=== PATIENT | female | born 1935 | race Caucasian/White ===

== ENCOUNTER 2018-01-08 14:06 | Observation (INO) | payer OTHER ==
[2018-01-08] MEDS ORDERED: ASPIRIN 81 MG CHEWABLE TABLETS PO ONE (14:33)
[2018-01-08] MEDS ORDERED: ASPIRIN 81 MG CHEWABLE TABLETS ONE (14:36)
--- NOTE | 2018-01-08 14:47 | PDOC ---
Attending Attestation - Resident Resident Name: Daniel Vines - ED Attending Attestation I have performed the following: I have examined & evaluated the patient, The case was reviewed & discussed with the resident, I agree w/resident's findings & plan, Exceptions are as noted - HPI HPI: 01/08/18 16:47 82-year-old female with a significant past medical history of hypertension presents to the emergency department with progressive shortness of breath over the last week, especially with exertion. Patient reports she is unable to walk across the room without becoming symptomatic. She also reports left-sided chest pain behind her breast that does not radiate. Patient saw her primary doctor today who checked an EKG and noted some changes that were concerning and sent her to the emergency department for further evaluation. Denies any recent fevers , chills, cough, weakness/numbness, lower extremity edema, travel/immobility. - Physicial Exam PE: 01/08/18 18:49 GENERAL: Awake, alert, and fully oriented, Syriac speaking female, in no acute distress HEAD: No signs of trauma EYES: PERRLA, EOMI, sclera anicteric, conjunctiva clear ENT: Auricles normal inspection, hearing grossly normal, nares patent, oropharynx clear without exudates. Moist mucosa NECK: Normal ROM, supple, no lymphadenopathy, JVD, or masses LUNGS: Breath sounds equal, clear to auscultation bilaterally. No wheezes, and no crackles HEART: Regular rate and rhythm, normal S1 and S2, no murmurs, rubs or gallops ABDOMEN: Soft, nontender, normoactive bowel sounds. No guarding, no rebound. No masses EXTREMITIES: Normal range of motion, no edema. No clubbing or cyanosis. No cords, erythema, or tenderness NEUROLOGICAL: Normal speech, cranial nerves intact, negative pronator drift, 5/ 5 strength in all 4 extremities, normal sensation to light touch in all 4 extremities, normal cerebellar exam, normal gait, normal reflexes and tone SKIN: Warm, Dry, normal turgor, no rashes or lesions noted. - Medical Decision Making 01/08/18 18:49 82-year-old female presents with progressive dyspnea and chest pain. EKG with some ST changes, does not meet STEMI criteria. Patient has risk factors including family history and hypertension, will admit for ACS workup, patient may need a echo and cardiac catheter for further evaluation of her chest pain.
[2018-01-08 15:11] LABS: BASO % 0.3 % (0-2.0); EOS % 1.5 % (0-4.5); HEMATOCRIT 36.9 % (32.4-45.2); HEMOGLOBIN 12.4 GM/dL (10.7-15.3); LYMPH % 19.3 % (8-40); MCH 33.9 pg (25.7-33.7); MCHC 33.7 g/dl (32.0-36.0); MEAN CELL VOLUME 100.5 fl (80-96); MEAN PLT VOLUME 8.7 fl (7.5-11.1); MONO % 5.4 % (3.8-10.2); NEUT % 73.5 % (42.8-82.8); PLATELET COUNT 232 K/MM3 (134-434); RBC 3.67 M/mm3 (3.60-5.2); RDW 14.6 % (11.6-15.6)
[2018-01-08 15:34] LABS: INR 1.01 (0.82-1.09); PROTHROMBIN TIME (PATIENT) 11.4 SEC (9.98-11.88)
[2018-01-08 15:39] LABS: ALBUMIN 3.9 g/dl (3.4-5.0); ANION GAP 11 (8-16); BILIRUBIN,TOTAL 0.5 mg/dL (0.2-1.0); BLOOD UREA NITROGEN 17 mg/dL (7-18); CALCIUM 9.3 mg/dL (8.5-10.1); CHLORIDE 104 mmol/L (98-107); CO2 29 mmol/L (21-32); CREATININE 0.8 mg/dL (0.55-1.02); GLUCOSE,RANDOM 111 mg/dL (74-106); MAGNESIUM 2.4 mg/dL (1.8-2.4); POTASSIUM 3.7 mmol/L (3.5-5.1); SGOT/AST 20 U/L (15-37); SGPT/ALT 18 U/L (12-78); SODIUM 144 mmol/L (136-145); TOT PROT 7.7 g/dl (6.4-8.2)
[2018-01-08 15:42] LABS: ALK PHOS 102 U/L (45-117); N-TERMINAL BNP 811.15 pg/ml (5-450)
--- NOTE | 2018-01-08 15:57 | PDOC ---
History of Present Illness - General Chief Complaint: Shortness of Breath Stated Complaint: PCP SENT Time Seen by Provider: 01/08/18 14:24 History Source: Patient - History of Present Illness Initial Comments: 01/08/18 15:43 Patient is an 82F with history of HTN here today complaining of shortness of breath worsening from her baseline shortness of breath today. She also complains of associated chest pain that worsens with exertion, does not improve with rest. She describes the chest pain as chronic, but states that it's worse today. Endorses chills, denies fevers, nausea, vomiting. Denies history of blood clots, leg swelling. She complains of multiple other chronic pain complaints in her shoulder and chest. Patient was sent in by her PCP with concerning EKGs. Past History - Past Medical History Allergies/Adverse Reactions: Allergies Allergy/AdvReac Type Severity Reaction Status Date / Time No Known Allergies Allergy Verified 01/08/18 14:11 Home Medications: Ambulatory Orders Olmesartan Medoxomil [Benicar] 20 mg PO DAILY 01/08/18 - Suicide/Smoking/Psychosocial Hx Smoking History: Never smoked Review of Systems - Review of Systems Comments:: 01/08/18 15:57 GENERAL/CONSTITUTIONAL: No fever. No weakness. Positive for chills. HEAD, EYES, EARS, NOSE AND THROAT: No change in vision. No sore throat. CARDIOVASCULAR: Positive for chest pain and shortness of breath RESPIRATORY: No cough, wheezing, or hemoptysis. GASTROINTESTINAL: No nausea, vomiting, diarrhea or constipation. GENITOURINARY: No dysuria, frequency, or change in urination. MUSCULOSKELETAL: Positive for back and shoulder pain. SKIN: No rash NEUROLOGIC: No headache, vertigo, loss of consciousness, or change in strength/ sensation. ENDOCRINE: No increased thirst. No abnormal weight change HEMATOLOGIC/LYMPHATIC: No anemia, easy bleeding, or history of blood clots. ALLERGIC/IMMUNOLOGIC: No hives or skin allergy. *Physical Exam - Vital Signs Last Vital Signs Temp Pulse Resp BP Pulse Ox 98 F 95 H 22 187/51 97 01/08/18 14:11 01/08/18 14:11 01/08/18 14:11 01/08/18 14:11 01/08/18 14:11 - Physical Exam Comments: 01/08/18 16:01 GENERAL: Awake, alert, and fully oriented HEAD: No signs of trauma, normocephalic, atraumatic EYES: PERRLA, EOMI, sclera anicteric, conjunctiva clear ENT: Auricles normal inspection, hearing grossly normal, nares patent, oropharynx clear without exudates. Moist mucosa NECK: Normal ROM, supple, no lymphadenopathy, JVD, or masses CHEST: Tender to palpation along left pectoralis. LUNGS: tachypneic, speaks full sentences, clear to auscultation bilaterally HEART: Regular rate and rhythm, normal S1 and S2, no murmurs, rubs or gallops, peripheral pulses normal and equal bilaterally. ABDOMEN: Soft, nontender, normoactive bowel sounds. No guarding, no rebound. No masses EXTREMITIES: Normal inspection, Normal range of motion, no edema. No clubbing or cyanosis. NEUROLOGICAL: Cranial nerves II through XII grossly intact. Normal speech, normal gait, no focal sensorimotor deficits SKIN: Warm, Dry, normal turgor, no rashes or lesions noted. ED Treatment Course - LABORATORY CBC & Chemistry Diagram: 01/08/18 14:30 01/08/18 14:30 - ADDITIONAL ORDERS Additional order review: 01/08/18 14:30 RBC 3.67 MCV 100.5 H MCHC 33.7 RDW 14.6 MPV 8.7 Neutrophils % 73.5 Lymphocytes % 19.3 Monocytes % 5.4 Eosinophils % 1.5 Basophils % 0.3 - RADIOLOGY Radiology Studies Ordered: Category Date Time Status CHEST CTA [CT] Stat CT Scan 01/08/18 15:16 Ordered CHEST X-RAY PORTABLE* [RAD] Stat Radiology 01/08/18 14:33 Completed - Medications Given in the ED: ED Medications Discontinued Medications Generic Name Dose Route Start Last Admin Trade Name Freq PRN Reason Stop Dose Admin Aspirin 162 mg 01/08/18 14:33 01/08/18 14:35 Asa - PO 01/08/18 14:34 162 mg ONCE ONE Administration Medical Decision Making - Medical Decision Making 01/08/18 16:02 Patient is an 82F with history of HTN here today with shortness of breath. Patient brought in two EKGs: 08/30, year obscured: Normal sinus rhyth with rate of 77bpm. No st elevations/ depressions. Normal QRS width. St inversions in lateral leads. ST depressions in II, aVF. Bundle formation beginning in aVR. Today, as outpatient. EKG shows normal sinus rhythm with rate of 84. Bundle morphology in aVR but larger. ST inversions in V1-V5, II, III, aVF. ST eprssions in II, aVF. RBB morphology, widened QRS Inpatient shows normal sinus rhythm with rate of 89. RBBB morphology. ST depressions in V4-V6. ST inversions in all leads. Normal ND. 01/08/18 21:35 Laboratory Tests 01/08/18 01/08/18 01/08/18 14:30 14:30 14:30 WBC 6.0 Hgb 12.4 Hct 36.9 Plt Count 232 INR 1.01 Troponin I < 0.02 B-Natriuretic Peptide 811.15 H CBC normal. INR normal. Trop undetectable. CMP unremarkable. BNP slightly elevated. CTA negative. Admitted for shortness of breath via Dr Morataya. *DC/Admit/Observation/Transfer Diagnosis at time of Disposition: Shortness of breath - Discharge Dispostion Disposition: HOME Condition at time of disposition: Stable Admit: Yes - Referrals Referrals: Sergio Calvert MD [Primary Care Provider] - - Patient Instructions - Post Discharge Activity
[2018-01-08] MEDS ORDERED: VALSARTAN 160 MG TABLET (UD) PO SCH (21:30)
--- NOTE | 2018-01-08 21:34 | PN ---
Teaching Attending Note Name of Resident: Tran Carrasquillo ATTENDING PHYSICIAN STATEMENT I saw and evaluated the patient. I reviewed the resident's note and discussed the case with the resident. I agree with the resident's findings and plan as documented. SUBJECTIVE: 82 F with hx. of HTN who presents with shortness of breath. States also had chest pain that has been present for over 3 weeks, but has worsened. States she was recently seen in her PCPs office for chest pain and had EKG there that was concerning. States she has pain in her left chest wall, under her breast. Does not note, pain to radiate. No nausea, vomiting, or diarrhea. No fevers or chills. States her shortness of breath has currently improved and denies any current chest pain. OBJECTIVE: Physical: VS: Vital Signs Period Temp Pulse Resp BP Sys/Leger Pulse Ox Last 24 Hr 98 F-98.3 F 74-95 18-22 154-187/51-92 97-98 GEN: NAD, Resting in bed, AA0X3 HEENT: NCAT, PERRL, Throat without erythema or exudates CARD: RRR S1, S2 RESP: CTAB ABD: BSx4, NTD to palpation EXT: - C/C/E CBCD WBC 6.0 K/mm3 (4.0-10.0) 01/08/18 14:30 RBC 3.67 M/mm3 (3.60-5.2) 01/08/18 14:30 Hgb 12.4 GM/dL (10.7-15.3) 01/08/18 14:30 Hct 36.9 % (32.4-45.2) 01/08/18 14:30 MCV 100.5 fl (80-96) H 01/08/18 14:30 MCHC 33.7 g/dl (32.0-36.0) 01/08/18 14:30 RDW 14.6 % (11.6-15.6) 01/08/18 14:30 Plt Count 232 K/MM3 (134-434) 01/08/18 14:30 MPV 8.7 fl (7.5-11.1) 01/08/18 14:30 CMP Sodium 144 mmol/L (136-145) 01/08/18 14:30 Potassium 3.7 mmol/L (3.5-5.1) 01/08/18 14:30 Chloride 104 mmol/L (98-107) 01/08/18 14:30 Carbon Dioxide 29 mmol/L (21-32) 01/08/18 14:30 Anion Gap 11 (8-16) 01/08/18 14:30 BUN 17 mg/dL (7-18) 01/08/18 14:30 Creatinine 0.8 mg/dL (0.55-1.02) 01/08/18 14:30 Creat Clearance w eGFR > 60 (>60) 01/08/18 14:30 Random Glucose 111 mg/dL (74-106) H 01/08/18 14:30 Calcium 9.3 mg/dL (8.5-10.1) 01/08/18 14:30 Total Bilirubin 0.5 mg/dL (0.2-1.0) 01/08/18 14:30 AST 20 U/L (15-37) 01/08/18 14:30 ALT 18 U/L (12-78) 01/08/18 14:30 Alkaline Phosphatase 102 U/L (45-117) 01/08/18 14:30 Total Protein 7.7 g/dl (6.4-8.2) 01/08/18 14:30 Albumin 3.9 g/dl (3.4-5.0) 01/08/18 14:30 CARDIAC ENZYMES Creatine Kinase 85 IU/L (26-192) 01/08/18 14:30 Troponin I < 0.02 ng/ml (0.00-0.05) 01/08/18 14:30 Ambulatory Orders Olmesartan Medoxomil [Benicar] 20 mg PO DAILY 01/08/18 CTA: NO PE or Pneumonia, Distended gallbladder, CBD 12mm, solid nodular opacities in right and left lung base meausring up to 0.8 cm/ Follow up CT chest in 3-6 months. EKG: NSR 89, RBBB, ST depressions V4-V6. QtC 501 ASSESSMENT AND PLAN: 82 F with hx. of HTN who presents with shortness of breath, being admitted for ACS rule out 1.) Shortness of breath - RO ACS, Pulm. htn - Does not look in failure, clincally euvolemic - Trend Trop/EKG - Echo - ASA - BB - If CP reoccurs Nitro/Morphine - Cardio consult, for poss. stress in am 2.) HTN - C/W ARB 3.) Prolonged QtC - Check Mg2+ - Avoid Qt Prolonging agents
[2018-01-08] MEDS ORDERED: VALSARTAN 80 MG TABLET (UD) ONE (21:46)
--- NOTE | 2018-01-08 23:59 | HP ---
CHIEF COMPLAINT: SOB x 1 week PCP: HISTORY OF PRESENT ILLNESS: 82 y/o F with PMH HTN who presents to the ED c/o SOB over the past week. As per , over the past week, pt has noticed dyspnea on exertion when she walks 4 -5 steps. This is different from her baseline, as she is usually able to ambulate a few blocks without trouble. During this time, pt has also had a non productive cough and L chest wall pain, below her breast which is 10/10, sharp, constant and without radiation. Pt saw her PCP recently and had EKG abnormalities, so she was sent to the ED for further evaluation. Denies STEEN, fever, chills, palpitations, chest pressure, or changes in urinary or bowel function. In August, pt's EKG was NSR, with PVC's, PAC's, and ST-T wave changes. Today, pt in NSR with PAC's, RVH, and anterior, septal and lateral ST-T changes possibly due to RVH. Repeat EKG revealed NSR with PVC's, new RBBB, and T wave abnormality and lateral ischemia. She does not follow routinely with a multineedle shirrer. ER course was notable for: (1) EKG revealed NSR with PVC's, new RBBB, and T wave abnormality and lateral ischemia V4-V6 (2) first two trops (-) (3) Aspirin 162mg x 1 Recent Travel: none PAST MEDICAL HISTORY: as above PAST SURGICAL HISTORY: R, L inguinal hernia repair Social History: stayed at home with family; never worked Smoking: denies Alcohol: denies Drugs: denies Family History: non-contributory Allergies No Known Allergies Allergy (Verified 01/08/18 14:11) HOME MEDICATIONS: Home Medications Medication Instructions Recorded Olmesartan Medoxomil [Benicar] 20 mg PO DAILY 01/08/18 REVIEW OF SYSTEMS CONSTITUTIONAL: Absent: fever, chills, diaphoresis, generalized weakness, malaise, loss of appetite, weight change HEENT: Absent: rhinorrhea, nasal congestion, throat pain, throat swelling, difficulty swallowing, mouth swelling, ear pain, eye pain, visual changes CARDIOVASCULAR: +chest pain Absent: chest pain, syncope, palpitations, irregular heart rate, lightheadedness , peripheral edema RESPIRATORY: +cough, SOB, MERRITT Absent: orthopnea, wheezing, stridor, hemoptysis GASTROINTESTINAL: Absent: abdominal distension, nausea, vomiting, diarrhea, constipation, melena, hematochezia GENITOURINARY: Absent: dysuria, frequency, urgency, hesitancy, hematuria, flank pain, genital pain MUSCULOSKELETAL: Absent: myalgia, arthralgia, joint swelling, back pain, neck pain SKIN: Absent: rash, itching, pallor HEMATOLOGIC/IMMUNOLOGIC: Absent: easy bleeding, easy bruising, lymphadenopathy, frequent infections ENDOCRINE: Absent: unexplained weight gain, unexplained weight loss, heat intolerance, cold intolerance NEUROLOGIC: Absent: headache, focal weakness or paresthesias, dizziness, unsteady gait, seizure, mental status changes, bladder or bowel incontinence PSYCHIATRIC: Absent: anxiety, depression, suicidal or homicidal ideation, hallucinations. PHYSICAL EXAMINATION Vital Signs 01/08/18 01/08/18 01/08/18 14:11 17:05 21:08 Temperature 98 F 98.3 F Pulse Rate 95 H Pulse Rate [ 74 86 Apical] Respiratory 22 18 18 Rate Blood Pressure 187/51 Blood Pressure 154/76 160/92 [Left Arm] O2 Sat by Pulse 97 98 98 Oximetry (%) GENERAL: Sitting comfortably. Awake, alert, and fully oriented, in no acute distress. HEAD: Normal with no signs of trauma. EYES: Pupils equal, round and reactive to light, extraocular movements intact, sclera anicteric, conjunctiva clear. EARS, NOSE, THROAT: Ears normal, nares patent, oropharynx clear without exudates. Moist mucous membranes. NECK: Normal range of motion, (-) JVD LUNGS: Breath sounds equal, clear to auscultation bilaterally. No wheezes, and no crackles. No accessory muscle use. CHEST: +TTP L chest HEART: Regular rate and rhythm, normal S1 and S2 without murmur, rub or gallop. ABDOMEN: Soft, nontender, not distended, normoactive bowel sounds, no guarding, no rebound, no masses. No hepatomegaly or splenomegaly. MUSCULOSKELETAL: Normal range of motion at all joints. No bony deformities or tenderness. No CVA tenderness. UPPER EXTREMITIES: 2+ radial pulses, warm, well-perfused. No cyanosis. No clubbing. No peripheral edema. LOWER EXTREMITIES: 2+ posterior tibial pulses, warm, well-perfused. No calf tenderness. No peripheral edema. NEUROLOGICAL: Cranial nerves II-XII intact. Laboratory Results 01/08/18 01/08/18 01/08/18 14:30 14:30 14:30 WBC 6.0 RBC 3.67 Hgb 12.4 Hct 36.9 MCV 100.5 H MCH 33.9 H MCHC 33.7 RDW 14.6 Plt Count 232 MPV 8.7 Neutrophils % 73.5 Lymphocytes % 19.3 Monocytes % 5.4 Eosinophils % 1.5 Basophils % 0.3 PT with INR 11.40 INR 1.01 Sodium 144 Potassium 3.7 Chloride 104 Carbon Dioxide 29 Anion Gap 11 BUN 17 Creatinine 0.8 Creat Clearance w eGFR > 60 Random Glucose 111 H Calcium 9.3 Magnesium 2.4 Total Bilirubin 0.5 AST 20 ALT 18 Alkaline Phosphatase 102 Creatine Kinase 85 Troponin I < 0.02 B-Natriuretic Peptide 811.15 H Total Protein 7.7 Albumin 3.9 01/08/18 21:55 ALT Alkaline Phosphatase Creatine Kinase 68 Troponin I < 0.02 B-Natriuretic Peptide TESTS CTA: no evidence of PE, without infiltrates. With distended gallbladder, dilated CBD 12mm. Solid nodular opacities -pulm nodules in RLL, LLL up to 0.8 cm EKG: NSR 89, RBBB, ST depressions V4-V6. QtC 501 ASSESSMENT/PLAN: 82 y/o F with PMH HTN who presents to the ED c/o SOB over the past week. As per , over the past week, pt has noticed dyspnea on exertion when she walks 4 -5 steps. Pt admitted to tele-obs for SOB r/o ACS, pulmonary HTN. #SOB r/o ACS, pulm HTN -Pt c/o worsening MERRITT over the past week -less likely CHF - though BNP elevated ~800, may be 2/2 older age -Chest pain atypical -Received aspirin 162mg in ED -First two trops (-) -Continue to trend last trop q6h, follow EKG -F/u ECHO -Telemetry monitoring -To start on aspirin 81mg PO qd -Metoprolol tartate 25mg PO qd -Can add morphine/ NG if chest pain recurs -Cardio consult: Dr. Reyes -May need stress test #HTN- currently controlled -Continue benicar 20mg PO qd #Prolonged QTc -EKG in ED: QTc 501ms -Avoid QT prolonging agents -F/u Mg level; pending 6AM #Pulmonary nodules -Seen in RLL, LLL up to 0.8cm -Recommend CT chest f/u in 3-6 months -Outpatient pulm f/u #Distended GB, dilated CBD 12mm -Currently asymptomatic, without c/o abdominal pain -Continue to monitor -If becomes sx, would benefit from RUQ sono #F/E/N -no fluids required at this time -Continue to monitor electrolytes -Sodium controlled diet #PPX DVT: SCD's #Dispo tele-obs Visit type - Emergency Visit Emergency Visit: Yes ED Registration Date: 01/08/18 Care time: The patient presented to the Emergency Department on the above date and was hospitalized for further evaluation of their emergent condition. - New Patient This patient is new to me today: Yes Date on this admission: 01/09/18 - Critical Care Critical Care patient: No Hospitalist Screening - Colonoscopy Questionnaire Colonoscopy Questionnaire: Colonoscopy Questionnaire - Patient: 50 - 75 years old and never had a screening colonoscopy: Unknown History of colon or rectal polyps, or CA: Unknown History of IBD, Crohn's disease or UC: Unknown History of abdominal radiation therapy as a child: Unknown - Relative: 1 with colon or rectal CA, or polyps at age 60 or younger: Unknown Colon or rectal CA diagnosed at age 45 or younger: Unknown Multiple relatives with colon or rectal CA: Unknown - Outcome: Screening Result: Negative Screen
--- NOTE | 2018-01-09 06:30 | PN ---
Physical Exam: SUBJECTIVE: Patient seen and examined - Pt w/ likely baseline dementia; Denies pain; limited hx, no family present at time - Spoke with Dr. Faye in PM; plan for [facility] tomorrow AM if pt/family amenable; if not, will go for stress test and d/c home with outpt f/u OBJECTIVE: Vital Signs Intake & Output 01/06/18 01/07/18 01/08/18 01/09/18 23:59 23:59 23:59 23:59 Weight 45.359 kg Period Temp Pulse Resp BP Sys/Leger Pulse Ox Last 24 Hr 98 F-98.3 F 74-95 18-22 154-187/51-92 97-98 GENERAL: Elderly woman, NAD HEAD: Normal with no signs of trauma. EYES: PERRL, extraocular movements intact, sclera anicteric, conjunctiva clear. No ptosis. ENT: Ears normal, nares patent NECK: Trachea midline, full range of motion, supple. no JVD LUNGS: Trace bibasilar crackles HEART: Regular rate and rhythm, S1, S2 without murmur, rub or gallop. Slight tenderness to palpation in L anterior chest wall ABDOMEN: Soft, nontender, nondistended, normoactive bowel sounds, no guarding, no rebound, no hepatosplenomegaly, no masses. EXTREMITIES: 2+ pulses, warm, well-perfused, no edema. NEUROLOGICAL: Cranial nerves II through XII grossly intact. Nonsensical speech; preserved comprehension PSYCH: Normal mood, normal affect. pleasant SKIN: Warm, dry, normal turgor, no rashes or lesions noted Laboratory Results - last 24 hr CBC, BMP 01/09/18 07:00 01/09/18 07:00 01/08/18 14:30 01/08/18 14:30 01/08/18 01/08/18 01/08/18 14:30 14:30 14:30 WBC 6.0 RBC 3.67 Hgb 12.4 Hct 36.9 MCV 100.5 H MCH 33.9 H MCHC 33.7 RDW 14.6 Plt Count 232 MPV 8.7 Neutrophils % 73.5 Lymphocytes % 19.3 Monocytes % 5.4 Eosinophils % 1.5 Basophils % 0.3 PT with INR 11.40 INR 1.01 Sodium 144 Potassium 3.7 Chloride 104 Carbon Dioxide 29 Anion Gap 11 BUN 17 Creatinine 0.8 Creat Clearance w eGFR > 60 Random Glucose 111 H Calcium 9.3 Magnesium 2.4 Total Bilirubin 0.5 AST 20 ALT 18 Alkaline Phosphatase 102 Creatine Kinase 85 Troponin I < 0.02 B-Natriuretic Peptide 811.15 H Total Protein 7.7 Albumin 3.9 01/08/18 01/09/18 21:55 03:04 WBC RBC Hgb Hct MCV MCH MCHC RDW Plt Count MPV Neutrophils % Lymphocytes % Monocytes % Eosinophils % Basophils % PT with INR INR Sodium Potassium Chloride Carbon Dioxide Anion Gap BUN Creatinine Creat Clearance w eGFR Random Glucose Calcium Magnesium Total Bilirubin AST ALT Alkaline Phosphatase Creatine Kinase 68 54 Troponin I < 0.02 < 0.02 B-Natriuretic Peptide Total Protein Albumin Active Medications Generic Name Dose Route Start Last Admin Trade Name Freq PRN Reason Stop Dose Admin Aspirin 81 mg 01/09/18 10:00 Ecotrin - PO DAILY LAMONT Metoprolol Tartrate 25 mg 01/09/18 10:00 Lopressor - PO DAILY [facility]ONT Valsartan 160 mg 01/08/18 22:38 Diovan - PO DAILY [facility]ONT No micro pending CTA 01/08 - no evidence of PE, without infiltrates. With distended gallbladder, dilated CBD 12mm. Solid nodular opacities -pulm nodules in RLL, LLL up to 0.8 cm EKG 01/08 - NSR 89, RBBB, ST depressions V4-V6. QtC 501 EKG 01/09 - Rate 85, NSR w/ pvcs, RBBB, qtc 466 ECHO 01/09 - technically difficult; mild AR; Normal LV size and function ASSESSMENT/PLAN: 82 y/o F with PMH HTN who presents to the ED c/o SOB over the past week. As per , over the past week, pt has noticed dyspnea on exertion when she walks 4 -5 steps. Pt admitted to tele-obs for SOB r/o ACS, pulmonary HTN. For LHC at [facility] if agreeable. #SOB/r/o ACS - trops negative x3; worsening dyspnea with exertion per family over last week; BNP 800; atypical chest pain; echo as noted above - LHC tomorrow if family amenable; otherwise, nuclear stress test -Telemetry monitoring -ASA 81mg -Metoprolol tartate 25mg PO qd -Can add morphine/ NG if chest pain recurs -Cardio consult- seen by Dr. Faye - Serial EKGs - lipid panel #HTN- currently controlled -diovan 160 mg daily #Prolonged QTc- initial ekg 502, repeat 466 -Avoid QT prolonging agents - mg level normal #Pulmonary nodules- Seen in RLL, LLL up to 0.8cm -Recommend CT chest f/u in 3-6 months -Outpatient pulm f/u #Distended GB - dilated CBD 12mm; alk phos normal - no symptoms - RUQ US if symptomatic #F/E/N PO hydration daily lytes -Sodium controlled diet, NPO after midnight for [facility] #PPX SCDs Lovenox #Dispo Tele Obs Plan discussed with attending, Dr. Fidel Bennett, PGY1 Visit type - Emergency Visit Emergency Visit: Yes ED Registration Date: 01/08/18 Care time: The patient presented to the Emergency Department on the above date and was hospitalized for further evaluation of their emergent condition. - New Patient This patient is new to me today: Yes Date on this admission: 01/10/18 - Critical Care Critical Care patient: No
[2018-01-09 07:54] LABS: BASO % 0.6 % (0-2.0); EOS % 4.1 % (0-4.5); HEMATOCRIT 35.7 % (32.4-45.2); HEMOGLOBIN 12.1 GM/dL (10.7-15.3); LYMPH % 31.1 % (8-40); MCH 33.9 pg (25.7-33.7); MCHC 33.9 g/dl (32.0-36.0); MEAN CELL VOLUME 99.9 fl (80-96); MEAN PLT VOLUME 8.7 fl (7.5-11.1); MONO % 5.7 % (3.8-10.2); NEUT % 58.5 % (42.8-82.8); PLATELET COUNT 237 K/MM3 (134-434); RBC 3.57 M/mm3 (3.60-5.2); RDW 14.9 % (11.6-15.6)
[2018-01-09 08:13] LABS: ANION GAP 4 (8-16); BLOOD UREA NITROGEN 18 mg/dL (7-18); CALCIUM 9.1 mg/dL (8.5-10.1); CHLORIDE 106 mmol/L (98-107); CO2 31 mmol/L (21-32); CREATININE 0.8 mg/dL (0.55-1.02); GLUCOSE,RANDOM 90 mg/dL (74-106); MAGNESIUM 2.3 mg/dL (1.8-2.4); PHOSPHOROUS 3.9 mg/dL (2.5-4.9); POTASSIUM 4.2 mmol/L (3.5-5.1); SODIUM 141 mmol/L (136-145)
[2018-01-09] MEDS ORDERED: METOPROLOL TARTRATE 25 MG TABLET (FP) PO SCH ×2 (10:00→18:24)
--- NOTE | 2018-01-09 10:50 | EKG ---
Test Reason : Blood Pressure : / mmHG Vent. Rate : 085 BPM Atrial Rate : 085 BPM P-R Int : 114 ms QRS Dur : 114 ms QT Int : 392 ms P-R-T Axes : 060 -21 -72 degrees QTc Int : 466 ms SINUS RHYTHM WITH PREMATURE ATRIAL COMPLEXES WITH ABERRANT CONDUCTION RIGHT BUNDLE BRANCH BLOCK MARKED ST ABNORMALITY, POSSIBLE INFERIOR SUBENDOCARDIAL INJURY ABNORMAL ECG NO PREVIOUS ECGS AVAILABLE Confirmed by JOYCE MULLER, CARLITOS ([id number]) on 01/09/2018 10:50:10 AM Referred By: Suzy MENDOZA Confirmed By:CARLITOS COOK MD
--- NOTE | 2018-01-09 11:20 | EKG ---
Test Reason : Blood Pressure : / mmHG Vent. Rate : 089 BPM Atrial Rate : 089 BPM P-R Int : 118 ms QRS Dur : 114 ms QT Int : 412 ms P-R-T Axes : 061 -11 -26 degrees QTc Int : 501 ms SINUS RHYTHM WITH PREMATURE SUPRAVENTRICULAR COMPLEXES RIGHT BUNDLE BRANCH BLOCK T WAVE ABNORMALITY, CONSIDER LATERAL ISCHEMIA ABNORMAL ECG NO PREVIOUS ECGS AVAILABLE Confirmed by CARLITOS COOK MD ([id number]) on 01/09/2018 11:20:24 AM Referred By: Confirmed By:CARLITOS COOK MD
--- NOTE | 2018-01-09 11:49 | CON.CARD ---
Consult Consult Specialty:: Cardiology Referred by:: Ella Morataya Reason for Consultation:: SOB. abnormal ekg - History of Present Illness Chief Complaint: SOB History of Present Illness: 82 year old female with a pmhx of htn presenting with sob and abnormal ekg. Patient has noticed feeling fatigued and some sob last week or so. No pnd, orthopnea, or edema. No palpitations. Went to her doctors office who sent her to ER due to concerning EKG. EKG with RBBB and marked ST abnormalities in V2-5 Spoke to son at length with the patient and it seems like she has been complaining of a lot of pain on her left side and at times pain in left arm/ hand. No sob, palpitations, or diaphoresis. Pain has been worse this past week and especially yesterday. - History Source History Provided By: Patient, Family Member, Medical Record - Past Medical History Cardio/Vascular: Yes: HTN - Smoking History Smoking history: Never smoked Home Medications - Allergies Allergies/Adverse Reactions: Allergies Allergy/AdvReac Type Severity Reaction Status Date / Time No Known Allergies Allergy Verified 01/08/18 14:11 - Home Medications Home Medications: Ambulatory Orders Olmesartan Medoxomil [Benicar] 20 mg PO DAILY 01/08/18 Vital Signs: Vital Signs Temperature 98.4 F 01/09/18 06:56 Pulse Rate 84 01/09/18 06:56 Respiratory Rate 16 01/09/18 06:56 Blood Pressure 120/58 01/09/18 06:56 O2 Sat by Pulse Oximetry (%) 97 01/09/18 06:56 Constitutional: Yes: No Distress Neck: Yes: Supple Respiratory: Yes: CTA Bilaterally Gastrointestinal: Yes: Soft Cardiovascular: Yes: Regular Rate and Rhythm JVD: No Carotid Bruit: No Heart Sounds: Yes: S1, S2 Murmur: No: Systolic Murmur Edema: No - Other Data Labs, Other Data: CBC, BMP 01/09/18 07:00 01/09/18 07:00 INR, PTT INR 1.01 (0.82-1.09) 01/08/18 14:30 Troponin, BNP 01/08/18 01/08/18 01/09/18 14:30 21:55 03:04 Troponin I < 0.02 < 0.02 < 0.02 B-Natriuretic Peptide 811.15 H Troponin, BNP 01/08/18 01/08/18 01/09/18 14:30 21:55 03:04 Troponin I < 0.02 < 0.02 < 0.02 B-Natriuretic Peptide 811.15 H Imaging - Results Chest X-ray: Report Reviewed EKG: Image Reviewed Problem List - Problems (1) Shortness of breath Code(s): R06.02 - SHORTNESS OF BREATH Assessment/Plan 82 year old female with a pmhx of htn presenting with sob and abnormal ekg. Patient has noticed feeling fatigued and some sob last week or so. No pnd, orthopnea, or edema. No palpitations. Went to her doctors office who sent her to ER due to concerning EKG. 1) SOB CXR unremarkable CT chest with no pe -BP controlled on valsartan Started on metoprolol 25mg po bid Aspirin 81mg daily. Start atorvastatin 20mg daily Plan for echocardiogram to evaluate LVEF, valve anatomy, and pulmonary pressures. CE's negative. Please keep NPO after midnight Recommended cardiac cath if patient agreeable. Patient's son, father, and patient will discuss tonight and call me tonight. If agrees to cardiac cath will arrange for transfer to [facility] tomorrow.
[2018-01-09] MEDS: ASPIRIN COATED 81 MG TABLET.EC PO SCH (12:03)
[2018-01-09] MEDS: VALSARTAN 160 MG TABLET (UD) PO SCH (12:03)
--- NOTE | 2018-01-09 18:21 | PN ---
Teaching Attending Note Name of Resident: Claus Bennett ATTENDING PHYSICIAN STATEMENT I saw and evaluated the patient. I reviewed the resident's note and discussed the case with the resident. I agree with the resident's findings and plan as documented with exceptions mentioned below. SUBJECTIVE: Patient seen and examined, getting echo, no complaints currently OBJECTIVE: Vital Signs Period Temp Pulse Resp BP Sys/Leger Pulse Ox Last 24 Hr 98.4 F-98.6 F 19-86 16-24 120-160/58-94 96-98 Intake & Output 01/06/18 01/07/18 01/08/18 01/09/18 23:59 23:59 23:59 23:59 Weight 100 lb Further exam limited as patient getting 2D echo Home Medication List Medication Instructions Recorded Confirmed Type Olmesartan Medoxomil [Benicar] 20 mg PO DAILY 01/08/18 01/08/18 History Active Medications Generic Name Dose Route Start Last Admin Trade Name Agustinq PRN Reason Stop Dose Admin Aspirin 81 mg 01/09/18 10:00 01/09/18 12:03 Ecotrin - PO 81 mg DAILY [facility] Administration Metoprolol Tartrate 25 mg 01/09/18 10:00 01/09/18 12:03 Lopressor - PO 25 mg DAILY [facility] Administration Valsartan 160 mg 01/08/18 22:38 01/09/18 12:03 Diovan - PO 160 mg DAILY [facility] Administration Laboratory Results - last 24 hr 01/08/18 01/09/18 01/09/18 21:55 03:04 07:00 WBC 6.0 RBC 3.57 L Hgb 12.1 Hct 35.7 MCV 99.9 H MCH 33.9 H MCHC 33.9 RDW 14.9 Plt Count 237 MPV 8.7 Neutrophils % 58.5 D Lymphocytes % 31.1 D Monocytes % 5.7 Eosinophils % 4.1 D Basophils % 0.6 Sodium Potassium Chloride Carbon Dioxide Anion Gap BUN Creatinine Random Glucose Calcium Phosphorus Magnesium Creatine Kinase 68 54 Troponin I < 0.02 < 0.02 01/09/18 07:00 WBC RBC Hgb Hct MCV MCH MCHC RDW Plt Count MPV Neutrophils % Lymphocytes % Monocytes % Eosinophils % Basophils % Sodium 141 Potassium 4.2 Chloride 106 Carbon Dioxide 31 Anion Gap 4 L BUN 18 Creatinine 0.8 Random Glucose 90 Calcium 9.1 Phosphorus 3.9 Magnesium 2.3 Creatine Kinase Troponin I EKG reviewed, RBBB with T inversion in V2-V5, RVH 2D echo results reviewed ASSESSMENT AND PLAN: 82 yof with HTN, admitted with shortness of breath and intermittent left sided chest pain prior to admission per family. -Shortness of breath with RBBB/Anterolateral EKG changes -Intermittent left sided chest pain per family, none since admission -HTN PLan: ACS ruled out. Cardiology input appreciated. PLan for LHC tomorrow if patient agreable. NPO after midnight. ASA/metoprolol. Check lipid panel DVTPPX with lovenox Dispo possible transfer to [facility] in AM if patient agreable for LHC.
[2018-01-10] MEDS ORDERED: ACETAMINOPHEN 500 MG TABLET (FP) PO PRN (00:18)
[2018-01-10 00:38] VITALS: BMI 22.4
--- NOTE | 2018-01-10 06:19 | PN ---
Physical Exam: SUBJECTIVE: Patient seen and examined by me this AM - Follows commands, nonsensical answers. Denies any pain or complaints however. Resting comfortably. Afebrile, hemo stable, no overnight events. OBJECTIVE: Vital Signs Intake & Output 01/07/18 01/08/18 01/09/18 01/10/18 23:59 23:59 23:59 23:59 Intake Total 10 10 Balance 10 10 Weight 45.359 kg 50.462 kg Period Temp Pulse Resp BP Sys/Leger Pulse Ox Last 24 Hr 98.3 F-98.6 F 19-84 16-24 116-148/49-94 96-97 GENERAL: Elderly woman, NAD, unable to assess orientation, nonverbal HEAD: Normal with no signs of trauma. EYES: PERRL, extraocular movements intact, sclera anicteric, conjunctiva clear. No ptosis. ENT: Ears normal, nares patent NECK: Trachea midline, full range of motion, supple. no JVD LUNGS: CTABL, no wheezes or crackles HEART: IRR rhythm, S1, S2 without murmur, rub or gallop. No TTP in anterior chest wall ABDOMEN: Soft, nontender, nondistended, normoactive bowel sounds, no guarding, no rebound, no hepatosplenomegaly, no masses. EXTREMITIES: 2+ pulses, warm, well-perfused, no edema. NEUROLOGICAL: Cranial nerves II through XII grossly intact. Nonsensical speech; mild comprehension deficit PSYCH: Normal mood, normal affect. pleasant SKIN: Warm, dry, normal turgor, no rashes or lesions noted Laboratory Results - last 24 hr CBC, BMP 01/10/18 05:10 01/10/18 05:10 01/09/18 01/09/18 07:00 07:00 WBC 6.0 RBC 3.57 L Hgb 12.1 Hct 35.7 MCV 99.9 H MCH 33.9 H MCHC 33.9 RDW 14.9 Plt Count 237 MPV 8.7 Neutrophils % 58.5 D Lymphocytes % 31.1 D Monocytes % 5.7 Eosinophils % 4.1 D Basophils % 0.6 Sodium 141 Potassium 4.2 Chloride 106 Carbon Dioxide 31 Anion Gap 4 L BUN 18 Creatinine 0.8 Random Glucose 90 Calcium 9.1 Phosphorus 3.9 Magnesium 2.3 Active Medications Generic Name Dose Route Start Last Admin Trade Name Freq PRN Reason Stop Dose Admin Acetaminophen 500 mg 01/10/18 00:18 Tylenol - PO Q4H PRN PAIN LEVEL 1-5 Aspirin 81 mg 01/09/18 10:00 01/09/18 12:03 Ecotrin - PO 81 mg DAILY [facility] Administration Enoxaparin Sodium 40 mg 01/10/18 10:00 Lovenox - SQ DAILY [facility] Metoprolol Tartrate 25 mg 01/09/18 18:24 Lopressor - PO DAILY [facility] Valsartan 160 mg 01/08/18 22:38 01/09/18 12:03 Diovan - PO 160 mg DAILY [facility] Administration No micro pending CTA 01/08 - no evidence of PE, without infiltrates. With distended gallbladder, dilated CBD 12mm. Solid nodular opacities -pulm nodules in RLL, LLL up to 0.8 cm EKG 01/08 - NSR 89, RBBB, ST depressions V4-V6. QtC 501 EKG 01/09 - Rate 85, NSR w/ pvcs, RBBB, qtc 466 ECHO 01/09 - technically difficult; mild AR; Normal LV size and function ASSESSMENT/PLAN: 82 y/o F with PMH HTN who presents to the ED c/o SOB over the past week. As per , over the past week, pt has noticed dyspnea on exertion when she walks 4 -5 steps. Pt admitted to tele-obs for SOB r/o ACS, pulmonary HTN. [facility] does not accept pt insurance, so per Dr. Faye will attempt transfer to [facility]. Possible transfer later today or tomorrow AM. #SOB/r/o ACS - trops negative x3; worsening dyspnea with exertion per family over last week; BNP 800; atypical chest pain; echo as noted above; lipid panel with cholesterol of 201, ldl 126 - Transfer to [facility] per cardiology - possibly later this PM -Telemetry monitoring -ASA 81mg -Metoprolol tartate 25mg PO qd -Can add morphine/ NG if chest pain recurs -Cardio consult- Dr. Faye - Serial EKGs #HTN- currently controlled -diovan 160 mg daily #Prolonged QTc- initial ekg qtc 502, repeat 466 -Avoid QT prolonging agents #Pulmonary nodules- Seen in RLL, LLL up to 0.8cm -Recommend CT chest f/u in 3-6 months -Outpatient pulm f/u #Distended GB - dilated CBD 12mm; alk phos normal - no symptoms - RUQ US if symptomatic #F/E/N PO hydration daily lytes -NPO currently; if no transfer today, regular diet and NPO after midnight #PPX SCDs Lovenox #Dispo Tele Obs Plan discussed with attending, Dr. Fidel Bennett, PGY1 Visit type - Emergency Visit Emergency Visit: Yes ED Registration Date: 01/08/18 Care time: The patient presented to the Emergency Department on the above date and was hospitalized for further evaluation of their emergent condition. - New Patient This patient is new to me today: No - Critical Care Critical Care patient: No
[2018-01-10 06:43] LABS: ANION GAP 3 (8-16); BLOOD UREA NITROGEN 18 mg/dL (7-18); CALCIUM 8.6 mg/dL (8.5-10.1); CHLORIDE 106 mmol/L (98-107); CHOLESTEROL 201 mg/dL (50-200); CO2 32 mmol/L (21-32); CREATININE 0.7 mg/dL (0.55-1.02); GLUCOSE,RANDOM 88 mg/dL (74-106); MAGNESIUM 2.2 mg/dL (1.8-2.4); PHOSPHOROUS 3.4 mg/dL (2.5-4.9); POTASSIUM 3.8 mmol/L (3.5-5.1); SODIUM 141 mmol/L (136-145)
[2018-01-10 06:44] LABS: HEMATOCRIT 34.5 % (32.4-45.2); HEMOGLOBIN 11.9 GM/dL (10.7-15.3); MCH 34.6 pg (25.7-33.7); MCHC 34.5 g/dl (32.0-36.0); MEAN CELL VOLUME 100.3 fl (80-96); MEAN PLT VOLUME 8.4 fl (7.5-11.1); PLATELET COUNT 227 K/MM3 (134-434); RBC 3.44 M/mm3 (3.60-5.2); RDW 14.7 % (11.6-15.6); WHITE BLOOD COUNT 4.8 K/mm3 (4.0-10.0)
[2018-01-10 06:45] LABS: HDL CHOLESTEROL 61 mg/dL (40-60); TRIGLYCERIDES 130 mg/dL (35-160)
--- NOTE | 2018-01-10 08:17 | PN ---
Teaching Attending Note Name of Resident: Claus Bennett ATTENDING PHYSICIAN STATEMENT I saw and evaluated the patient. I reviewed the resident's note and discussed the case with the resident. I agree with the resident's findings and plan as documented with exceptions mentioned below. SUBJECTIVE: Patient seen and examined. no dyspnea, chest pain or new concerns. OBJECTIVE: Vital Signs Period Temp Pulse Resp BP Sys/Leger Pulse Ox Last 24 Hr 98.3 F-98.6 F 19-83 16-24 116-148/49-94 96-97 Intake & Output 01/07/18 01/08/18 01/09/18 01/10/18 23:59 23:59 23:59 23:59 Intake Total 10 10 Balance 10 10 Weight 100 lb 111 lb 4 oz General: sitting in bed in no acute distress Chest: CTAB, no rales or wheezing Home Medication List Medication Instructions Recorded Confirmed Type Olmesartan Medoxomil [Benicar] 20 mg PO DAILY 01/08/18 01/08/18 History Active Medications Generic Name Dose Route Start Last Admin Trade Name Mica PRN Reason Stop Dose Admin Acetaminophen 500 mg 01/10/18 00:18 Tylenol - PO Q4H PRN PAIN LEVEL 1-5 Aspirin 81 mg 01/09/18 10:00 01/09/18 12:03 Ecotrin - PO 81 mg DAILY [facility] Administration Enoxaparin Sodium 40 mg 01/10/18 10:00 Lovenox - SQ DAILY [facility] Metoprolol Tartrate 25 mg 01/09/18 18:24 Lopressor - PO DAILY [facility] Valsartan 160 mg 01/08/18 22:38 01/09/18 12:03 Diovan - PO 160 mg DAILY [facility] Administration Laboratory Results - last 24 hr 01/09/18 01/10/18 01/10/18 07:00 05:10 05:10 WBC 4.8 RBC 3.44 L Hgb 11.9 Hct 34.5 MCV 100.3 H MCH 34.6 H MCHC 34.5 RDW 14.7 Plt Count 227 MPV 8.4 Sodium 141 141 Potassium 4.2 3.8 Chloride 106 106 Carbon Dioxide 31 32 Anion Gap 4 L 3 L BUN 18 18 Creatinine 0.8 0.7 Random Glucose 90 88 Calcium 9.1 8.6 Phosphorus 3.9 3.4 Magnesium 2.3 2.2 Triglycerides 130 Cholesterol 201 H Total LDL Cholesterol 126 H HDL Cholesterol 61 H 01/10/18 05:10 WBC RBC Hgb Hct MCV MCH MCHC RDW Plt Count MPV Sodium Potassium Chloride Carbon Dioxide Anion Gap BUN Creatinine Random Glucose Calcium Phosphorus Magnesium Triglycerides Cancelled Cholesterol Cancelled Total LDL Cholesterol Cancelled HDL Cholesterol Cancelled 2D echo results reviewed ASSESSMENT AND PLAN: 82 yof with HTN, admitted with shortness of breath and intermittent left sided chest pain prior to admission per family. -Shortness of breath with RBBB/Anterolateral EKG changes -Intermittent left sided chest pain per family, none since admission -HTN PLan: ACS ruled out. Cardiology input appreciated. NPO after midnight. ASA/metoprolol. Lipid panel noted, start lipitor 40 mg hs DVTPPX with lovenox Dispo transfer to [facility] for LHC when bed available. Plan discussed with at bedside in detail, all questions answered.
[2018-01-10] MEDS ORDERED: ENOXAPARIN NA (PORCINE) 40 MG/0.4 ML DISP.SYRIN SQ SCH (10:00)
[2018-01-10] MEDS: ASPIRIN COATED 81 MG TABLET.EC PO SCH (10:39)
[2018-01-10] MEDS: VALSARTAN 160 MG TABLET (UD) PO SCH (10:39)
--- NOTE | 2018-01-10 14:03 | PN ---
Progress Note, Physician Chief Complaint: No chest pain overnight History of Present Illness: 82 year old female with a pmhx of htn presenting with sob and abnormal ekg. Patient has noticed feeling fatigued and some sob last week or so. No pnd, orthopnea, or edema. No palpitations. Went to her doctors office who sent her to ER due to concerning EKG. EKG with RBBB and marked ST abnormalities in V2-5 Spoke to son at length with the patient and it seems like she has been complaining of a lot of pain on her left side and at times pain in left arm/ hand. No sob, palpitations, or diaphoresis. Pain has been worse this past week and especially yesterday. - Current Medication List Current Medications: Active Medications Acetaminophen (Tylenol -) 500 mg PO Q4H PRN PRN Reason: PAIN LEVEL 1-5 Aspirin (Ecotrin -) 81 mg PO DAILY [facility] Last Admin: 01/10/18 10:39 Dose: 81 mg Enoxaparin Sodium (Lovenox -) 40 mg SQ DAILY [facility] Last Admin: 01/10/18 10:40 Dose: 40 mg Metoprolol Tartrate (Lopressor -) 25 mg PO DAILY [facility] Last Admin: 01/10/18 10:39 Dose: 25 mg Valsartan (Diovan -) 160 mg PO DAILY [facility] Last Admin: 01/10/18 10:39 Dose: 160 mg - Objective Vital Signs: Vital Signs Temperature 97.4 F L 01/10/18 10:00 Pulse Rate 95 H 01/10/18 10:00 Respiratory Rate 22 01/10/18 10:00 Blood Pressure 150/65 01/10/18 10:00 O2 Sat by Pulse Oximetry (%) 95 01/10/18 09:00 Constitutional: Yes: No Distress Neck: Yes: Supple Cardiovascular: Yes: Regular Rate and Rhythm, S1, S2. No: Murmur Respiratory: Yes: CTA Bilaterally Gastrointestinal: Yes: Soft Edema: No Labs: CBC, BMP 01/10/18 05:10 01/10/18 05:10 INR, PTT INR 1.01 (0.82-1.09) 01/08/18 14:30 Problem List - Problems (1) Shortness of breath Code(s): R06.02 - SHORTNESS OF BREATH Assessment/Plan 82 year old female with a pmhx of htn presenting with sob and abnormal ekg. Patient has noticed feeling fatigued and some sob last week or so. No pnd, orthopnea, or edema. No palpitations. Went to her doctors office who sent her to ER due to concerning EKG. 1) SOB CXR unremarkable CT chest with no pe -BP controlled on valsartan Started on metoprolol 25mg po bid and tolerating Aspirin 81mg daily. Atorvastatin 20mg daily echocardiogram demonstrates normal LVEF and no significant valve disease. Plan for cardiac cath and transfer to [facility] today.
[2018-01-10 15:46] VITALS: BP 134/60; PULSE 84; TEMP 99
[2018-01-10] MEDS ORDERED: ATORVASTATIN CA 40 MG TABLET (FP) PO SCH (22:00)
--- NOTE | 2018-01-16 13:21 | EKG ---
Test Reason : Blood Pressure : / mmHG Vent. Rate : 077 BPM Atrial Rate : 077 BPM P-R Int : 120 ms QRS Dur : 120 ms QT Int : 422 ms P-R-T Axes : 057 -28 -41 degrees QTc Int : 477 ms SINUS RHYTHM WITH PREMATURE ATRIAL COMPLEXES WITH ABERRANT CONDUCTION RIGHT BUNDLE BRANCH BLOCK SEPTAL INFARCT , AGE UNDETERMINED T WAVE ABNORMALITY, CONSIDER LATERAL ISCHEMIA ABNORMAL ECG WHEN COMPARED WITH ECG OF 08-JAN-2018 14:41, NO SIGNIFICANT CHANGE WAS FOUND Confirmed by JOYCE MULLER, CARLITOS ([id number]) on 01/16/2018 1:20:59 PM Referred By: Confirmed By:CARLITOS COOK MD
== END 2018-01-10 19:17 | disposition short-term general hospital (02) ==
LOC: JER 14:06 → JERBED 20:22 → J4W 01-09 17:30
PROVIDERS: ADMIT Internal Medicine; ATTEND Hospitalist
PROC: 3E013GC Introduction of Other Therapeutic Substance into Subcutaneous Tissue, Percutaneous Approach (ICD-10-PCS; principal; 2018-01-08)
DX: R06.02 Shortness of breath (principal); I10 Essential (primary) hypertension; I45.81 Long QT syndrome; I45.10 Unspecified right bundle-branch block; R91.1 Solitary pulmonary nodule; K82.8 Other specified diseases of gallbladder; K83.8 Other specified diseases of biliary tract; R07.9 Chest pain, unspecified
CPT/HCPCS: 36415; 71045-TC-FY; 71275-TC; 80048; 80053; 80061; 82550; 83721; 83735; 83880; 84100; 84484; 85025; 85027; 85610; 93005; 93010; 93306-TC; 96372; 99284-25; G0378

== ENCOUNTER 2018-10-23 14:55 | Inpatient (IN) | payer OTHER ==
--- NOTE | 2018-10-23 15:11 | PDOC ---
History of Present Illness - General Chief Complaint: Weakness Stated Complaint: CHEST PAIN Time Seen by Provider: 10/23/18 15:07 - History of Present Illness Initial Comments: 10/23/18 16:18 The patient is an 83 year old female with a history of HTN, HLD who presents for evaluation of chest pain. The patient is accompanied by her who assists in providing the history. He states that they presented to the patient' s primary care provider's office for a routine visit as the patient has been getting more short of breath and tired with ambulation and were referred to the ED for further evaluation after an EKG was performed. Per the patient's primary care provider, when discussed with the patient alone, the patient has been experiencing chest pressure and worsening shortness of breath with exertion and notes that the patient has CAD and would like cardiology consultation. The patient otherwise denies fevers, chills, cough, nausea, vomiting, abdominal pain, or changes with urination or bowel movements. Past History - Past Medical History Allergies/Adverse Reactions: Allergies Allergy/AdvReac Type Severity Reaction Status Date / Time No Known Allergies Allergy Verified 01/08/18 14:11 Home Medications: Ambulatory Orders Olmesartan Medoxomil [Benicar] 20 mg PO DAILY 01/08/18 Aspirin Coated [Ecotrin -] 81 mg PO DAILY tablet.ec 01/10/18 Atorvastatin Ca [Lipitor] 40 mg PO HS tablet 01/10/18 Metoprolol Tartrate [Lopressor -] 25 mg PO DAILY tablet 01/10/18 COPD: No HTN: Yes - Surgical History Abdominal Surgery: Yes (HERNIA REPAIR) - Suicide/Smoking/Psychosocial Hx Smoking History: Never smoked Have you smoked in the past 12 months: No Hx Alcohol Use: No Drug/Substance Use Hx: No Substance Use Type: None Hx Substance Use Treatment: No Review of Systems - Review of Systems Comments:: 10/23/18 16:21 Constitutional: No fevers, chills, fatigue, malaise HEENT: No Rhinorrhea, nasal congestion, visual changes Cardiovascular: Chest pressure. No syncope, palpitations, lightheadedness Respiratory: SOB. No Cough, Hemoptysis, Gastrointestinal: No Abdominal pain, Nausea, Vomiting, Constipation, Diarrhea, Melena Genitourinary: No Dysuria, Frequency, Urgency, Hesitancy, Hematuria, Flank pain Musculoskeletal: No Myalgia, arthralgia Skin: No rashes, itching, bruising, pallor Neurologic: No Headache, Dizziness, Numbness, Weakness, or Tingling Psychiatric: No Hallucinations. No SI or HI *Physical Exam - Physical Exam Comments: 10/23/18 16:21 General Appearance: Nourished. No Apparent Distress HEENT: No Pharyngeal Erythema, Tonsillar Exudate, Tonsillar Erythema Neck: No Cervical Lymphadenopathy Respiratory/Chest: Course breath sound bilaterally. No Crackles, Rales, Rhonchi, Wheezing Cardiovascular: Regular Rhythm, Regular Rate. No Murmur, Gallops, Rubs Gastrointestinal/Abdominal: Normal Bowel Sounds, Soft. No Guarding, Rebound, Tenderness Musculoskeletal: No CVA Tenderness Extremity: Normal Capillary Refill Integumentary: Normal Color, Dry, Warm Neurologic: Fully Oriented, Alert, Normal Mood/Affect, Normal Response, ED Treatment Course - LABORATORY CBC & Chemistry Diagram: 10/24/18 05:30 10/24/18 05:30 Medical Decision Making - Medical Decision Making 10/23/18 16:38 The patient is an 83 year old female with a history of HTN, HLD who presents for evaluation of chest pain. Differential includes but is not limited: ACS, Arrhythmia, Anemia, Infectious, Metabolic Derangement. Given the patient's history and physical exam, we will obtain a cbc, cmp, troponin, chest plain film , ekg to evaluate further. We will continue to monitor and reassess while here in the ED. 10/23/18 19:15 CBC demonstrates a hgb drop from 11.9 to 8.9. cmp troponin are unremarkable. Chest plain film is unremarkable. Given the patient's age and cardiac risk factors in the setting of chest pain and a drop in hgb, we believe she requires obs admission for further monitoring and management. We discussed the case with the admitting team who accepted the patient for admission. *DC/Admit/Observation/Transfer Diagnosis at time of Disposition: Shortness of breath Anemia Qualifiers: Anemia type: unspecified type Qualified Code(s): D64.9 - Anemia, unspecified - Discharge Dispostion Condition at time of disposition: Stable - Referrals - Patient Instructions - Post Discharge Activity
--- NOTE | 2018-10-23 15:43 | PDOC ---
Attending Attestation - Resident Resident Name: Blade Massey - ED Attending Attestation I have performed the following: I have examined & evaluated the patient, The case was reviewed & discussed with the resident, I agree w/resident's findings & plan - HPI HPI: 10/23/18 17:29 The patient is an 83 year old female with a history of HTN, HLD, abnormal EKG who presents to the emergency department for evaluation of chest pain occurring while in the patient's primary care provider's office for a routine visit with associated shortness of breath and increased fatigue with ambulation The patient denies fevers, chills, cough, nausea, vomiting, abdominal pain, or changes with urination or bowel movements. PMD Dr Le - Physicial Exam PE: 10/23/18 17:30 NAD, well appearing, hungry, nl conjunctiva, anicteric; neck supple. kyphotic lungs clear, RRR, abdomen soft nontender. [place] x4, no focal neuro deficits. No peripheral edema. normal color for ethnicity, WWP. no calf tenderness. - Medical Decision Making 10/23/18 17:31 hpi as documented VS wnl. comfortable, requesting food Echo in 12/2017 with diastolic dysfunction, normal LVEF. Abnormal EKG with RBBB and STD in V2-5, seen by cards when she was admitted at that time. labs and lytes normal, +new anemia with H/h drop from prior to 8.07/09 - denies bloody stools or history of anemia. EKG unchanged from prior with RBBB and T wave abnormalities. trop neg. guaiac_neg, so not GI cause anemia workup initiated. no indication for transfusion admit for symptomatic anemia. 10/23/18 17:32 10/23/18 18:03 10/23/18 19:25 Heart Score/ECG Review - ECG Impressions Normal ECG: No Comment:: 10/23/18 18:03 EKG normal sinus rhythm, no interval abnormalities, wide QRS, ST and T wave segments and morphology normal. Nonspecific T wave abnormalities with TWI in infero-anterolateral leads.
[2018-10-23 16:10] LABS: BASO % 0.4 % (0-2.0); EOS % 3.9 % (0-4.5); HEMATOCRIT 25.4 % (32.4-45.2); HEMOGLOBIN 8.9 GM/dL (10.7-15.3); LYMPH % 15.6 % (8-40); MCHC 34.9 g/dl (32.0-36.0); MEAN CELL VOLUME 116.7 fl (80-96); MEAN PLT VOLUME 7.9 fl (7.5-11.1); MONO % 5.1 % (3.8-10.2); PLATELET COUNT 356 K/MM3 (134-434); RBC 2.17 M/mm3 (3.60-5.2); RDW 16.2 % (11.6-15.6); WHITE BLOOD COUNT 4.7 K/mm3 (4.0-10.0)
[2018-10-23 16:26] LABS: MCH 40.8 pg (25.7-33.7)
[2018-10-23 17:00] LABS: ALK PHOS 124 U/L (45-117); ANION GAP 6 MMOL/L (8-16); BILIRUBIN,TOTAL 0.5 mg/dL (0.2-1); BLOOD UREA NITROGEN 17 mg/dL (7-18); CALCIUM 8.5 mg/dL (8.5-10.1); CHLORIDE 103 mmol/L (98-107); CO2 31 mmol/L (21-32); CREATININE 0.8 mg/dL (0.55-1.3); GLUCOSE,RANDOM 87 mg/dL (74-106); N-TERMINAL BNP 720.6 pg/ml (5-450); POTASSIUM 4.5 mmol/L (3.5-5.1); SGOT/AST 16 U/L (15-37); SGPT/ALT 13 U/L (13-61); SODIUM 140 mmol/L (136-145); TOT PROT 6.3 g/dl (6.4-8.2)
[2018-10-23 17:12] LABS: ANISOCYTOSIS 3+; MACROCYTOSIS 3+; PLATELET ESTIMATE ADEQUATE
[2018-10-23] MEDS ORDERED: ACETAMINOPHEN 500 MG TABLET (FP) PO ONE (18:17)
--- NOTE | 2018-10-23 18:29 | HP ---
CHIEF COMPLAINT:chest pressure, fatigue PCP: Dr. Le HISTORY OF PRESENT ILLNESS: The patient is an 83 year old female with a history of HTN, HLD, abnormal EKG who presents to the emergency department for evaluation of chest pain occurring while in the patient's primary care provider's office for a routine visit with associated shortness of breath and increased fatigue with ambulation, pt seen in ED, pt restless, wants to get up from stretcher, tells son she has pain all over her body. pt poor historian, answers few questions. The patient denies fevers, chills, cough, nausea, vomiting, abdominal pain, or changes with urination or bowel movements. ER course was notable for: (1)Hg 8.9 (2)EKG unchanged from prior with RBBB and T wave abnormalities. (3)Guaic neg Recent Travel: PAST MEDICAL HISTORY:HTN, HLD, PAST SURGICAL HISTORY: Social History: Smoking:Denies Alcohol:Denies Drugs: Denies Family History: Allergies No Known Allergies Allergy (Verified 01/08/18 14:11) HOME MEDICATIONS: Home Medications Medication Instructions Recorded Olmesartan Medoxomil [Benicar] 20 mg PO DAILY 01/08/18 Aspirin Coated [Ecotrin -] 81 mg PO DAILY tablet.ec 01/10/18 Atorvastatin Ca [Lipitor] 40 mg PO HS tablet 01/10/18 Metoprolol Tartrate [Lopressor -] 25 mg PO DAILY tablet 01/10/18 REVIEW OF SYSTEMS CONSTITUTIONAL: Absent: fever, chills, diaphoresis, generalized weakness, malaise, loss of appetite, weight change HEENT: Absent: rhinorrhea, nasal congestion, throat pain, throat swelling, difficulty swallowing, mouth swelling, ear pain, eye pain, visual changes CARDIOVASCULAR: +chest pressure Absent: syncope, palpitations, irregular heart rate, lightheadedness, peripheral edema RESPIRATORY: Absent: cough, shortness of breath, dyspnea with exertion, orthopnea, wheezing, stridor, hemoptysis GASTROINTESTINAL: Absent: abdominal pain, abdominal distension, nausea, vomiting, diarrhea, constipation, melena, hematochezia GENITOURINARY: Absent: dysuria, frequency, urgency, hesitancy, hematuria, flank pain, genital pain MUSCULOSKELETAL: Absent: myalgia, arthralgia, joint swelling, back pain, neck pain SKIN: Absent: rash, itching, pallor HEMATOLOGIC/IMMUNOLOGIC: Absent: easy bleeding, easy bruising, lymphadenopathy, frequent infections ENDOCRINE: Absent: unexplained weight gain, unexplained weight loss, heat intolerance, cold intolerance NEUROLOGIC: Absent: headache, focal weakness or paresthesias, dizziness, unsteady gait, seizure, mental status changes, bladder or bowel incontinence PSYCHIATRIC: Absent: anxiety, depression, suicidal or homicidal ideation, hallucinations. PHYSICAL EXAMINATION Vital Signs - 24 hr 10/23/18 15:01 Temperature 98.6 F Pulse Rate 87 Respiratory 26 H Rate Blood Pressure 143/67 O2 Sat by Pulse 100 Oximetry (%) GENERAL: Awake, restless, HEAD: Normal with no signs of trauma. EYES: Pupils equal, round and reactive to light, extraocular movements intact, sclera anicteric, conjunctiva clear. No lid lag. EARS, NOSE, THROAT: Ears normal, nares patent, oropharynx clear without exudates. Moist mucous membranes. NECK: Normal range of motion, supple without lymphadenopathy, JVD, or masses. LUNGS: Breath sounds equal, clear to auscultation bilaterally. No wheezes, and no crackles. No accessory muscle use. HEART: Regular rate and rhythm, normal S1 and S2 without murmur, rub or gallop. ABDOMEN: Soft, nontender, not distended, normoactive bowel sounds, no guarding, no rebound, no masses. No hepatomegaly or splenomegaly. MUSCULOSKELETAL: Normal range of motion at all joints. No bony deformities or tenderness. No CVA tenderness. UPPER EXTREMITIES: 2+ pulses, warm, well-perfused. No cyanosis. No clubbing. No peripheral edema. LOWER EXTREMITIES: 2+ pulses, warm, well-perfused. No calf tenderness. No peripheral edema. NEUROLOGICAL: Cranial nerves II-XII intact. Normal speech. Normal gait. PSYCHIATRIC: Cooperative. Good eye contact. Appropriate mood and affect. SKIN: Warm, dry, normal turgor, no rashes or lesions noted, normal capillary refill. Laboratory Results - last 24 hr 10/23/18 10/23/18 15:50 15:50 WBC 4.7 RBC 2.17 L Hgb 8.9 L Hct 25.4 L D MCV 116.7 H MCH 40.8 H D MCHC 34.9 RDW 16.2 H Plt Count 356 D MPV 7.9 Absolute Neuts (auto) 3.5 Neutrophils % 75.0 D Lymphocytes % 15.6 D Monocytes % 5.1 Eosinophils % 3.9 Basophils % 0.4 Nucleated RBC % 0 Hypochromia 2+ Platelet Estimate Adequate Anisocytosis 3+ Macrocytosis 3+ Sodium 140 Potassium 4.5 Chloride 103 Carbon Dioxide 31 Anion Gap 6 L BUN 17 Creatinine 0.8 Creat Clearance w eGFR > 60 Random Glucose 87 Calcium 8.5 Total Bilirubin 0.5 AST 16 ALT 13 Alkaline Phosphatase 124 H Creatine Kinase 33 Troponin I < 0.02 B-Natriuretic Peptide 720.6 H Total Protein 6.3 L Albumin 3.0 L ASSESSMENT/PLAN: Patricia Moss is a 83 yr old F, medical condition HTN, HLD, admitted for Admitting Diagnosis Symptomatic anemia Chronic Problems HTN HLD A/P: #Symptomatic anemia #Chest pressure, ACS ruled out -admit to tele -Cardio consult -monitor Hg, transfuse < 7 -oxygen PRN -Guaic neg -anemia work up #HTN #HLD -resume [employer] meds Dispo: requires inpatient treatment DVT Prophylaxis: Heparin Sq q12hrs Full Code Visit type - Emergency Visit Emergency Visit: Yes ED Registration Date: 10/23/18 Care time: The patient presented to the Emergency Department on the above date and was hospitalized for further evaluation of their emergent condition. - New Patient This patient is new to me today: Yes Date on this admission: 10/23/18 - Critical Care Critical Care patient: No
[2018-10-23] MEDS ORDERED: KETOROLAC TROMETHAMINE 30 MG/1 ML VIAL IVPUSH ONE (19:01)
[2018-10-23] MEDS ORDERED: KETOROLAC TROMETHAMINE 30 MG/1 ML VIAL ONE (19:32)
[2018-10-23] MEDS ORDERED: HEPARIN NA (PORCINE) 5,000 UNITS/ML 1ML VIAL ONE (21:10)
[2018-10-23] MEDS ORDERED: ATORVASTATIN CA 40 MG TABLET (FP) ONE (21:10)
[2018-10-23] MEDS: ATORVASTATIN CA 40 MG TABLET (FP) PO SCH (21:15)
[2018-10-23] MEDS: HEPARIN NA (PORCINE) 5,000 UNITS/ML 1ML VIAL SQ SCH (21:15)
[2018-10-24 06:19] LABS: HEMATOCRIT 25.3 % (32.4-45.2); HEMOGLOBIN 8.1 GM/dL (10.7-15.3); MCH 38.1 pg (25.7-33.7); MCHC 32.2 g/dl (32.0-36.0); MEAN CELL VOLUME 118.5 fl (80-96); MEAN PLT VOLUME 7.9 fl (7.5-11.1); PLATELET COUNT 298 K/MM3 (134-434); RBC 2.13 M/mm3 (3.60-5.2); RDW 16.2 % (11.6-15.6); WHITE BLOOD COUNT 5.6 K/mm3 (4.0-10.0)
[2018-10-24 06:41] LABS: ALBUMIN 2.5 g/dl (3.4-5.0); ALK PHOS 105 U/L (45-117); ANION GAP 5 MMOL/L (8-16); BILIRUBIN,TOTAL 0.4 mg/dL (0.2-1); BLOOD UREA NITROGEN 20 mg/dL (7-18); CALCIUM 8.2 mg/dL (8.5-10.1); CHLORIDE 106 mmol/L (98-107); CHOLESTEROL 116 mg/dL (50-200); CO2 31 mmol/L (21-32); CREATININE 0.8 mg/dL (0.55-1.3); GLUCOSE,RANDOM 79 mg/dL (74-106); HDL CHOLESTEROL 36 mg/dL (40-60); N-TERMINAL BNP 628.9 pg/ml (5-450); POTASSIUM 4.6 mmol/L (3.5-5.1); SGOT/AST 13 U/L (15-37); SGPT/ALT 10 U/L (13-61); SODIUM 143 mmol/L (136-145); TOT PROT 5.2 g/dl (6.4-8.2); TRIGLYCERIDES 109 mg/dL (0-150)
[2018-10-24] MEDS ORDERED: ASPIRIN COATED 81 MG TABLET.EC PO SCH (10:00)
[2018-10-24] MEDS: HEPARIN NA (PORCINE) 5,000 UNITS/ML 1ML VIAL SQ SCH ×2 (10:39→21:41)
[2018-10-24] MEDS: VALSARTAN 160 MG TABLET (UD) PO SCH (10:39)
[2018-10-24] MEDS: METOPROLOL TARTRATE 25 MG TABLET (FP) PO SCH (10:40)
--- NOTE | 2018-10-24 11:29 | PN ---
Physical Exam: SUBJECTIVE: Patient seen and examined in the ER awaiting bed placement. at the bedside. OBJECTIVE: Vital Signs Period Temp Pulse Resp BP Sys/Leger Pulse Ox Last 24 Hr 98.0 F-98.6 F 80-100 18-26 106-148/47-96 98-100 GENERAL: Awake, restless, HEAD: Normal with no signs of trauma. EYES: Pupils equal, round and reactive to light, extraocular movements intact, sclera anicteric, conjunctiva clear. No lid lag. EARS, NOSE, THROAT: Ears normal, nares patent, oropharynx clear without exudates. Moist mucous membranes. NECK: Normal range of motion, supple without lymphadenopathy, JVD, or masses. LUNGS: Breath sounds equal, upper lobe congestion noted. chest xray shows clear lungs. HEART: Regular rate and rhythm, normal S1 and S2 without murmur, rub or gallop. ABDOMEN: Soft, nontender, not distended, normoactive bowel sounds, no guarding, no rebound, no masses. No hepatomegaly or splenomegaly. MUSCULOSKELETAL: Normal range of motion at all joints. No bony deformities or tenderness. No CVA tenderness. UPPER EXTREMITIES: 2+ pulses, warm, well-perfused. No cyanosis. No clubbing. No peripheral edema. LOWER EXTREMITIES: 2+ pulses, warm, well-perfused. No calf tenderness. No peripheral edema. NEUROLOGICAL: Cranial nerves II-XII intact. Normal speech. Normal gait. PSYCHIATRIC: Cooperative. Good eye contact. Appropriate mood and affect. SKIN: Warm, dry, normal turgor, no rashes or lesions noted, normal capillary refill. Laboratory Results - last 24 hr 10/23/18 10/23/18 10/23/18 15:50 15:50 19:00 WBC 4.7 RBC 2.17 L Hgb 8.9 L Hct 25.4 L D MCV 116.7 H MCH 40.8 H D MCHC 34.9 RDW 16.2 H Plt Count 356 D MPV 7.9 Absolute Neuts (auto) 3.5 Neutrophils % 75.0 D Lymphocytes % 15.6 D Monocytes % 5.1 Eosinophils % 3.9 Basophils % 0.4 Nucleated RBC % 0 Hypochromia 2+ Platelet Estimate Adequate Anisocytosis 3+ Macrocytosis 3+ Retic Count Sodium 140 Potassium 4.5 Chloride 103 Carbon Dioxide 31 Anion Gap 6 L BUN 17 Creatinine 0.8 Creat Clearance w eGFR > 60 Random Glucose 87 Calcium 8.5 Magnesium Ferritin Total Bilirubin 0.5 AST 16 ALT 13 Alkaline Phosphatase 124 H Creatine Kinase 33 Troponin I < 0.02 B-Natriuretic Peptide 720.6 H Total Protein 6.3 L Albumin 3.0 L Triglycerides Cholesterol Total LDL Cholesterol HDL Cholesterol Vitamin B12 Stool Occult Blood Negative 10/24/18 10/24/18 10/24/18 05:30 05:30 05:30 WBC 5.6 RBC 2.13 L Hgb 8.1 L Hct 25.3 L MCV 118.5 H MCH 38.1 H MCHC 32.2 RDW 16.2 H Plt Count 298 MPV 7.9 Absolute Neuts (auto) Neutrophils % Lymphocytes % Monocytes % Eosinophils % Basophils % Nucleated RBC % Hypochromia Platelet Estimate Anisocytosis Macrocytosis Retic Count 1.50 Sodium 143 Potassium 4.6 Chloride 106 Carbon Dioxide 31 Anion Gap 5 L BUN 20 H Creatinine 0.8 Creat Clearance w eGFR > 60 Random Glucose 79 Calcium 8.2 L Magnesium 2.0 Ferritin 302.5 Total Bilirubin 0.4 AST 13 L ALT 10 L Alkaline Phosphatase 105 Creatine Kinase Troponin I < 0.02 B-Natriuretic Peptide 628.9 H Total Protein 5.2 L Albumin 2.5 L Triglycerides 109 Cholesterol 116 Total LDL Cholesterol 62 HDL Cholesterol 36 L Vitamin B12 86 L Stool Occult Blood Active Medications Generic Name Dose Route Start Last Admin Trade Name Freq PRN Reason Stop Dose Admin Atorvastatin Calcium 40 mg 10/23/18 22:00 10/23/18 21:15 Lipitor - PO 40 mg HS LAMONT Administration Cyanocobalamin 100 mcg 10/24/18 10:00 Vitamin B12 - PO DAILY LAMONT Heparin Sodium (Porcine) 5,000 unit 10/23/18 22:00 10/24/18 10:39 Heparin - SQ 5,000 unit BID LAMONT Administration Metoprolol Tartrate 25 mg 10/24/18 10:00 10/24/18 10:40 Lopressor - PO 25 mg DAILY LAMONT Administration Pantoprazole Sodium 40 mg 10/24/18 10:00 Protonix - PO DAILY LAMONT Valsartan 160 mg 10/24/18 10:00 10/24/18 10:39 Diovan - PO 160 mg DAILY LAMONT Administration ASSESSMENT/PLAN: The patient is an 83 year old female with a history of HTN, HLD, abnormal EKG who presents to the emergency department for evaluation of chest pain occurring while in the patient's primary care provider's office for a routine visit with associated shortness of breath, increased fatigue with ambulation. Patient is a poor historian, answers all questions. The patient denies fevers, chills, cough, nausea, vomiting, abdominal pain, or changes with urination or bowel movements. Patient was seen in the ED. she was noted to have posterior lung congestion. Her BNP is noted to be elevated. Started on low dose lasix. Cardiology: Chest pain, resolved troponins negative x 3 She was seen by cardiology, notes reviewed EKG reviewed. patient was seen at [facility] 12/30 for a cardiac cath Echo 10/24/2018 reviewed, mild aortic regur, mild findings, ef 60-65% HLD, chronic on Lipitor Heme: Anemia, symptomatic. Admit to tele. hmg 8.1, she was previously seen at [facility] on 12/2017 and her hmg/hct were within normal range stool negative for occult blood, will repeat iron studies pending Stop ASA and start protonix Dispo: requires inpatient treatment DVT Prophylaxis: SCDs Full Code Visit type - Emergency Visit Emergency Visit: Yes ED Registration Date: 10/23/18 Care time: The patient presented to the Emergency Department on the above date and was hospitalized for further evaluation of their emergent condition. - New Patient This patient is new to me today: Yes Date on this admission: 10/24/18 - Critical Care Critical Care patient: No - Discharge Referral Referred to [facility] Med [facility] No
--- NOTE | 2018-10-24 11:47 | CON.CARD ---
Consult Consult Specialty:: Cardiology Referred by:: ER Reason for Consultation:: chest pain - History of Present Illness Chief Complaint: chest pain History of Present Illness: She is an 83 year old female with a history of HTN, chol, RBBB with associated T wave inversions, seen in the past for chest pain, who presents to the emergency department for evaluation of chest pain occurring while in the patient 's primary care provider's office for a routine visit with associated shortness of breath and increased fatigue with ambulation, sent to ER. At this point she is confused and cannot give a detailed history. She denies pain at present. ECG RBBB T wave inversions no change echo 01/09/18 normal EF she was transferred to [facility] last admission for cardiac catheterization but it is unclear whether it was done or what the results are. - History Source History Provided By: Medical Record - Past Medical History Cardio/Vascular: Yes: HTN - Alcohol/Substance Use Hx Alcohol Use: No - Smoking History Smoking history: Never smoked Have you smoked in the past 12 months: No Home Medications - Allergies Allergies/Adverse Reactions: Allergies Allergy/AdvReac Type Severity Reaction Status Date / Time No Known Allergies Allergy Verified 01/08/18 14:11 - Home Medications Home Medications: Ambulatory Orders Olmesartan Medoxomil [Benicar] 20 mg PO DAILY 01/08/18 Aspirin Coated [Ecotrin -] 81 mg PO DAILY tablet.ec 01/10/18 Atorvastatin Ca [Lipitor] 40 mg PO HS tablet 01/10/18 Metoprolol Tartrate [Lopressor -] 25 mg PO DAILY tablet 01/10/18 Vital Signs: Vital Signs Temperature 98.3 F 10/24/18 05:50 Pulse Rate 100 H 10/24/18 09:37 Respiratory Rate 20 10/24/18 09:37 Blood Pressure 106/47 L 10/24/18 09:37 O2 Sat by Pulse Oximetry (%) 98 10/24/18 09:00 Constitutional: Yes: No Distress, Calm Eyes: Yes: Conjunctiva Clear, EOM Intact HENT: Yes: Atraumatic, Normocephalic Neck: Yes: Supple, Trachea Midline Respiratory: Yes: CTA Bilaterally Gastrointestinal: Yes: Normal Bowel Sounds, Soft Musculoskeletal: Yes: WNL Extremities: Yes: WNL Edema: No Peripheral Pulses WNL: Yes - Other Data Labs, Other Data: CBC, BMP 10/24/18 05:30 01/10/19 05:30 Troponin, BNP 10/23/18 10/24/18 15:50 05:30 Troponin I < 0.02 < 0.02 B-Natriuretic Peptide 720.6 H 628.9 H Troponin, BNP 10/23/18 10/24/18 15:50 05:30 Troponin I < 0.02 < 0.02 B-Natriuretic Peptide 720.6 H 628.9 H Imaging - Results Chest X-ray: Report Reviewed EKG: Report Reviewed Assessment/Plan She is an 83 year old female with a history of HTN, chol, RBBB with associated T wave inversions, seen in the past for chest pain, who presents to the emergency department for evaluation of chest pain occurring while in the patient 's primary care provider's office for a routine visit with associated shortness of breath and increased fatigue with ambulation, sent to ER. At this point she is confused and cannot give a detailed history. She denies pain at present. ECG RBBB T wave inversions no change echo 01/09/18 normal EF she was transferred to [facility] last admission for cardiac catheterization but it is unclear whether it was done or what the results are. chest pain -she is confused at present and cannot give a detailed history, appears comfortable -ECG changes appear chronic -Troponin negative so far -Get [facility] records -needs anemia workup -OK to hold aspirin if she needs EGD or colonoscopy. -will follow with you.
[2018-10-24] MEDS ORDERED: CYANOCOBALAMIN (VITAMIN B-12) 100 MCG TABLET PO SCH (12:00)
[2018-10-24] MEDS ORDERED: PT OWN MED DRAWER 7, Y5N ONE ×2 (12:20→21:37)
[2018-10-24] MEDS ORDERED: PANTOPRAZOLE 40 MG TABLET (FP) ONE (12:20)
[2018-10-24] MEDS: PANTOPRAZOLE 40 MG TABLET (FP) PO SCH (12:34)
--- NOTE | 2018-10-24 12:46 | EKG ---
Test Reason : Blood Pressure : / mmHG Vent. Rate : 093 BPM Atrial Rate : 093 BPM P-R Int : 110 ms QRS Dur : 108 ms QT Int : 380 ms P-R-T Axes : 049 -17 -31 degrees QTc Int : 472 ms SINUS RHYTHM WITH MARKED SINUS ARRHYTHMIA WITH SHORT NE RIGHT BUNDLE BRANCH BLOCK SEPTAL INFARCT , AGE UNDETERMINED ABNORMAL ECG WHEN COMPARED WITH ECG OF 09-JAN-2018 09:25, ABERRANT CONDUCTION IS NO LONGER PRESENT T WAVE INVERSION LESS EVIDENT IN ANTERIOR LEADS Confirmed by DAJA SWARTZ MD ([id number]) on 10/24/2018 12:46:10 PM Referred By: Confirmed By:DAJA SWARTZ MD
--- NOTE | 2018-10-24 13:06 | ECHO ---
Name: SHANON NAVARRO Exam:Adult Echocardiogram Study Date: 10/24/2018 09:16 AM Age: 83 yrs Reason For Study: SOB Height: 59 in Weight: 95 lb BSA: 1.3 m2 MMode/2D Measurements & Calculations IVSd: 0.81 cm Ao root diam: 2.4 cm LVIDd: 4.2 cm LA dimension: 3.2 cm LVIDs: 2.8 cm LVPWd: 0.94 cm LVPWs: 1.1 cm EDV(Teich): 79.7 ml ESV(Teich): 30.2 ml Doppler Measurements & Calculations MV E max arabella: 64.2 cm/sec Ao V2 max: 136.8 cm/sec MV A max arabella: 106.6 cm/sec Ao max P.5 mmHg MV E/A: 0.60 AI P1/2t: 397.3 msec MV dec time: 0.13 sec AI max arabella: 348.8 cm/sec LV V1 max P.6 mmHg AI max P.8 mmHg LV V1 max: 95.3 cm/sec AI dec slope: 257.1 cm/sec2 MR max arabella: 494.4 cm/sec TR max arabella: 295.9 cm/sec MR max P.6 mmHg TR max P.0 mmHg PA V2 max: 111.3 cm/sec Med Peak E' Arabella: 4.9 cm/sec PA max P.0 mmHg Med E/e': 13.2 Lat Peak E' Arabella: 6.0 cm/sec Lat E/e': 10.6 Procedure A complete two-dimensional transthoracic echocardiogram was performed (2D, M-mode, Doppler and color flow Doppler). Left Ventricle The left ventricular size, thickness and function are normal. The left ventricular ejection fraction is normal. Ejection Fraction = 60-65%. The left ventricular wall motion is normal. Right Ventricle The right ventricle is normal in size and function. Atria Normal left and right atrial size and function. Mitral Valve There is mild mitral regurgitation. Tricuspid Valve There is trace tricuspid regurgitation. There was insufficient TR detected to calculate RV systolic p ressure. Aortic Valve No hemodynamically significant valvular aortic stenosis. Mild aortic regurgitation. Pulmonic Valve There is no pulmonic valvular regurgitation. Great Vessels The aortic root is normal size. Pericardium/Pleura There is no pericardial effusion. Interpretation Summary The left ventricular size, thickness and function are normal The right ventricle is normal in size and function. There is mild mitral regurgitation. There is trace tricuspid regurgitation. Mild aortic regurgitation. MD Ruiz Harmon 10/24/2018 01:06 PM
[2018-10-24] MEDS ORDERED: ALBUTEROL SO4 2.5/IPRATROPIUM 0.5 INH SOL 3 ML VIAL.NEB. NEB ONE (15:30)
[2018-10-24] MEDS ORDERED: FUROSEMIDE 20 MG TABLET (FP) PO ONE (15:30)
[2018-10-24] MEDS: ATORVASTATIN CA 40 MG TABLET (FP) PO SCH (21:41)
[2018-10-25 06:23] LABS: BASO % 0.5 % (0-2.0); EOS % 9.9 % (0-4.5); HEMATOCRIT 26.4 % (32.4-45.2); HEMOGLOBIN 8.6 GM/dL (10.7-15.3); LYMPH % 23.8 % (8-40); MCH 38.6 pg (25.7-33.7); MCHC 32.6 g/dl (32.0-36.0); MEAN CELL VOLUME 118.5 fl (80-96); MEAN PLT VOLUME 8.4 fl (7.5-11.1); MONO % 6.5 % (3.8-10.2); NEUT % 59.3 % (42.8-82.8); PLATELET COUNT 308 K/MM3 (134-434); RBC 2.23 M/mm3 (3.60-5.2); RDW 15.5 % (11.6-15.6)
[2018-10-25 07:07] LABS: ALBUMIN 2.5 g/dl (3.4-5.0); ALK PHOS 115 U/L (45-117); ANION GAP 2 MMOL/L (8-16); BILIRUBIN,TOTAL 0.5 mg/dL (0.2-1); BLOOD UREA NITROGEN 17 mg/dL (7-18); CALCIUM 8.3 mg/dL (8.5-10.1); CHLORIDE 101 mmol/L (98-107); CO2 38 mmol/L (21-32); CREATININE 0.8 mg/dL (0.55-1.3); GLUCOSE,RANDOM 85 mg/dL (74-106); POTASSIUM 4.2 mmol/L (3.5-5.1); SGOT/AST 16 U/L (15-37); SGPT/ALT 10 U/L (13-61); SODIUM 140 mmol/L (136-145); TOT PROT 5.5 g/dl (6.4-8.2)
[2018-10-25 08:06] LABS: SERUM IRON SATURATION 7 % (15-55); TOTAL IRON BINDING CAPACITY 230 ug/dL (250-450); UIBC 214 ug/dL (118-369)
[2018-10-25] MEDS: FOLIC ACID 1 MG TABLET (FP) PO SCH (10:08)
[2018-10-25] MEDS: FERROUS SO4 325 MG TABLET (FP) PO SCH (10:08)
[2018-10-25] MEDS: PANTOPRAZOLE 40 MG TABLET (FP) PO SCH (10:08)
[2018-10-25] MEDS: CYANOCOBALAMIN 1,000 MCG TABLET (FP) PO SCH (10:08)
[2018-10-25] MEDS: VALSARTAN 160 MG TABLET (UD) PO SCH (10:17)
[2018-10-25] MEDS: METOPROLOL TARTRATE 25 MG TABLET (FP) PO SCH (10:17)
--- NOTE | 2018-10-25 10:19 | PN ---
Physical Exam: SUBJECTIVE: Patient seen and examined at the bedside. OBJECTIVE: Patient is not home oxygen dependent, her echo and chest xrays are normal. however, clinically, she is short of breath and requires oxygen therapy at 2 liters to maintain saturations >90%. mild congestion noted on upper lobes. Had a CTA 01/05/2018, unsure if family followed up as recommended will ask pulmonary to follow. she has b12 deficiency anemia and has been started on b12 and folate. Vital Signs Period Temp Pulse Resp BP Sys/Leger Pulse Ox Last 24 Hr 97.3 F-98.2 F 78-102 18-22 104-150/46-76 97 GENERAL: Awake HEAD: Normal with no signs of trauma. EYES: Pupils equal, round and reactive to light, extraocular movements intact, sclera anicteric, conjunctiva clear. No lid lag. EARS, NOSE, THROAT: Ears normal, nares patent, oropharynx clear without exudates. Moist mucous membranes. NECK: Normal range of motion, supple without lymphadenopathy, JVD, or masses. LUNGS: upper lobe congestion noted. chest xray shows clear lungs. - destats when off oxygen HEART: Regular rate and rhythm ABDOMEN: Soft, nontender, not distended, normoactive bowel sounds, no guarding, no rebound, no masses. No hepatomegaly or splenomegaly. MUSCULOSKELETAL: Normal range of motion at all joints. No bony deformities or tenderness. No CVA tenderness. UPPER EXTREMITIES: 2+ pulses, warm, well-perfused. No cyanosis. No clubbing. No peripheral edema. LOWER EXTREMITIES: 2+ pulses, warm, well-perfused. No calf tenderness. No peripheral edema. NEUROLOGICAL: Cranial nerves II-XII intact. Normal speech. Normal gait. PSYCHIATRIC: Cooperative. Good eye contact. Appropriate mood and affect. SKIN: Warm, dry, normal turgor, no rashes or lesions noted, normal capillary refill. Laboratory Results - last 24 hr 10/24/18 10/24/18 10/24/18 05:30 08:45 12:30 WBC RBC Hgb Hct MCV MCH MCHC RDW Plt Count MPV Absolute Neuts (auto) Neutrophils % Lymphocytes % Monocytes % Eosinophils % Basophils % Nucleated RBC % Sodium Potassium Chloride Carbon Dioxide Anion Gap BUN Creatinine Creat Clearance w eGFR Random Glucose Calcium Magnesium Iron 32 16 L TIBC 230 L Iron Saturation 7 L Transferrin 187 L Total Bilirubin AST ALT Alkaline Phosphatase Troponin I < 0.02 Total Protein Albumin Influenza A (Rapid) Influenza B (Rapid) 10/24/18 10/24/18 10/25/18 15:00 23:00 06:00 WBC 5.0 RBC 2.23 L Hgb 8.6 L Hct 26.4 L MCV 118.5 H MCH 38.6 H MCHC 32.6 RDW 15.5 Plt Count 308 MPV 8.4 Absolute Neuts (auto) 3.0 Neutrophils % 59.3 D Lymphocytes % 23.8 D Monocytes % 6.5 Eosinophils % 9.9 H D Basophils % 0.5 Nucleated RBC % 0 Sodium Potassium Chloride Carbon Dioxide Anion Gap BUN Creatinine Creat Clearance w eGFR Random Glucose Calcium Magnesium 2.2 Iron TIBC Iron Saturation Transferrin Total Bilirubin AST ALT Alkaline Phosphatase Troponin I Total Protein Albumin Influenza A (Rapid) Negative Influenza B (Rapid) Negative 10/25/18 06:00 WBC RBC Hgb Hct MCV MCH MCHC RDW Plt Count MPV Absolute Neuts (auto) Neutrophils % Lymphocytes % Monocytes % Eosinophils % Basophils % Nucleated RBC % Sodium 140 Potassium 4.2 Chloride 101 Carbon Dioxide 38 H Anion Gap 2 L BUN 17 Creatinine 0.8 Creat Clearance w eGFR > 60 Random Glucose 85 Calcium 8.3 L Magnesium Iron TIBC Iron Saturation Transferrin Total Bilirubin 0.5 AST 16 ALT 10 L Alkaline Phosphatase 115 Troponin I Total Protein 5.5 L Albumin 2.5 L Influenza A (Rapid) Influenza B (Rapid) Active Medications Generic Name Dose Route Start Last Admin Trade Name Freq PRN Reason Stop Dose Admin Atorvastatin Calcium 40 mg 10/23/18 22:00 10/24/18 21:41 Lipitor - PO 40 mg HS LAMONT Administration Cyanocobalamin 1,000 mcg 10/25/18 10:00 10/25/18 10:08 Vitamin B12 - PO 1,000 mcg DAILY LAMONT Administration Ferrous Sulfate 325 mg 10/25/18 10:00 10/25/18 10:08 Feosol - PO 325 mg DAILY LAMONT Administration Folic Acid 1 mg 10/25/18 10:00 10/25/18 10:08 Folic Acid - PO 1 mg DAILY LAMONT Administration Metoprolol Tartrate 25 mg 10/24/18 10:00 10/25/18 10:17 Lopressor - PO Not Given DAILY LAMONT Pantoprazole Sodium 40 mg 10/24/18 12:00 10/25/18 10:08 Protonix - PO 40 mg DAILY LAMONT Administration Valsartan 160 mg 10/24/18 10:00 10/25/18 10:17 Diovan - PO Not Given DAILY LAMONT ASSESSMENT/PLAN: The patient is an 83 year old female with a history of HTN, HLD, abnormal EKG who presents to the emergency department for evaluation of chest pain occurring while in the patient's primary care provider's office for a routine visit with associated shortness of breath, increased fatigue with ambulation. Patient is a poor historian, answers all questions. The patient denies fevers, chills, cough, nausea, vomiting, abdominal pain, or changes with urination or bowel movements. Patient was seen in the ED. she was noted to have posterior lung congestion. Her BNP is noted to be elevated. Started on low dose lasix. Cardiology: Chest pain, resolved troponins negative x 3 She was seen by cardiology, notes reviewed EKG reviewed. patient was seen at [facility] 12/30 for a cardiac cath Echo 10/24/2018 reviewed, mild aortic regur, mild findings, ef 60-65% Pulmonary Shortness of breath chest xray and echo do not explain her shortness of breath and need for oxygen she had a CTA which showed possible nodules and a CTA was recommended in 6 months but pt never follow up. She requires 2 liters of oxygen to maintain sats >90% Discussed with pulmonary, and a repeat CTA to be ordered. HLD, chronic on Lipitor Heme: Anemia, symptomatic. Vitamin b12 deficiency anemia Iron deficiency anemia Admit to tele. hmg 8.6, she was previously seen at [facility] on 12/2017 and her hmg/hct were within normal range stool negative for occult blood, will repeat Stop ASA and start protonix will give IV venofer, vitamin b12 and folate Dispo: requires inpatient treatment DVT Prophylaxis: SCDs Full Code Visit type - Emergency Visit Emergency Visit: Yes ED Registration Date: 10/23/18 Care time: The patient presented to the Emergency Department on the above date and was hospitalized for further evaluation of their emergent condition. - New Patient This patient is new to me today: No - Critical Care Critical Care patient: No - Discharge Referral Referred to [facility] Med P.C.: No
--- NOTE | 2018-10-25 12:33 | PN ---
Progress Note (short form) - Note Progress Note: PULMONARY CONSULTATION DICTATED 10/25/18 IMP DYSPNEA ? SECONDARY TO ANEMIA,?ASHD CHEST PAIN COUGH ? ASPIRATION,? HYPER-REACTIVE AIRWAY SYMPTOMATIC ANEMIA PULMONARY NODULES EOSINOPHILIA HLD HTN PLAN O2 INHALED BRONCHODILATORS MONITOR CBC,H+H GI W/U CHEST CT SWALLOWING EVALUATION DR BARTON Problem List - Problems (1) Pulmonary nodules Code(s): R91.8 - OTHER NONSPECIFIC ABNORMAL FINDING OF LUNG FIELD (2) Anemia Code(s): D64.9 - ANEMIA, UNSPECIFIED Qualifiers: Anemia type: unspecified type Qualified Code(s): D64.9 - Anemia, unspecified (3) Shortness of breath Code(s): R06.02 - SHORTNESS OF BREATH (4) Cough Code(s): R05 - COUGH (5) HLD (hyperlipidemia) Code(s): E78.5 - HYPERLIPIDEMIA, UNSPECIFIED (6) HTN (hypertension) Code(s): I10 - ESSENTIAL (PRIMARY) HYPERTENSION
--- NOTE | 2018-10-25 14:13 | PN ---
Progress Note, Physician Chief Complaint: comfortable tele neg History of Present Illness: She is an 83 year old female with a history of HTN, chol, RBBB with associated T wave inversions, seen in the past for chest pain, who presents to the emergency department for evaluation of chest pain occurring while in the patient 's primary care provider's office for a routine visit with associated shortness of breath and increased fatigue with ambulation, sent to ER. At this point she is confused and cannot give a detailed history. She denies pain at present. ECG RBBB T wave inversions no change echo 01/09/18 normal EF she was transferred to [facility] last admission for cardiac catheterization but it is unclear whether it was done or what the results are. - Current Medication List Current Medications: Active Medications Albuterol/Ipratropium (Duoneb -) 1 amp NEB RTID [facility] Atorvastatin Calcium (Lipitor -) 40 mg PO [facility] Last Admin: 10/24/18 21:41 Dose: 40 mg Cyanocobalamin (Vitamin B12 -) 1,000 mcg PO DAILY [facility] Last Admin: 10/25/18 10:08 Dose: 1,000 mcg Ferrous Sulfate (Feosol -) 325 mg PO DAILY [facility] Last Admin: 10/25/18 10:08 Dose: 325 mg Folic Acid (Folic Acid -) 1 mg PO DAILY [facility] Last Admin: 10/25/18 10:08 Dose: 1 mg Metoprolol Tartrate (Lopressor -) 25 mg PO DAILY [facility] Last Admin: 10/25/18 10:17 Dose: Not Given Pantoprazole Sodium (Protonix -) 40 mg PO DAILY [facility] Last Admin: 10/25/18 10:08 Dose: 40 mg Valsartan (Diovan -) 160 mg PO DAILY [facility] Last Admin: 10/25/18 10:17 Dose: Not Given - Objective Vital Signs: Vital Signs Temperature 98 F 10/25/18 10:00 Pulse Rate 102 H 10/25/18 10:00 Respiratory Rate 18 10/25/18 10:00 Blood Pressure 104/46 L 10/25/18 10:00 O2 Sat by Pulse Oximetry (%) 98 10/25/18 09:00 Constitutional: Yes: No Distress, Calm Eyes: Yes: Conjunctiva Clear, EOM Intact HENT: Yes: Normocephalic Neck: Yes: Supple, Trachea Midline Cardiovascular: Yes: Regular Rate and Rhythm Respiratory: Yes: CTA Bilaterally Gastrointestinal: Yes: Normal Bowel Sounds, Soft Musculoskeletal: Yes: WNL Extremities: Yes: WNL Edema: No Labs: CBC, BMP 10/25/18 06:00 10/25/18 06:00 Assessment/Plan She is an 83 year old female with a history of HTN, chol, RBBB with associated T wave inversions, seen in the past for chest pain, who presents to the emergency department for evaluation of chest pain occurring while in the patient 's primary care provider's office for a routine visit with associated shortness of breath and increased fatigue with ambulation, sent to ER. At this point she is confused and cannot give a detailed history. She denies pain at present. ECG RBBB T wave inversions no change echo 01/09/18 normal EF she was transferred to [facility] last admission for cardiac catheterization but it is unclear whether it was done or what the results are. chest pain -she is less confused at present and cannot give a detailed history, appears comfortable -ECG changes appear chronic -Troponin negative. -Get [facility] records, anna states that her cath showed nonobstructive CAD. -needs anemia workup -OK to hold aspirin if she needs EGD or colonoscopy. -will follow as needed. -DC telemetry.
--- NOTE | 2018-10-25 14:25 | CONS ---
DATE OF CONSULTATION: 10/25/2018 PULMONARY CONSULTATION REFERRING PHYSICIAN: Lynn Baxter NP HISTORY OF PRESENT ILLNESS: History was obtained from the patient's as the patient is a poor historian. The patient is an 83-year-old [place] female with a past medical history of hypertension and hyperlipidemia. She was admitted [facility] for evaluation of chest pain. Apparently, they went to her primary care provider's office for a routine visit on the day of admission. At that time, the patient had been complaining of progressive shortness of breath with exertion over the past two to three weeks. She also complained of occasional cough and some congestion. The patient is also complaining of worsening chest pressure and so she presented to the emergency room. On admission, she was evaluated by Dr. Reyes with a cardiology consultation. The patient was hospitalized last December for a similar episode and was apparently transferred to [facility] for a cardiac catheterization. It is unknown whether or not this was performed. According to the patient's , her symptoms started approximately two weeks ago with shortness of breath on exertion. Apparently, prior to that, she ambulated well without any problems. She is a nonsmoker. There is no history of recent travel. There is no history of occupational exposures. Of note is that on admission, she was also found to be anemic with a hemoglobin of 8.9 grams, which is changed from her previous hospitalization last December when it was 11.9 grams. PAST MEDICAL HISTORY: Again, this includes hyperlipidemia, hypertension, hypercholesterolemia. REVIEW OF SYSTEMS: Positive for cough, chest pain and shortness of breath. No fever, chills, weight loss, night sweats, abdominal pain or lower extremity edema. CURRENT MEDICATIONS: Diovan, Lopressor, Lipitor, Feosol, Protonix, vitamin B-12 and folic acid. SOCIAL HISTORY: [place] in [place]. Moved to the [facility] greater than 15 years ago. No occupational exposure. Nonsmoker. No ETOH. PHYSICAL EXAMINATION: General: The patient is an elderly female, awake and alert, in no acute respiratory distress. Vital Signs: She is currently afebrile. Blood pressure is 104/46, respiratory rate 18, O2 saturation is 98% on 2 liters of oxygen. HEENT: Head is normocephalic, atraumatic. Neck: Supple. Heart: Regular. S1, S2. Chest: A few scattered rhonchi. Abdomen: Soft. Bowel sounds are positive. Extremities: No cyanosis or edema. LABORATORY: WBC is 5, hemoglobin 8.6, hematocrit 26.4, platelet count of 308,000, polys 59, lymphs 23, monocytes 6 and eosinophils 9. BUN 17, creatinine 0.8. A chest x-ray shows no acute infiltrates or effusions. An echocardiogram shows normal left ventricular size and function and mitral regurgitation. Right ventricle is normal in size and function. A previous chest CT in December 2017 revealed no evidence of pulmonary embolism. It did show a distended gallbladder and dilated common bile duct. There were solid nodules in the right and left lung bases; the right medial lung base 0.8 x 0.7 cm as well as a 0.5-cm non-calcified nodule in the left lung base. IMPRESSION: Dyspnea due to multiple factors. 1. Possibly secondary to anemia. 2. Possible coronary artery disease. 3. Cough; possible aspiration; possible bronchitis. 4. Right lower lobe and right lower lobe nodules; looks like post-inflammatory. PLAN: 1. Supplemental O2. 2. Monitor hemoglobin and hematocrit. 3. Consider GI workup to evaluate for case of anemia. 4. Trial course of inhaled bronchodilators. 5. Obtain followup chest CT. GHADA BARTON M.D. GIOVANNI/[id number]
[2018-10-25] MEDS: ALBUTEROL SO4 2.5/IPRATROPIUM 0.5 INH SOL 3 ML VIAL.NEB. NEB SCH ×2 (15:00→20:05)
--- NOTE | 2018-10-25 16:57 | CONSULT ---
Admitting History and Physical - Past Medical History Cardiovascular: Yes: HTN - Advance Directives Advance Directives: Yes: Health Care Proxy - Smoking History Smoking history: Never smoked Have you smoked in the past 12 months: No - Alcohol/Substance Use Hx Alcohol Use: No History - Admission Reason For Visit: SOB/ANEMIA - Hearing Hearing: Normal Hearing Aide: No With Patient: No Speech Evaluation - Communication Primary Language: ESTONIAN Communication: Yes: Simple Responses, Language Barrier (family member present and served to translate directives.) Oral Expression Ability: Yes: No Impairment - Speech Production Apraxia: No Able to Make Needs Known: Yes: Moderately Impaired (secondary to language barrier.) Intelligibility: Yes: WNL - Speech Characteristics Voice Loudness: Normal Voice Pitch: Yes: Normal Voice Phonatory-based Quality: Yes: Normal Speech Pattern: Normal Nasal Resonance: Normal Articulation: Yes: Precise Dysfluency: Yes: Tonic Rate of Speech: Intact Voice Comment: WNL for airway protection and vocal quality - Language/Auditory Comprehension Follows: Yes: 1 Stage Simple Commands (WNL), 2 Stage Simple Commands (WNL) Observation: Able to respond to yes/no queries: Yes, Yes/No Confusion: No, Comprehends Conversational Speech: Yes (in Bulgarian), Benefits from Slow Speech: No, Benefits from Repetiton: No, Benefits from Increased Volume of Speech: No - Language/Verbal Expression Able to Respond to Simple Queries: Yes: WNL Able to Communicate Wants and Needs: Yes: WNL Functional Communication Status: Yes: Mildly Impaired Aware of Errors: Yes Attempts to Correct Errors: Yes Use of Gestures: Yes Written Expression: Not examined Oral Expression: in Bulgarian, WF Reading Comprehension: Not examined Calculations: Not examined Attention: Yes: Intact - Memory/Perception [facility] Memory: Yes: Mildly Impaired Short Term Memory: Yes: WNL - Swallow Evaluation/Bedside Assessment Current Nutritional Intake: Regular (NA cut to bite size pieces), Thin Liquids Oral Secretions: Yes: WFL Tracheostomy Present: No Patient on Ventilator: No Dentition: Yes: Edentulous, Missing Teeth (incisors missing, few molar present upper and lower jaw) Facial Symmetry at Rest: Symmetrical Facial Symmetry on Retraction: Symmetrical Facial Movement: Controlled Sensation: Normal Facial Comment: WF for speech and swallowing purposes Jaw Position: Closed at Rest Against Resistance Opening: Normal Against Resistance Closing: Normal Pucker Lips: Normal Smile: Normal Lips, Comment: WFL for speech and swallowing purposes Lingual Movement: Normal Lingual Speed of Movement: Normal Lingual Movement Strgth Against Opposition: Normal Lingual Movement Characteristics: Normal Lingual Comment: WFL for speech and swallowing purposes Soft Palate Description: Normal Color Hard Palate Description: Normal Color Gag Reflex: Strong Velopharyngeal Movement: Normal Laryngeal Elevation: WFL Laryngeal Movement: Able to Palpate Needs Assistance: No Rate of Intake: WFL Bolus Size: WFL Labial Seal: WFL Chewing: WFL Oral Prep Time: WFL A-P Transit: WFL Timing of Swallow: WFL Odynophagia: Oral Coughing/Throat Clear: No Change in Voice: No Other Findings/Remarks: 83 yo female seen at bedside for swallow eval to r/o dysphagia. Primary language is Bulgarian , A&Ox2, cooperative. Family member present and served as sales project coordinator for directives. PHMX: HTN, elevated Cholesterol? Admitted to [facility] for chest pain. Adequate voicing and airway protection at oral motor exam. Current diet: NA controlled solids with thin liquids. Pt given po trials of puree, mech soft with minimal assistance revealed good acceptance, increased mastication (secondary to dental status, adequate bolus formation and transport. Pharyngeal swallow appears timely. No cough observed at bedside. Thin liquids trials without assistance was unremarkable for dysphagia and / or aspiration at this time. Recommendations - Speech Evaluation, Impression/Plan Impression: 83 yo female presents with mild oral dysphagia secondary to dental status. Regular solids may be difficult to masticate. Mechanical soft solids my be more appropriate. Thin Liquids swallows are WFL with no evidence of dysphagia at this time. Custodial Goals: tolerate the least restrictive diet without s/s of aspiration Short Term Goals: tolerate mech soft, regular soft solids with thin liquids without s/s of aspiration - Dysphagia Impressions/Plan Swallowing Skills: Impaired Dysphagia Impressions: Minimal Impairment (Secondary to dental status), Risk of Aspiration *Silent aspiration: cannot be R/O at bedside Dysphagia Treatment Plan: Small Bites, Safe Rate, Elevate HOB during feed, Other (encourage thorough chewing) Dysphagia Evaluation Summary: Mechanical soft NA controlled solids with thin liquids as tolerated. Observed standard aspiration precautions and crush meds for ease of swallow. Results given to credit charge authorizer verbally and to pcp via chart. - Recommendations Diet Consistency: Regular (bite size), Mechanical Soft Medication Administration: Crushed with applesauce Liquids: Thin Liquids
[2018-10-25] MEDS ORDERED: IRON SUCROSE INJECTION 100 MG in SODIUM CHLORIDE 95 ML IVPB ONE (17:10)
[2018-10-25] MEDS: ACETAMINOPHEN 325 MG TABLET (FP) PO PRN (20:25)
[2018-10-25] MEDS: ATORVASTATIN CA 40 MG TABLET (FP) PO SCH (21:47)
[2018-10-26] MEDS: ALBUTEROL SO4 2.5/IPRATROPIUM 0.5 INH SOL 3 ML VIAL.NEB. NEB SCH ×3 (07:57→20:51)
[2018-10-26 08:02] LABS: BASO % 0.5 % (0-2.0); EOS % 6.2 % (0-4.5); HEMATOCRIT 24.3 % (32.4-45.2); HEMOGLOBIN 7.8 GM/dL (10.7-15.3); LYMPH % 18.9 % (8-40); MCH 38.2 pg (25.7-33.7); MCHC 32.1 g/dl (32.0-36.0); MEAN CELL VOLUME 119.1 fl (80-96); MEAN PLT VOLUME 9.1 fl (7.5-11.1); NEUT % 66.4 % (42.8-82.8); PLATELET COUNT 288 K/MM3 (134-434); RBC 2.04 M/mm3 (3.60-5.2); RDW 15.7 % (11.6-15.6); WHITE BLOOD COUNT 4.3 K/mm3 (4.0-10.0)
[2018-10-26] MEDS ORDERED: IRON SUCROSE INJECTION 100 MG in SODIUM CHLORIDE 95 ML IVPB ONE (09:00)
[2018-10-26 09:30] LABS: ALBUMIN 2.5 g/dl (3.4-5.0); ALK PHOS 106 U/L (45-117); ANION GAP 5 MMOL/L (8-16); BILIRUBIN,TOTAL 0.4 mg/dL (0.2-1); BLOOD UREA NITROGEN 19 mg/dL (7-18); CALCIUM 8.6 mg/dL (8.5-10.1); CHLORIDE 101 mmol/L (98-107); CO2 35 mmol/L (21-32); CREATININE 0.9 mg/dL (0.55-1.3); GLUCOSE,RANDOM 78 mg/dL (74-106); MAGNESIUM 2.5 mg/dL (1.8-2.4); POTASSIUM 4.5 mmol/L (3.5-5.1); SGOT/AST 16 U/L (15-37); SGPT/ALT 11 U/L (13-61); SODIUM 141 mmol/L (136-145); TOT PROT 5.3 g/dl (6.4-8.2)
[2018-10-26] MEDS ORDERED: PT OWN MED DRAWER 7, Y5N ONE (09:45)
[2018-10-26] MEDS: PANTOPRAZOLE 40 MG TABLET (FP) PO SCH (09:51)
[2018-10-26] MEDS: METOPROLOL TARTRATE 25 MG TABLET (FP) PO SCH (09:51)
[2018-10-26] MEDS: FOLIC ACID 1 MG TABLET (FP) PO SCH (09:51)
[2018-10-26] MEDS: VALSARTAN 160 MG TABLET (UD) PO SCH (09:51)
[2018-10-26] MEDS: CYANOCOBALAMIN 1,000 MCG TABLET (FP) PO SCH (09:51)
[2018-10-26] MEDS: FERROUS SO4 325 MG TABLET (FP) PO SCH (09:51)
--- NOTE | 2018-10-26 11:47 | PN ---
Progress Note, Physician History of Present Illness: PULMONARY ALERT,NO DISTRESS,+ OCC COUGH ,SWALLOWING EVAL NOTED,+ IMPAIRED SWALLOWING - Current Medication List Current Medications: Active Medications Acetaminophen (Tylenol -) 650 mg PO Q6H PRN PRN Reason: PAIN LEVEL 1 - 3 Last Admin: 10/25/18 20:25 Dose: 650 mg Albuterol/Ipratropium (Duoneb -) 1 amp NEB RTID [facility] Last Admin: 10/26/18 07:57 Dose: 1 amp Atorvastatin Calcium (Lipitor -) 40 mg PO HS [facility] Last Admin: 10/25/18 21:47 Dose: 40 mg Cyanocobalamin (Vitamin B12 -) 1,000 mcg PO DAILY [facility] Last Admin: 10/26/18 09:51 Dose: 1,000 mcg Ferrous Sulfate (Feosol -) 325 mg PO DAILY [facility] Last Admin: 10/26/18 09:51 Dose: 325 mg Folic Acid (Folic Acid -) 1 mg PO DAILY [facility] Last Admin: 10/26/18 09:51 Dose: 1 mg Metoprolol Tartrate (Lopressor -) 25 mg PO DAILY [facility] Last Admin: 10/26/18 09:51 Dose: 25 mg Pantoprazole Sodium (Protonix -) 40 mg PO DAILY [facility] Last Admin: 10/26/18 09:51 Dose: 40 mg Valsartan (Diovan -) 160 mg PO DAILY [facility] Last Admin: 10/26/18 09:51 Dose: 160 mg - Objective Vital Signs: Vital Signs Temperature 98.2 F 10/26/18 09:55 Pulse Rate 101 H 10/26/18 09:55 Respiratory Rate 18 10/26/18 09:55 Blood Pressure 105/47 L 10/26/18 09:55 O2 Sat by Pulse Oximetry (%) 100 10/25/18 21:00 Constitutional: Yes: Calm, Thin Eyes: Yes: WNL HENT: Yes: WNL Neck: Yes: WNL Cardiovascular: Yes: Regular Rate and Rhythm, S1, S2 Respiratory: Yes: Rhonchi (FEW SCATTERED RHONCHI) Gastrointestinal: Yes: Normal Bowel Sounds, Soft Extremities: Yes: WNL Edema: No Labs: CBC, BMP 10/26/18 06:30 10/26/18 06:30 - ....Imaging Cat Scan: Report Reviewed, Image Reviewed Problem List - Problems (1) Pulmonary nodules Code(s): R91.8 - OTHER NONSPECIFIC ABNORMAL FINDING OF LUNG FIELD (2) Anemia Code(s): D64.9 - ANEMIA, UNSPECIFIED Qualifiers: Anemia type: unspecified type Qualified Code(s): D64.9 - Anemia, unspecified (3) Shortness of breath Code(s): R06.02 - SHORTNESS OF BREATH (4) Cough Code(s): R05 - COUGH (5) HLD (hyperlipidemia) Code(s): E78.5 - HYPERLIPIDEMIA, UNSPECIFIED (6) HTN (hypertension) Code(s): I10 - ESSENTIAL (PRIMARY) HYPERTENSION Assessment/Plan IMP DYSPNEA ? SECONDARY TO ANEMIA,?ASHD CHEST PAIN COUGH ? ASPIRATION,? HYPER-REACTIVE AIRWAY SYMPTOMATIC ANEMIA PULMONARY NODULES EOSINOPHILIA HLD HTN GERSON OPACITY PLAN O2 INHALED BRONCHODILATORS MONITOR CBC,H+H GI W/U MEDROL X 24HRS F/U CHEST CT [address] BARTON Problem List - Problems (1) Pulmonary nodules Code(s): R91.8 - OTHER NONSPECIFIC ABNORMAL FINDING OF LUNG FIELD (2) Anemia Code(s): D64.9 - ANEMIA, UNSPECIFIED Qualifiers: Anemia type: unspecified type Qualified Code(s): D64.9 - Anemia, unspecified (3) Shortness of breath Code(s): R06.02 - SHORTNESS OF BREATH (4) Cough Code(s): R05 - COUGH (5) HLD (hyperlipidemia) Code(s): E78.5 - HYPERLIPIDEMIA, UNSPECIFIED (6) HTN (hypertension) Code(s): I10 - ESSENTIAL (PRIMARY) HYPERTENSION
[2018-10-26] MEDS: methylPREDNISolone NA SUCC 40 MG/1 ML VIAL IVPUSH SCH ×2 (12:24→18:29)
--- NOTE | 2018-10-26 17:05 | CON.GI ---
Consult Consult Specialty:: GI Referred by:: Hospitalist Service Reason for Consultation:: Anemia - History of Present Illness Chief Complaint: Admitted for chest pain and SOB History of Present Illness: 83F admitted 10/23/18 for evaluation of CP and SOB. Evaluated by cardiology: no interventions planned. Evaluated by pulmonary: on IV corticostreroids. Asked to evaluate anemia. She has a macrocytic anemia. Her macrocytic anemia seems to have worsened from 12/30. She had a low serum iron with low TIBC and normal ferritin. She had a low B12 level on the . She has been getting venofur and PO iron. She was on an Aspirin. The patient's is present at bedside. He believes that she has lost 13 pounds over the last 2 months and has not been eating much. There has been no reported melena/rectal bleeding. Her believes that Ms. Moss has never had an upper endoscopy or colonoscopy. There is no family history of colorectal cancer or other GI malignancy. Stool specimen sent was negative for occult blood. - History Source History Provided By: Patient Limitations to Obtaining History: Language Barrier - Past Medical History Cardio/Vascular: Yes: CAD, HTN, Other (RBBB, Marked sinus arrhythmia on recent EKG 10/24) Heme/Onc: Yes: Anemia (macrocytic), B12 Deficiency - Past Surgical History Past Surgical History: Yes: Hernia Repair (bilateral inguinal hernia repair per the patient's ) - Alcohol/Substance Use Hx Alcohol Use: No - Smoking History Smoking history: Never smoked Have you smoked in the past 12 months: No - Social History Usual Living Arrangement: With Spouse ADL: Family Assistance Occupation: Retired Tailor Place of : Other ([place]) Came to [place]year[place] 1960 History of Recent Travel: No Home Medications - Allergies Allergies/Adverse Reactions: Allergies Allergy/AdvReac Type Severity Reaction Status Date / Time No Known Allergies Allergy Verified 01/08/18 14:11 - Home Medications Home Medications: Ambulatory Orders Olmesartan Medoxomil [Benicar] 40 mg PO DAILY 01/08/18 Aspirin Coated [Ecotrin -] 81 mg PO DAILY tablet.ec 01/10/18 Levothyroxine [Synthroid -] 50 mcg PO DAILY 10/24/18 Iron Sucrose Complex [Venofer] 100 mg IV ONCE #1 vial 10/25/18 Family Disease History - Family Disease History Family Disease History: Other: Father ( of old age), Mother ( of old age ), Sister (2, healthy), Son (2, healthy) Other Family History: No family history of colorectal cancer or other GI malignancy Review of Systems - Review of Systems Constitutional: reports: Unintentional Wgt. Loss Cardiovascular: reports: Chest Pain Respiratory: reports: Cough, SOB Gastrointestinal: denies: Abdominal Pain, Melena, Rectal Bleeding, Vomiting Physical Exam-GI Vital Signs: Vital Signs Pulse Rate 93 10/26/18 17:52 Constitutional: Yes: Calm Eyes: No: Sclera Icterus Cardiovascular: Yes: Pulse Irregular (Normal rate, regularly irregular rhythm) Respiratory: Yes: Diminished (at bases b/l Poor insp effort) ...Rectal Exam: Yes: Other (Shell Grader present: No external lesions, no masses, iron stained stool in rectal vault, guaiac negative.) Edema: No (No LE edema) Neurological: Yes: Alert Labs: CBC, BMP 10/26/18 06:30 10/26/18 06:30 Imaging - Results Cat Scan: Report Reviewed (CTA of chest 10/25/17: ? small airway disease, T8 vertebral compression fx: ? subacute) Problem List - Problems (1) Macrocytic anemia with vitamin B12 deficiency Assessment/Plan: Anemia likely murifacorial. No overt or occult bleeding noted. Serum iron low however TIBC also low and the anemia is macrocytic. Suspect that the low b12 playing a role. Hematology is evaluating. Discussed with re: EGD and colonoscopy for evaluation of the iron deficiency component of her anemia as well as ? perniciious anemia and weight loss/diminished appetite. Discussed potential riosks of the procedures with nurse present with Her . Discussed potential risks of the procedure like but not limited to bleeding, perforation requiring to repair, infection and sedation medication effects all of which could be potentially life threatening. He has agreed to Ms. Moss undergoing procedures. I explained that they will be performed once clear from a cardiovascular standpoint. ASA does not need to be held for procedural purposes. If it is preferred to be continued for cardiovascular purposes then it can be continued. Defer to cardiology and PMD. For now: Protonix 20mg once daily Ms. Moss still appeared tachypnic and uncomfortable from a respiratory standpouint during my evaluation this evening ans is still receiving IV steroiods.Recall when patient medically optimized for procedures. Follow-up heme recommendations Code(s): D51.9 - VITAMIN B12 DEFICIENCY ANEMIA, UNSPECIFIED
--- NOTE | 2018-10-26 17:32 | PN ---
Physical Exam: SUBJECTIVE: Patient seen and examined at the bedside. still short of breath. tells me that patient never smoked but she is around her son who often smokes around her. OBJECTIVE: Breathing not at her baseline. still short of breath with oxygen at 2 liters. she is not home oxygen dependent. chest xray and echo do not give reason why patient is short of breath. CTA shows development of minimal to mild bilateral upper and lower lung field groundglass interstitial thickening is seen which may be due to small airway disease and less likely mild interstitial vascular congestion. Development of a 1.1x0.7 cm left upper lobe opacity. will need 3 month follow up. moderate t8 vertebral body compression fx. hmg/hct dropping. giving her venofer, b12, folate. on protonix Vital Signs Period Temp Pulse Resp BP Sys/Lgeer Pulse Ox Last 24 Hr 97.6 F-98.2 F 72-101 18-20 105-132/47-60 97-100 GENERAL: Awake HEAD: Normal with no signs of trauma. EYES: Pupils equal, round and reactive to light, extraocular movements intact, sclera anicteric, conjunctiva clear. No lid lag. EARS, NOSE, THROAT: Ears normal, nares patent, oropharynx clear without exudates. Moist mucous membranes. NECK: Normal range of motion, supple without lymphadenopathy, JVD, or masses. LUNGS: upper lobe congestion noted. chest xray states clear lungs. - destats when off oxygen HEART: Regular rate and rhythm ABDOMEN: Soft, nontender, not distended, normoactive bowel sounds, no guarding, no rebound, no masses. No hepatomegaly or splenomegaly. MUSCULOSKELETAL: Normal range of motion at all joints. No bony deformities or tenderness. No CVA tenderness. UPPER EXTREMITIES: 2+ pulses, warm, well-perfused. No cyanosis. No clubbing. No peripheral edema. LOWER EXTREMITIES: 2+ pulses, warm, well-perfused. No calf tenderness. No peripheral edema. NEUROLOGICAL: Cranial nerves II-XII intact. Normal speech. Normal gait. PSYCHIATRIC: Cooperative. Good eye contact. Appropriate mood and affect. SKIN: Warm, dry, normal turgor, no rashes or lesions noted, normal capillary refill. Laboratory Results - last 24 hr 10/26/18 10/26/18 06:30 06:30 WBC 4.3 RBC 2.04 L Hgb 7.8 L Hct 24.3 L MCV 119.1 H MCH 38.2 H MCHC 32.1 RDW 15.7 H Plt Count 288 MPV 9.1 Absolute Neuts (auto) 2.9 Neutrophils % 66.4 Lymphocytes % 18.9 D Monocytes % 8.0 Eosinophils % 6.2 H Basophils % 0.5 Nucleated RBC % 0 Sodium 141 Potassium 4.5 Chloride 101 Carbon Dioxide 35 H Anion Gap 5 L BUN 19 H Creatinine 0.9 Creat Clearance w eGFR 59.51 Random Glucose 78 Calcium 8.6 Magnesium 2.5 H Total Bilirubin 0.4 AST 16 ALT 11 L Alkaline Phosphatase 106 Total Protein 5.3 L Albumin 2.5 L Active Medications Generic Name Dose Route Start Last Admin Trade Name Freq PRN Reason Stop Dose Admin Acetaminophen 650 mg 10/25/18 20:25 10/25/18 20:25 Tylenol - PO 650 mg Q6H PRN Administration PAIN LEVEL 1 - 3 Albuterol/Ipratropium 1 amp 10/25/18 14:00 10/26/18 15:00 Duoneb - NEB 1 amp RTID [facility] Administration Atorvastatin Calcium 40 mg 10/23/18 22:00 10/25/18 21:47 Lipitor - PO 40 mg HS [facility] Administration Cyanocobalamin 1,000 mcg 10/25/18 10:00 10/26/18 09:51 Vitamin B12 - PO 1,000 mcg DAILY [facility] Administration Ferrous Sulfate 325 mg 10/25/18 10:00 10/26/18 09:51 Feosol - PO 325 mg DAILY [facility] Administration Folic Acid 1 mg 10/25/18 10:00 10/26/18 09:51 Folic Acid - PO 1 mg DAILY [facility] Administration Methylprednisolone Sodium Succinate 40 mg 10/26/18 12:00 10/26/18 12:24 Solu-Medrol - IVPUSH 40 mg Q8H-IV [facility] Administration Metoprolol Tartrate 25 mg 10/24/18 10:00 10/26/18 09:51 Lopressor - PO 25 mg DAILY [facility] Administration Pantoprazole Sodium 20 mg 10/27/18 10:00 Protonix - PO DAILY [facility] Valsartan 160 mg 10/24/18 10:00 10/26/18 09:51 Diovan - PO 160 mg DAILY [facility] Administration ASSESSMENT/PLAN: The patient is an 83 year old female with a history of HTN, HLD, abnormal EKG who presents to the emergency department for evaluation of chest pain occurring while in the patient's primary care provider's office for a routine visit with associated shortness of breath, increased fatigue with ambulation. Patient is a poor historian, answers all questions. Cardiology: Chest pain, resolved troponins negative x 3 Echo 10/24/2018 reviewed, mild aortic regur, mild findings, ef 60-65% Pulmonary Shortness of breath chest xray and echo do not explain her shortness of breath and need for oxygen CTA reveals airway disease. No PE seen. She requires 2 liters of oxygen to maintain sats >90% Pulm following HLD, chronic on Lipitor Heme: Anemia, symptomatic. Vitamin b12 deficiency anemia Iron deficiency anemia Admit to tele. hmg dropping, she was previously seen at [facility] on 12/2017 and her hmg/hct were within normal range stool negative for occult blood, will repeat on protonix, IV venofer, vitamin b12 and folate heme and gi consult. Dispo: requires inpatient treatment DVT Prophylaxis: SCDs Full Code Visit type - Emergency Visit Emergency Visit: Yes ED Registration Date: 10/23/18 Care time: The patient presented to the Emergency Department on the above date and was hospitalized for further evaluation of their emergent condition. - New Patient This patient is new to me today: No - Critical Care Critical Care patient: No - Discharge Referral Referred to [facility] Med P.C.: No
--- NOTE | 2018-10-26 20:19 | CONSULT ---
Consult Consult Specialty:: Heme Referred by:: Karen Carmichael Reason for Consultation:: Macrocytic anemia - History of Present Illness Chief Complaint: chest pain History of Present Illness: 83F with HTN, HLD admitted with chest pain, SOB, and worsening fatigue. Ruled out for OK. Found to have Hgb 8.9, MCV 116. WBC and platelets normal. B12 86. Ferritin 300, iron 16, TIBC 230. Pt is hard of hearing. Per , at bedside , pt has poor appetite (has never been a great eater) and lost ~13 lbs in the past few months. No dietary restrictions. No hx of GI surgery. Denies parasthesias, numbness and balance problems. - History Source History Provided By: Patient, Family Member, Medical Record Limitations to Obtaining History: Physical Impairment - Past Medical History Cardio/Vascular: Yes: CAD, HTN, Other (RBBB, Marked sinus arrhythmia on recent EKG 10/24) - Past Surgical History Past Surgical History: Yes: Hernia Repair (bilateral inguinal hernia repair per the patient's ) - Alcohol/Substance Use Hx Alcohol Use: No - Smoking History Smoking history: Never smoked Have you smoked in the past 12 months: No - Social History Usual Living Arrangement: With Spouse ADL: Family Assistance Occupation: Retired Tailor History of Recent Travel: No Home Medications - Allergies Allergies/Adverse Reactions: Allergies Allergy/AdvReac Type Severity Reaction Status Date / Time No Known Allergies Allergy Verified 01/08/18 14:11 - Home Medications Home Medications: Ambulatory Orders Olmesartan Medoxomil [Benicar] 40 mg PO DAILY 01/08/18 Aspirin Coated [Ecotrin -] 81 mg PO DAILY tablet.ec 01/10/18 Levothyroxine [Synthroid -] 50 mcg PO DAILY 10/24/18 Iron Sucrose Complex [Venofer] 100 mg IV ONCE #1 vial 10/25/18 Family Disease History - Family Disease History Family Disease History: Other: Father ( of old age), Mother ( of old age ), Sister (2, healthy), Son (2, healthy) Other Family History: No family history of colorectal cancer or other GI malignancy Review of Systems - Review of Systems Constitutional: reports: Unintentional Wgt. Loss Cardiovascular: reports: Chest Pain, Shortness of Breath Respiratory: reports: Exercise Intolerance, Orthopnea, PND, SOB Gastrointestinal: reports: No Symptoms Hematology/Lymphatic: reports: No Symptoms Physical Exam Vital Signs: Vital Signs Temperature 98.0 F 10/26/18 18:00 Pulse Rate 105 H 10/26/18 18:00 Respiratory Rate 18 10/26/18 18:00 Blood Pressure 129/53 L 10/26/18 18:00 O2 Sat by Pulse Oximetry (%) 97 10/26/18 09:00 Constitutional: Yes: Thin Eyes: Yes: Conjunctiva Clear Cardiovascular: Yes: Regular Rate and Rhythm Respiratory: Yes: Regular, Rales (scattered) Gastrointestinal: Yes: Soft Extremities: Yes: WNL Edema: No Labs: CBC, BMP 10/26/18 06:30 10/26/18 06:30 Imaging - Results Cat Scan: Report Reviewed Problem List - Problems (1) Anemia Assessment/Plan: Macrocytic anemia secondary to severe b12 deficiency. No clear e/o iron deficiency. Continue with daily cyanocobalamin 1000 IM x 1 week, then weekly until deficiency corrected. Will need intrinsic factor testing at some point (not accurate on active supplementation) Planned for endoscopic eval, ?atrophic gastritis Monitor CBC, retics Code(s): D64.9 - ANEMIA, UNSPECIFIED Qualifiers: Anemia type: unspecified type Qualified Code(s): D64.9 - Anemia, unspecified
[2018-10-26] MEDS: ATORVASTATIN CA 40 MG TABLET (FP) PO SCH (21:23)
[2018-10-26] MEDS: ACETAMINOPHEN 325 MG TABLET (FP) PO PRN (21:23)
[2018-10-27] MEDS: methylPREDNISolone NA SUCC 40 MG/1 ML VIAL IVPUSH SCH ×3 (02:20→17:52)
[2018-10-27] MEDS: ALBUTEROL SO4 2.5/IPRATROPIUM 0.5 INH SOL 3 ML VIAL.NEB. NEB SCH ×3 (07:44→20:47)
[2018-10-27 07:54] LABS: HEMOGLOBIN 8.6 GM/dL (10.7-15.3); LYMPH % 6.1 % (8-40); MCH 37.9 pg (25.7-33.7); MCHC 31.8 g/dl (32.0-36.0); MEAN CELL VOLUME 119.4 fl (80-96); MEAN PLT VOLUME 8.9 fl (7.5-11.1); MONO % 0.6 % (3.8-10.2); NEUT % 93.3 % (42.8-82.8); PLATELET COUNT 322 K/MM3 (134-434); RBC 2.26 M/mm3 (3.60-5.2); RDW 15.7 % (11.6-15.6); WHITE BLOOD COUNT 6.3 K/mm3 (4.0-10.0)
[2018-10-27 08:27] LABS: ALBUMIN 2.7 g/dl (3.4-5.0); ALK PHOS 116 U/L (45-117); ANION GAP 7 MMOL/L (8-16); BILIRUBIN,TOTAL 0.3 mg/dL (0.2-1); BLOOD UREA NITROGEN 25 mg/dL (7-18); CALCIUM 8.8 mg/dL (8.5-10.1); CHLORIDE 103 mmol/L (98-107); CO2 31 mmol/L (21-32); CREATININE 0.9 mg/dL (0.55-1.3); GLUCOSE,RANDOM 125 mg/dL (74-106); MAGNESIUM 2.4 mg/dL (1.8-2.4); POTASSIUM 4.9 mmol/L (3.5-5.1); SGOT/AST 18 U/L (15-37); SGPT/ALT 11 U/L (13-61); SODIUM 141 mmol/L (136-145)
[2018-10-27] MEDS: VALSARTAN 160 MG TABLET (UD) PO SCH (09:01)
[2018-10-27] MEDS: FOLIC ACID 1 MG TABLET (FP) PO SCH (09:01)
[2018-10-27] MEDS: FERROUS SO4 325 MG TABLET (FP) PO SCH (09:01)
[2018-10-27] MEDS: CYANOCOBALAMIN (VITAMIN B-12) 1000 MCG/1 ML VIAL IM SCH (09:01)
[2018-10-27] MEDS: PANTOPRAZOLE 20 MG TABLET (FP) PO SCH (09:01)
[2018-10-27] MEDS: METOPROLOL TARTRATE 25 MG TABLET (FP) PO SCH (09:01)
--- NOTE | 2018-10-27 09:54 | PN ---
Physical Exam: SUBJECTIVE: Patient seen and examined at the bedside. present. discussed poc with him. he tells me patient has poor appetite at home. OBJECTIVE: dietary consult - will order supplements in the meantime. lungs sound better, better airway entry, now off oxygen - on medrol per pulm hmg/hct improving on vit 12 injectins x 1 week daily much improved Vital Signs Period Temp Pulse Resp BP Sys/Leger Pulse Ox Last 24 Hr 97.6 F-98.2 F 72-105 18-20 105-132/47-61 97 GENERAL: Awake HEAD: Normal with no signs of trauma. EYES: Pupils equal, round and reactive to light, extraocular movements intact, sclera anicteric, conjunctiva clear. No lid lag. EARS, NOSE, THROAT: Ears normal, nares patent, oropharynx clear without exudates. Moist mucous membranes. NECK: Normal range of motion, supple without lymphadenopathy, JVD, or masses. LUNGS: upper lobe congestion noted. chest xray states clear lungs. - destats when off oxygen HEART: Regular rate and rhythm ABDOMEN: Soft, nontender, not distended, normoactive bowel sounds, no guarding, no rebound, no masses. No hepatomegaly or splenomegaly. MUSCULOSKELETAL: Normal range of motion at all joints. No bony deformities or tenderness. No CVA tenderness. UPPER EXTREMITIES: 2+ pulses, warm, well-perfused. No cyanosis. No clubbing. No peripheral edema. LOWER EXTREMITIES: 2+ pulses, warm, well-perfused. No calf tenderness. No peripheral edema. NEUROLOGICAL: Cranial nerves II-XII intact. Normal speech. Normal gait. PSYCHIATRIC: Cooperative. Good eye contact. Appropriate mood and affect. SKIN: Warm, dry, normal turgor, no rashes or lesions noted, normal capillary refill. Laboratory Results - last 24 hr 10/27/18 10/27/18 06:30 06:30 WBC 6.3 RBC 2.26 L Hgb 8.6 L Hct 27.0 L MCV 119.4 H MCH 37.9 H MCHC 31.8 L RDW 15.7 H Plt Count 322 MPV 8.9 Absolute Neuts (auto) 5.8 Neutrophils % 93.3 H D Lymphocytes % 6.1 L D Monocytes % 0.6 L D Eosinophils % 0.0 D Basophils % 0.0 Nucleated RBC % 0 Sodium 141 Potassium 4.9 Chloride 103 Carbon Dioxide 31 Anion Gap 7 L BUN 25 H Creatinine 0.9 Creat Clearance w eGFR 59.51 Random Glucose 125 H Calcium 8.8 Magnesium 2.4 Total Bilirubin 0.3 AST 18 ALT 11 L Alkaline Phosphatase 116 Total Protein 6.0 L Albumin 2.7 L Active Medications Generic Name Dose Route Start Last Admin Trade Name Freq PRN Reason Stop Dose Admin Acetaminophen 650 mg 10/25/18 20:25 10/26/18 21:23 Tylenol - PO 650 mg Q6H PRN Administration PAIN LEVEL 1 - 3 Albuterol/Ipratropium 1 amp 10/25/18 14:00 10/27/18 07:44 Duoneb - NEB 1 amp RTID [facility]ONT Administration Atorvastatin Calcium 40 mg 10/23/18 22:00 10/26/18 21:23 Lipitor - PO 40 mg HS [facility] Administration Cyanocobalamin 1,000 mcg 10/27/18 10:00 10/27/18 09:01 Vitamin B12 Injection - IM 1,000 mcg DAILY [facility] Administration Ferrous Sulfate 325 mg 10/25/18 10:00 10/27/18 09:01 Feosol - PO 325 mg DAILY [facility] Administration Folic Acid 1 mg 10/25/18 10:00 10/27/18 09:01 Folic Acid - PO 1 mg DAILY [facility] Administration Methylprednisolone Sodium Succinate 40 mg 10/26/18 12:00 10/27/18 09:01 Solu-Medrol - IVPUSH 40 mg Q8H-IV [facility] Administration Metoprolol Tartrate 25 mg 10/24/18 10:00 10/27/18 09:01 Lopressor - PO 25 mg DAILY [facility] Administration Pantoprazole Sodium 20 mg 10/27/18 10:00 10/27/18 09:01 Protonix - PO 20 mg DAILY [facility] Administration Valsartan 160 mg 10/24/18 10:00 10/27/18 09:01 Diovan - PO 160 mg DAILY [facility] Administration ASSESSMENT/PLAN: The patient is an 83 year old female with a history of HTN, HLD, abnormal EKG who presents to the emergency department for evaluation of chest pain occurring while in the patient's primary care provider's office for a routine visit with associated shortness of breath, increased fatigue with ambulation. Patient is a poor historian, answers all questions. Cardiology: Chest pain, resolved troponins negative x 3 Echo 10/24/2018 reviewed, mild aortic regur, mild findings, ef 60-65% Pulmonary Shortness of breath, resolving on medrol taper, off supplemental oxygen chest xray and echo do not explain her shortness of breath and need for oxygen, but cta revealed airway disease. no pe. will need 3 mos follow up with repeat chest ct. Pulm following HLD, chronic on Lipitor Heme: Anemia, hmg/hmct improving Vitamin b12 deficiency anemia, on b12 injections Iron deficiency anemia, followed by heme stool negative for occult blood on protonix, vitamin b12 and folate heme and gi consult. Dispo: requires inpatient treatment DVT Prophylaxis: SCDs Full Code Visit type - Emergency Visit Emergency Visit: Yes ED Registration Date: 10/23/18 Care time: The patient presented to the Emergency Department on the above date and was hospitalized for further evaluation of their emergent condition. - New Patient This patient is new to me today: No - Critical Care Critical Care patient: No - Discharge Referral Referred to [facility] Med P.C.: No
[2018-10-27 10:05] LABS: ANISOCYTOSIS 1+; MACROCYTOSIS 1+; OVALOCYTE 1+; PLATELET ESTIMATE NORMAL
--- NOTE | 2018-10-27 11:36 | PN ---
Progress Note, Physician History of Present Illness: pulmonary alert,feeling better,less cough,-sob,o2 sat 95% on ra - Current Medication List Current Medications: Active Medications Acetaminophen (Tylenol -) 650 mg PO Q6H PRN PRN Reason: PAIN LEVEL 1 - 3 Last Admin: 10/26/18 21:23 Dose: 650 mg Albuterol/Ipratropium (Duoneb -) 1 amp NEB RTID [facility] Last Admin: 10/27/18 07:44 Dose: 1 amp Atorvastatin Calcium (Lipitor -) 40 mg PO HS [facility] Last Admin: 10/26/18 21:23 Dose: 40 mg Cyanocobalamin (Vitamin B12 Injection -) 1,000 mcg IM DAILY [facility] Last Admin: 10/27/18 09:01 Dose: 1,000 mcg Ferrous Sulfate (Feosol -) 325 mg PO DAILY [facility] Last Admin: 10/27/18 09:01 Dose: 325 mg Folic Acid (Folic Acid -) 1 mg PO DAILY [facility] Last Admin: 10/27/18 09:01 Dose: 1 mg Methylprednisolone Sodium Succinate (Solu-Medrol -) 40 mg IVPUSH Q8H-IV [facility] Last Admin: 10/27/18 09:01 Dose: 40 mg Metoprolol Tartrate (Lopressor -) 25 mg PO DAILY [facility] Last Admin: 10/27/18 09:01 Dose: 25 mg Pantoprazole Sodium (Protonix -) 20 mg PO DAILY [facility] Last Admin: 10/27/18 09:01 Dose: 20 mg Valsartan (Diovan -) 160 mg PO DAILY [facility] Last Admin: 10/27/18 09:01 Dose: 160 mg - Objective Vital Signs: Vital Signs Temperature 97.7 F 10/27/18 06:00 Pulse Rate 100 H 10/27/18 06:00 Respiratory Rate 20 10/27/18 06:00 Blood Pressure 130/58 L 10/27/18 06:00 O2 Sat by Pulse Oximetry (%) 97 10/26/18 21:00 Constitutional: Yes: Calm, Thin Eyes: Yes: WNL HENT: Yes: WNL Neck: Yes: WNL Cardiovascular: Yes: Regular Rate and Rhythm, S1, S2 Respiratory: Yes: Rhonchi (few rhonchi) Gastrointestinal: Yes: Normal Bowel Sounds, Soft Extremities: Yes: WNL Edema: No Labs: CBC, BMP 10/27/18 06:30 10/27/18 06:30 Problem List - Problems (1) Pulmonary nodules Code(s): R91.8 - OTHER NONSPECIFIC ABNORMAL FINDING OF LUNG FIELD (2) Anemia Code(s): D64.9 - ANEMIA, UNSPECIFIED Qualifiers: Anemia type: unspecified type Qualified Code(s): D64.9 - Anemia, unspecified (3) Shortness of breath Code(s): R06.02 - SHORTNESS OF BREATH (4) Cough Code(s): R05 - COUGH (5) HLD (hyperlipidemia) Code(s): E78.5 - HYPERLIPIDEMIA, UNSPECIFIED (6) HTN (hypertension) Code(s): I10 - ESSENTIAL (PRIMARY) HYPERTENSION Assessment/Plan IMP DYSPNEA improving CHEST PAIN COUGH IMPROVING SYMPTOMATIC ANEMIA PULMONARY NODULES EOSINOPHILIA HLD HTN GERSON OPACITY PLAN O2 INHALED BRONCHODILATORS MONITOR CBC,H+H MEDROL X 24HRS F/U CHEST CT [address] [place] Problem List - Problems (1) Pulmonary nodules Code(s): R91.8 - OTHER NONSPECIFIC ABNORMAL FINDING OF LUNG FIELD (2) Anemia Code(s): D64.9 - ANEMIA, UNSPECIFIED Qualifiers: Anemia type: unspecified type Qualified Code(s): D64.9 - Anemia, unspecified (3) Shortness of breath Code(s): R06.02 - SHORTNESS OF BREATH (4) Cough Code(s): R05 - COUGH (5) HLD (hyperlipidemia) Code(s): E78.5 - HYPERLIPIDEMIA, UNSPECIFIED (6) HTN (hypertension) Code(s): I10 - ESSENTIAL (PRIMARY) HYPERTENSION
--- NOTE | 2018-10-27 19:04 | PN ---
Progress Note, Physician Chief Complaint: chest pain History of Present Illness: Feeling better, less chest pain and SOB. - Current Medication List Current Medications: Active Medications Acetaminophen (Tylenol -) 650 mg PO Q6H PRN PRN Reason: PAIN LEVEL 1 - 3 Last Admin: 10/26/18 21:23 Dose: 650 mg Albuterol/Ipratropium (Duoneb -) 1 amp NEB RTID [facility] Last Admin: 10/27/18 14:00 Dose: 1 amp Atorvastatin Calcium (Lipitor -) 40 mg PO HS [facility] Last Admin: 10/26/18 21:23 Dose: 40 mg Cyanocobalamin (Vitamin B12 Injection -) 1,000 mcg IM DAILY [facility] Last Admin: 10/27/18 09:01 Dose: 1,000 mcg Ferrous Sulfate (Feosol -) 325 mg PO DAILY [facility] Last Admin: 10/27/18 09:01 Dose: 325 mg Folic Acid (Folic Acid -) 1 mg PO DAILY [facility] Last Admin: 10/27/18 09:01 Dose: 1 mg Methylprednisolone Sodium Succinate (Solu-Medrol -) 40 mg IVPUSH Q8H-IV [facility] Last Admin: 10/27/18 17:52 Dose: 40 mg Metoprolol Tartrate (Lopressor -) 25 mg PO DAILY [facility] Last Admin: 10/27/18 09:01 Dose: 25 mg Pantoprazole Sodium (Protonix -) 20 mg PO DAILY [facility] Last Admin: 10/27/18 09:01 Dose: 20 mg Valsartan (Diovan -) 160 mg PO DAILY [facility] Last Admin: 10/27/18 09:01 Dose: 160 mg - Objective Vital Signs: Vital Signs Temperature 98.1 F 10/27/18 18:00 Pulse Rate 90 10/27/18 18:00 Respiratory Rate 19 10/27/18 18:00 Blood Pressure 129/52 L 10/27/18 18:00 O2 Sat by Pulse Oximetry (%) 97 10/27/18 10:00 Constitutional: Yes: Thin Eyes: Yes: Conjunctiva Clear Cardiovascular: Yes: Regular Rate and Rhythm Respiratory: Yes: Regular, CTA Bilaterally Gastrointestinal: Yes: WNL, Soft Extremities: Yes: WNL Edema: No Labs: CBC, BMP 10/27/18 06:30 10/27/18 06:30 Problem List - Problems (1) Anemia Assessment/Plan: Macrocytic anemia secondary to severe b12 deficiency (86). No clear e/o iron deficiency. Peripheral smear with anisopoikilocytosis, many hypersegmented PMNs. Continue with daily cyanocobalamin 1000 IM x 1 week, then weekly until deficiency corrected. Will need intrinsic factor testing at some point (not accurate on active supplementation) Planned for endoscopic eval, ?atrophic gastritis Monitor CBC, retics Code(s): D64.9 - ANEMIA, UNSPECIFIED Qualifiers: Anemia type: unspecified type Qualified Code(s): D64.9 - Anemia, unspecified
[2018-10-27] MEDS ORDERED: ONDANSETRON 4 MG/2 ML VIAL ONE (20:14)
[2018-10-27] MEDS ORDERED: ONDANSETRON 4 MG/2 ML VIAL IVPUSH ONE (20:30)
[2018-10-27] MEDS: ATORVASTATIN CA 40 MG TABLET (FP) PO SCH (21:24)
[2018-10-27] MEDS: ACETAMINOPHEN 325 MG TABLET (FP) PO PRN (23:26)
[2018-10-28] MEDS: methylPREDNISolone NA SUCC 40 MG/1 ML VIAL IVPUSH SCH ×2 (01:00→09:29)
[2018-10-28 06:31] LABS: HEMATOCRIT 25.4 % (32.4-45.2); HEMOGLOBIN 7.8 GM/dL (10.7-15.3); LYMPH % 3.3 % (8-40); MCH 37.3 pg (25.7-33.7); MCHC 30.9 g/dl (32.0-36.0); MEAN CELL VOLUME 120.9 fl (80-96); MONO % 1.7 % (3.8-10.2); PLATELET COUNT 326 K/MM3 (134-434); RDW 15.8 % (11.6-15.6); WHITE BLOOD COUNT 11.1 K/mm3 (4.0-10.0)
[2018-10-28 06:58] LABS: ALBUMIN 2.6 g/dl (3.4-5.0); ALK PHOS 101 U/L (45-117); ANION GAP 4 MMOL/L (8-16); BILIRUBIN,TOTAL 0.3 mg/dL (0.2-1); BLOOD UREA NITROGEN 34 mg/dL (7-18); CALCIUM 8.8 mg/dL (8.5-10.1); CHLORIDE 105 mmol/L (98-107); CO2 32 mmol/L (21-32); CREATININE 1.2 mg/dL (0.55-1.3); GLUCOSE,RANDOM 128 mg/dL (74-106); SGOT/AST 26 U/L (15-37); SGPT/ALT 12 U/L (13-61); SODIUM 141 mmol/L (136-145); TOT PROT 5.5 g/dl (6.4-8.2)
[2018-10-28] MEDS: ALBUTEROL SO4 2.5/IPRATROPIUM 0.5 INH SOL 3 ML VIAL.NEB. NEB SCH ×3 (07:14→20:55)
[2018-10-28] MEDS ORDERED: IRON SUCROSE INJECTION 100 MG in SODIUM CHLORIDE 95 ML IVPB ONE (08:27)
[2018-10-28 09:12] LABS: ACANTHOCYTES 1+; ANISOCYTOSIS 1+; MACROCYTOSIS 0; OVALOCYTE 1+; PLATELET ESTIMATE NORMAL; TEAR DROP CELLS 1+
[2018-10-28] MEDS ORDERED: PT OWN MED DRAWER 7, Y5N ONE (09:23)
[2018-10-28] MEDS: CYANOCOBALAMIN (VITAMIN B-12) 1000 MCG/1 ML VIAL IM SCH (09:29)
[2018-10-28] MEDS: PANTOPRAZOLE 20 MG TABLET (FP) PO SCH (09:29)
[2018-10-28] MEDS: VALSARTAN 160 MG TABLET (UD) PO SCH (09:29)
[2018-10-28] MEDS: METOPROLOL TARTRATE 25 MG TABLET (FP) PO SCH (09:29)
[2018-10-28] MEDS: FERROUS SO4 325 MG TABLET (FP) PO SCH (09:29)
[2018-10-28] MEDS: FOLIC ACID 1 MG TABLET (FP) PO SCH (09:29)
--- NOTE | 2018-10-28 10:55 | PN ---
Physical Exam: SUBJECTIVE: Patient seen and examined at the bedside. OBJECTIVE: NPO at midnight for endoscopic evaluation for iron deficiency. cleared by pulmonary. Vital Signs Period Temp Pulse Resp BP Sys/Leger Pulse Ox Last 24 Hr 97.6 F-98.6 F 73-90 18-20 119-129/45-52 96 GENERAL: Awake, more alert, cachectic, frail HEAD: Normal with no signs of trauma. EYES: Pupils equal, round and reactive to light, extraocular movements intact, sclera anicteric, conjunctiva clear. No lid lag. EARS, NOSE, THROAT: Ears normal, nares patent, oropharynx clear without exudates. Moist mucous membranes. NECK: Normal range of motion, supple without lymphadenopathy, JVD, or masses. LUNGS: lungs diminished, but mostly clear. diminished at the bases. HEART: Regular rate and rhythm ABDOMEN: Soft, nontender, not distended, normoactive bowel sounds, no guarding, no rebound, no masses. No hepatomegaly or splenomegaly. MUSCULOSKELETAL: Normal range of motion at all joints. No bony deformities or tenderness. No CVA tenderness. UPPER EXTREMITIES: No peripheral edema. LOWER EXTREMITIES: No peripheral edema. NEUROLOGICAL: Normal speech. walks with 1 person assistance, pt following. PSYCHIATRIC: Cooperative. poor historian, answers all questions. Laboratory Results - last 24 hr 10/27/18 10/28/18 10/28/18 06:30 05:00 05:00 WBC 11.1 H RBC 2.10 L Hgb 7.8 L Hct 25.4 L MCV 120.9 H MCH 37.3 H MCHC 30.9 L RDW 15.8 H Plt Count 326 MPV 9.0 Absolute Neuts (auto) 10.5 H Neutrophils % 95.0 H Neutrophils % (Manual) 95.0 H 93.0 H Band Neutrophils % 0.0 0.0 Lymphocytes % 3.3 L D Lymphocytes % (Manual) 4.0 L 5.0 L D Monocytes % 1.7 L D Monocytes % (Manual) 1 L 2 L D Eosinophils % 0.0 Eosinophils % (Manual) 0.0 0.0 Basophils % 0.0 Basophils % (Manual) 0.0 0.0 Myelocytes % (Man) 0 0 Promyelocytes % (Man) 0 0 Blast Cells % (Manual) 0 0 Nucleated RBC % 0 Metamyelocytes 0 0 Hypochromia 0 0 Platelet Estimate Normal Normal Polychromasia 0 1+ Poikilocytosis 1+ 1+ Anisocytosis 1+ 1+ Microcytosis 0 1+ Macrocytosis 1+ 0 Spherocytes 1+ Tear Drop Cells 1+ Ovalocytes 1+ 1+ Acanthocytes (Spur) 1+ Schistocytes 1+ Sodium 141 Potassium 5.0 Chloride 105 Carbon Dioxide 32 Anion Gap 4 L BUN 34 H Creatinine 1.2 Creat Clearance w eGFR 42.70 Random Glucose 128 H Calcium 8.8 Total Bilirubin 0.3 AST 26 ALT 12 L Alkaline Phosphatase 101 Total Protein 5.5 L Albumin 2.6 L Active Medications Generic Name Dose Route Start Last Admin Trade Name Freq PRN Reason Stop Dose Admin Acetaminophen 650 mg 10/25/18 20:25 10/27/18 23:26 Tylenol - PO 650 mg Q6H PRN Administration PAIN LEVEL 1 - 3 Albuterol/Ipratropium 1 amp 10/25/18 14:00 10/28/18 07:14 Duoneb - NEB 1 amp RTID [facility]ONT Administration Atorvastatin Calcium 40 mg 10/23/18 22:00 10/27/18 21:24 Lipitor - PO 40 mg HS [facility]ONT Administration Cyanocobalamin 1,000 mcg 10/27/18 10:00 10/28/18 09:29 Vitamin B12 Injection - IM 1,000 mcg DAILY [facility] Administration Ferrous Sulfate 325 mg 10/25/18 10:00 10/28/18 09:29 Feosol - PO 325 mg DAILY [facility] Administration Folic Acid 1 mg 10/25/18 10:00 10/28/18 09:29 Folic Acid - PO 1 mg DAILY [facility] Administration Methylprednisolone Sodium Succinate 40 mg 10/26/18 12:00 10/28/18 09:29 Solu-Medrol - IVPUSH 40 mg Q8H-IV [facility] Administration Metoprolol Tartrate 25 mg 10/24/18 10:00 10/28/18 09:29 Lopressor - PO 25 mg DAILY [facility] Administration Pantoprazole Sodium 20 mg 10/27/18 10:00 10/28/18 09:29 Protonix - PO 20 mg DAILY [facility] Administration Valsartan 160 mg 10/24/18 10:00 10/28/18 09:29 Diovan - PO 160 mg DAILY [facility] Administration ASSESSMENT/PLAN: The patient is an 83 year old female with a history of HTN, HLD, abnormal EKG who presents to the emergency department for evaluation of chest pain occurring while in the patient's primary care provider's office for a routine visit with associated shortness of breath, increased fatigue with ambulation. Patient is a poor historian, answers all questions. cta: CTA shows development of minimal to mild bilateral upper and lower lung field groundglass interstitial thickening is seen which may be due to small airway disease and less likely mild interstitial vascular congestion. Development of a 1.1x0.7 cm left upper lobe opacity. will need 3 month follow up. moderate t8 vertebral body compression fx. Cardiology: Chest pain, resolved troponins negative x 3 Echo 10/24/2018 reviewed, mild aortic regur, mild findings, ef 60-65% Pulmonary Shortness of breath, improving Finished medrol taper. now off supplemental oxygen chest xray and echo did not explain her shortness of breath and need for oxygen , but cta revealed airway disease. no pe. will need 3 mos follow up with repeat chest ct. Pulmonary nodule seen on CTA will need follow up outpatient. Pulm following HLD, chronic on Lipitor Muscular/Skeletal severe malnutrition the setting of low bmi 18., poor appetite with at least 13% weight loss in the last month, moderate depletion in the muscle mass and subcutaneous fat. poor po intake. on supplements, dietary following. Heme: Iron deficiency anemia: hmg/hmct dropped again today. given venofer, dose #3. no signs of bleeding.stool negative for blood. holding ASA. For endoscopy procedure tomorrow. on protonix, vitamin b12 and folate Vitamin b12 deficiency anemia: on b12 injections. per heme, give b12 injections daily x 1 week, then daily. recheck levels with her pcp heme and gi following fen tolerating, PO for possible egd procedure tomorrow, npo at midnight. start ivf. monitor electrolytes regular diet, supplement. scs. avoid anticoagulation 2/2 to anemia. Full Code Visit type - Emergency Visit Emergency Visit: Yes ED Registration Date: 10/23/18 Care time: The patient presented to the Emergency Department on the above date and was hospitalized for further evaluation of their emergent condition. - New Patient This patient is new to me today: No - Critical Care Critical Care patient: No - Discharge Referral Referred to [facility] Med P.C.: No
--- NOTE | 2018-10-28 12:02 | PN ---
Progress Note (short form) - Note Progress Note: Patient seen and examined Labs reviewed No new events. Patient tolerating PO. 10/28/18 06:00 Temperature 97.6 F Pulse Rate 86 Respiratory 18 Rate Blood Pressure 119/45 L O2 Sat by Pulse Oximetry (%) NAD soft NT ND Labs reviewed and stable Impression: 83F with iron deficiency and B12 deficiency anemia. The combination of the two could be consistent with atrophic gastritis. Warrants endoscopic evaluation for iron deficiency. Await pulmonary clearance; once obtained, will plan for procedure(s).
--- NOTE | 2018-10-28 12:22 | PN ---
Progress Note, PATCH WASHER - Note Progress Note: 83F pt with iron deficiency and B12 deficiency anemia.Per GI- The combination of the two could be consistent with atrophic gastritis; endoscopic evaluation for iron deficiency pending. Selected Entries 10/27/18 10/27/18 10/27/18 06:00 10:00 10:17 Breakfast 100% Supper Temperature 97.7 F 97.7 F 10/27/18 10/27/18 10/27/18 14:00 18:00 19:56 Breakfast Supper 50% Temperature 97.8 F 98.1 F 10/27/18 10/28/18 21:00 06:00 Breakfast 100% Supper Temperature 98.6 F 97.6 F Laboratory Tests 10/27/18 10/28/18 06:30 05:00 WBC 6.3 11.1 H Pt on chopped food at home. She was on chopped food here but disliked it. Now of reg diet, slow but fairly efficient mastication. reportedly tolerated a bagel. 3 oz water (-).
[2018-10-28 14:33] VITALS: BMI 18.3
--- NOTE | 2018-10-28 15:06 | PN ---
Progress Note (short form) - Note Progress Note: PULMONARY Per at bedside, breathing slightly improved. No cough or wheezing. no fevers or chills. Vital Signs Period Temp Pulse Resp BP Sys/Leger Pulse Ox Last 24 Hr 97.6 F-98.6 F 85-91 18-20 119-129/45-52 96 Gen: NAD at rest Heart: RRR Lung: scattered rales Abd: soft, nontender Ext: no edema CBC, BMP 10/28/18 05:00 10/28/18 05:00 Active Medications Acetaminophen (Tylenol -) 650 mg PO Q6H PRN PRN Reason: PAIN LEVEL 1 - 3 Last Admin: 10/27/18 23:26 Dose: 650 mg Albuterol/Ipratropium (Duoneb -) 1 amp NEB RTID [facility] Last Admin: 10/28/18 13:09 Dose: 1 amp Atorvastatin Calcium (Lipitor -) 40 mg PO HS [facility] Last Admin: 10/27/18 21:24 Dose: 40 mg Cyanocobalamin (Vitamin B12 Injection -) 1,000 mcg IM DAILY [facility] Last Admin: 10/28/18 09:29 Dose: 1,000 mcg Ferrous Sulfate (Feosol -) 325 mg PO DAILY [facility] Last Admin: 10/28/18 09:29 Dose: 325 mg Folic Acid (Folic Acid -) 1 mg PO DAILY [facility] Last Admin: 10/28/18 09:29 Dose: 1 mg Methylprednisolone Sodium Succinate (Solu-Medrol -) 40 mg IVPUSH Q8H-IV [facility] Last Admin: 10/28/18 09:29 Dose: 40 mg Metoprolol Tartrate (Lopressor -) 25 mg PO DAILY [facility] Last Admin: 10/28/18 09:29 Dose: 25 mg Pantoprazole Sodium (Protonix -) 20 mg PO DAILY [facility] Last Admin: 10/28/18 09:29 Dose: 20 mg Valsartan (Diovan -) 160 mg PO DAILY [facility] Last Admin: 10/28/18 09:29 Dose: 160 mg A/P Symptomatic Anemia Lung Nodules Eosinophilia HTN Hyperlipidemia - can d/c medrol - inhaled bronchodilators - O2 as needed - will need outpt f/u of lung nodules - DVT prophylaxis - can proceed with endoscopy from pulmonary standpoint
[2018-10-28] MEDS: ATORVASTATIN CA 40 MG TABLET (FP) PO SCH (21:41)
[2018-10-29] MEDS ORDERED: SODIUM CHLORIDE 1,000 ML IV SCH
[2018-10-29] MEDS: ALBUTEROL SO4 2.5/IPRATROPIUM 0.5 INH SOL 3 ML VIAL.NEB. NEB SCH ×2 (07:11→15:00)
--- NOTE | 2018-10-29 08:18 | PN ---
Progress Note, Physician Chief Complaint: 24hour events: -scheduled for EGD today -medrol discontinued - Current Medication List Current Medications: Active Medications Acetaminophen (Tylenol -) 650 mg PO Q6H PRN PRN Reason: PAIN LEVEL 1 - 3 Last Admin: 10/27/18 23:26 Dose: 650 mg Albuterol/Ipratropium (Duoneb -) 1 amp NEB RTID [facility] Last Admin: 10/29/18 07:11 Dose: 1 amp Atorvastatin Calcium (Lipitor -) 40 mg PO HS [facility] Last Admin: 10/28/18 21:41 Dose: 40 mg Cyanocobalamin (Vitamin B12 Injection -) 1,000 mcg IM DAILY [facility] Last Admin: 10/28/18 09:29 Dose: 1,000 mcg Ferrous Sulfate (Feosol -) 325 mg PO DAILY [facility] Last Admin: 10/28/18 09:29 Dose: 325 mg Folic Acid (Folic Acid -) 1 mg PO DAILY [facility] Last Admin: 10/28/18 09:29 Dose: 1 mg Sodium Chloride (Normal Saline -) 1,000 mls @ 42 mls/hr IV ASDIR [facility] Last Admin: 10/29/18 06:01 Dose: 42 mls/hr Metoprolol Tartrate (Lopressor -) 25 mg PO DAILY [facility] Last Admin: 10/28/18 09:29 Dose: 25 mg Pantoprazole Sodium (Protonix -) 20 mg PO DAILY [facility] Last Admin: 10/28/18 09:29 Dose: 20 mg Valsartan (Diovan -) 160 mg PO DAILY [facility] Last Admin: 10/28/18 09:29 Dose: 160 mg - Objective Vital Signs: Vital Signs Temperature 97.8 F 10/29/18 06:00 Pulse Rate 92 H 10/29/18 06:00 Respiratory Rate 18 10/29/18 06:00 Blood Pressure 126/81 10/29/18 06:00 O2 Sat by Pulse Oximetry (%) 97 10/28/18 21:00 Labs: CBC, BMP 10/28/18 05:00 10/28/18 05:00 Problem List - Problems (1) Anemia Assessment/Plan: venofer for 5doses ferrous sulfate 325mg daily Code(s): D64.9 - ANEMIA, UNSPECIFIED Qualifiers: Anemia type: unspecified type Qualified Code(s): D64.9 - Anemia, unspecified (2) HLD (hyperlipidemia) Assessment/Plan: cardiac diet lipitor 40mg daily Code(s): E78.5 - HYPERLIPIDEMIA, UNSPECIFIED (3) HTN (hypertension) Assessment/Plan: diovan 160mg daily metoprolol 25mg daily Code(s): I10 - ESSENTIAL (PRIMARY) HYPERTENSION (4) Macrocytic anemia Assessment/Plan: continue with vitamin B12 and folate Code(s): D53.9 - NUTRITIONAL ANEMIA, UNSPECIFIED (5) Pulmonary nodules Code(s): R91.8 - OTHER NONSPECIFIC ABNORMAL FINDING OF LUNG FIELD (6) Shortness of breath Assessment/Plan: PRN O2 NC nebs TID Code(s): R06.02 - SHORTNESS OF BREATH Impression/Plan Impression/Plan: bowel regimen with senna and colace PPI daily Visit type - Emergency Visit Emergency Visit: Yes ED Registration Date: 10/23/18 Care time: The patient presented to the Emergency Department on the above date and was hospitalized for further evaluation of their emergent condition. - New Patient This patient is new to me today: Yes Date on this admission: 10/29/18 - Critical Care Critical Care patient: No - Discharge Referral Referred to [facility] Med P.C.: No
[2018-10-29] MEDS ORDERED: DOCUSATE NA 100 MG/10 ML UNIT-DOSE CUPS PO PRN (08:36)
[2018-10-29 09:02] LABS: BASO % 0.1 % (0-2.0); HEMATOCRIT 27.7 % (32.4-45.2); HEMOGLOBIN 9.2 GM/dL (10.7-15.3); LYMPH % 10.2 % (8-40); MCH 39.3 pg (25.7-33.7); MCHC 33.4 g/dl (32.0-36.0); MEAN CELL VOLUME 117.7 fl (80-96); MEAN PLT VOLUME 8.8 fl (7.5-11.1); MONO % 6.8 % (3.8-10.2); NEUT % 82.9 % (42.8-82.8); PLATELET COUNT 469 K/MM3 (134-434); RBC 2.35 M/mm3 (3.60-5.2); RDW 16.3 % (11.6-15.6); WHITE BLOOD COUNT 11.6 K/mm3 (4.0-10.0)
[2018-10-29 09:28] LABS: ALBUMIN 2.7 g/dl (3.4-5.0); ALK PHOS 100 U/L (45-117); ANION GAP 5 MMOL/L (8-16); BILIRUBIN,TOTAL 0.3 mg/dL (0.2-1); BLOOD UREA NITROGEN 33 mg/dL (7-18); CALCIUM 9.1 mg/dL (8.5-10.1); CHLORIDE 105 mmol/L (98-107); CO2 32 mmol/L (21-32); GLUCOSE,RANDOM 76 mg/dL (74-106); MAGNESIUM 2.5 mg/dL (1.8-2.4); POTASSIUM 4.5 mmol/L (3.5-5.1); SGOT/AST 26 U/L (15-37); SGPT/ALT 16 U/L (13-61); SODIUM 142 mmol/L (136-145); TOT PROT 5.9 g/dl (6.4-8.2)
[2018-10-29] MEDS ORDERED: MIDAZOLAM HCL 2 MG/2 ML SINGLE DOSE VIAL ONE ×2 (10:28)
[2018-10-29] MEDS ORDERED: LIDOCAINE VISCOUS 2% ORAL/TOP 20 ML UNIT-DOSE CUP PO ONE (10:30)
[2018-10-29] MEDS ORDERED: LIDOCAINE VISCOUS 2% ORAL/TOP 20 ML UNIT-DOSE CUP ONE (10:32)
--- NOTE | 2018-10-29 10:50 | PN ---
Progress Note (short form) - Note Progress Note: EGD complete. report placed in physical chart and will be scanned into [facility]. Problem List - Problems (1) Macrocytic anemia with vitamin B12 deficiency Code(s): D51.9 - VITAMIN B12 DEFICIENCY ANEMIA, UNSPECIFIED
[2018-10-29 11:51] LABS: ANISOCYTOSIS 1+; MACROCYTOSIS 1+; OVALOCYTE 1+; PLATELET ESTIMATE NORMAL; TARGET CELLS 1+
[2018-10-29] MEDS: FOLIC ACID 1 MG TABLET (FP) PO SCH (12:46)
[2018-10-29] MEDS: FERROUS SO4 325 MG TABLET (FP) PO SCH (12:46)
[2018-10-29] MEDS: CYANOCOBALAMIN (VITAMIN B-12) 1000 MCG/1 ML VIAL IM SCH (12:46)
[2018-10-29] MEDS: METOPROLOL TARTRATE 25 MG TABLET (FP) PO SCH (12:46)
[2018-10-29] MEDS: VALSARTAN 160 MG TABLET (UD) PO SCH (12:47)
[2018-10-29] MEDS: PANTOPRAZOLE 20 MG TABLET (FP) PO SCH (12:47)
--- NOTE | 2018-10-29 13:25 | PN ---
Progress Note, Physician History of Present Illness: PULMONARY ALERT,NO DISTRESS,-SOB,-COUGH - Current Medication List Current Medications: Active Medications Acetaminophen (Tylenol -) 650 mg PO Q6H PRN PRN Reason: PAIN LEVEL 1 - 3 Last Admin: 10/27/18 23:26 Dose: 650 mg Albuterol/Ipratropium (Duoneb -) 1 amp NEB RTID [facility] Last Admin: 10/29/18 07:11 Dose: 1 amp Atorvastatin Calcium (Lipitor -) 40 mg PO HS [facility] Last Admin: 10/28/18 21:41 Dose: 40 mg Cyanocobalamin (Vitamin B12 Injection -) 1,000 mcg IM DAILY [facility] Last Admin: 10/29/18 12:46 Dose: 1,000 mcg Docusate Sodium (Colace Liquid -) 100 mg PO DAILY PRN PRN Reason: CONSTIPATION Last Admin: 10/29/18 12:46 Dose: 100 mg Ferrous Sulfate (Feosol -) 325 mg PO DAILY [facility] Last Admin: 10/29/18 12:46 Dose: 325 mg Folic Acid (Folic Acid -) 1 mg PO DAILY [facility] Last Admin: 10/29/18 12:46 Dose: 1 mg Sodium Chloride (Normal Saline -) 1,000 mls @ 42 mls/hr IV ASDIR [facility] Last Admin: 10/29/18 06:01 Dose: 42 mls/hr Metoprolol Tartrate (Lopressor -) 25 mg PO DAILY [facility] Last Admin: 10/29/18 12:46 Dose: 25 mg Senna (Senna -) 1 tab PO [facility] Valsartan (Diovan -) 160 mg PO DAILY [facility] Last Admin: 10/29/18 12:47 Dose: 160 mg - Objective Vital Signs: Vital Signs Temperature 97.3 F L 10/29/18 10:52 Pulse Rate 74 10/29/18 11:25 Respiratory Rate 17 10/29/18 11:25 Blood Pressure 130/80 10/29/18 11:25 O2 Sat by Pulse Oximetry (%) 99 10/29/18 11:25 Constitutional: Yes: Calm, Thin Eyes: Yes: WNL HENT: Yes: WNL Neck: Yes: WNL Cardiovascular: Yes: Regular Rate and Rhythm, S1, S2 Respiratory: Yes: Diminished Gastrointestinal: Yes: Normal Bowel Sounds, Soft Extremities: Yes: WNL Edema: No Labs: CBC, BMP 10/29/18 08:50 10/29/18 08:50 Problem List - Problems (1) Pulmonary nodules Code(s): R91.8 - OTHER NONSPECIFIC ABNORMAL FINDING OF LUNG FIELD (2) Anemia Code(s): D64.9 - ANEMIA, UNSPECIFIED Qualifiers: Anemia type: unspecified type Qualified Code(s): D64.9 - Anemia, unspecified (3) Shortness of breath Code(s): R06.02 - SHORTNESS OF BREATH (4) Cough Code(s): R05 - COUGH (5) HLD (hyperlipidemia) Code(s): E78.5 - HYPERLIPIDEMIA, UNSPECIFIED (6) HTN (hypertension) Code(s): I10 - ESSENTIAL (PRIMARY) HYPERTENSION Assessment/Plan IMP DYSPNEA IMPROVED CHEST PAIN COUGH IMPROVING SYMPTOMATIC ANEMIA PULMONARY NODULES EOSINOPHILIA HLD HTN GERSON OPACITY PLAN O2 INHALED BRONCHODILATORS MONITOR CBC,H+H F/U CHEST CT [address] [place] Problem List - Problems (1) Pulmonary nodules Code(s): R91.8 - OTHER NONSPECIFIC ABNORMAL FINDING OF LUNG FIELD (2) Anemia Code(s): D64.9 - ANEMIA, UNSPECIFIED Qualifiers: Anemia type: unspecified type Qualified Code(s): D64.9 - Anemia, unspecified (3) Shortness of breath Code(s): R06.02 - SHORTNESS OF BREATH (4) Cough Code(s): R05 - COUGH (5) HLD (hyperlipidemia) Code(s): E78.5 - HYPERLIPIDEMIA, UNSPECIFIED (6) HTN (hypertension) Code(s): I10 - ESSENTIAL (PRIMARY) HYPERTENSION
[2018-10-29 15:37] VITALS: BP 118/81; PULSE 76; TEMP 98.6
--- NOTE | 2018-10-29 16:01 | DS ---
Physical Examination Vital Signs: Vital Signs Temperature 98.6 F 10/29/18 15:33 Pulse Rate 76 10/29/18 15:33 Respiratory Rate 20 10/29/18 15:33 Blood Pressure 118/81 10/29/18 15:33 O2 Sat by Pulse Oximetry (%) 99 10/29/18 11:25 Constitutional: Yes: No Distress, Calm, Thin Eyes: Yes: Conjunctiva Clear HENT: Yes: Atraumatic, Normocephalic, Other (thininig graves hair) Neck: Yes: Supple, Trachea Midline Cardiovascular: Yes: Regular Rate and Rhythm Respiratory: Yes: Regular, CTA Bilaterally Gastrointestinal: Yes: Normal Bowel Sounds, Soft ...Rectal Exam: Yes: Deferred Extremities: Yes: WNL Edema: No Peripheral Pulses WNL: Yes Peripheral Pulses: Left Radial: 2+, Right Radial: 2+ Integumentary: Yes: WNL Neurological: Yes: Alert, Confusion, Unsteady Gait ...Motor Strength: LLE (significantly decreased 3/5), RLE Psychiatric: Yes: Alert Labs: CBC, BMP 10/29/18 08:50 10/29/18 08:50 Discharge Summary Reason For Visit: SOB/ANEMIA Current Active Problems Anemia (Acute) Cough (Acute) HLD (hyperlipidemia) (Acute) HTN (hypertension) (Acute) Macrocytic anemia (Acute) Macrocytic anemia with vitamin B12 deficiency (Acute) Pulmonary nodules (Acute) Shortness of breath (Acute) Procedures: Principal: EGD 10/29/18: seen attached report. CT chest 10/25/2018: In comparison to a prior exam of 01/08/2018 development of minimal to mild bilateral upper and lower lung limon groundless interstitial thickening is seen which may be due to small airway disease and less likely mild interstitial vascular congestion. clincal lab correlation is suggested. DEvelopment of a 1.1 x 0.7cm left upper lobe opacity is seen probrably representing atelectasis or scarring and less likely a nodule/ correlation with 3mth follow up CT. Interval development of a moderate T8 vertebral body compression fracture is noted which may be subacute. Mild stable T9 vertebral. Mild stable T9 vertebral body compression fracture. Hospital Course: 83 year old female with a history of HTN, HLD who presents for evaluation of chest pain. The patient is accompanied by her who assists in providing the history. He states that they presented to the patient's primary care provider's office for a routine visit as the patient has been getting more short of breath and tired with ambulation and were referred to the ED for further evaluation after an EKG was performed. Per the patient's primary care provider, when discussed with the patient alone, the patient has been experiencing chest pressure and worsening shortness of breath with exertion and notes that the patient has CAD and would like cardiology consultation. The patient otherwise denies fevers, chills, cough, nausea, vomiting, abdominal pain , or changes with urination or bowel movements. ER course was notable for: (1)Hg 8.9 (2)EKG unchanged from prior with RBBB and T wave abnormalities. (3)Guaic neg labs and lytes normal, +new anemia with H/h drop from prior to 8./ - denies bloody stools or history of anemia. EKG unchanged from prior with RBBB and T wave abnormalities. trop neg x 3. anemia workup initiated. no indication for transfusion admit for symptomatic anemia. given IV venofer, vitamin b12 and folate during hospital stay. Discharged with oral iron tabs BID, vitamin C daily, folate and vit B12 daily stool negative for occult blood, EGD done 10/29 demonstrates gastritis. continue protonix home dose. Aspirin to be restarted 24hrs post EGD. Pt will follow up with PCP post discharge for repeat lab test. Pt should also f/u outpt with GI Shortness of breath, improved after completing medrol taper. now off supplemental oxygen chest xray and echo did not explain her shortness of breath and need for oxygen , but cta revealed airway disease. no PE. will need 3 mos follow up with repeat chest ct. Pulmonary nodule seen on CTA will need follow up outpatient. Condition: Improved - Instructions Referrals: Sergio Calvert MD [Primary Care Provider] - Disposition: HOME - Home Medications Comprehensive Discharge Medication List: Ambulatory Orders -synthroid 50mcg daily -Benicar 40mg daily -atrovent neb QID -Albuterol neb qID -asa 81mg daily -vitamin C 500mg daily -lipitor 40mg at bedtime -vitamin B12 1000mcg daily -Iron tabs 325mg BID -metoprolol 25mg daily -protonix 20mg daily This patient is new to me today: Yes Date on this admission: 10/29/18 Emergency Visit: Yes ED Registration Date: 10/23/18 Care time: The patient presented to the Emergency Department on the above date and was hospitalized for further evaluation of their emergent condition. Critical Care patient: No - Discharge Referral Referred to [facility] Med P.C.: No
[2018-10-29] MEDS ORDERED: SENNOSIDES 8.6MG TABLET (FP) PO SCH (22:00)
--- NOTE | 2018-10-30 20:18 | PATH ---
Surgical Pathology Report Patient Name: SHANON NAVARRO [facility]. Rec. #: [id number] /Age/Gender: 1935 (Age: 83) / F Account: [id number] Location: 4 PEDS/ADOL Taken: 10/29/2018 Received: 10/29/2018 Reported: 10/30/2018 Physicians: Fer Donahue FNP Specimen(s) Received A: BX PYLORUS B: BX BODY OF STOMACH BIOPSY Clinical History Anemia, shortness of breath Postoperative diagnosis: Gastritis Final Diagnosis A. PYLORIC BIOPSY: GASTRIC MUCOSA WITH ACTIVE CHRONIC GASTRITIS, EPITHELIAL EROSION, AND INTESTINAL METAPLASIA. IMMUNOSTAIN FOR H. PYLORI IS NEGATIVE. B. BODY OF STOMACH BIOPSY: GASTRIC MUCOSA WITH ACTIVE CHRONIC GASTRITIS AND INTESTINAL METAPLASIA. IMMUNOSTAIN FOR H. PYLORI IS NEGATIVE. Electronically Signed Royer Mike M.D. Gross Description A. Received in formalin, labeled "pyloric biopsy" are 2 martinez, irregular portions of soft tissue measuring 0.2 and 0.3 cm. in greatest dimension. The specimens are submitted in toto in one cassette. B. Received in formalin, labeled "body of stomach" are 2 martinez, irregular portions of soft tissue averaging 0.3 cm. in greatest dimension. The specimens are submitted in toto in one cassette. 10/29/201810/29/2018
--- NOTE | 2018-11-30 13:09 | EKG ---
Test Reason : Blood Pressure : / mmHG Vent. Rate : 104 BPM Atrial Rate : 104 BPM P-R Int : 128 ms QRS Dur : 108 ms QT Int : 360 ms P-R-T Axes : 043 -23 -38 degrees QTc Int : 473 ms POOR DATA QUALITY, INTERPRETATION MAY BE ADVERSELY AFFECTED SINUS TACHYCARDIA RIGHT BUNDLE BRANCH BLOCK NONSPECIFIC ST ABNORMALITY ABNORMAL ECG Confirmed by PHOEBE PRO MD ([id number]) on 11/30/2018 1:08:40 PM Referred By: Confirmed By:PHOEBE PRO MD
== END 2018-10-29 17:13 | disposition home or self-care (01) | DRG 811 ==
LOC: JER 14:55 → JERBED 18:44 → J4S 10-24 15:59
PROVIDERS: ADMIT Internal Medicine; ATTEND Nurse Practitioner Family
PROC: 0DB68ZX Excision of Stomach, Via Natural or Artificial Opening Endoscopic, Diagnostic (ICD-10-PCS; principal; 2018-10-29 09:15)
DX: D51.8 Other vitamin B12 deficiency anemias (principal); E43 Unspecified severe protein-calorie malnutrition; J98.11 Atelectasis; M48.54XA Collapsed vertebra, not elsewhere classified, thoracic region, initial encounter for fracture; Z68.1 Body mass index [BMI] 19.9 or less, adult; J82 Pulmonary eosinophilia, not elsewhere classified; I10 Essential (primary) hypertension; E78.5 Hyperlipidemia, unspecified; R94.31 Abnormal electrocardiogram [ECG] [EKG]; I45.10 Unspecified right bundle-branch block; R91.8 Other nonspecific abnormal finding of lung field; R06.02 Shortness of breath; I25.10 Atherosclerotic heart disease of native coronary artery without angina pectoris; K29.60 Other gastritis without bleeding
CPT/HCPCS: 36415; 71045-TC-FY; 71275-TC; 80053; 80061; 82272; 82550; 82607; 82728; 83540; 83550; 83721; 83735; 83880; 84466; 84484; 85025; 85027; 85044; 87804; 88305-TC; 93005; 93010; 93306-TC; 94640; 97116-GP; 97162-GP; 99285-25; J1644; J1756; J7030

== ENCOUNTER 2018-11-18 12:35 | Inpatient (IN) | payer OTHER ==
[2018-11-18] MEDS ORDERED: SODIUM CHLORIDE 0.9% 500 ML INFUS.BAG IV ONE ×2 (12:58→12:59)
[2018-11-18] MEDS ORDERED: ACETAMINOPHEN 1000 MG/100 ML VIAL (NON FORMULARY) IVPB ONE (12:58)
--- NOTE | 2018-11-18 13:02 | PDOC ---
History of Present Illness - General Chief Complaint: SIRS, Suspected/Possible Stated Complaint: RELAPSE SEPSIS, LETHARGY Time Seen by Provider: 11/18/18 12:58 History Source: Patient, Family Exam Limitations: Clinical Condition - History of Present Illness Initial Comments: 11/18/18 13:36 HPI 83 YOF with h/o HTN and HLD, GERD, hypothyroidism, pulmonary nodule, anemia, with recent admission for chest pain and anemia workup dcd 10/29/18, EGD with gastritis, otherwise unremarkable. presents today by with increased lethargy, malaise, weakness and poor PO intake/appetite loss x 1 week. +weight loss of 20 lbs during the past week due to appetite loss/weakness. associated with productive cough. most of history provided by at bedside +recent hospitalization at [facility] in October 2018. Denies fever, chills, chest pain, SOB, palpitation, dizziness, weakness, N, V, D , abdominal pain, bladder and bowel problems, leg swelling, No sick contacts or travel. No new changes in medications. Allergies: NKA Past Medical History: HTN and HLD, GERD, hypothyroidism, pulmonary nodule, anemia Social history: Lives with family. No smoking. No alcohol. No illicit drugs. Surgical history: hernia repair. PMD: [place] ROS Constitutional: +fevers, weakness, weight loss. +poor appetite. HEENT: no headache or dizziness. No congestion. CVS: no cp or syncope. Resp: no sob. +cough Gastrointestinal: no abdominal pain, nausea or vomiting. Genitourinary: no urinary sx, hematuria. MUSCULOSKELETAL: No joint pain and swelling. No neck or back pain. SKIN: no redness or skin changes, no discharge, no rash. No wounds. Hematologic: no easy bruising/bleeding. NEUROLOGIC: +lethargy, No headache, dizziness, LOC . No focal weakness, numbness or tingling. Allergic/Immunologic: no allergies All other systems reviewed and negative, or as documented in HPI. PE: General: frail and thin appearing, malaised appearing, dehydrated. mild distress. HEENT: NCAT, PERRL, EOMI, pale conjunctiva, anicteric, very dry mucus membranes , poor dentition. Neck: neck supple, FROM Resp: +left lung with diffuse strong rhonchi and crackles. mild respiratory distress CVS: +tachycardic, no murmurs, 2+ peripheral pulses throughout, no peripheral edema Abdomen: soft, NTND, no peritoneal signs. Back: nontender, normal inspection and ROM MSK: no edema, JOHNSTON x4, ROM intact. No clubbing or cyanosis. normal bulk and tone. Extremities: no calf tenderness Neuro: alert, malaised, in discomfort. no focal neuro deficits. Skin: very warm to touch, well perfused, cap refill <2 sec, normal color 11/18/18 13:38 11/18/18 16:12 Past History - Past Medical History Allergies/Adverse Reactions: Allergies Allergy/AdvReac Type Severity Reaction Status Date / Time No Known Allergies Allergy Verified 01/08/18 14:11 Home Medications: Ambulatory Orders Olmesartan Medoxomil [Benicar] 40 mg PO DAILY 01/08/18 Aspirin Coated [Ecotrin -] 81 mg PO DAILY tablet.ec 01/10/18 Levothyroxine [Synthroid -] 50 mcg PO DAILY 10/24/18 Albuterol 2.5/Ipratropium 0.5 [Duoneb -] 1 amp NEB RTID 30 Days #90 amp Ascorbic Acid [Vitamin C] 500 mg PO DAILY 30 Days #30 tablet.er 10/29/18 Atorvastatin Ca [Lipitor] 40 mg PO HS tablet 10/29/18 Cyanocobalamin (Vitamin B-12) [Vitamin B-12] 1,000 mcg SL DAILY 30 Days #30 lozenge 10/29/18 Ferrous Sulfate [Feosol] 325 mg PO BID ud 10/29/18 Folic Acid - 1 mg PO DAILY 30 Days #30 tablet 10/29/18 Metoprolol Tartrate [Lopressor -] 25 mg PO DAILY tablet 10/29/18 Pantoprazole Sodium [Protonix -] 20 mg PO DAILY #30 tablet.ec 10/29/18 COPD: No HTN: Yes - Surgical History Abdominal Surgery: Yes (HERNIA REPAIR) - Suicide/Smoking/Psychosocial Hx Smoking History: Never smoked Have you smoked in the past 12 months: No Information on smoking cessation initiated: No Hx Alcohol Use: No Drug/Substance Use Hx: No Substance Use Type: None Hx Substance Use Treatment: No *Physical Exam - Vital Signs Last Vital Signs Temp Pulse Resp BP Pulse Ox 100.7 F H 130 H 22 H 150/52 L 95 11/18/18 12:53 11/18/18 12:53 11/18/18 12:53 11/18/18 12:53 11/18/18 12:53 Moderate Sedation - Procedure Monitoring Vital Signs: Procedure Monitoring Vital Signs Temperature 100.7 F H 11/18/18 12:53 Pulse Rate 130 H 11/18/18 12:53 Respiratory Rate 22 H 11/18/18 12:53 Blood Pressure 150/52 L 11/18/18 12:53 O2 Sat by Pulse Oximetry (%) 95 11/18/18 12:53 ED Treatment Course - LABORATORY CBC & Chemistry Diagram: 11/18/18 13:20 11/18/18 13:20 - RADIOLOGY Radiology Studies Ordered: Category Date Time Status CHEST X-RAY PORTABLE* [RAD] Stat Radiology 11/18/18 12:56 Ordered Medical Decision Making - Medical Decision Making 11/18/18 15:02 See HPI for details ddx. PNA, viral syndrome, influenza, dehydration, electrolyte/metabolic derangements, UTI, deconditioning. Vital signs reviewed, +FEVER, TACHYCARDIA, TACHYPNEA. mildly hypertensive. Prior notes reviewed, including admissions, discharges and consultations. laboratory results and imaging reviewed, basic labs and lytes wnl, notable for normal lactic, reassuring. +leukocytosis of 14K noted. baseline anemia. influenza neg CXR_left sided infiltrate correlating with clinical infection/pneumonia. Cardiac panel_neg trop EKG normal sinus rhythm, no interval abnormalities, narrow QRS, ST and T wave segments and morphology normal. Nonspecific T wave abnormalities ED course: sepsis protocol initiated, cultures, IV abx and fluids given 2L IVF, profound dehydration vanc/zosyn for pneumonia, recent hospitalization last month, so risk factors for MRSA and gram negs. s/o to hospitalist team, admit to dr Celis and team. IV abx for pneumonia, fluids for dehydration, FTT, continued medical m anagement. 11/18/18 16:12 *DC/Admit/Observation/Transfer Diagnosis at time of Disposition: Dehydration, FTT (failure to thrive) in adult, Pneumonia Sepsis Qualifiers: Sepsis type: sepsis due to unspecified organism Qualified Code(s): A41.9 - Sepsis, unspecified organism - Discharge Dispostion Condition at time of disposition: Guarded Decision to Admit order: Yes Decision to Admit order Date/Time: 11/18/18 15:02 Decision to Admit Order Category Date Time Status Decision to Admit to Hospital Routine Admission 11/18/18 14:08 Active - Referrals - Patient Instructions - Post Discharge Activity
[2018-11-18] MEDS ORDERED: ACETAMINOPHEN INJECTION 100 ML IVPB ONE (13:34)
[2018-11-18 13:36] LABS: VENOUS PH 7.44 (7.32-7.42); VENOUS PO2 50.3 mmHg (28-48)
[2018-11-18 13:38] LABS: BASO % 0.5 % (0-2.0); EOS % 1.8 % (0-4.5); HEMATOCRIT 32.3 % (32.4-45.2); HEMOGLOBIN 10.7 GM/dL (10.7-15.3); MCH 35.4 pg (25.7-33.7); MCHC 33.3 g/dl (32.0-36.0); MEAN CELL VOLUME 106.6 fl (80-96); MEAN PLT VOLUME 9.3 fl (7.5-11.1); MONO % 4.9 % (3.8-10.2); NEUT % 85.8 % (42.8-82.8); PLATELET COUNT 424 K/MM3 (134-434); RBC 3.03 M/mm3 (3.60-5.2); RDW 22.4 % (11.6-15.6); WHITE BLOOD COUNT 14.2 K/mm3 (4.0-10.0)
[2018-11-18 13:55] LABS: INR 1.25 (0.83-1.09); PROTHROMBIN TIME (PATIENT) 14.8 SEC (9.7-13.0)
[2018-11-18 13:58] LABS: ACTIVATED PTT 27.6 SECONDS (25.2-36.5)
[2018-11-18] MEDS ORDERED: PIPERACILLIN/TAZOB 4.5 GM 4.5 GM in DEXTROSE 5%-WATER 100 ML IVPB ONE (14:06)
[2018-11-18] MEDS ORDERED: VANCOMYCIN 1,000 MG in DEXTROSE 5%-WATER - 250 ML IVPB ONE (14:06)
[2018-11-18 14:14] LABS: ALBUMIN 2.4 g/dl (3.4-5.0); ALK PHOS 176 U/L (45-117); ANION GAP 7 MMOL/L (8-16); BILIRUBIN,TOTAL 0.6 mg/dL (0.2-1); BLOOD UREA NITROGEN 16 mg/dL (7-18); CALCIUM 8.8 mg/dL (8.5-10.1); CHLORIDE 100 mmol/L (98-107); CO2 30 mmol/L (21-32); CREATININE 0.7 mg/dL (0.55-1.3); GLUCOSE,RANDOM 105 mg/dL (74-106); POTASSIUM 4.2 mmol/L (3.5-5.1); SGOT/AST 23 U/L (15-37); SGPT/ALT 14 U/L (13-61); SODIUM 138 mmol/L (136-145); TOT PROT 6.4 g/dl (6.4-8.2)
[2018-11-18] MEDS ORDERED: PIPERACILLIN/TAZOB 4.5 GM 4.5 GM/100 ML BAG IVPB ONE (15:16)
[2018-11-18 15:19] LABS: ANISOCYTOSIS 2+; MACROCYTOSIS 0; PLATELET ESTIMATE NORMAL; TEAR DROP CELLS 1+
[2018-11-18] MEDS ORDERED: VANCOMYCIN 1 GRAM (PRE-DOCKED) 1,000 MG/250 ML BAG IVPB ONE (15:54)
--- NOTE | 2018-11-18 16:26 | HP ---
CHIEF COMPLAINT: Fevers, cough, malaise PCP: Dr. Calvert HISTORY OF PRESENT ILLNESS: Patient is an 83 year old female with history of hypertension, hyperlipidemia, gastroesophageal reflux, hypothyroidism, macrocytic anemia presents with complaint of nonproductive cough with associated fevers, chills, shortness of breath, and malaise. Per at bedside, patient's symptoms have been ongoing since she was discharged from hospital two weeks ago. Since that time she has unintentionally lost approx. 15 pounds, due to significantly diminished appetite. She endorses nausea, without vomiting. Patient endorses one episode of liquid brown diarrhea two days ago without hematochezia, or melena that has since resolved with solid brown bowel movement today. She denies dysuria, or hematuria. She has attempted taking her home vitamins without palliation. She endorses receiving flu vaccine this year, however is uncertain regarding receiving pneumococcal vaccine. ER course was notable for: (1) Chest Xray shows left lower lobe infiltrate (2) SIRS criteria: WBC 14.2, temp 100.7F, HR 130BPM, RR 22BPM (3) Troponin 0.02 Recent Travel: denies PAST MEDICAL HISTORY: hypertension, hyperlipidemia, gastroesophageal reflux, hypothyroidism, macrocytic anemia PAST SURGICAL HISTORY: bilateral infuinal henia repair 30 years ago Social History: Smoking: denies Alcohol: denies Drugs: denies Family History: Patient unable to provide. Allergies No Known Allergies Allergy (Verified 01/08/18 14:11) HOME MEDICATIONS: Home Medications Medication Instructions Recorded Olmesartan Medoxomil [Benicar] 40 mg PO DAILY 01/08/18 Aspirin Coated [Ecotrin -] 81 mg PO DAILY tablet.ec 01/10/18 Levothyroxine [Synthroid -] 50 mcg PO DAILY 10/24/18 Albuterol 2.5/Ipratropium 0.5 1 amp NEB RTID 30 Days #90 amp 10/29/18 [Duoneb -] Ascorbic Acid [Vitamin C] 500 mg PO DAILY 30 Days #30 10/29/18 tablet.er Atorvastatin Ca [Lipitor] 40 mg PO HS tablet 10/29/18 Cyanocobalamin (Vitamin B-12) 1,000 mcg SL DAILY 30 Days #30 10/29/18 [Vitamin B-12] lozenge Ferrous Sulfate [Feosol] 325 mg PO BID ud 10/29/18 Folic Acid - 1 mg PO DAILY 30 Days #30 tablet 10/29/18 Metoprolol Tartrate [Lopressor -] 25 mg PO DAILY tablet 10/29/18 Pantoprazole Sodium [Protonix -] 20 mg PO DAILY #30 tablet.ec 10/29/18 REVIEW OF SYSTEMS CONSTITUTIONAL: Admits: fever, chills, diaphoresis, generalized weakness, malaise, loss of appetite, weight change HEENT: Absent: rhinorrhea, nasal congestion, throat pain, throat swelling, difficulty swallowing, mouth swelling, ear pain, eye pain, visual changes CARDIOVASCULAR: Absent: chest pain, syncope, palpitations, irregular heart rate, lightheadedness , peripheral edema RESPIRATORY: Admits: cough, shortness of breath. Absent: dyspnea with exertion, orthopnea, wheezing, stridor, hemoptysis GASTROINTESTINAL: Admits: nausea, diarrhea (resolved) Absent: abdominal pain, abdominal distension , vomiting, constipation, melena, hematochezia GENITOURINARY: Absent: dysuria, frequency, urgency, hesitancy, hematuria, flank pain, genital pain MUSCULOSKELETAL: Absent: myalgia, arthralgia, joint swelling, back pain, neck pain SKIN: Absent: rash, itching, pallor HEMATOLOGIC/IMMUNOLOGIC: Absent: easy bleeding, easy bruising, lymphadenopathy, frequent infections ENDOCRINE: Admits: unintentional weight loss. Absent: unexplained weight gain, heat intolerance, cold intolerance NEUROLOGIC: Absent: headache, focal weakness or paresthesias, dizziness, unsteady gait, seizure, mental status changes, bladder or bowel incontinence PSYCHIATRIC: Absent: anxiety, depression, suicidal or homicidal ideation, hallucinations. PHYSICAL EXAMINATION Vital Signs - 24 hr 11/18/18 11/18/18 12:53 15:41 Temperature 100.7 F H Pulse Rate 130 H Pulse Rate [ 104 H Apical] Respiratory 22 H 20 Rate Blood Pressure 150/52 L O2 Sat by Pulse 95 Oximetry (%) GENERAL: Awake, alert, in mild distress. HEAD: Normocephalic, atraumatic. EYES: Pupils equal, round and reactive to light, extraocular movements intact, sclera anicteric. EARS, NOSE, THROAT: Oropharynx clear without exudates. Dry mucous membranes. NECK: Supple without lymphadenopathy, JVD. LUNGS: Poor inspiratory effort, and air entery bilaterally. Coarse bibasilar crackles, without wheezing auscultated. No accessory muscle use. HEART: Regular rate and rhythm, normal S1 and S2 without murmur, rub or gallop. ABDOMEN: Soft, nontender, not distended. Normoactive bowel sounds x4 quadrants. No guarding, no rebound tenderness. No hepatomegaly palpated or percussed. MUSCULOSKELETAL: Patient freely moves all 4 extremities equally. No bony deformities or tenderness. No CVA tenderness bilaterally. EXTREMITIES: 2+ radial, dorsalis pedis pulses bilaterally. No calf tenderness. No peripheral edema bilaterally. NEUROLOGICAL: Cranial nerves II-XII grossly intact. No gross focal deficits. PSYCHIATRIC: Cooperative. Appropriate mood and affect upon my encounter SKIN: Warm, dry. Laboratory Results - last 24 hr 11/18/18 11/18/18 11/18/18 13:20 13:20 13:20 WBC 14.2 H RBC 3.03 L Hgb 10.7 Hct 32.3 L D MCV 106.6 H D MCH 35.4 H MCHC 33.3 RDW 22.4 H Plt Count 424 MPV 9.3 Absolute Neuts (auto) 12.2 H Neutrophils % 85.8 H Lymphocytes % 7.0 L D Monocytes % 4.9 Eosinophils % 1.8 D Basophils % 0.5 D Nucleated RBC % 0 Hypochromia 0 Platelet Estimate Normal Polychromasia 2+ Poikilocytosis 1+ Anisocytosis 2+ Microcytosis 2+ Macrocytosis 0 Tear Drop Cells 1+ PT with INR 14.80 H INR 1.25 H PTT (Actin FS) 27.6 VBG pH POC VBG pCO2 POC VBG pO2 Mixed VBG HCO3 Sodium 138 Potassium 4.2 Chloride 100 Carbon Dioxide 30 Anion Gap 7 L BUN 16 Creatinine 0.7 Creat Clearance w eGFR > 60 Random Glucose 105 Lactic Acid Calcium 8.8 Total Bilirubin 0.6 AST 23 ALT 14 Alkaline Phosphatase 176 H Troponin I < 0.02 Total Protein 6.4 Albumin 2.4 L TSH 0.16 L Influenza A (Rapid) Influenza B (Rapid) 11/18/18 11/18/18 11/18/18 13:20 13:30 14:55 WBC RBC Hgb Hct MCV MCH MCHC RDW Plt Count MPV Absolute Neuts (auto) Neutrophils % Lymphocytes % Monocytes % Eosinophils % Basophils % Nucleated RBC % Hypochromia Platelet Estimate Polychromasia Poikilocytosis Anisocytosis Microcytosis Macrocytosis Tear Drop Cells PT with INR INR PTT (Actin FS) VBG pH 7.44 H POC VBG pCO2 35.0 L POC VBG pO2 50.3 H Mixed VBG HCO3 23.1 Sodium Potassium Chloride Carbon Dioxide Anion Gap BUN Creatinine Creat Clearance w eGFR Random Glucose Lactic Acid 1.2 Calcium Total Bilirubin AST ALT Alkaline Phosphatase Troponin I Total Protein Albumin TSH Influenza A (Rapid) Negative Influenza B (Rapid) Negative ASSESSMENT/PLAN: Patient is an 83 year old female with history of hypertension, hyperlipidemia, gastroesophageal reflux, hypothyroidism, macrocytic anemia presents with complaint of nonproductive cough with associated fevers, chills, shortness of breath, and malaise. Sepsis secondary to hospital acquired pneumonia -SIRS criteria: WBC 14.2, temp 100.7F, HR 130BPM, RR 22BPM -Chest Xray shows left lower lobe infiltrate concerning for pneumonia -Patient received Vancomycin, Zosyn in ED -Zosyn 4.5grams IV Q6H -Bacid 1 tablet daily -IV normal saline at 100mL/ hour -Tylenol 650mg PO Q6H for fever -Follow blood cultures -Follow sputum cultures -Follow urinalysis, urine cultures -Urine for pneumonia, legionella antigens -Infectious disease consult (Dr. Goddard) Hypertension -Metoprolol 25mg PO daily -Olmesartan 40mg PO daily Hypothyroidism -TSH 0.16, no prior lab value. Uncertain if secondary to acute infectious process -Decrease home synthroid dose to 37.5mcg daily. -Patient will have thyroid studies 3 weeks after discharge Hyperlipidemia -Atorvastatin 40mg PO HS Macrocytic anemia -Hb 10.7 Hct 32.3 MCV 106.6 -Likely secondary to B12 deficiency -Cyanocobalamin 1000mcg PO daily -Ferrous sulfate 325mg PO BID -Folic acid 1mg PO daily -Monitor CBC closely GERD, atrophic gastritis -Famotidine 20mg IV BID FEN -IV normal saline at 100mL/ hour -Follow CMP -Regular diet Prophylaxis -Heparin 5000u subq TID -Famotidine 20mg IV BID Disposition -Admit to medical surgical floor Full Code Visit type - Emergency Visit Emergency Visit: Yes Care time: The patient presented to the Emergency Department on the above date and was hospitalized for further evaluation of their emergent condition. - New Patient This patient is new to me today: Yes Date on this admission: 11/18/18 - Critical Care Critical Care patient: No
[2018-11-18] MEDS ORDERED: ALBUTEROL SO4 2.5/IPRATROPIUM 0.5 INH SOL 3 ML VIAL.NEB. NEB PRN (17:10)
[2018-11-18] MEDS: SODIUM CHLORIDE 1,000 ML IV SCH ×2 (17:24→23:24)
--- NOTE | 2018-11-18 18:18 | PN ---
Teaching Attending Note Name of Resident: Chuck Kurtz ATTENDING PHYSICIAN STATEMENT I saw and evaluated the patient. I reviewed the resident's note and discussed the case with the resident. I agree with the resident's findings and plan as documented. SUBJECTIVE: Complains of ongoing cough and fever. No chest pain/palpitations/ hemoptysis OBJECTIVE: Afebrile, Hemodynamically Stable. Last Vital Signs Temp Pulse Resp BP Pulse Ox 98.5 F 86 18 112/42 L 95 11/18/18 17:07 11/18/18 17:07 11/18/18 17:07 11/18/18 17:07 11/18/18 17:07 HEENT - Atraumatic, Normocephalic Heart - S1, S2, soft SM Lungs - bibasal crackles L>R Abdomen - soft, non-tender. Bowel Sounds normal. Extremities - no edema, no calf tenderness. Neuro - AAO x 3. Tone/Power normal all 4 extremities Laboratory Results - last 24 hr 11/18/18 11/18/18 11/18/18 13:20 13:20 13:20 WBC 14.2 H RBC 3.03 L Hgb 10.7 Hct 32.3 L D MCV 106.6 H D MCH 35.4 H MCHC 33.3 RDW 22.4 H Plt Count 424 MPV 9.3 Absolute Neuts (auto) 12.2 H Neutrophils % 85.8 H Lymphocytes % 7.0 L D Monocytes % 4.9 Eosinophils % 1.8 D Basophils % 0.5 D Nucleated RBC % 0 Hypochromia 0 Platelet Estimate Normal Polychromasia 2+ Poikilocytosis 1+ Anisocytosis 2+ Microcytosis 2+ Macrocytosis 0 Tear Drop Cells 1+ PT with INR 14.80 H INR 1.25 H PTT (Actin FS) 27.6 VBG pH POC VBG pCO2 POC VBG pO2 Mixed VBG HCO3 Sodium 138 Potassium 4.2 Chloride 100 Carbon Dioxide 30 Anion Gap 7 L BUN 16 Creatinine 0.7 Creat Clearance w eGFR > 60 Random Glucose 105 Lactic Acid Calcium 8.8 Total Bilirubin 0.6 AST 23 ALT 14 Alkaline Phosphatase 176 H Troponin I < 0.02 Total Protein 6.4 Albumin 2.4 L TSH 0.16 L Influenza A (Rapid) Influenza B (Rapid) 02/04/19 02/04/19 02/04/19 13:20 13:30 14:55 WBC RBC Hgb Hct MCV MCH MCHC RDW Plt Count MPV Absolute Neuts (auto) Neutrophils % Lymphocytes % Monocytes % Eosinophils % Basophils % Nucleated RBC % Hypochromia Platelet Estimate Polychromasia Poikilocytosis Anisocytosis Microcytosis Macrocytosis Tear Drop Cells PT with INR INR PTT (Actin FS) VBG pH 7.44 H POC VBG pCO2 35.0 L POC VBG pO2 50.3 H Mixed VBG HCO3 23.1 Sodium Potassium Chloride Carbon Dioxide Anion Gap BUN Creatinine Creat Clearance w eGFR Random Glucose Lactic Acid 1.2 Calcium Total Bilirubin AST ALT Alkaline Phosphatase Troponin I Total Protein Albumin TSH Influenza A (Rapid) Negative Influenza B (Rapid) Negative Current Medications Generic Name Dose Route Start Last Admin Trade Name Freq PRN Reason Stop Dose Admin Albuterol/Ipratropium 1 amp 11/18/18 17:10 Duoneb - NEB Q8H PRN SHORT OF BREATH/WHEEZING Ascorbic Acid 500 mg 11/19/18 10:00 Vitamin C - PO DAILY [facility] Aspirin 81 mg 11/19/18 10:00 Ecotrin - PO DAILY [facility] Atorvastatin Calcium 40 mg 11/18/18 22:00 Lipitor - PO HS [facility] Cyanocobalamin 1,000 mcg 11/19/18 10:00 Vitamin B12 - PO DAILY [facility] Ferrous Sulfate 325 mg 11/19/18 08:00 Feosol - PO BIDWM [facility] Folic Acid 1 mg 11/19/18 10:00 Folic Acid - PO DAILY [facility] Heparin Sodium (Porcine) 5,000 unit 11/18/18 22:00 Heparin - SQ TID [facility] Sodium Chloride 1,000 mls @ 100 mls/hr 11/18/18 16:30 11/18/18 17:24 Normal Saline - IV 100 mls/hr [facility]IR [facility] Administration Famotidine/Sodium Chloride 20 mg in 50 mls @ 100 mls/hr 11/18/18 22:00 Pepcid 20 Mg Premixed Ivpb - IVPB BID [facility] Piperacillin Sod/Tazobactam 100 mls @ 200 mls/hr 11/18/18 21:00 Sod 4.5 gm/ Dextrose IVPB Q6H-IV [facility] Protocol Lactobacillus Acidophilus 1 tab 11/19/18 10:00 Bacid - PO DAILY [facility] Levothyroxine Sodium 37.5 mcg 11/19/18 10:00 Synthroid - PO DAILY [facility] Metoprolol Tartrate 25 mg 11/19/18 10:00 Lopressor - PO DAILY [facility] Valsartan 320 mg 11/19/18 10:00 Diovan - PO DAILY [facility] Home Medications Medication Instructions Recorded Olmesartan Medoxomil [Benicar] 40 mg PO DAILY 01/08/18 Aspirin Coated [Ecotrin -] 81 mg PO DAILY tablet.ec 01/10/18 Levothyroxine [Synthroid -] 50 mcg PO DAILY 10/24/18 Albuterol 2.5/Ipratropium 0.5 1 amp NEB RTID 30 Days #90 amp 10/29/18 [Duoneb -] Ascorbic Acid [Vitamin C] 500 mg PO DAILY 30 Days #30 10/29/18 tablet.er Atorvastatin Ca [Lipitor] 40 mg PO HS tablet 10/29/18 Cyanocobalamin (Vitamin B-12) 1,000 mcg SL DAILY 30 Days #30 10/29/18 [Vitamin B-12] lozenge Ferrous Sulfate [Feosol] 325 mg PO BID ud 10/29/18 Folic Acid - 1 mg PO DAILY 30 Days #30 tablet 10/29/18 Metoprolol Tartrate [Lopressor -] 25 mg PO DAILY tablet 10/29/18 Pantoprazole Sodium [Protonix -] 20 mg PO DAILY #30 tablet.ec 10/29/18 ASSESSMENT AND PLAN: 83 year old female with HTN, HLD, GERD, Hypothyroidism, recent admission for chest pain and anemia work-up including EGD 10/29/18 showing Atrophic Gastritis with resulting B12 deficiency, presents with malaise, lethargy, non-productive cough, decreased appetite and fever of 101 at home. She was found to have L sided pneumonia on chest imaging in ED. 1. Sepsis secondary to HCAP CXR - LLL infiltrate Fever, leukocytosis Flu neg Hemodynamically stable. Iv hydration IV Zosyn (given 1 dose Vanco in ED) Sputum Cx Urine legionella/Strep Ag ID consulted. 2. Macrocytic Anemia sec to Atrophic Gastritis H/H/MCV - 10.7/32.3/106.6 Continue B12 supplementation Famotidine (GI recommended stopping PPI on last consult in Nov 02) 3. HTN - Continue Metoprolol, Olmesartan. 4. HLD - Continue Atorvastatin 5. Hypothyroidism - TSH 0.16 Levothyroxine dose decreased from 50mcg to 37.5mcg Recommend repeat TSH in 3-4 weeks DVT Px - Heparin SQ
[2018-11-18 20:16] VITALS: BMI 14.2
[2018-11-18] MEDS ORDERED: PIPERACILLIN/TAZOBACTAM 4.5 GM VIAL IVPB ONE (20:43)
[2018-11-18] MEDS ORDERED: DEXTROSE 5%-WATER 100 ML IVPB ONE (20:43)
[2018-11-18] MEDS: PIPERACILLIN/TAZOB 4.5 GM 4.5 GM in DEXTROSE 5%-WATER 100 ML IVPB SCH (23:23)
[2018-11-18] MEDS: ATORVASTATIN CA 40 MG TABLET (FP) PO SCH (23:24)
[2018-11-18] MEDS: HEPARIN NA (PORCINE) 5,000 UNITS/ML 1ML VIAL SQ SCH (23:26)
[2018-11-19] MEDS ORDERED: DEXTROSE 5%-WATER 100 ML IVPB ONE ×2 (02:29→08:16)
[2018-11-19] MEDS ORDERED: PIPERACILLIN/TAZOBACTAM 4.5 GM VIAL IVPB ONE ×2 (02:29→08:16)
[2018-11-19] MEDS: PIPERACILLIN/TAZOB 4.5 GM 4.5 GM in DEXTROSE 5%-WATER 100 ML IVPB SCH ×2 (03:30→09:26)
[2018-11-19] MEDS: HEPARIN NA (PORCINE) 5,000 UNITS/ML 1ML VIAL SQ SCH ×3 (06:06→21:55)
[2018-11-19] MEDS: LEVOTHYROXINE NA 25 MCG TABLET (FP) PO SCH (06:06)
[2018-11-19 07:33] LABS: HEMATOCRIT 29.3 % (32.4-45.2); HEMOGLOBIN 9.8 GM/dL (10.7-15.3); MCH 35.9 pg (25.7-33.7); MCHC 33.3 g/dl (32.0-36.0); MEAN CELL VOLUME 107.9 fl (80-96); MEAN PLT VOLUME 9.9 fl (7.5-11.1); PLATELET COUNT 334 K/MM3 (134-434); RBC 2.72 M/mm3 (3.60-5.2); RDW 22.1 % (11.6-15.6); WHITE BLOOD COUNT 9.3 K/mm3 (4.0-10.0)
[2018-11-19 08:00] LABS: ALBUMIN 1.7 g/dl (3.4-5.0); ALK PHOS 124 U/L (45-117); ANION GAP 6 MMOL/L (8-16); BILIRUBIN,TOTAL 0.4 mg/dL (0.2-1); BLOOD UREA NITROGEN 14 mg/dL (7-18); CHLORIDE 111 mmol/L (98-107); CO2 26 mmol/L (21-32); CREATININE 0.6 mg/dL (0.55-1.3); GLUCOSE,RANDOM 94 mg/dL (74-106); MAGNESIUM 1.8 mg/dL (1.8-2.4); PHOSPHOROUS 2.8 mg/dL (2.5-4.9); POTASSIUM 3.6 mmol/L (3.5-5.1); SGOT/AST 16 U/L (15-37); SGPT/ALT 11 U/L (13-61); SODIUM 144 mmol/L (136-145); TOT PROT 4.9 g/dl (6.4-8.2)
[2018-11-19] MEDS: FERROUS SO4 325 MG TABLET (FP) PO SCH ×2 (09:26→18:13)
[2018-11-19] MEDS: FOLIC ACID 1 MG TABLET (FP) PO SCH (11:11)
[2018-11-19] MEDS: FAMOTIDINE 20 MG/50 ML IVPB 20 MG/50 ML MG IVPB SCH (11:11)
[2018-11-19] MEDS: ASPIRIN COATED 81 MG TABLET.EC PO SCH (11:11)
[2018-11-19] MEDS: CYANOCOBALAMIN 1,000 MCG TABLET (FP) PO SCH (11:11)
[2018-11-19] MEDS: VALSARTAN 160 MG TABLET (UD) PO SCH (11:11)
[2018-11-19] MEDS: METOPROLOL TARTRATE 25 MG TABLET (FP) PO SCH (11:11)
[2018-11-19] MEDS: ASCORBIC ACID 500 MG TABLET (FP) PO SCH (11:11)
[2018-11-19] MEDS: LACTOBACILLUS ACIDOPHILUS 1 TABLET PO SCH (11:12)
--- NOTE | 2018-11-19 14:11 | PN ---
Physical Exam: SUBJECTIVE: Patient seen and examined at bedside this morning. She continues to endorse nonproductive cough, and diminished appetite. She denies subjective fevers, chills. OBJECTIVE: Vital Signs Period Temp Pulse Resp BP Sys/Leger Pulse Ox Last 24 Hr 97.5 F-98.5 F 86-104 18-22 112-120/42-53 95-97 GENERAL: Awake, alert, in no acute distress. HEAD: Normocephalic, atraumatic. EYES: Pupils equal, round and reactive to light, extraocular movements intact, sclera anicteric. EARS, NOSE, THROAT: Oropharynx clear without exudates. Dry mucous membranes. NECK: Supple without lymphadenopathy, JVD. LUNGS: Poor inspiratory effort, and air entery bilaterally. Coarse bibasilar crackles, without wheezing auscultated. No accessory muscle use. HEART: Regular rate and rhythm, normal S1 and S2 without murmur, rub or gallop. ABDOMEN: Soft, nontender, not distended. Normoactive bowel sounds x4 quadrants. No guarding, no rebound tenderness. No hepatomegaly palpated or percussed. MUSCULOSKELETAL: Patient freely moves all 4 extremities equally. No bony deformities or tenderness. No CVA tenderness bilaterally. EXTREMITIES: 2+ radial, dorsalis pedis pulses bilaterally. No calf tenderness. No peripheral edema bilaterally. NEUROLOGICAL: Cranial nerves II-XII grossly intact. No gross focal deficits. PSYCHIATRIC: Cooperative. Appropriate mood and affect upon my encounter SKIN: Warm, dry. Laboratory Results - last 24 hr 11/18/18 11/18/18 11/18/18 13:20 13:20 13:20 WBC RBC Hgb Hct MCV MCH MCHC RDW Plt Count MPV Hypochromia 0 Platelet Estimate Normal Polychromasia 2+ Poikilocytosis 1+ Anisocytosis 2+ Microcytosis 2+ Macrocytosis 0 Tear Drop Cells 1+ Sodium 138 Potassium 4.2 Chloride 100 Carbon Dioxide 30 Anion Gap 7 L BUN 16 Creatinine 0.7 Creat Clearance w eGFR > 60 Random Glucose 105 Lactic Acid 1.2 Calcium 8.8 Phosphorus Magnesium Total Bilirubin 0.6 AST 23 ALT 14 Alkaline Phosphatase 176 H Troponin I < 0.02 Total Protein 6.4 Albumin 2.4 L Vitamin B12 Serum Folate TSH 0.16 L Influenza A (Rapid) Influenza B (Rapid) 11/18/18 11/19/1819 14:55 06:40 06:40 WBC 9.3 RBC 2.72 L Hgb 9.8 L Hct 29.3 L MCV 107.9 H MCH 35.9 H MCHC 33.3 RDW 22.1 H Plt Count 334 D MPV 9.9 Hypochromia Platelet Estimate Polychromasia Poikilocytosis Anisocytosis Microcytosis Macrocytosis Tear Drop Cells Sodium 144 Potassium 3.6 Chloride 111 H Carbon Dioxide 26 Anion Gap 6 L BUN 14 Creatinine 0.6 Creat Clearance w eGFR > 60 Random Glucose 94 Lactic Acid Calcium 8.0 L Phosphorus 2.8 Magnesium 1.8 Total Bilirubin 0.4 AST 16 ALT 11 L Alkaline Phosphatase 124 H Troponin I Total Protein 4.9 L Albumin 1.7 L Vitamin B12 753 Serum Folate 24 H TSH Influenza A (Rapid) Negative Influenza B (Rapid) Negative Active Medications Generic Name Dose Route Start Last Admin Trade Name Freq PRN Reason Stop Dose Admin Albuterol/Ipratropium 1 amp 11/18/18 17:10 Duoneb - NEB Q8H PRN SHORT OF BREATH/WHEEZING Ascorbic Acid 500 mg 11/19/18 10:00 11/19/18 11:11 Vitamin C - PO 500 mg DAILY LAMONT Administration Aspirin 81 mg 11/19/18 10:00 11/19/18 11:11 Ecotrin - PO 81 mg DAILY [facility]ONT Administration Atorvastatin Calcium 40 mg 11/18/18 22:00 11/18/18 23:24 Lipitor - PO 40 mg HS L[facility]ONT Administration Cyanocobalamin 1,000 mcg 11/19/18 10:00 11/19/18 11:11 Vitamin B12 - PO 1,000 mcg DAILY [facility] Administration Ferrous Sulfate 325 mg 11/19/18 08:00 11/19/18 09:26 Feosol - PO 325 mg BIDWM L[facility]ONT Administration Folic Acid 1 mg 11/19/18 10:00 11/19/18 11:11 Folic Acid - PO 1 mg DAILY L[facility] Administration Heparin Sodium (Porcine) 5,000 unit 11/18/18 22:00 11/19/18 06:06 Heparin - SQ 5,000 unit TID L[facility]ONT Administration Famotidine/Sodium Chloride 20 mg in 50 mls @ 100 mls/hr 11/19/18 10:00 11:11 Pepcid 20 Mg Premixed Ivpb - IVPB 100 mls/hr DAILY [facility] Administration Piperacillin Sod/Tazobactam 100 mls @ 200 mls/hr 11/18/18 21:00 Sod 4.5 gm/ Dextrose IVPB Q6H-IV [facility] Protocol Piperacillin Sod/Tazobactam 100 mls @ 200 mls/hr 11/18/18 21:00 11/19/18 09: 26 Sod 4.5 gm/ Dextrose IVPB 11/19/18 15:29 200 mls/hr Q6H-IV [facility] Administration Protocol Lactobacillus Acidophilus 1 tab 11/19/18 10:00 11/19/18 11:12 Bacid - PO 1 tab DAILY [facility] Administration Levothyroxine Sodium 37.5 mcg 11/19/18 07:00 11/19/18 06:06 Synthroid - PO 37.5 mcg AM L[facility]ONT Administration Metoprolol Tartrate 25 mg 11/19/18 10:00 11/19/18 11:11 Lopressor - PO 25 mg DAILY L[facility]ONT Administration Valsartan 320 mg 11/19/18 10:00 11/19/18 11:11 Diovan - PO 320 mg DAILY LAMONT Administration ASSESSMENT/PLAN: Patient is an 83 year old female with history of hypertension, hyperlipidemia, gastroesophageal reflux, hypothyroidism, macrocytic anemia presents with complaint of nonproductive cough with associated fevers, chills, shortness of breath, and malaise. Sepsis secondary to hospital acquired pneumonia -Chest Xray shows left lower lobe infiltrate concerning for pneumonia. Possible aspiration pneumonia. -Zosyn 3.375grams IV Q8H (day #2) -Bacid 1 tablet daily -Tylenol 650mg PO Q6H for fever -Blood cultures negative for growth at 24 hours -Influenza swab negative -Follow sputum cultures -Follow urinalysis, urine cultures -Urine for pneumonia, legionella antigens -Infectious disease consult (Dr. Goddard) appreciated. Hypertension -Metoprolol 25mg PO daily -Olmesartan 40mg PO daily Hypothyroidism -TSH 0.16, no prior lab value. Uncertain if secondary to acute infectious process -Decrease home synthroid dose to 37.5mcg daily. -Patient will have thyroid studies 3 weeks after discharge Hyperlipidemia -Atorvastatin 40mg PO HS Macrocytic anemia -Hb 9.8 Hct 29.3 MCV 107.9 -Likely secondary to B12 deficiency -Cyanocobalamin 1000mcg PO daily -Ferrous sulfate 325mg PO BID -Folic acid 1mg PO daily -Monitor CBC closely GERD, atrophic gastritis -Famotidine 20mg IV daily FEN -No IV fluids. Encourage judicious oral hydration. -Follow CMP -Regular diet Prophylaxis -Heparin 5000u subq TID -Famotidine 20mg IV daily Disposition -Continue care in medical surgical floor Visit type - Emergency Visit Emergency Visit: Yes ED Registration Date: 11/18/18 Care time: The patient presented to the Emergency Department on the above date and was hospitalized for further evaluation of their emergent condition. - New Patient This patient is new to me today: No - Critical Care Critical Care patient: No - Discharge Referral Referred to [facility] Med P.C.: No
--- NOTE | 2018-11-19 14:28 | PN ---
Progress Note (short form) - Note Progress Note: ID consult dictated imp/reccd 83 yo female recent admission for macrocytic anemia 10/23 to 10/19- found to have b12 deficiency, she underwent upper endoscopy 10/29 and was discharged 10/30 at home she has been weak, not eating and coughing yesterday she had fever to 101 and they brought her to the hospital albumin is 1.7 she received vanco/zosyn in ED she weighs 40 kg - interestingly she has not lost weight since October cxray with GERSON and LLL infiltrates ?aspiration pneumonia suggest continuing zosyn check legionella/pneumococcal antigens sputum cultures macrocytic anemia b12 deficiency hypothyroid poor nutritional status - albumin is 1.7-check UA for proteinuria Problem List - Problems (1) Pneumonia Code(s): J18.9 - PNEUMONIA, UNSPECIFIED ORGANISM (2) Macrocytic anemia with vitamin B12 deficiency Code(s): D51.9 - VITAMIN B12 DEFICIENCY ANEMIA, UNSPECIFIED (3) Serum albumin decreased Code(s): E88.09 - OTH DISORDERS OF PLASMA-PROTEIN METABOLISM, NEC
--- NOTE | 2018-11-19 15:08 | EKG ---
Test Reason : Blood Pressure : / mmHG Vent. Rate : 110 BPM Atrial Rate : 110 BPM P-R Int : 126 ms QRS Dur : 114 ms QT Int : 354 ms P-R-T Axes : 051 -12 -07 degrees QTc Int : 479 ms SINUS TACHYCARDIA WITH OCCASIONAL PREMATURE ATRIAL COMPLEXES RIGHT BUNDLE BRANCH BLOCK SEPTAL INFARCT (CITED ON OR BEFORE 23-OCT-2018) ABNORMAL ECG Confirmed by Abdiel Reyes MD ([id number]) on 11/19/2018 3:07:50 PM Referred By: Confirmed By:Abdiel Reyes MD
--- NOTE | 2018-11-19 15:19 | CONS ---
DATE OF CONSULTATION: DATE OF DICTATION: 11/19/2018 REQUESTING PHYSICIAN: Hospitalist service HISTORY: This is an 83-year-old woman who was recently in the hospital from October 23 until the at which time she had a workup for macrocytic anemia. She had shortness of breath. She was thought to be B12 deficient. She underwent a colonoscopy prior to discharge and was discharged on the . Her family reports that she has been home. She has not been herself. She has been very weak. She stayed in bed. She has had a progressive cough. Last night she had a fever of 101, and they brought her to the emergency room. In the ER, she had a chest x-ray done and was noted to have a left upper lobe and left lower lobe infiltrate. She had cultures done and was started on vancomycin and Zosyn. The family reports weight loss, though when you look at her prior weighs in October and now, her weight is unchanged. As well, she has really not been able to eat at home. She has had an influenza vaccine. She has no dysuria or hematuria. She has been eating very poorly. There is no history of any recent travel. PAST MEDICAL HISTORY: Notable for GERD, hypertension, hyperlipidemia, hypothyroidism. She had bilateral inguinal hernia repair 30 years ago. SOCIAL HISTORY: She is originally from [place]. They have not been back in 50 years. No history of cigarette, alcohol, or substance use. FAMILY HISTORY: Unremarkable. ALLERGIES: She has no known drug allergies. MEDICATIONS: Include Benicar, Ecotrin, Synthroid, vitamin C, Lipitor, B12, Feosol, folic acid, Lopressor, Protonix. REVIEW OF SYSTEMS: As per HPI. PHYSICAL EXAMINATION: General: She is awake and alert. Vital Signs: She weighs 40 kg. Looking in the computer back in October she weighed about the same, 38-39 kg. HEENT: She is normocephalic. Her eyes are anicteric. Neck: Supple. Lungs: Scattered rhonchi throughout. Heart: Regular rate and rhythm. Abdomen: Soft and nontender. Extremities: Without edema. DIAGNOSTIC DATA: White count on admission was 14.2, today is 9.3, hemoglobin 9.8, MCV 107, platelets 334, BUN 14, creatinine 0.6. LFTs are normal. Alkaline phosphatase 124, albumin 1.7. Influenza screen is negative. Chest x-ray reveals left upper lobe, left lower lobe infiltrate. In summary, this is an 83-year-old woman with possible aspiration pneumonia. She had a recent upper endoscopy after which she has not felt well since discharge home. I would suggest continuing Zosyn. Would check Legionella and pneumococcal antigen, sputum culture. Regarding her macrocytic anemia. She is currently receiving B12 and folate. There is poor nutritional status. Her albumin is 1.7. Would check a protein for proteinuria. Further recommendations to follow. The case was discussed with the resident on service. KARLA ISSA M.D. [id number]
--- NOTE | 2018-11-19 16:57 | PN ---
Teaching Attending Note Name of Resident: Chuck Kurtz ATTENDING PHYSICIAN STATEMENT I saw and evaluated the patient. I reviewed the resident's note and discussed the case with the resident. I agree with the resident's findings and plan as documented. SUBJECTIVE:asymptomatic. denies Cp, SOB, fever, chills, N/V/C/D OBJECTIVE: Last Vital Signs Temp Pulse Resp BP Pulse Ox 98.1 F 97 H 20 133/57 L 97 11/19/18 14:24 11/19/18 14:24 11/19/18 14:24 11/19/18 14:24 11/19/18 09:00 General NAD CV S1 S2 RRR no murmur/rub/gallop Lungs scattered wheezing, rhonchi L base. 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 She was found to have L sided pneumonia on chest imaging in ED. 1. Sepsis secondary to HCAP. Tm 100.7. clinically improved. on zosyn day 2. will d/c IVF. f/u Ulegionella. Flu negative. ID on board 2. Macrocytic Anemia sec to Atrophic Gastritis-likely dehydrated on presentation. now at baseline. no signs of bleeding. on pepcid. 3. Low TSH- LT4 reduced. will need repeat TSH in 6 weeks 4. HTN - Continue Metoprolol, Olmesartan. 5. HLD - Continue Atorvastatin 6. DVT Px - Heparin SQ
[2018-11-19] MEDS ORDERED: DEXTROSE 5%-WATER - 50 ML IVPB ONE (18:10)
[2018-11-19] MEDS ORDERED: PIPERACILLIN/TAZOBACTAM 3.375 GM VIAL IVPB ONE (18:10)
[2018-11-19] MEDS: guaiFENesin 200 MG/10 ML 10 ML UNIT-DOSE CUPS PO PRN (18:12)
[2018-11-19] MEDS: PIPERACILLIN/TAZOB 3.375 GM 3.375 GM in DEXTROSE 5%-WATER - 50 ML IVPB SCH (18:13)
[2018-11-19] MEDS ORDERED: PT OWN MED DRAWER 7, Y5N ONE ×2 (21:34→21:45)
[2018-11-19] MEDS: ATORVASTATIN CA 40 MG TABLET (FP) PO SCH (21:55)
[2018-11-20] MEDS ORDERED: PIPERACILLIN/TAZOBACTAM 3.375 GM VIAL IVPB ONE ×2 (01:06→09:12)
[2018-11-20] MEDS ORDERED: DEXTROSE 5%-WATER - 50 ML IVPB ONE ×2 (01:07→09:12)
[2018-11-20] MEDS: PIPERACILLIN/TAZOB 3.375 GM 3.375 GM in DEXTROSE 5%-WATER - 50 ML IVPB SCH ×3 (01:13→19:57)
[2018-11-20] MEDS ORDERED: PT OWN MED DRAWER 7, Y5N ONE (06:11)
[2018-11-20] MEDS: HEPARIN NA (PORCINE) 5,000 UNITS/ML 1ML VIAL SQ SCH ×3 (06:12→21:43)
[2018-11-20] MEDS: LEVOTHYROXINE NA 25 MCG TABLET (FP) PO SCH (06:12)
[2018-11-20 07:39] LABS: HEMATOCRIT 29.5 % (32.4-45.2); HEMOGLOBIN 9.9 GM/dL (10.7-15.3); MCH 35.8 pg (25.7-33.7); MCHC 33.8 g/dl (32.0-36.0); MEAN PLT VOLUME 8.8 fl (7.5-11.1); PLATELET COUNT 448 K/MM3 (134-434); RBC 2.78 M/mm3 (3.60-5.2); RDW 22.6 % (11.6-15.6); WHITE BLOOD COUNT 10.4 K/mm3 (4.0-10.0)
[2018-11-20] MEDS: PIPERACILLIN/TAZOB 4.5 GM 4.5 GM in DEXTROSE 5%-WATER 100 ML IVPB SCH (08:00)
[2018-11-20 08:20] LABS: ALBUMIN 1.8 g/dl (3.4-5.0); ALK PHOS 131 U/L (45-117); ANION GAP 6 MMOL/L (8-16); BILIRUBIN,TOTAL 0.3 mg/dL (0.2-1); BLOOD UREA NITROGEN 9 mg/dL (7-18); CALCIUM 8.4 mg/dL (8.5-10.1); CHLORIDE 105 mmol/L (98-107); CO2 30 mmol/L (21-32); CREATININE 0.7 mg/dL (0.55-1.3); GLUCOSE,RANDOM 87 mg/dL (74-106); POTASSIUM 3.9 mmol/L (3.5-5.1); SGOT/AST 18 U/L (15-37); SGPT/ALT 11 U/L (13-61); SODIUM 141 mmol/L (136-145); TOT PROT 5.4 g/dl (6.4-8.2)
[2018-11-20] MEDS: FERROUS SO4 325 MG TABLET (FP) PO SCH ×2 (08:30→17:50)
[2018-11-20] MEDS: ASCORBIC ACID 500 MG TABLET (FP) PO SCH (09:15)
[2018-11-20] MEDS: FOLIC ACID 1 MG TABLET (FP) PO SCH (09:16)
[2018-11-20] MEDS: ASPIRIN COATED 81 MG TABLET.EC PO SCH (09:16)
[2018-11-20] MEDS: CYANOCOBALAMIN 1,000 MCG TABLET (FP) PO SCH (09:16)
[2018-11-20] MEDS: METOPROLOL TARTRATE 25 MG TABLET (FP) PO SCH (09:16)
[2018-11-20] MEDS: VALSARTAN 160 MG TABLET (UD) PO SCH (09:17)
[2018-11-20] MEDS: guaiFENesin 200 MG/10 ML 10 ML UNIT-DOSE CUPS PO PRN ×2 (09:17→19:40)
[2018-11-20] MEDS: LACTOBACILLUS ACIDOPHILUS 1 TABLET PO SCH (09:30)
[2018-11-20] MEDS: FAMOTIDINE 20 MG/50 ML IVPB 20 MG/50 ML MG IVPB SCH (10:22)
--- NOTE | 2018-11-20 11:54 | PN ---
Physical Exam: SUBJECTIVE: Patient seen and examined at bedside this morning. Cough is diminishing with Robitussin. She has increasing appetite, without abdominal pain , nausea, vomiting. Patient endorses one formed green bowel movement, no sophia blood confirmed with nursing staff. She denies subjective fevers, chills. OBJECTIVE: Vital Signs Period Temp Pulse Resp BP Sys/Leger Pulse Ox Last 24 Hr 97.6 F-99 F 91-99 16-20 108-133/40-77 97 GENERAL: Awake, alert, in no acute distress. HEAD: Normocephalic, atraumatic. Temporal wasting noted bilaterally EYES: Pupils equal, round and reactive to light, extraocular movements intact, sclera anicteric. EARS, NOSE, THROAT: Oropharynx clear without exudates. Dry mucous membranes. NECK: Supple without lymphadenopathy, JVD. LUNGS: Poor inspiratory effort, and air entery bilaterally. Coarse bibasilar crackles, without wheezing auscultated. No accessory muscle use. HEART: Regular rate and rhythm, normal S1 and S2 without murmur, rub or gallop. ABDOMEN: Soft, nontender, not distended. Normoactive bowel sounds x4 quadrants. No guarding, no rebound tenderness. No hepatomegaly palpated or percussed. MUSCULOSKELETAL: Patient freely moves all 4 extremities equally. No bony deformities or tenderness. No CVA tenderness bilaterally. EXTREMITIES: 2+ radial, dorsalis pedis pulses bilaterally. No calf tenderness. No peripheral edema bilaterally. Mild bilateral thenar wasting noted. NEUROLOGICAL: Cranial nerves II-XII grossly intact. No gross focal deficits. PSYCHIATRIC: Cooperative. Appropriate mood and affect upon my encounter SKIN: Warm, dry. Laboratory Results - last 24 hr 11/19/18 11/20/18 11/20/18 06:40 06:20 06:20 WBC 10.4 H RBC 2.78 L Hgb 9.9 L Hct 29.5 L MCV 106.0 H MCH 35.8 H MCHC 33.8 RDW 22.6 H Plt Count 448 H D MPV 8.8 D Sodium 141 Potassium 3.9 Chloride 105 Carbon Dioxide 30 Anion Gap 6 L BUN 9 Creatinine 0.7 Creat Clearance w eGFR > 60 Random Glucose 87 Calcium 8.4 L Total Bilirubin 0.3 AST 18 ALT 11 L Alkaline Phosphatase 131 H Total Protein 5.4 L Albumin 1.8 L Vitamin B12 753 Serum Folate 24 H Active Medications Generic Name Dose Route Start Last Admin Trade Name Freq PRN Reason Stop Dose Admin Albuterol/Ipratropium 1 amp 11/18/18 17:10 Duoneb - NEB Q8H PRN SHORT OF BREATH/WHEEZING Ascorbic Acid 500 mg 11/19/18 10:00 11/20/18 09:15 Vitamin C - PO 500 mg DAILY LAMONT Administration Aspirin 81 mg 11/19/18 10:00 11/20/18 09:16 Ecotrin - PO 81 mg DAILY LAMONT Administration Atorvastatin Calcium 40 mg 11/18/18 22:00 11/19/18 21:55 Lipitor - PO 40 mg HS LAMONT Administration Cyanocobalamin 1,000 mcg 11/19/18 10:00 11/20/18 09:16 Vitamin B12 - PO 1,000 mcg DAILY LAMONT Administration Ferrous Sulfate 325 mg 11/19/18 08:00 11/20/18 08:30 Feosol - PO 325 mg BIDWM LAMONT Administration Folic Acid 1 mg 11/19/18 10:00 11/20/18 09:16 Folic Acid - PO 1 mg DAILY LAMONT Administration Guaifenesin 10 ml 11/19/18 17:48 11/20/18 09:17 Robitussin - PO 10 ml Q8H PRN Administration COUGH Heparin Sodium (Porcine) 5,000 unit 11/18/18 22:00 11/20/18 06:12 Heparin - SQ 5,000 unit TID LAMONT Administration Famotidine/Sodium Chloride 20 mg in 50 mls @ 100 mls/hr 11/19/18 10:00 10:22 Pepcid 20 Mg Premixed Ivpb - IVPB 100 mls/hr DAILY LAMONT Administration Piperacillin Sod/Tazobactam 50 mls @ 100 mls/hr 11/19/18 18:00 11/20/18 09:15 Sod 3.375 gm/ Dextrose IVPB 100 mls/hr Q8H-IV LAMONT Administration Protocol Lactobacillus Acidophilus 1 tab 11/19/18 10:00 11/20/18 09:30 Bacid - PO 1 tab DAILY LAMONT Administration Levothyroxine Sodium 37.5 mcg 11/19/18 07:00 11/20/18 06:12 Synthroid - PO 37.5 mcg AM LAMONT Administration Metoprolol Tartrate 25 mg 11/19/18 10:00 11/20/18 09:16 Lopressor - PO 25 mg DAILY LAMONT Administration Valsartan 320 mg 11/19/18 10:00 11/20/18 09:17 Diovan - PO 320 mg DAILY LAMONT Administration ASSESSMENT/PLAN: Patient is an 83 year old female with history of hypertension, hyperlipidemia, gastroesophageal reflux, hypothyroidism, macrocytic anemia presents with complaint of nonproductive cough with associated fevers, chills, shortness of breath, and malaise. Sepsis secondary to hospital acquired pneumonia -Chest Xray upon admission showed left lower lobe infiltrate concerning for pneumonia. Possible aspiration pneumonia. -Zosyn 3.375grams IV Q8H (day #2) -Bacid 1 tablet daily -Tylenol 650mg PO Q6H for fever -Blood cultures negative for growth at 48 hours -Influenza swab negative -Follow sputum cultures -Follow urinalysis, urine cultures -Urine negative for pneumonia, legionella antigens -Infectious disease consult (Dr. Goddard) appreciated. Will switch to Augmentin tomorrow to complete 7 days total course. Dysphagia -Speech, swallow evaluation appreciated -Modified barium study results noted. Will begin soft diet, with thin liquids. Hypertension -Metoprolol 25mg PO daily -Olmesartan 40mg PO daily Hypothyroidism -TSH 0.16, no prior lab value. Uncertain if secondary to acute infectious process -Decrease home synthroid dose to 37.5mcg daily. -Patient will have thyroid studies 3 weeks after discharge Hyperlipidemia -Atorvastatin 40mg PO HS Macrocytic anemia -Hb 9.9 Hct 29.5 MCV 106.0 -Likely secondary to B12 deficiency -Cyanocobalamin 1000mcg PO daily -Ferrous sulfate 325mg PO BID -Folic acid 1mg PO daily -Monitor CBC closely Malnutrition -BMI- 14.2 -Likely secondary to poor intake, diminished appetite -work from home evaluation for dietary supplementation recommendations. GERD, atrophic gastritis -Famotidine 20mg IV daily FEN -No IV fluids. Encourage judicious oral hydration. -Follow CMP -Soft regular diet, supplement with Ensure. Prophylaxis -Heparin 5000u subq TID -Ranitidine 150mg PO daily Disposition -Continue care in medical surgical floor Visit type - Emergency Visit Emergency Visit: Yes ED Registration Date: 11/18/18 Care time: The patient presented to the Emergency Department on the above date and was hospitalized for further evaluation of their emergent condition. - New Patient This patient is new to me today: No - Critical Care Critical Care patient: No - Discharge Referral Referred to [facility] Med P.C.: No
--- NOTE | 2018-11-20 12:57 | CONSULT ---
Admitting History and Physical - Primary Care Physician PCP: Vicenta Reyes - Admission Chief Complaint: Concern for aspiration History of Present Illness: Per EMR: 83 year old female with HTN, HLD, GERD, Hypothyroidism, recent admission for chest pain and anemia work-up including EGD 10/29/18 showing Atrophic Gastritis with resulting B12 deficiency, presents with malaise, lethargy, non-productive cough, decreased appetite and fever of 101 at home. She was found to have L sided pneumonia on chest imaging in ED. Selected Entries 11/19/18 11/19/18 11/19/18 06:00 09:00 13:36 Breakfast 75% Lunch 75% Supper Temperature 97.9 F 97.9 F 11/19/18 11/19/18 11/19/18 14:24 16:55 21:26 Breakfast Lunch Supper 75% Temperature 98.1 F 99 F 11/20/18 09:06 Breakfast Lunch Supper Temperature 97.6 F Laboratory Tests 11/18/18 11/19/18 11/20/18 13:20 06:40 06:20 WBC 14.2 H 9.3 10.4 H Seen by sp path 10/28/18- Pt tolerated soft solids/thin liquids at that time. History Source: Patient, Family Member, Medical Record Limitations to Obtaining History: No Limitations, Clinical Condition, Language Barrier (speaks some Lao-Reports trouble with liquid. Had throat surgery?) - Past Medical History Cardiovascular: Yes: CAD, HTN, Other (RBBB, Marked sinus arrhythmia on recent EKG 10/24) Heme/Onc: Yes: Anemia (macrocytic), B12 Deficiency - Past Surgical History Past Surgical History: Yes: Hernia Repair (bilateral inguinal hernia repair per the patient's ) - Smoking History Smoking history: Never smoked Have you smoked in the past 12 months: No - Alcohol/Substance Use Hx Alcohol Use: No - Social History ADL: Family Assistance Occupation: Retired Tailor History of Recent Travel: No History - Admission Reason For Visit: FAILURE TO THRIVE IN ADULT/PNEUMONIA/DEHYDRATION - Diagnostics X-ray: Report Reviewed - General Mental Status: Awake and Alert, Able to Follow Commands Attention: Intact Ability to Follow Directions: Good Head/Neck Control: Fair - Hearing Hearing: Impaired, Both Hearing Aide: No Speech Evaluation - Communication Primary Language: MACEDONIAN Secondary Language: PERSIAN (limited) Communication: Yes: Simple Responses - Speech Production Apraxia: No Intelligibility: Yes: WNL - Speech Characteristics Voice Loudness: Normal Voice Pitch: Yes: Normal Voice Phonatory-based Quality: Yes: Normal Articulation: Yes: Precise Rate of Speech: Intact - Language/Auditory Comprehension Follows: Yes: 1 Stage Simple Commands Observation: Comprehends Conversational Speech: Yes (in Amharic) - Language/Verbal Expression Functional Communication Status: Yes: WNL - Swallow Evaluation/Bedside Assessment Current Nutritional Intake: Regular (Hamburger, kendall slaw) Oral Secretions: Yes: WFL Dentition: Yes: Missing Teeth Facial Symmetry at Rest: Facial Droop Left Facial Symmetry on Retraction: Symmetrical Facial Movement: Controlled Against Resistance Opening: Normal Against Resistance Closing: Normal Pucker Lips: Normal Smile: Normal Lingual Movement: Normal, Symmetric Lingual Speed of Movement: Normal Lingual Movement Strgth Against Opposition: Normal Lingual Movement Characteristics: Normal Laryngeal Movement: Able to Palpate Rate of Intake: WFL Bolus Size: WFL Labial Seal: WFL Chewing: WFL (poor dentition) A-P Transit: WFL Pocketing: None Coughing/Throat Clear: Yes (soda) Recommendations - Speech Evaluation, Impression/Plan Impression: Cough noted with soda today, not observed before. Pt said she had throat sx before? says tonsillectomy? - Dysphagia Impressions/Plan Dysphagia Impressions: Ongoing Evaluation *Silent aspiration: cannot be R/O at bedside Recommendations: Modified Barium Swallow
--- NOTE | 2018-11-20 14:13 | PN ---
Teaching Attending Note Name of Resident: Chuck Kurtz ATTENDING PHYSICIAN STATEMENT I saw and evaluated the patient. I reviewed the resident's note and discussed the case with the resident. I agree with the resident's findings and plan as documented. SUBJECTIVE:asymptomatic. states she has poor appetite. unable to specify if she has lost weight. denies Cp, SOB, fever, chills, cough OBJECTIVE: Last Vital Signs Temp Pulse Resp BP Pulse Ox 97.6 F 91 H 16 108/40 L 97 11/20/18 09:06 11/20/18 09:06 11/20/18 09:06 11/20/18 09:06 11/19/18 21:00 General NAD, bitemporal wasting, prominent clavicles CV S1 S2 RRR no murmur/rub/gallop Lungs rhonchi L base. 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 She was found to have L sided pneumonia on chest imaging in ED. 1. Sepsis secondary to HCAP- afebrile. clinically improved. concern for aspiration. swallow eval and MBS to further evaluate. Zosyn day 3. f/u Ulegionella. Flu negative. ID on board 2.Malnutrition- evident by body habitus and BMI. dietary eval. dietary supplements 3. Macrocytic Anemia sec to Atrophic Gastritis-likely dehydrated on presentation. now at baseline. no signs of bleeding. on pepcid. 4. Low TSH- LT4 reduced. will need repeat TSH in 6 weeks 5. HTN - Continue Metoprolol, Olmesartan. 6. HLD - Continue Atorvastatin 7. DVT Px - Heparin SQ
--- NOTE | 2018-11-20 15:24 | PN ---
Progress Note (short form) - Note Progress Note: day #2 antibiotics still with cough but eating a bit Vital Signs Period Temp Pulse Resp BP Sys/Leger Pulse Ox Last 24 Hr 97.6 F-99 F 91-99 16-20 108-126/40-77 97 cor-rrr lungs decreased bs at bases abd soft,nt ext no edema CBC, BMP 11/20/18 06:20 11/20/18 06:20 Microbiology 11/18/18 13:24 Blood - Peripheral Venous Blood Culture - Preliminary NO GROWTH OBTAINED AFTER 48 HOURS, INCUBATION TO CONTINUE FOR 3 DAYS. 11/18/18 13:20 Blood - Peripheral Venous Blood Culture - Preliminary NO GROWTH OBTAINED AFTER 48 HOURS, INCUBATION TO CONTINUE FOR 3 DAYS. 11/20/18 10:09 Urine For Antigen Detection Legionella Antigen - Final- negative 11/20/18 10:09 Urine For Antigen Detection Streptococcus pneumoniae Antigen (M - Final-negative a/p ?aspiration pneumonia suggest continuing zosyn day #2 suggest swtch to po augmentin in am to complete 7 days (pills or suspension) macrocytic anemia b12 deficiency hypothyroid poor nutritional status - albumin is 1.7-check UA for proteinuria please call back if needed Problem List - Problems (1) Pneumonia Code(s): J18.9 - PNEUMONIA, UNSPECIFIED ORGANISM (2) Macrocytic anemia with vitamin B12 deficiency Code(s): D51.9 - VITAMIN B12 DEFICIENCY ANEMIA, UNSPECIFIED (3) Serum albumin decreased Code(s): E88.09 - OTH DISORDERS OF PLASMA-PROTEIN METABOLISM, NEC
[2018-11-20] MEDS: ATORVASTATIN CA 40 MG TABLET (FP) PO SCH (22:51)
[2018-11-21] MEDS: HEPARIN NA (PORCINE) 5,000 UNITS/ML 1ML VIAL SQ SCH ×2 (06:51→14:59)
[2018-11-21] MEDS: LEVOTHYROXINE NA 25 MCG TABLET (FP) PO SCH (06:51)
[2018-11-21 07:48] LABS: HEMATOCRIT 32.1 % (32.4-45.2); HEMOGLOBIN 10.7 GM/dL (10.7-15.3); MCH 35.2 pg (25.7-33.7); MCHC 33.3 g/dl (32.0-36.0); MEAN CELL VOLUME 105.4 fl (80-96); MEAN PLT VOLUME 8.8 fl (7.5-11.1); PLATELET COUNT 529 K/MM3 (134-434); RBC 3.04 M/mm3 (3.60-5.2); RDW 22.9 % (11.6-15.6); WHITE BLOOD COUNT 8.9 K/mm3 (4.0-10.0)
[2018-11-21] MEDS ORDERED: AMOX TR/POT CLAV 875MG/125MG TABLETS (FP) PO SCH (08:00)
[2018-11-21 08:38] LABS: ALBUMIN 2.1 g/dl (3.4-5.0); ALK PHOS 144 U/L (45-117); ANION GAP 7 MMOL/L (8-16); BILIRUBIN,TOTAL 0.5 mg/dL (0.2-1); BLOOD UREA NITROGEN 8 mg/dL (7-18); CALCIUM 9.1 mg/dL (8.5-10.1); CHLORIDE 104 mmol/L (98-107); CO2 29 mmol/L (21-32); CREATININE 0.7 mg/dL (0.55-1.3); GLUCOSE,RANDOM 82 mg/dL (74-106); POTASSIUM 3.9 mmol/L (3.5-5.1); SGOT/AST 33 U/L (15-37); SGPT/ALT 15 U/L (13-61); SODIUM 140 mmol/L (136-145); TOT PROT 5.9 g/dl (6.4-8.2)
[2018-11-21] MEDS: FERROUS SO4 325 MG TABLET (FP) PO SCH (09:08)
[2018-11-21] MEDS ORDERED: RANITIDINE HCL 150 MG TABLET (FP) PO SCH (10:00)
[2018-11-21] MEDS: LACTOBACILLUS ACIDOPHILUS 1 TABLET PO SCH (11:17)
[2018-11-21] MEDS: VALSARTAN 160 MG TABLET (UD) PO SCH (11:17)
[2018-11-21] MEDS: ASPIRIN COATED 81 MG TABLET.EC PO SCH (11:17)
[2018-11-21] MEDS: METOPROLOL TARTRATE 25 MG TABLET (FP) PO SCH (11:18)
[2018-11-21] MEDS: CYANOCOBALAMIN 1,000 MCG TABLET (FP) PO SCH (11:18)
[2018-11-21] MEDS: ASCORBIC ACID 500 MG TABLET (FP) PO SCH (11:18)
[2018-11-21] MEDS: FOLIC ACID 1 MG TABLET (FP) PO SCH (11:18)
--- NOTE | 2018-11-21 11:39 | PN ---
Teaching Attending Note Name of Resident: Chuck Kurtz ATTENDING PHYSICIAN STATEMENT I saw and evaluated the patient. I reviewed the resident's note and discussed the case with the resident. I agree with the resident's findings and plan as documented. SUBJECTIVE:asymptomatic. denies CP, SOB< fever, chills, N/V/C/D OBJECTIVE: Last Vital Signs Temp Pulse Resp BP Pulse Ox 98.8 F 95 H 22 H 151/71 95 11/21/18 10:00 11/21/18 10:00 11/21/18 10:00 11/21/18 10:00 11/21/18 10:00 General NAD, bitemporal wasting, prominent clavicles CV S1 S2 RRR no murmur/rub/gallop Lungs rhonchi L base. 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 She was found to have L sided pneumonia on chest imaging in ED. 1. Sepsis secondary to HCAP- afebrile. clinically improved. concern for aspiration. placed on soft diet. will switch zosyn to augmentin to complete [address] on bacid. encourage incentive spirometer.ID on board 2. Severe Malnutrition- evident by body habitus and BMI. started on supplements , ensure, ensure compact and magic cup. encouraged patient to eat. dietary on board 3. Macrocytic Anemia sec to Atrophic Gastritis-likely dehydrated on presentation. now at baseline. no signs of bleeding. on pepcid. 4. Low TSH- LT4 reduced. will need repeat TSH in 6 weeks 5. HTN - Continue Metoprolol, Olmesartan. 6. HLD - Continue Atorvastatin 7. DVT Px - Heparin SQ 8. medically optimized for discharge at this time. will need TSH repeat in 6 weeks
[2018-11-21] MEDS ORDERED: LOPERAMIDE HCL 2 MG CAPSULE PO ONE (11:45)
[2018-11-21] MEDS: guaiFENesin 200 MG/10 ML 10 ML UNIT-DOSE CUPS PO PRN (11:49)
--- NOTE | 2018-11-21 14:09 | DS ---
Physical Exam: SUBJECTIVE: Patient seen and examined at bedside this morning. She is tolerating soft diet, with Ensure supplements without abdominal pain, nausea, vomiting. She endorses 4 episodes of diarrhea overnight. Denies subjective fevers, chills. OBJECTIVE: Vital Signs Period Temp Pulse Resp BP Sys/Leger Pulse Ox Last 24 Hr 97.6 F-98.8 F 78-95 20-22 115-151/68-72 95-98 PHYSICAL EXAM GENERAL: Awake, alert, in no acute distress. HEAD: Normocephalic, atraumatic. Temporal wasting noted bilaterally EYES: Pupils equal, round and reactive to light, extraocular movements intact, sclera anicteric. EARS, NOSE, THROAT: Oropharynx clear without exudates. Dry mucous membranes. NECK: Supple without lymphadenopathy, JVD. LUNGS: Poor inspiratory effort, and air entery bilaterally. Coarse bibasilar crackles, without wheezing auscultated. No accessory muscle use. HEART: Regular rate and rhythm, normal S1 and S2 without murmur, rub or gallop. ABDOMEN: Soft, nontender, not distended. Normoactive bowel sounds. No guarding, no rebound tenderness. No hepatomegaly palpated or percussed. MUSCULOSKELETAL: Patient freely moves all 4 extremities equally. No bony deformities or tenderness. No CVA tenderness bilaterally. EXTREMITIES: 2+ radial, dorsalis pedis pulses bilaterally. No calf tenderness. No peripheral edema bilaterally. Mild bilateral thenar wasting noted. NEUROLOGICAL: Cranial nerves II-XII grossly intact. No gross focal deficits. PSYCHIATRIC: Cooperative. Appropriate mood and affect upon my encounter SKIN: Warm, dry. LABS Laboratory Results - last 24 hr 11/21/18 11/21/18 06:30 06:30 WBC 8.9 RBC 3.04 L Hgb 10.7 Hct 32.1 L MCV 105.4 H MCH 35.2 H MCHC 33.3 RDW 22.9 H Plt Count 529 H MPV 8.8 Sodium 140 Potassium 3.9 Chloride 104 Carbon Dioxide 29 Anion Gap 7 L BUN 8 Creatinine 0.7 Creat Clearance w eGFR > 60 Random Glucose 82 Calcium 9.1 Total Bilirubin 0.5 AST 33 ALT 15 Alkaline Phosphatase 144 H Total Protein 5.9 L Albumin 2.1 L HOSPITAL COURSE: Date of Admission:11/18/18 Date of Discharge: 11/21/18 Patient is an 83 year old female with history of hypertension, hyperlipidemia, gastroesophageal reflux, hypothyroidism, macrocytic anemia presents with complaint of nonproductive cough with associated fevers, chills, shortness of breath, and malaise. Chest Xray upon admission showed left lower lobe infiltrate concerning for hospital acquired pneumonia vs aspiration pneumonia. Patient was evaluated by ID and started on Zosyn, and Bacid 1 tablet daily. Blood cultures negative for growth. Influenza swab negative. Sputum culture grew normal respiratory lisbeth. Urine negative for pneumonia, legionella antigens. TSH was noted to be low, and home synthroid dose decreased to 37.5mcg PO daily. Patient was evaluated by speech pathologist, and had modified barium swallow. Recommended soft diet, with thin liquids. She was evaluated by generator rebuilder for severe malnutrition (BMI 14.2) who recommended supplement with Ensure. Patient remained afebrile and was switched to Augmentin to complete 7 days total antibiotic course with ID recommendation. New dose of Synthroid 37.5mcg PO daily. Discharged home with primary care physician follow up (and TSH blood-work within 6 weeks). Minutes to complete discharge: 35 Discharge Summary Reason For Visit: FAILURE TO THRIVE IN ADULT/PNEUMONIA/DEHYDRATION Current Active Problems Dehydration (Acute) Pneumonia (Acute) Sepsis (Acute) Serum albumin decreased (Acute) FTT (failure to thrive) in adult (Chronic) Condition: Stable - Instructions Diet, Activity, Other Instructions: Hospital course: You were admitted to the hospital with complaint of fever and cough, and were treated with antibiotics for Pneumonia. You are being discharged home. Medication changes: Continue taking your home medications as directed. We have changed your Synthroid dose to 37.5mcg daily. Begin taking this new dose of Synthroid. You will take antibiotic Augmentin 875mg every 12 hours for the next 4 days. Take antibiotic with food, and a glass of water. Take probiotic Bacid 1 tablet daily for the next 30 days For diarrhea take Immodium 2mg after every lose stool for no longer than the next 5 days. Take no more than 8mg within one day. Follow-up recommendations: Follow up with your primary care physician within two three days of discharge. You will need bloodwork (TSH) done within 6 weeks of discharge. Be sure to supplement your diet with increased number of calories; take two Ensure shakes every day. Return to the nearest Emergency Department if you experience worsening symptoms , subjective fevers, chills, shortness of breath, chest pain, palpitations, abdominal pain, nausea, vomiting, non-resolving diarrhea. Referrals: Sergio Calvert MD [Primary Care Provider] - Disposition: HOME - Home Medications Comprehensive Discharge Medication List: Ambulatory Orders Olmesartan Medoxomil [Benicar] 40 mg PO DAILY 01/08/18 Aspirin Coated [Ecotrin -] 81 mg PO DAILY tablet.ec 01/10/18 Albuterol 2.5/Ipratropium 0.5 [Duoneb -] 1 amp NEB RTID 30 Days #90 amp Ascorbic Acid [Vitamin C] 500 mg PO DAILY 30 Days #30 tablet.er 10/29/18 Atorvastatin Ca [Lipitor] 40 mg PO HS tablet 10/29/18 Cyanocobalamin (Vitamin B-12) [Vitamin B-12] 1,000 mcg SL DAILY 30 Days #30 lozenge 10/29/18 Ferrous Sulfate [Feosol] 325 mg PO BID ud 10/29/18 Folic Acid - 1 mg PO DAILY 30 Days #30 tablet 10/29/18 Metoprolol Tartrate [Lopressor -] 25 mg PO DAILY tablet 10/29/18 Pantoprazole Sodium [Protonix -] 20 mg PO DAILY #30 tablet.ec 10/29/18 Amox-Tr/K Cl [Augmentin 875-125mg Tablet -] 1 tab PO BID@0800,1730 4 Days #8 tablet 11/21/18 Lactobacillus Acidophilus [Bacid -] 1 tab PO DAILY 30 Days #30 tab 11/21/18 Levothyroxine [Synthroid -] 37.5 mcg PO DAILY 30 Days #30 tablet 11/21/18 Loperamide HCl [Loperamide] 2 mg PO ASDIR 5 Days #15 capsule MDD 8mg 11/21/18 This patient is new to me today: No Emergency Visit: Yes ED Registration Date: 11/18/18 Care time: The patient presented to the Emergency Department on the above date and was hospitalized for further evaluation of their emergent condition. Critical Care patient: No - Discharge Referral Referred to [facility] No
[2018-11-21 15:05] VITALS: BP 90/60; PULSE 90; TEMP 98.4
== END 2018-11-21 16:05 | disposition home or self-care (01) | DRG 871 ==
LOC: JER 12:35 → JERBED 14:08 → J8W 18:32
PROVIDERS: ATTEND Internal Medicine
DX: A41.9 Sepsis, unspecified organism (principal); J18.9 Pneumonia, unspecified organism; E43 Unspecified severe protein-calorie malnutrition; Z68.1 Body mass index [BMI] 19.9 or less, adult; R62.7 Adult failure to thrive; E86.0 Dehydration; I10 Essential (primary) hypertension; E78.5 Hyperlipidemia, unspecified; K21.9 Gastro-esophageal reflux disease without esophagitis; D51.9 Vitamin B12 deficiency anemia, unspecified; E03.9 Hypothyroidism, unspecified; R13.10 Dysphagia, unspecified; K29.70 Gastritis, unspecified, without bleeding; R63.4 Abnormal weight loss
CPT/HCPCS: 36415; 71045-TC-FY; 74230-TC-FY; 80053; 82607; 82746; 82803; 83605; 83735; 84100; 84443; 84484; 85025; 85027; 85610; 85730; 87040; 87070; 87205; 87804; 87899; 92611-GN; 93005; 93010; 97116-GP; 97161-GP; 99283-25; J0131; J1644; J7030

== ENCOUNTER 2019-11-27 14:40 | Inpatient (IN) | payer OTHER ==
--- NOTE | 2019-11-27 15:21 | PDOC ---
History of Present Illness - General Chief Complaint: Nausea/Vomiting Stated Complaint: COUGH/VOMITING Time Seen by Provider: 11/27/19 15:20 Past History - Past Medical History Allergies/Adverse Reactions: Allergies Allergy/AdvReac Type Severity Reaction Status Date / Time No Known Allergies Allergy Verified 11/27/19 14:48 Home Medications: Ambulatory Orders Olmesartan Medoxomil [Benicar] 40 mg PO DAILY 01/08/18 Aspirin Coated [Ecotrin -] 81 mg PO DAILY tablet.ec 01/10/18 Albuterol 2.5/Ipratropium 0.5 [Duoneb -] 1 amp NEB RTID 30 Days #90 amp Ascorbic Acid [Vitamin C] 500 mg PO DAILY 30 Days #30 tablet.er 10/29/18 Atorvastatin Ca [Lipitor] 40 mg PO HS tablet 10/29/18 Cyanocobalamin (Vitamin B-12) [Vitamin B-12] 1,000 mcg SL DAILY 30 Days #30 lozenge 10/29/18 Ferrous Sulfate [Feosol] 325 mg PO BID ud 10/29/18 Folic Acid - 1 mg PO DAILY 30 Days #30 tablet 10/29/18 Metoprolol Tartrate [Lopressor -] 25 mg PO DAILY tablet 10/29/18 Pantoprazole Sodium [Protonix -] 20 mg PO DAILY #30 tablet.ec 10/29/18 Amox-Tr/K Cl [Augmentin 875-125mg Tablet -] 1 tab PO BID@0800,1730 4 Days #8 tablet 11/21/18 Lactobacillus Acidophilus [Bacid -] 1 tab PO DAILY 30 Days #30 tab 11/21/18 Levothyroxine [Synthroid -] 37.5 mcg PO DAILY 30 Days #60 tablet 11/21/18 Loperamide HCl [Loperamide] 2 mg PO ASDIR 5 Days #15 capsule MDD 8mg 11/21/18 COPD: No HTN: Yes - Surgical History Abdominal Surgery: Yes (HERNIA REPAIR) - Psycho Social/Smoking Cessation Hx Smoking History: Unknown if ever smoked Have you smoked in the past 12 months: No Hx Alcohol Use: No Drug/Substance Use Hx: No Substance Use Type: None Hx Substance Use Treatment: No *Physical Exam - Vital Signs Last Vital Signs Temp Pulse Resp BP Pulse Ox 98 F 70 26 H 170/70 98 11/27/19 14:50 11/27/19 14:50 11/27/19 14:50 11/27/19 14:50 11/27/19 14:50 11/27/19 16:03 84 y/o female PMH HTN, HLD, GERD, and hypothyroidism c/o progressive flu-like symptoms since Sunday: generalized low energy and cough (non- productive), then on Sunday she experienced several episodes ( approx 4-6/day) of non-bloody, non-mucoid diarrhea, and now today vomiting x6 bilious, non-bloody. Grandson (lives in same home) currently presenting with similar symptoms. She has been given tylenol at home. PE: AOx3 Mongolian speaking, with family at bedside x2 sons, and [id number], mild distress Active dry cough, bibasilar post pulm crackles Ab soft NT, ND, no suprapubic tenderness NO CVA tenderness Neuro NFD A/P URI, gastroenteritis, viral syndrome CBC, CMP, UA, U cx, influenza swab, EKG, duonebs, ofirmev for pain, zofran 11/27/19 16:21 Restarted home meds Losartan -> Valsartan 320 mg qd 25 mcg synthroid 11/27/19 18:44 Flu NEG CXR w ?some mild infiltrates no acute pathology per official read 11/27/19 20:53 CT ab/pelv reveals - diverticulosis with NO diverticulitis - 0.3 cm isodense spherical focus at lower third of CBD Rec MRI/MRCP Plan to admit for MRI in AM. 11/27/19 20:[address] Kurtz. Admitting under Dr. Weber. ED Treatment Course - LABORATORY CBC & Chemistry Diagram: 11/27/19 16:10 11/27/19 16:10 Discharge - Discharge Information Problems reviewed: Yes Clinical Impression/Diagnosis: Diverticulosis, Common bile duct (CBD) obstruction - Admission Yes - Follow up/Referral Referrals: Sergio Calvert MD [Primary Care Provider] - - Patient Discharge Instructions - Post Discharge Activity
[2019-11-27] MEDS ORDERED: ACETAMINOPHEN 1000 MG/100 ML VIAL (NON FORMULARY) IVPB ONE (15:53)
[2019-11-27] MEDS ORDERED: ONDANSETRON 4 MG/2 ML VIAL IVPB ONE (15:55)
[2019-11-27] MEDS ORDERED: SODIUM CHLORIDE 1,000 ML IV SCH (16:00)
[2019-11-27] MEDS ORDERED: ACETAMINOPHEN INJECTION 100 ML IVPB ONE (16:22)
[2019-11-27] MEDS ORDERED: ONDANSETRON 4 MG/2 ML VIAL ONE (16:23)
[2019-11-27] MEDS ORDERED: AZITHROMYCIN 500 MG TABLET PO ONE (16:35)
--- NOTE | 2019-11-27 16:37 | PDOC ---
Documentation entered by Laxmi Bernard SCRIBE, acting as scribe for Zeynep Salgado MD. Zeynep Salgado MD: This documentation has been prepared by the Joana constantino Brenda, SCRIBE, under my direction and personally reviewed by me in its entirety. I confirm that the documentation accurately reflects all work, treatment, procedures, and medical decision making performed by me. Attending Attestation - Resident Resident Name: Dameon Hull - ED Attending Attestation I have performed the following: I have examined & evaluated the patient, The case was reviewed & discussed with the resident, I agree w/resident's findings & plan, Exceptions are as noted - HPI HPI: 11/27/19 16:09 The patient is an 84 year old female with a significant PMH of HTN, HLD, GERD and hypothyroidism who presents to the ED with daughter for evaluation of nausea , vomiting and diarrhea since earlier today, and a few days of coughing. As per daughter, on the bedside the diarrhea is nonbloody but very watery and the emesis is also NBNB. The daughter also notes that a few people in the home have had the flu. Allergies: NKA Social history: No reported hx of tobacco use, alcohol use or illicit drug use. - Physicial Exam PE: 11/27/19 16:28 GENERAL: (+) Mildly uncomfortable. (+) Cachectic. Awake, alert, and fully oriented. HEAD: No signs of trauma EYES: PERRLA, EOMI, sclera anicteric, conjunctiva clear ENT: Auricles normal inspection, hearing grossly normal, nares patent, oropharynx clear without exudates. Moist mucosa NECK: Normal ROM, supple, no lymphadenopathy, JVD, or masses LUNGS:(+) Wheezing. (+) Tachypnic. Breath sounds equal. No crackles HEART: Regular rate and rhythm, normal S1 and S2, no murmurs, rubs or gallops ABDOMEN: Soft, nontender, normoactive bowel sounds. No guarding, no rebound. No masses EXTREMITIES: Normal range of motion, no edema. No clubbing or cyanosis. No cords, erythema, or tenderness NEUROLOGICAL: Cranial nerves II through XII grossly intact. Normal speech, normal gait SKIN: Warm, Dry, normal turgor, no rashes or lesions noted. - Medical Decision Making 11/27/19 16:33 Pt presents to the ED complaining of several days of cough and generalized malaise. Also complaining of diarrhea that started yesterday and nausea and vomiting that started today. Will check labs and CXR, CT abdomen and reassess. 11/27/19 16:34
[2019-11-27] MEDS ORDERED: AZITHROMYCIN 250 MG TABLET ONE (16:45)
[2019-11-27] MEDS ORDERED: VALSARTAN 80 MG TABLET (UD) ONE (16:46)
[2019-11-27] MEDS ORDERED: ALBUTEROL SO4 2.5/IPRATROPIUM 0.5 INH SOL 3 ML VIAL.NEB. NEB ONE (16:48)
[2019-11-27] MEDS: VALSARTAN 160 MG TABLET (UD) PO SCH (16:52)
[2019-11-27 16:58] LABS: BASO % 0.4 % (0-2.0); EOS % 0.9 % (0-4.5); HEMATOCRIT 36.6 % (32.4-45.2); HEMOGLOBIN 12.3 GM/dL (10.7-15.3); LYMPH % 16.6 % (8-40); MCH 28.9 pg (25.7-33.7); MCHC 33.6 g/dl (32.0-36.0); MEAN CELL VOLUME 86.1 fl (80-96); MEAN PLT VOLUME 8.9 fl (7.5-11.1); MONO % 6.6 % (3.8-10.2); NEUT % 75.5 % (42.8-82.8); PLATELET COUNT 187 K/MM3 (134-434); RBC 4.25 M/mm3 (3.60-5.2); RDW 14.3 % (11.6-15.6); WHITE BLOOD COUNT 4.6 K/mm3 (4.0-10.0)
[2019-11-27 17:19] LABS: ALBUMIN 3.6 g/dl (3.4-5.0); ALK PHOS 108 U/L (45-117); ANION GAP 5 MMOL/L (8-16); BILIRUBIN,TOTAL 0.3 mg/dL (0.2-1); CALCIUM 8.8 mg/dL (8.5-10.1); CHLORIDE 108 mmol/L (98-107); CO2 26 mmol/L (21-32); CREATININE 0.9 mg/dL (0.55-1.3); GLUCOSE,RANDOM 142 mg/dL (74-106); SGOT/AST 20 U/L (15-37); SGPT/ALT 14 U/L (13-61); SODIUM 140 mmol/L (136-145); TOT PROT 6.9 g/dl (6.4-8.2)
[2019-11-27] MEDS ORDERED: LEVOTHYROXINE NA 25 MCG TABLET (FP) PO SCH (17:30)
[2019-11-27] MEDS ORDERED: LEVOTHYROXINE NA 25 MCG TABLET (FP) ONE (17:38)
[2019-11-27 19:16] LABS: URINE APPEARANCE CLEAR; URINE BILIRUBIN NEGATIVE (NEGATIVE); URINE COLOR YELLOW; URINE GLUCOSE (UA) NEGATIVE (NEGATIVE); URINE KETONE 1+ (NEGATIVE); URINE LEUK ESTERASE NEGATIVE (NEGATIVE); URINE NITRITE NEGATIVE (NEGATIVE); URINE PROTEIN TRACE (NEGATIVE); URINE UROBILINOGEN 0.2 mg/dL (0.2-1.0)
[2019-11-27] MEDS ORDERED: ALBUTEROL SO4 2.5/IPRATROPIUM 0.5 INH SOL 3 ML VIAL.NEB. NEB SCH (20:00)
[2019-11-27] MEDS: ALBUTEROL SO4 2.5/IPRATROPIUM 0.5 INH SOL 3 ML VIAL.NEB. NEB SCH (20:04)
[2019-11-27] MEDS ORDERED: MELATONIN 5 MG TABLETS PO ONE (20:58)
[2019-11-27] MEDS ORDERED: MELATONIN 5 MG TABLETS ONE (21:37)
--- NOTE | 2019-11-27 21:44 | HP ---
<Chuck Kurtz - Last Filed: 11/27/19 23:37> CHIEF COMPLAINT: cough, nausea, abdominal pain, vomiting. PCP: HISTORY OF PRESENT ILLNESS: History obtained with assistance of patent's son Eh ([phone]) Patient is an 84 year old female with history of hypertension, hyperlipidemia, gastroesophageal reflux, hypothyroidism, presents with complaint of cough ( productive with clear/ white sputum), nausea, vomiting. Patient states the cough began aprox four days ago, and has been associated with subjective chills ; reportedly afebrile. Admits sck contact of grandson who was recently diagnosed with Infleunza. Admits new onset of sharp diffuse abdominal pain, that has been associated with clear vomiting (three- four episodes earlier this afternoon) which progressed to two episodes of billious vomiting just prior to hospital presentation. Denies hemoptysis. Patient endorses that he bowel movements have become soft; however remain loosely formed, brown colored without melena or hematochezia. Patient is cared for by daughter in law who is home health aide. Reports patient has been afebrile. Has attempted Robitussin, Theraflu, and rapid release Tylenol which has been minimally palliative. Denies any recent antibiotics, or any changes in medications. ER course was notable for: (1) CT abdomen, pelvis (IV contrast only) reveals 0.3cm isodense focus within lower common bile duct concerning for noncalcified stone vs. polypoid lesion. CBD dilated to 1.1cm, however chronic finding noted upon prior studies. Diverticulosis noted without diverticulitis. Negative for bowel obstruction. (2) WBC 4.6, afebrile at 97.4F. Influenza A/B negative. (3) AST 20, ALT 12, Alk Phos 108, Bilirubin 0.3. Lipase Recent Travel: Denies PAST MEDICAL HISTORY: hypertension, hyperlipidemia, gastroesophageal reflux, hypothyroidism, PAST SURGICAL HISTORY: umbilical hernia repair, right toe ?bunion, cataract surgery left eye. Family History: Mother in her 80s due to CVA. Father due to Pneumonia. Denies known cardiac or oncologic family history. Social History: Lives at home with her children. Daughter in law is patients home health care giver. Able to walk up three flights of stairs without shortness of breath. Smoking: Denies smoking cigarettes Alcohol: Denies alcohol consumption Drugs: Denies illicit drug use Allergies No Known Allergies Allergy (Verified 11/27/19 14:48) HOME MEDICATIONS: Home Medications Medication Instructions Recorded Olmesartan Medoxomil [Benicar] 40 mg PO DAILY 01/08/18 Aspirin Coated [Ecotrin -] 81 mg PO DAILY tablet.ec 01/10/18 Albuterol 2.5/Ipratropium 0.5 1 amp NEB RTID 30 Days #90 amp 10/29/18 [Duoneb -] Ascorbic Acid [Vitamin C] 500 mg PO DAILY 30 Days #30 10/29/18 tablet.er Atorvastatin Ca [Lipitor] 40 mg PO HS tablet 10/29/18 Cyanocobalamin (Vitamin B-12) 1,000 mcg SL DAILY 30 Days #30 10/29/18 [Vitamin B-12] lozenge Ferrous Sulfate [Feosol] 325 mg PO BID ud 10/29/18 Folic Acid - 1 mg PO DAILY 30 Days #30 tablet 10/29/18 Metoprolol Tartrate [Lopressor -] 25 mg PO DAILY tablet 10/29/18 Pantoprazole Sodium [Protonix -] 20 mg PO DAILY #30 tablet.ec 10/29/18 Amox-Tr/K Cl [Augmentin 875-125mg 1 tab PO BID@0800,1730 4 Days #8 11/21/18 Tablet -] tablet Lactobacillus Acidophilus [Bacid -] 1 tab PO DAILY 30 Days #30 tab 11/21/18 Levothyroxine [Synthroid -] 37.5 mcg PO DAILY 30 Days #60 11/21/18 tablet Loperamide HCl [Loperamide] 2 mg PO ASDIR 5 Days #15 capsule 11/21/18 MDD 8mg REVIEW OF SYSTEMS CONSTITUTIONAL: Admits: subjective chills, generalized weakness, malaise, loss of appetite. Absent: fever, diaphoresis, weight change HEENT: Absent: rhinorrhea, nasal congestion, throat pain, throat swelling, difficulty swallowing, mouth swelling, ear pain, eye pain, visual changes CARDIOVASCULAR: Absent: chest pain, syncope, palpitations, irregular heart rate, lightheadedness , peripheral edema RESPIRATORY: Admits; cough. Absent: shortness of breath, dyspnea with exertion, orthopnea, wheezing, stridor, hemoptysis GASTROINTESTINAL: Admits: abdominal pain, nausea, nausea, vomiting. Absent: abdominal distension, diarrhea, constipation, melena, hematochezia GENITOURINARY: Absent: dysuria, frequency, urgency, hesitancy, hematuria, flank pain, genital pain MUSCULOSKELETAL: Absent: myalgia, arthralgia, joint swelling, back pain, neck pain SKIN: Absent: rash, itching, pallor HEMATOLOGIC/IMMUNOLOGIC: Absent: easy bleeding, easy bruising, lymphadenopathy, frequent infections ENDOCRINE: Absent: unexplained weight gain, unexplained weight loss, heat intolerance, cold intolerance NEUROLOGIC: Absent: headache, focal weakness or paresthesias, dizziness, unsteady gait, seizure, mental status changes, bladder or bowel incontinence PSYCHIATRIC: Absent: anxiety, depression, suicidal or homicidal ideation, hallucinations. PHYSICAL EXAMINATION Vital Signs - 24 hr 11/27/19 11/27/19 14:50 21:16 Temperature 98 F 97.4 F L Pulse Rate 70 Pulse Rate [ 77 Right Radial] Respiratory 26 H 18 Rate Blood Pressure 170/70 Blood Pressure 154/71 [Right Arm] O2 Sat by Pulse 98 Oximetry (%) GENERAL: The patient is awake, alert, and fully oriented, in no acute distress. HEAD: Normocephalic, atraumatic. EYES: PERRL, extraocular movements intact, sclera anicteric, conjunctiva clear. ENT: Oropharynx clear, without erythema or exudates. Dry mucous membranes. NECK: Trachea midline, full range of motion. Supple without lymphadenopathy. LUNGS: Good inspiratory effort, and air enry bilaterally. Faint crackles auscultated bilateral lower lobes right > left. No accessory muscle use. HEART: Regular rate and rhythm. S1, S2 without murmur, rub or gallop. ABDOMEN: Soft, nondistended. Minimally tender to deep palpation at left upper quadrant. No rebound tenderness, no guarding. Normoactive bowel sounds x4 quadrants. No hepatosplenomegaly, no masses appreciated. EXTREMITIES: 2+ radial, dorsalis pedis pulses bilaterally. Warm, well-perfused. No lower extremity edema bilaterally. NEUROLOGICAL: Cranial nerves II through XII grossly intact. Normal speech. No gross focal deficits. PSYCH: Normal mood, normal affect upon my encounter. SKIN: Warm, dry. Umbilical scar from prior hernia surgery noted intact, well healed. Laboratory Results - last 24 hr 11/27/19 11/27/19 11/27/19 16:10 16:10 16:50 WBC 4.6 RBC 4.25 Hgb 12.3 Hct 36.6 MCV 86.1 MCH 28.9 D MCHC 33.6 RDW 14.3 D Plt Count 187 D MPV 8.9 Absolute Neuts (auto) 3.5 Neutrophils % 75.5 Lymphocytes % 16.6 D Monocytes % 6.6 Eosinophils % 0.9 Basophils % 0.4 Nucleated RBC % 0 Sodium 140 Potassium 4.0 Chloride 108 H Carbon Dioxide 26 Anion Gap 5 L BUN 27.0 H Creatinine 0.9 Est GFR (CKD-EPI)AfAm 67.10 Est GFR (CKD-EPI)NonAf 57.90 Random Glucose 142 H Calcium 8.8 Total Bilirubin 0.3 AST 20 ALT 14 Alkaline Phosphatase 108 Creatine Kinase 48 Troponin I < 0.02 Total Protein 6.9 Albumin 3.6 Urine Color Urine Appearance Urine pH Ur Specific [place] Urine Protein Urine Glucose (UA) Urine Ketones Urine Blood Urine Nitrite Urine Bilirubin Urine Urobilinogen Ur Leukocyte Esterase Influenza A (Rapid) Negative Influenza B (Rapid) Negative 11/27/19 18:24 WBC RBC Hgb Hct MCV MCH MCHC RDW Plt Count MPV Absolute Neuts (auto) Neutrophils % Lymphocytes % Monocytes % Eosinophils % Basophils % Nucleated RBC % Sodium Potassium Chloride Carbon Dioxide Anion Gap BUN Creatinine Est GFR (CKD-EPI)AfAm Est GFR (CKD-EPI)NonAf Random Glucose Calcium Total Bilirubin AST ALT Alkaline Phosphatase Creatine Kinase Troponin I Total Protein Albumin Urine Color Yellow Urine Appearance Clear Urine pH 5.0 Ur Specific [place] 1.021 Urine Protein Trace Urine Glucose (UA) Negative Urine Ketones 1+ H Urine Blood Negative Urine Nitrite Negative Urine Bilirubin Negative Urine Urobilinogen 0.2 Ur Leukocyte Esterase Negative Influenza A (Rapid) Influenza B (Rapid) ASSESSMENT/PLAN: Patient is an 84 year old female with history of hypertension, hyperlipidemia, gastroesophageal reflux, hypothyroidism, presents with complaint of cough, nausea, vomiting. Gastroenteritis -Symptoms of nausea, vomiting, and loose bowel movements likely secondary to viral gastroenteritis. Elevated BUN secondary to dehydration in setting of vomiting. 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 Total bilirubin 0,3 without jaundice on physical exam. Though patient endorses bilious vomiting, will exclude cholelith as possible etiology. Will follow up with MRCP abdomen. Consider Gastroenterology consult pending result of MRI. -Gentle hydration with IV Lactated Ringers at 75mL/ hour. -Trial of clear liquid diet in morning. Advance as tolerated. Hypertension -Home Olmesartan non formulary. Valsartan 320mg PO daily substituted. Hypothyroidism -Continue home synthroid dose 50mcg PO daily -Defer TSH testing in setting of acute illness. Patient will follow up with her primary care physician after discharge. GERD -Pantoprazole 20mg PO daily FEN -No IV fluids. Encourage judicious oral hydration. -Follow CMP -Soft regular diet, supplement with Ensure. Prophylaxis -Heparin 5000u subq TID -Pantoprazole 20mg PO daily Disposition -Admit to Medical Surgical floor ATTENDING PHYSICIAN STATEMENT I saw and evaluated the patient. I reviewed the resident's note and discussed the case with the resident. I agree with the resident's findings and plan as documented. SUBJECTIVE: OBJECTIVE: ASSESSMENT AND PLAN: <Sandip Weber - Last Filed: 11/28/19 00:39> CHIEF COMPLAINT: PCP: HISTORY OF PRESENT ILLNESS: ER course was notable for: (1) (2) (3) Recent Travel: PAST MEDICAL HISTORY: PAST SURGICAL HISTORY: Social History: Smoking: Alcohol: Drugs: Allergies No Known Allergies Allergy (Verified 11/27/19 14:48) HOME MEDICATIONS: Home Medications Medication Instructions Recorded Olmesartan Medoxomil [Benicar] 40 mg PO DAILY 01/08/18 Ascorbic Acid [Vitamin C] 500 mg PO DAILY 30 Days #30 10/29/18 tablet.er Cyanocobalamin (Vitamin B-12) 1,000 mcg SL DAILY 30 Days #30 10/29/18 [Vitamin B-12] lozenge Ferrous Sulfate [Feosol] 325 mg PO BID ud 10/29/18 Folic Acid - 1 mg PO DAILY 30 Days #30 tablet 10/29/18 Pantoprazole Sodium [Protonix -] 20 mg PO DAILY #30 tablet.ec 10/29/18 Lactobacillus Acidophilus [Bacid -] 1 tab PO DAILY 30 Days #30 tab 11/21/18 Levothyroxine [Synthroid -] 50 mcg PO DAILY 11/27/19 REVIEW OF SYSTEMS CONSTITUTIONAL: Absent: fever, chills, diaphoresis, generalized weakness, malaise, loss of appetite, weight change HEENT: Absent: rhinorrhea, nasal congestion, throat pain, throat swelling, difficulty swallowing, mouth swelling, ear pain, eye pain, visual changes CARDIOVASCULAR: Absent: chest pain, syncope, palpitations, irregular heart rate, lightheadedness , peripheral edema RESPIRATORY: Absent: cough, shortness of breath, dyspnea with exertion, orthopnea, wheezing, stridor, hemoptysis GASTROINTESTINAL: Absent: abdominal pain, abdominal distension, nausea, vomiting, diarrhea, constipation, melena, hematochezia GENITOURINARY: Absent: dysuria, frequency, urgency, hesitancy, hematuria, flank pain, genital pain MUSCULOSKELETAL: Absent: myalgia, arthralgia, joint swelling, back pain, neck pain SKIN: Absent: rash, itching, pallor HEMATOLOGIC/IMMUNOLOGIC: Absent: easy bleeding, easy bruising, lymphadenopathy, frequent infections ENDOCRINE: Absent: unexplained weight gain, unexplained weight loss, heat intolerance, cold intolerance NEUROLOGIC: Absent: headache, focal weakness or paresthesias, dizziness, unsteady gait, seizure, mental status changes, bladder or bowel incontinence PSYCHIATRIC: Absent: anxiety, depression, suicidal or homicidal ideation, hallucinations. PHYSICAL EXAMINATION Vital Signs - 24 hr 11/27/19 11/27/19 14:50 21:16 Temperature 98 F 97.4 F L Pulse Rate 70 Pulse Rate [ 77 Right Radial] Respiratory 26 H 18 Rate Blood Pressure 170/70 Blood Pressure 154/71 [Right Arm] O2 Sat by Pulse 98 Oximetry (%) GENERAL: Awake, alert, and fully oriented, in no acute distress. HEAD: Normal with no signs of trauma. EYES: Pupils equal, round and reactive to light, extraocular movements intact, sclera anicteric, conjunctiva clear. No lid lag. EARS, NOSE, THROAT: Ears normal, nares patent, oropharynx clear without exudates. Moist mucous membranes. NECK: Normal range of motion, supple without lymphadenopathy, JVD, or masses. LUNGS: Breath sounds equal, clear to auscultation bilaterally. No wheezes, and no crackles. No accessory muscle use. HEART: Regular rate and rhythm, normal S1 and S2 without murmur, rub or gallop. ABDOMEN: Soft, nontender, not distended, normoactive bowel sounds, no guarding, no rebound, no masses. No hepatomegaly or splenomegaly. MUSCULOSKELETAL: Normal range of motion at all joints. No bony deformities or tenderness. No CVA tenderness. UPPER EXTREMITIES: 2+ pulses, warm, well-perfused. No cyanosis. No clubbing. No peripheral edema. LOWER EXTREMITIES: 2+ pulses, warm, well-perfused. No calf tenderness. No peripheral edema. NEUROLOGICAL: Cranial nerves II-XII intact. Normal speech. Normal gait. PSYCHIATRIC: Cooperative. Good eye contact. Appropriate mood and affect. SKIN: Warm, dry, normal turgor, no rashes or lesions noted, normal capillary refill. Laboratory Results - last 24 hr 11/27/19 11/27/19 11/27/19 16:10 16:10 16:50 WBC 4.6 RBC 4.25 Hgb 12.3 Hct 36.6 MCV 86.1 MCH 28.9 D MCHC 33.6 RDW 14.3 D Plt Count 187 D MPV 8.9 Absolute Neuts (auto) 3.5 Neutrophils % 75.5 Lymphocytes % 16.6 D Monocytes % 6.6 Eosinophils % 0.9 Basophils % 0.4 Nucleated RBC % 0 Sodium 140 Potassium 4.0 Chloride 108 H Carbon Dioxide 26 Anion Gap 5 L BUN 27.0 H Creatinine 0.9 Est GFR (CKD-EPI)AfAm 67.10 Est GFR (CKD-EPI)NonAf 57.90 Random Glucose 142 H Calcium 8.8 Total Bilirubin 0.3 AST 20 ALT 14 Alkaline Phosphatase 108 Creatine Kinase 48 Troponin I < 0.02 Total Protein 6.9 Albumin 3.6 Urine Color Urine Appearance Urine pH Ur Specific [place] Urine Protein Urine Glucose (UA) Urine Ketones Urine Blood Urine Nitrite Urine Bilirubin Urine Urobilinogen Ur Leukocyte Esterase Influenza A (Rapid) Negative Influenza B (Rapid) Negative 11/27/19 18:24 WBC RBC Hgb Hct MCV MCH MCHC RDW Plt Count MPV Absolute Neuts (auto) Neutrophils % Lymphocytes % Monocytes % Eosinophils % Basophils % Nucleated RBC % Sodium Potassium Chloride Carbon Dioxide Anion Gap BUN Creatinine Est GFR (CKD-EPI)AfAm Est GFR (CKD-EPI)NonAf Random Glucose Calcium Total Bilirubin AST ALT Alkaline Phosphatase Creatine Kinase Troponin I Total Protein Albumin Urine Color Yellow Urine Appearance Clear Urine pH 5.0 Ur Specific [place] 1.021 Urine Protein Trace Urine Glucose (UA) Negative Urine Ketones 1+ H Urine Blood Negative Urine Nitrite Negative Urine Bilirubin Negative Urine Urobilinogen 0.2 Ur Leukocyte Esterase Negative Influenza A (Rapid) Influenza B (Rapid) ASSESSMENT/PLAN: Visit type - Emergency Visit Emergency Visit: Yes ED Registration Date: 11/27/19 Care time: The patient presented to the Emergency Department on the above date and was hospitalized for further evaluation of their emergent condition. - New Patient This patient is new to me today: Yes Date on this admission: 11/28/19 - Critical Care Critical Care patient: No ATTENDING PHYSICIAN STATEMENT I saw and evaluated the patient. I reviewed the resident's note and discussed the case with the resident. I agree with the resident's findings and plan as documented. SUBJECTIVE: 4 year old female with history of hypertension, hyperlipidemia, gastroesophageal reflux, hypothyroidism presented with cough, nausea, vomiting, subjective fever, abd pain. As per patient her symptoms started 4 days ago. She stated that cough with clear sputum. She had 4 episodes of non bloody vomiting - bilious yesterday. OBJECTIVE: Last Vital Signs Temp Pulse Resp BP Pulse Ox 97.4 F L 77 18 154/71 98 11/27/19 21:16 11/27/19 21:16 11/27/19 21:16 11/27/19 21:16 11/27/19 14:50 General : average built, NAD Head ; NC/ AT Eyes : EOMI, LADONNA, Sclera and conjunctiva normal Dry mucosa Resp : b/l clear CVS : RRR, s1s2+, No MRG Neuro : A&o x3, no focal necrologies deficit Abd : soft, NT, ND Ct abd and pelvis : CT abdomen, pelvis (IV contrast only) reveals 0.3cm isodense focus within lower common bile duct concerning for noncalcified stone vs. polypoid lesion. CBD dilated to 1.1cm, however chronic finding noted upon prior studies. Diverticulosis noted without diverticulitis. Negative for bowel obstruction. labs noted elevated BUN ASSESSMENT AND PLAN: Acute gastroenteritis likely viral Flu negative Dilated CBD with 0.3 lesion/foci in CBD HTN, GERD, hypothyroidism Admit to floor IV hydration MRCP in AM GI based on MRCP results antiemetics PRN Cont PPI home dose resume home meds DVT ppx Sandip Weber MD
[2019-11-28 01:56] LABS: LIPASE 136 U/L (73-393)
[2019-11-28 02:22] LABS: ALBUMIN 3.3 g/dl (3.4-5.0); ALK PHOS 105 U/L (45-117); ANION GAP 6 MMOL/L (8-16); BILIRUBIN,TOTAL 0.4 mg/dL (0.2-1); BLOOD UREA NITROGEN 20.5 mg/dL (7-18); CALCIUM 8.7 mg/dL (8.5-10.1); CHLORIDE 107 mmol/L (98-107); CO2 28 mmol/L (21-32); CREATININE 0.9 mg/dL (0.55-1.3); GLUCOSE,RANDOM 90 mg/dL (74-106); MAGNESIUM 2.5 mg/dL (1.8-2.4); PHOSPHOROUS 3.5 mg/dL (2.5-4.9); POTASSIUM 4.3 mmol/L (3.5-5.1); SGOT/AST 21 U/L (15-37); SGPT/ALT 13 U/L (13-61); SODIUM 141 mmol/L (136-145); TOT PROT 6.5 g/dl (6.4-8.2)
[2019-11-28] MEDS: LACTATED RINGERS SOLUTION 1,000 ML IV SCH (03:02)
[2019-11-28] MEDS: LEVOTHYROXINE NA 50 MCG TABLET (FP) PO SCH (06:55)
[2019-11-28] MEDS: ALBUTEROL SO4 2.5/IPRATROPIUM 0.5 INH SOL 3 ML VIAL.NEB. NEB SCH ×4 (07:35→21:29)
[2019-11-28 09:08] LABS: HEMATOCRIT 35.3 % (32.4-45.2); HEMOGLOBIN 11.8 GM/dL (10.7-15.3); MCH 28.9 pg (25.7-33.7); MCHC 33.6 g/dl (32.0-36.0); MEAN PLT VOLUME 9.2 fl (7.5-11.1); PLATELET COUNT 193 K/MM3 (134-434); RDW 13.9 % (11.6-15.6); WHITE BLOOD COUNT 4.3 K/mm3 (4.0-10.0)
[2019-11-28 10:05] LABS: ALBUMIN 3.2 g/dl (3.4-5.0); ALK PHOS 102 U/L (45-117); ANION GAP 7 MMOL/L (8-16); BILIRUBIN,TOTAL 0.4 mg/dL (0.2-1); BLOOD UREA NITROGEN 16.6 mg/dL (7-18); CALCIUM 8.8 mg/dL (8.5-10.1); CHLORIDE 110 mmol/L (98-107); CO2 27 mmol/L (21-32); CREATININE 0.8 mg/dL (0.55-1.3); GLUCOSE,RANDOM 86 mg/dL (74-106); MAGNESIUM 2.3 mg/dL (1.8-2.4); PHOSPHOROUS 3.3 mg/dL (2.5-4.9); POTASSIUM 4.2 mmol/L (3.5-5.1); SGOT/AST 20 U/L (15-37); SGPT/ALT 14 U/L (13-61); SODIUM 143 mmol/L (136-145); TOT PROT 6.3 g/dl (6.4-8.2)
[2019-11-28] MEDS: ENOXAPARIN NA (PORCINE) 30 MG/0.3 ML DISP.SYRIN SQ SCH (11:07)
[2019-11-28] MEDS: PANTOPRAZOLE 20 MG TABLET PO SCH (11:08)
--- NOTE | 2019-11-28 11:18 | CON.GI ---
Consult Consult Specialty:: GI Referred by:: Hospitalist Service Reason for Consultation:: Abnormal imaging of the biliary tract - History of Present Illness Chief Complaint: Cough, N/V History of Present Illness: History is limited. Attempted to speak to the patient via [employer] hospice massage therapist [phone], however she either was unable to understand or hear the hospice massage therapist. History obtained from the chart. 84 year old female admitted for evaluation of persistent and progressive cough. There was also description of abdominal pain followed by nausea and vomiting. CT scan revealed a 3mm focus in the distal CBD. MRI was advised. Patient somewhat tachypnic and coughing, wheezing at the time of my evaluation. Loose bowel movements were described as well. - History Source History Provided By: Medical Record - Past Medical History Cardio/Vascular: Yes: CAD, HTN, Other (RBBB, Marked sinus arrhythmia on recent EKG 10/24) - Past Surgical History Past Surgical History: Yes: Hernia Repair (bilateral inguinal hernia repair per the patient's ) - Alcohol/Substance Use Hx Alcohol Use: No - Smoking History Smoking history: Unknown if ever smoked Have you smoked in the past 12 months: No - Social History Usual Living Arrangement: With Spouse ADL: Family Assistance Occupation: Retired Tailor History of Recent Travel: No Home Medications - Allergies Allergies/Adverse Reactions: Allergies Allergy/AdvReac Type Severity Reaction Status Date / Time No Known Allergies Allergy Verified 11/27/19 14:48 - Home Medications Home Medications: Ambulatory Orders Olmesartan Medoxomil [Benicar] 40 mg PO DAILY 01/08/18 Pantoprazole Sodium [Protonix -] 20 mg PO DAILY #30 tablet.ec 10/29/18 Levothyroxine [Synthroid -] 50 mcg PO DAILY 11/27/19 Meloxicam 15 mg PO DAILY 11/28/19 Multivitamin/Iron/Folic Acid [Centrum Adults Tablet] 1 each PO DAILY 11/28/19 Family Medical History Family History: Unable to Obtain Physical Exam-GI Vital Signs: Vital Signs Temperature 98.7 F 11/28/19 06:50 Pulse Rate 96 H 11/28/19 06:50 Respiratory Rate 18 11/28/19 06:50 Blood Pressure 113/88 11/28/19 06:50 O2 Sat by Pulse Oximetry (%) 97 11/28/19 01:03 Constitutional: Yes: Calm Eyes: No: Sclera Icterus Neck: Yes: Supple Respiratory: Yes: Cough, Tachypnea (mildly tachypnic), Wheezes (Bilateral expiratory wheezing throughout the lung limon bilaterally) ...Auscultate: Yes: Normoactive Bowel Sounds ...Palpate: Yes: Soft. No: Hepatomegaly, Splenomegaly, Tenderness ...Percussion: No: Tympanitic Edema: No (No LE edema) Labs: CBC, BMP 11/28/19 07:45 11/28/19 07:45 Problem List - Problems (1) Bile duct abnormality Assessment/Plan: Liver chemistries not suggestive of obstructive process Advise: MRCP to evaluate further Findings from MRCP would then need to be discussed with patient's family. When respiratory status permits further evaluation with either ERCP/EUS could be considered if that were the wish of her family. Monitor liver chemistries Code(s): K83.9 - DISEASE OF BILIARY TRACT, UNSPECIFIED
[2019-11-28] MEDS ORDERED: SODIUM CHLORIDE 250 ML IV STA (11:54)
[2019-11-28] MEDS: VALSARTAN 160 MG TABLET (UD) PO SCH (13:14)
--- NOTE | 2019-11-28 15:51 | PN ---
Physical Exam: SUBJECTIVE: Patient seen and examined. Pt reports abdominal pain but otherwise appears ot be comfortable. No acute distress. Afebrile and asymptomatic. Denies f/c/n/v/d/sob/cp. OBJECTIVE: Vital Signs Period Temp Pulse Resp BP Sys/Leger Pulse Ox Last 24 Hr 97.4 F-98.7 F 69-96 17-20 89-158/35-88 94-97 GENERAL: The patient is awake, alert, and fully oriented, in no acute distress. EYES: PERRL, extraocular movements intact, ENT: oropharynx clear without exudates, moist mucous membranes. LUNGS: Breath sounds equal, clear to auscultation bilaterally, no wheezes, no crackles, HEART: Regular rate and rhythm, S1, S2 without murmur, rub or gallop. ABDOMEN: Soft, diffuse tenderness, nondistended, normoactive bowel sounds, no guarding EXTREMITIES: 2+ pulses, warm, well-perfused, no edema. NEUROLOGICAL: Normal speech, gait not observed. SKIN: Warm, dry, normal turgor, Laboratory Results - last 24 hr CBC,CMP WBC 4.3 K/mm3 (4.0-10.0) 11/28/19 07:45 RBC 4.10 M/mm3 (3.60-5.2) 11/28/19 07:45 Hgb 11.8 GM/dL (10.7-15.3) 11/28/19 07:45 Hct 35.3 % (32.4-45.2) 11/28/19 07:45 MCV 86.0 fl (80-96) 11/28/19 07:45 MCH 28.9 pg (25.7-33.7) 11/28/19 07:45 MCHC 33.6 g/dl (32.0-36.0) 11/28/19 07:45 RDW 13.9 % (11.6-15.6) 11/28/19 07:45 Plt Count 193 K/MM3 (134-434) 11/28/19 07:45 MPV 9.2 fl (7.5-11.1) 11/28/19 07:45 Absolute Neuts (auto) 3.5 K/mm3 (1.5-8.0) 11/27/19 16:10 Neutrophils % 75.5 % (42.8-82.8) 11/27/19 16:10 Lymphocytes % 16.6 % (8-40) D 11/27/19 16:10 Monocytes % 6.6 % (3.8-10.2) 11/27/19 16:10 Eosinophils % 0.9 % (0-4.5) 11/27/19 16:10 Basophils % 0.4 % (0-2.0) 11/27/19 16:10 Nucleated RBC % 0 % (0-0) 11/27/19 16:10 Sodium 143 mmol/L (136-145) 11/28/19 07:45 Potassium 4.2 mmol/L (3.5-5.1) 11/28/19 07:45 Chloride 110 mmol/L (98-107) H 11/28/19 07:45 Carbon Dioxide 27 mmol/L (21-32) 11/28/19 07:45 Anion Gap 7 MMOL/L (8-16) L 11/28/19 07:45 BUN 16.6 mg/dL (7-18) 11/28/19 07:45 Creatinine 0.8 mg/dL (0.55-1.3) 11/28/19 07:45 Est GFR (CKD-EPI)AfAm 77.37 11/28/19 07:45 Est GFR (CKD-EPI)NonAf 66.76 11/28/19 07:45 Random Glucose 86 mg/dL (74-106) 11/28/19 07:45 Lactic Acid 1.0 mmol/L (0.4-2.0) 11/28/19 00:05 Calcium 8.8 mg/dL (8.5-10.1) 11/28/19 07:45 Phosphorus 3.3 mg/dL (2.5-4.9) 11/28/19 07:45 Magnesium 2.3 mg/dL (1.8-2.4) 11/28/19 07:45 Total Bilirubin 0.4 mg/dL (0.2-1) 11/28/19 07:45 AST 20 U/L (15-37) 11/28/19 07:45 ALT 14 U/L (13-61) 11/28/19 07:45 Alkaline Phosphatase 102 U/L (45-117) 11/28/19 07:45 Creatine Kinase 64 U/L (26-192) 11/28/19 07:45 Troponin I < 0.02 ng/ml (0.00-0.05) 11/28/19 07:45 Total Protein 6.3 g/dl (6.4-8.2) L 11/28/19 07:45 Albumin 3.2 g/dl (3.4-5.0) L 11/28/19 07:45 Lipase 136 U/L (73-393) 11/28/19 00:05 Active Medications Generic Name Dose Route Start Last Admin Trade Name Frewillow PRN Reason Stop Dose Admin Albuterol/Ipratropium 1 amp 11/27/19 17:27 11/28/19 11:25 Duoneb - NEB 1 amp RQID LAMONT Administration Enoxaparin Sodium 30 mg 11/28/19 10:00 11/28/19 11:07 Lovenox - SQ 30 mg DAILY LAMONT Administration Lactated Ringer's 1,000 mls @ 75 mls/hr 11/27/19 21:45 11/28/19 03:02 Lactated Ringers Solution IV 75 mls/hr ASDIR LAMONT Administration Levothyroxine Sodium 50 mcg 11/28/19 07:00 11/28/19 06:55 Synthroid - PO 50 mcg DAILY@0700 L[facility]ONT Administration Pantoprazole Sodium 20 mg 11/28/19 10:00 11/28/19 11:08 Protonix - PO 20 mg DAILY L[facility]ONT Administration Valsartan 320 mg 11/27/19 16:30 11/28/19 13:14 Diovan - PO Not Given DAILY L[facility]ONT ASSESSMENT/PLAN: 84 y/o F, pmh of HTN, HLD, GERD, hypothyroidism presents to the ED c/o of nausea and nbnb vomiting and abdominal pain is admitted for acute viral gastroenteritis #Acute viral Gastroenteritis CT a/p : CT abdomen, pelvis (IV contrast only) reveals 0.3cm isodense focus within lower common bile duct concerning for noncalcified stone vs. polypoid lesion. CBD dilated to 1.1cm, however chronic finding noted upon prior studies. Diverticulosis noted without diverticulitis. Negative for bowel obstruction. MRCP pending Continue LR 75 PPI 20 mg daily C-diff pending, if positive- start ertapenem Stool Cx GI consult appreciated Based on MRCP results can consider ERCP/EUS #HTN cont Diovan 320 mg home med #HLD ASCVD score out of age range, no indication for Statins #Hypothyroidism Synthroid 50 mcg #DVT ppx Lovenox 30mg FEN LR 75 monitor lytes clear liquid diet Dispo: MRCP tonight, f/u results Visit type - Emergency Visit Emergency Visit: Yes ED Registration Date: 11/27/19 Care time: The patient presented to the Emergency Department on the above date and was hospitalized for further evaluation of their emergent condition. - New Patient This patient is new to me today: Yes Date on this admission: 12/01/19 - Critical Care Critical Care patient: No - Discharge Referral Referred to [facility] Med P.C.: No ATTENDING PHYSICIAN STATEMENT I saw and evaluated the patient. I reviewed the resident's note and discussed the case with the resident. I agree with the resident's findings and plan as documented. SUBJECTIVE: OBJECTIVE: ASSESSMENT AND PLAN:
--- NOTE | 2019-11-28 15:56 | PN ---
Teaching Attending Note Name of Resident: Gabriel Sanchez ATTENDING PHYSICIAN STATEMENT I saw and evaluated the patient. I reviewed the resident's note and discussed the case with the resident. I agree with the resident's findings and plan as documented. SUBJECTIVE: Feeling better. No further vomiting since this AM. No further diarrhea. No melena/hematochezia. No hematemesis. OBJECTIVE: Afebrile, Hemodynamically Stable. Last Vital Signs Temp Pulse Resp BP Pulse Ox 98.5 F 80 18 154/66 97 11/28/19 15:43 11/28/19 15:43 11/28/19 15:43 11/28/19 15:43 11/28/19 01:03 HEENT - Atraumatic, Normocephalic. Heart - S1, S2, RRR Lungs - clear to auscultation Abdomen - Soft, non-tender. Bowel Sounds normal. Extremities - no edema, no calf tenderness Laboratory Results - last 24 hr 11/27/19 11/27/19 11/27/19 16:10 16:10 16:50 WBC 4.6 RBC 4.25 Hgb 12.3 Hct 36.6 MCV 86.1 MCH 28.9 D MCHC 33.6 RDW 14.3 D Plt Count 187 D MPV 8.9 Absolute Neuts (auto) 3.5 Neutrophils % 75.5 Lymphocytes % 16.6 D Monocytes % 6.6 Eosinophils % 0.9 Basophils % 0.4 Nucleated RBC % 0 Sodium 140 Potassium 4.0 Chloride 108 H Carbon Dioxide 26 Anion Gap 5 L BUN 27.0 H Creatinine 0.9 Est GFR (CKD-EPI)AfAm 67.10 Est GFR (CKD-EPI)NonAf 57.90 Random Glucose 142 H Lactic Acid Calcium 8.8 Phosphorus Magnesium Total Bilirubin 0.3 AST 20 ALT 14 Alkaline Phosphatase 108 Creatine Kinase 48 Troponin I < 0.02 Total Protein 6.9 Albumin 3.6 Lipase Urine Color Urine Appearance Urine pH Ur Specific [place] Urine Protein Urine Glucose (UA) Urine Ketones Urine Blood Urine Nitrite Urine Bilirubin Urine Urobilinogen Ur Leukocyte Esterase Stool Occult Blood Influenza A (Rapid) Negative Influenza B (Rapid) Negative 11/27/19 11/28/19 11/28/19 18:24 00:05 00:05 WBC RBC Hgb Hct MCV MCH MCHC RDW Plt Count MPV Absolute Neuts (auto) Neutrophils % Lymphocytes % Monocytes % Eosinophils % Basophils % Nucleated RBC % Sodium 141 Potassium 4.3 Chloride 107 Carbon Dioxide 28 Anion Gap 6 L BUN 20.5 H Creatinine 0.9 Est GFR (CKD-EPI)AfAm 67.10 Est GFR (CKD-EPI)NonAf 57.90 Random Glucose 90 Lactic Acid 1.0 Calcium 8.7 Phosphorus 3.5 Magnesium 2.5 H Total Bilirubin 0.4 AST 21 ALT 13 Alkaline Phosphatase 105 Creatine Kinase 50 Troponin I < 0.02 Total Protein 6.5 Albumin 3.3 L Lipase 136 Urine Color Yellow Urine Appearance Clear Urine pH 5.0 Ur Specific [place] 1.021 Urine Protein Trace Urine Glucose (UA) Negative Urine Ketones 1+ H Urine Blood Negative Urine Nitrite Negative Urine Bilirubin Negative Urine Urobilinogen 0.2 Ur Leukocyte Esterase Negative Stool Occult Blood Influenza A (Rapid) Influenza B (Rapid) 11/28/19 11/28/19 11/28/19 05:50 07:45 07:45 WBC 4.3 RBC 4.10 Hgb 11.8 Hct 35.3 MCV 86.0 MCH 28.9 MCHC 33.6 RDW 13.9 Plt Count 193 MPV 9.2 Absolute Neuts (auto) Neutrophils % Lymphocytes % Monocytes % Eosinophils % Basophils % Nucleated RBC % Sodium 143 Potassium 4.2 Chloride 110 H Carbon Dioxide 27 Anion Gap 7 L BUN 16.6 Creatinine 0.8 Est GFR (CKD-EPI)AfAm 77.37 Est GFR (CKD-EPI)NonAf 66.76 Random Glucose 86 Lactic Acid Calcium 8.8 Phosphorus 3.3 Magnesium 2.3 Total Bilirubin 0.4 AST 20 ALT 14 Alkaline Phosphatase 102 Creatine Kinase 64 Troponin I < 0.02 Total Protein 6.3 L Albumin 3.2 L Lipase Urine Color Urine Appearance Urine pH Ur Specific [place] Urine Protein Urine Glucose (UA) Urine Ketones Urine Blood Urine Nitrite Urine Bilirubin Urine Urobilinogen Ur Leukocyte Esterase Stool Occult Blood Negative Influenza A (Rapid) Influenza B (Rapid) Current Medications Generic Name Dose Route Start Last Admin Trade Name Freq PRN Reason Stop Dose Admin Albuterol/Ipratropium 1 amp 11/27/19 17:27 11/28/19 11:25 Duoneb - NEB 1 amp RQID LAMONT Administration Enoxaparin Sodium 30 mg 11/28/19 10:00 11/28/19 11:07 Lovenox - SQ 30 mg DAILY LAMONT Administration Lactated Ringer's 1,000 mls @ 75 mls/hr 11/27/19 21:45 11/28/19 03:02 Lactated Ringers Solution IV 75 mls/hr ASDIR LAMONT Administration Levothyroxine Sodium 50 mcg 11/28/19 07:00 11/28/19 06:55 Synthroid - PO 50 mcg DAILY@0700 LAMONT Administration Pantoprazole Sodium 20 mg 11/28/19 10:00 11/28/19 11:08 Protonix - PO 20 mg DAILY L[facility]ONT Administration Valsartan 320 mg 11/27/19 16:30 11/28/19 13:14 Diovan - PO Not Given DAILY [facility] Home Medications Medication Instructions Recorded Olmesartan Medoxomil [Benicar] 40 mg PO DAILY 01/08/18 Levothyroxine [Synthroid -] 50 mcg PO DAILY 11/27/19 Meloxicam 15 mg PO DAILY 11/28/19 Multivitamin/Iron/Folic Acid 1 each PO DAILY 11/28/19 [Centrum Adults Tablet] ASSESSMENT AND PLAN: 84 year old female with history of HTN, HLD, GERD, Hypothyroidism, presents with abdominal pain/nausea/vomiting/cough. CT A/P - reveals 0.3cm isodense focus within lower common bile duct concerning for noncalcified stone vs. polypoid lesion. CBD dilated to 1.1cm. Diverticulosis noted without diverticulitis. Negative for bowel obstruction. 1. Acute Gastroenteritis, likely viral Abdominal Pain/nausea/vomiting/diarrhea resolving Afebrile, Hemodynamically Stable. If any further diarrhea - will send stool for Cx/Cdiff. 2. CBD Dilatation with lesion in CBD - awaiting MRCP since 11/27/19. GI following. 3. HTN - Continue ARB. (Valsartan substituted for Olmesartan) 4. Hypothyroidism - continue Synthroid 5. GERD - continue PPI. DVT Px - Heparin SQ
[2019-11-29] MEDS: LACTATED RINGERS SOLUTION 1,000 ML IV SCH (03:05)
[2019-11-29] MEDS: LEVOTHYROXINE NA 50 MCG TABLET (FP) PO SCH (06:13)
[2019-11-29] MEDS: ALBUTEROL SO4 2.5/IPRATROPIUM 0.5 INH SOL 3 ML VIAL.NEB. NEB SCH ×4 (07:25→21:39)
--- NOTE | 2019-11-29 08:06 | PN.GI ---
GI Progress Note Subjective: NO NEW COMPLAINTS - DOING OKAY THIS AM - Objective Vital Signs: Vital Signs Temperature 98.1 F 11/29/19 06:02 Pulse Rate 100 H 11/29/19 06:02 Respiratory Rate 20 11/29/19 06:02 Blood Pressure 159/91 11/29/19 06:02 O2 Sat by Pulse Oximetry (%) 97 11/28/19 09:00 Constitutional: Well Nourished, No Distress Eyes: Yes: WNL HENT: Yes: WNL Neck: Yes: WNL Cardiovascular: Yes: WNL, Regular Rate and Rhythm Respiratory: Yes: WNL, Regular, CTA Bilaterally Gastrointestinal Inspection: Yes: WNL ...Auscultate: Yes: Normoactive Bowel Sounds ...Rectal Exam: Yes: WNL Edema: No Labs: CBC, BMP 11/28/19 07:45 11/28/19 07:45 Problem List - Problems (1) Bile duct abnormality Assessment/Plan: MRCP REVIEWED - CHOLEDOCHOLITHIASIS ; LFT 'S ARE NORMAL THEREFORE NO OBVIOUS OBSTRUCTION ONCE MEDICALLY OPTIMIZED SHE WOULD BENEFIT FROM AN ERCP TREND LFT WHILE HOSPITALIZED Code(s): K83.9 - DISEASE OF BILIARY TRACT, UNSPECIFIED
[2019-11-29 09:20] LABS: HEMATOCRIT 33.9 % (32.4-45.2); HEMOGLOBIN 11.5 GM/dL (10.7-15.3); MCH 29.1 pg (25.7-33.7); MCHC 33.8 g/dl (32.0-36.0); MEAN CELL VOLUME 86.1 fl (80-96); MEAN PLT VOLUME 8.6 fl (7.5-11.1); PLATELET COUNT 171 K/MM3 (134-434); RBC 3.94 M/mm3 (3.60-5.2); RDW 14.1 % (11.6-15.6); WHITE BLOOD COUNT 3.3 K/mm3 (4.0-10.0)
[2019-11-29] MEDS: ENOXAPARIN NA (PORCINE) 30 MG/0.3 ML DISP.SYRIN SQ SCH (09:30)
[2019-11-29] MEDS: PANTOPRAZOLE 20 MG TABLET PO SCH (09:30)
[2019-11-29] MEDS: VALSARTAN 160 MG TABLET (UD) PO SCH (09:31)
[2019-11-29 09:57] LABS: ALBUMIN 3.1 g/dl (3.4-5.0); BILIRUBIN,TOTAL 0.4 mg/dL (0.2-1); BLOOD UREA NITROGEN 9.1 mg/dL (7-18); CALCIUM 8.8 mg/dL (8.5-10.1); CREATININE 0.8 mg/dL (0.55-1.3); MAGNESIUM 2.3 mg/dL (1.8-2.4); POTASSIUM 3.9 mmol/L (3.5-5.1)
--- NOTE | 2019-11-29 16:06 | PN ---
Progress Note (short form) - Note Progress Note: SUBJECTIVE: Feeling better. Abdominal pain improved. No vomiting. Ongoing loose stool. No melena/hematochezia. No hematemesis. OBJECTIVE: Afebrile, Hemodynamically Stable. Last Vital Signs Temp Pulse Resp BP Pulse Ox 98.6 F 84 20 156/64 95 11/29/19 15:00 11/29/19 15:00 11/29/19 15:00 11/29/19 15:00 11/29/19 09:00 Heart - S1, S2, RRR Lungs - clear to auscultation Abdomen - Soft, non-tender. Bowel Sounds normal. Extremities - no edema, no calf tenderness Laboratory Results - last 24 hr 11/29/19 11/29/19 08:34 08:34 WBC 3.3 L RBC 3.94 Hgb 11.5 Hct 33.9 MCV 86.1 MCH 29.1 MCHC 33.8 RDW 14.1 Plt Count 171 MPV 8.6 Sodium 144 Potassium 3.9 Chloride 110 H Carbon Dioxide 30 Anion Gap 4 L BUN 9.1 Creatinine 0.8 Est GFR (CKD-EPI)AfAm 77.37 Est GFR (CKD-EPI)NonAf 66.76 Random Glucose 91 Calcium 8.8 Magnesium 2.3 Total Bilirubin 0.4 AST 23 ALT 15 Alkaline Phosphatase 95 Total Protein 6.0 L Albumin 3.1 L Current Medications Generic Name Dose Route Start Last Admin Trade Name Freq PRN Reason Stop Dose Admin Albuterol/Ipratropium 1 amp 11/27/19 17:27 11/29/19 15:50 Duoneb - NEB 1 amp RQID LAMONT Administration Enoxaparin Sodium 30 mg 11/28/19 10:00 11/29/19 09:30 Lovenox - SQ 30 mg DAILY [facility]ONT Administration Lactated Ringer's 1,000 mls @ 75 mls/hr 11/27/19 21:45 11/29/19 03:05 Lactated Ringers Solution IV 75 mls/hr ASDIR LAMONT Administration Levothyroxine Sodium 50 mcg 11/28/19 07:00 11/29/19 06:13 Synthroid - PO 50 mcg DAILY@0700 [facility] Administration Pantoprazole Sodium 20 mg 11/28/19 10:00 11/29/19 09:30 Protonix - PO 20 mg DAILY [facility] Administration Valsartan 320 mg 11/27/19 16:30 11/29/19 09:31 Diovan - PO 320 mg DAILY [facility] Administration Home Medications Medication Instructions Recorded Olmesartan Medoxomil [Benicar] 40 mg PO DAILY 01/08/18 Levothyroxine [Synthroid -] 50 mcg PO DAILY 11/27/19 Meloxicam 15 mg PO DAILY 11/28/19 Multivitamin/Iron/Folic Acid 1 each PO DAILY 11/28/19 [Centrum Adults Tablet] ASSESSMENT AND PLAN: 84 year old female with history of HTN, HLD, GERD, Hypothyroidism, presents with abdominal pain/nausea/vomiting/cough. CT A/P - reveals 0.3cm isodense focus within lower common bile duct concerning for noncalcified stone vs. polypoid lesion. CBD dilated to 1.1cm. Diverticulosis noted without diverticulitis. Negative for bowel obstruction. 1. Acute Gastroenteritis, likely viral Abdominal Pain/nausea/vomiting resolving. Some onogoing loose stool - Cdiff and Stool Cx requestred. Afebrile, Hemodynamically Stable. Advance to soft diet. 2. CBD Dilatation with lesion in CBD on CT A/P - MRCP shows choledocholithiasis. LFTs normal. GI recommends ERCP. 3. HTN - Continue ARB. (Valsartan substituted for Olmesartan) 4. Hypothyroidism - continue Synthroid 5. GERD - continue PPI. DVT Px - Lovenox SQ Visit type - Emergency Visit Emergency Visit: Yes ED Registration Date: 11/27/19 Care time: The patient presented to the Emergency Department on the above date and was hospitalized for further evaluation of their emergent condition. - New Patient This patient is new to me today: No - Critical Care Critical Care patient: No - Discharge Referral Referred to [facility] Med P.C.: No
--- NOTE | 2019-11-29 17:19 | EKG ---
Test Reason : Blood Pressure : / mmHG Vent. Rate : 080 BPM Atrial Rate : 080 BPM P-R Int : 112 ms QRS Dur : 082 ms QT Int : 476 ms P-R-T Axes : 057 -13 -51 degrees QTc Int : 548 ms SINUS RHYTHM WITH PREMATURE SUPRAVENTRICULAR COMPLEXES POSSIBLE LEFT ATRIAL ENLARGEMENT RIGHT BUNDLE BRANCH BLOCK NONSPECIFIC ST AND T WAVE ABNORMALITY ABNORMAL ECG WHEN COMPARED WITH ECG OF 18-NOV-2018 14:19, NO SIGNIFICANT CHANGE WAS FOUND Confirmed by BESSY PETERSEN MD ([id number]) on 11/29/2019 5:19:17 PM Referred By: Confirmed By:BESSY PETERSEN MD
[2019-11-29 22:58] VITALS: BMI 24.8
[2019-11-30] MEDS: LEVOTHYROXINE NA 50 MCG TABLET (FP) PO SCH (06:33)
[2019-11-30] MEDS: ALBUTEROL SO4 2.5/IPRATROPIUM 0.5 INH SOL 3 ML VIAL.NEB. NEB SCH ×4 (07:50→20:30)
--- NOTE | 2019-11-30 07:58 | PN.GI ---
GI Progress Note Subjective: no new complaints - doing well - no pain son at the bedside - Objective Vital Signs: Vital Signs Temperature 98.4 F 11/30/19 06:00 Pulse Rate 72 11/30/19 06:00 Respiratory Rate 20 11/30/19 06:00 Blood Pressure 171/74 H 11/30/19 06:00 O2 Sat by Pulse Oximetry (%) 95 11/29/19 21:00 Constitutional: Well Nourished, No Distress Eyes: Yes: WNL HENT: Yes: WNL Neck: Yes: WNL Cardiovascular: Yes: WNL, Regular Rate and Rhythm Respiratory: Yes: WNL, Regular Gastrointestinal Inspection: Yes: WNL ...Auscultate: Yes: Normoactive Bowel Sounds Extremities: Yes: WNL Edema: No Labs: CBC, BMP 11/29/19 08:34 11/29/19 08:34 Problem List - Problems (1) Bile duct abnormality Assessment/Plan: MRCP REVIEWED - CHOLEDOCHOLITHIASIS ; LFT 'S ARE NORMAL THEREFORE NO OBVIOUS OBSTRUCTION ONCE MEDICALLY OPTIMIZED SHE WOULD BENEFIT FROM AN ERCP TREND LFT WHILE HOSPITALIZED Code(s): K83.9 - DISEASE OF BILIARY TRACT, UNSPECIFIED
[2019-11-30] MEDS: ENOXAPARIN NA (PORCINE) 30 MG/0.3 ML DISP.SYRIN SQ SCH (10:21)
[2019-11-30] MEDS: VALSARTAN 160 MG TABLET (UD) PO SCH (10:21)
[2019-11-30] MEDS: PANTOPRAZOLE 20 MG TABLET PO SCH (10:21)
[2019-11-30] MEDS ORDERED: PANTOPRAZOLE 20 MG TABLET PO SCH (19:28)
--- NOTE | 2019-11-30 19:44 | PN ---
Progress Note (short form) - Note Progress Note: SUBJECTIVE: Feeling better. Abdominal pain improved. No vomiting. No further diarrhea. No melena/hematochezia. No hematemesis. OBJECTIVE: Afebrile, Hemodynamically Stable. Last Vital Signs Temp Pulse Resp BP Pulse Ox 98.5 F 104 H 20 144/71 96 11/30/19 18:00 11/30/19 18:00 11/30/19 18:00 11/30/19 18:00 11/30/19 09:00 Heart - S1, S2, RRR Lungs - clear to auscultation Abdomen - Soft, non-tender. Bowel Sounds normal. Extremities - no edema, no calf tenderness Current Medications Generic Name Dose Route Start Last Admin Trade Name Freq PRN Reason Stop Dose Admin Albuterol/Ipratropium 1 amp 11/27/19 17:27 11/30/19 15:45 Duoneb - NEB 1 amp RQID LAMONT Administration Famotidine 20 mg 11/30/19 19:28 Pepcid - PO DAILY [facility] Levothyroxine Sodium 50 mcg 11/28/19 07:00 11/30/19 06:33 Synthroid - PO 50 mcg DAILY@0700 [facility]ONT Administration Valsartan 320 mg 11/27/19 16:30 11/30/19 10:21 Diovan - PO 320 mg DAILY [facility] Administration Home Medications Medication Instructions Recorded Olmesartan Medoxomil [Benicar] 40 mg PO DAILY 01/08/18 Levothyroxine [Synthroid -] 50 mcg PO DAILY 11/27/19 Meloxicam 15 mg PO DAILY 11/28/19 Multivitamin/Iron/Folic Acid 1 each PO DAILY 11/28/19 [Centrum Adults Tablet] ASSESSMENT AND PLAN: 84 year old female with history of HTN, HLD, GERD, Hypothyroidism, presents with abdominal pain/nausea/vomiting/cough. CT A/P - reveals 0.3cm isodense focus within lower common bile duct concerning for noncalcified stone vs. polypoid lesion. CBD dilated to 1.1cm. Diverticulosis noted without diverticulitis. Negative for bowel obstruction. 1. Acute Gastroenteritis, likely viral Abdominal Pain/nausea/vomiting resolving. Loose stool appears to be resolving. Afebrile, Hemodynamically Stable. Diet advanced. 2. CBD Dilatation with lesion (0.3cm) in CBD on CT A/P - MRCP shows choledocholithiasis 0.6 x 0.3cm in CBD with intra- and extra- biliary dilatation. LFTs normal. No evidence currently of obstruction or cholangitis. GI recommends ERCP. Discussed with Dr. Babb who is aware. Given that there may be a delay with patient getting ERCP at [facility], he suggested possible transfer to [facility]. The patient was accepted by Dr. Knox for transfer, however, she and her son declined transfer. they were explained all risks of delay in ERCP and the advantages of having it performed at [facility]. They verbalized understanding but still declined transfer, opting to stay despite the uncertainty regarding when the ERCP may be performed. NPO after MN in the event ERCP can be done tomorrow. 3. HTN - Continue ARB. (Valsartan substituted for Olmesartan) 4. Hypothyroidism - continue Synthroid 5. GERD - patient prefers Pepcid - PPI stopped in favor of H2 andrzej as per family request. DVT Px - Lovenox SQ held due to possible ERCP Visit type - Emergency Visit Emergency Visit: Yes ED Registration Date: 11/27/19 Care time: The patient presented to the Emergency Department on the above date and was hospitalized for further evaluation of their emergent condition. - New Patient This patient is new to me today: No - Critical Care Critical Care patient: No - Discharge Referral Referred to [facility] Med P.C.: No
[2019-11-30] MEDS: FAMOTIDINE 20 MG TABLET PO SCH (19:51)
[2019-12-01] MEDS: LEVOTHYROXINE NA 50 MCG TABLET (FP) PO SCH (06:43)
--- NOTE | 2019-12-01 07:00 | PN.GI ---
GI Progress Note Subjective: NO NEW COMPLAINTS - Objective Vital Signs: Vital Signs Temperature 97.9 F 12/01/19 06:00 Pulse Rate 105 H 12/01/19 06:00 Respiratory Rate 20 12/01/19 06:00 Blood Pressure 148/89 12/01/19 06:00 O2 Sat by Pulse Oximetry (%) 95 11/30/19 21:00 Constitutional: Well Nourished Eyes: Yes: WNL HENT: Yes: WNL Neck: Yes: WNL Cardiovascular: Yes: WNL, Regular Rate and Rhythm Respiratory: Yes: WNL, Regular, CTA Bilaterally Gastrointestinal Inspection: Yes: WNL ...Auscultate: Yes: Normoactive Bowel Sounds Edema: No Labs: CBC, BMP 11/29/19 08:34 11/29/19 08:34 Problem List - Problems (1) Bile duct abnormality Assessment/Plan: MRCP REVIEWED - CHOLEDOCHOLITHIASIS ; LFT 'S ARE NORMAL THEREFORE NO OBVIOUS OBSTRUCTION PATIENT BEING TRANSFERRED TO [facility] FOR ERCP WITH DR. MCKEON Code(s): K83.9 - DISEASE OF BILIARY TRACT, UNSPECIFIED
[2019-12-01] MEDS: ALBUTEROL SO4 2.5/IPRATROPIUM 0.5 INH SOL 3 ML VIAL.NEB. NEB SCH ×3 (07:25→15:35)
[2019-12-01 10:30] LABS: BASO % 0.5 % (0-2.0); EOS % 3.1 % (0-4.5); HEMATOCRIT 38.5 % (32.4-45.2); LYMPH % 26.3 % (8-40); MCH 29.1 pg (25.7-33.7); MCHC 33.7 g/dl (32.0-36.0); MEAN CELL VOLUME 86.3 fl (80-96); MEAN PLT VOLUME 8.9 fl (7.5-11.1); MONO % 6.3 % (3.8-10.2); NEUT % 63.8 % (42.8-82.8); PLATELET COUNT 215 K/MM3 (134-434); RBC 4.46 M/mm3 (3.60-5.2); RDW 14.3 % (11.6-15.6); WHITE BLOOD COUNT 5.3 K/mm3 (4.0-10.0)
--- NOTE | 2019-12-01 10:51 | PN ---
Progress Note (short form) - Note Progress Note: GI ERCP Coverage: Asked by Dr Bee to see Patricia for potential ERCP. I discussed the procedure in detail with both of her sons and they interreted for Patricia. I informed them of the potential for such complications as perforation, hemorrhage and ERCP induced pancreatitis leading to multiorgan failure. They have opted to have Patricia transferred to [facility] for the procedure but have signed permission for me to do it if cholangitis ensues.I have communicated with Dr. Knox who has accepted the patient. I have communicated with the residents. Anticipate transfer to [facility]. LFTs pending. I believe that DR Bowen is covering the GI service today.
[2019-12-01 10:57] LABS: ALBUMIN 3.4 g/dl (3.4-5.0); BILIRUBIN,TOTAL 0.9 mg/dL (0.2-1); BLOOD UREA NITROGEN 15.3 mg/dL (7-18); CALCIUM 9.3 mg/dL (8.5-10.1); CREATININE 0.8 mg/dL (0.55-1.3); POTASSIUM 4.1 mmol/L (3.5-5.1); TOT PROT 6.7 g/dl (6.4-8.2)
[2019-12-01 10:59] LABS: INR 0.98 (0.83-1.09); PROTHROMBIN TIME (PATIENT) 11.6 SEC (9.7-13.0)
[2019-12-01] MEDS: VALSARTAN 160 MG TABLET (UD) PO SCH (11:04)
[2019-12-01] MEDS: FAMOTIDINE 20 MG TABLET PO SCH (11:04)
--- NOTE | 2019-12-01 12:44 | DS ---
Physical Exam: SUBJECTIVE: Patient seen and examined. Pt reports abdominal pain but otherwise appears to be comfortable. No acute distress. Afebrile and asymptomatic. Denies f/c/n/v/d/sob/cp. OBJECTIVE: Vital Signs Period Temp Pulse Resp BP Sys/Leger Pulse Ox Last 24 Hr 97.9 F-98.8 F 104-110 -20 144-148/71-89 95 PHYSICAL EXAM GENERAL: The patient is awake, alert, and fully oriented, in no acute distress. EYES: PERRL, extraocular movements intact, ENT: oropharynx clear without exudates, moist mucous membranes. LUNGS: Breath sounds equal, clear to auscultation bilaterally, no wheezes, no crackles, HEART: Regular rate and rhythm, S1, S2 without murmur, rub or gallop. ABDOMEN: Soft, diffuse tenderness, nondistended, normoactive bowel sounds, no guarding EXTREMITIES: 2+ pulses, warm, well-perfused, no edema. NEUROLOGICAL: Normal speech, gait not observed. SKIN: Warm, dry, normal turgor, LABS Laboratory Results - last 24 hr 12/01/19 12/01/19 12/01/19 09:48 09:48 09:48 WBC 5.3 RBC 4.46 Hgb 13.0 Hct 38.5 MCV 86.3 MCH 29.1 MCHC 33.7 RDW 14.3 Plt Count 215 D MPV 8.9 Absolute Neuts (auto) 3.4 Neutrophils % 63.8 Lymphocytes % 26.3 D Monocytes % 6.3 Eosinophils % 3.1 D Basophils % 0.5 Nucleated RBC % 0 PT with INR 11.60 INR 0.98 Sodium 141 Potassium 4.1 Chloride 106 Carbon Dioxide 29 Anion Gap 6 L BUN 15.3 Creatinine 0.8 Est GFR (CKD-EPI)AfAm 77.37 Est GFR (CKD-EPI)NonAf 66.76 Random Glucose 90 Calcium 9.3 Total Bilirubin 0.9 AST 27 ALT 19 Alkaline Phosphatase 102 Total Protein 6.7 Albumin 3.4 HOSPITAL COURSE: Date of Admission:11/27/19 84 y/o F, pmh of HTN, HLD, GERD, hypothyroidism presents to the ED c/o of nausea and nbnb vomiting and abdominal pain is admitted for acute viral gastroenteritis. Pt was was IVF and protonix and her symptoms resolved. However on CT a/p she was found to have 0.3cm isodense focus within lower common bile duct concerning for noncalcified stone vs. polypoid lesion. CBD dilated to 1.1cm , however chronic finding noted upon prior studies. Diverticulosis noted without diverticulitis. Negative for bowel obstruction. GI was consulted and they requested an MRCP which showed choledocholithiasis 0.6 x 0.3cm in CBD with intra- and extra- biliary dilatation. LFTs were normal. No evidence currently of obstruction or cholangitis. GI recommends ERCP. Primary team Discussed with Dr. Babb who is aware. Given that there may be a delay with patient getting ERCP at [facility], he suggested possible transfer to [facility]. The patient was accepted by Dr. Knox for transfer, however, she and her son declined transfer. They were explained all risks of delay in ERCP and the advantages of having it performed at [facility]. They verbalized understanding but still declined transfer, opting to stay despite the uncertainty regarding when the ERCP may be performed. Today, pt and family was counselled on the risks and benefits of ERCP at [facility] and they agreed to the Transfer. Pt was discharged to the care of Dr. Jay Knox at [facility]. CXR some mild infiltrates CT a/p she was found to have 0.3cm isodense focus within lower common bile duct concerning for noncalcified stone vs. polypoid lesion. CBD dilated to 1.1cm, however chronic finding noted upon prior studies. Diverticulosis noted without diverticulitis. Negative for bowel obstruction MRCP which showed choledocholithiasis 0.6 x 0.3cm in CBD with intra- and extra- biliary dilatation. Date of Discharge: 12/01/19 Minutes to complete discharge: 40 Discharge Summary Problems reviewed: Yes Reason For Visit: COMMON BILE DUCT OBSTRUCTION Current Active Problems Common bile duct (CBD) obstruction (Acute) Condition: Stable - Instructions Diet, Activity, Other Instructions: You were admitted for nausea, vomiting and abdominal pain. While you were in the hospital, we evaluated you with lab work, blood work and imaging including a CAT scan and MRI of your abdomen. We found that your symptoms have been caused by a viral infection of your gastrointestinal tract. We treated you with medications and your symptoms improved. On imaging, we also found that there is a stone blocking your gallbladder's bile duct. To remove this stone, we highly recommended and you agreed to be transferred to [facility] for an ERCP procedure. We have processed and prepared the transfer on your behalf Please take all your medications as prescribed Please follow up with your Java Portal Developer within 1 week Please follow up with your primary care physician within 1 week Return to the emergency room, if you experience worsening of your symptoms, chest pain, abdominal pain or any worsening of your condition. Referrals: Fabienne Babb MD [Staff Physician] - 1 Week Sergio Calvert MD [Primary Care Provider] - 1 Week Disposition: TRANSFER ACUTE CARE/OTHER HOSP - Home Medications Comprehensive Discharge Medication List: Ambulatory Orders Olmesartan Medoxomil [Benicar] 40 mg PO DAILY 01/08/18 Meloxicam 15 mg PO DAILY 11/28/19 Multivitamin/Iron/Folic Acid [Centrum Adults Tablet] 1 each PO DAILY 11/28/19 Albuterol 2.5/Ipratropium 0.5 [Duoneb -] 1 amp NEB RQID amp 12/01/19 Enoxaparin [Lovenox -] 30 mg SQ DAILY disp.syrin 12/01/19 Famotidine [Pepcid -] 20 mg PO DAILY tablet 12/01/19 Lactated Ringers Solution 1,000 ml IV ASDIR infus.bag 12/01/19 Levothyroxine [Synthroid -] 50 mcg PO DAILY@0700 tablet 12/01/19 Pantoprazole Sodium [Protonix -] 20 mg PO DAILY tablet.ec 12/01/19 Valsartan [Diovan] 320 mg PO DAILY tablet 12/01/19 This patient is new to me today: Yes Date on this admission: 12/01/19 Emergency Visit: Yes ED Registration Date: 11/27/19 Care time: The patient presented to the Emergency Department on the above date and was hospitalized for further evaluation of their emergent condition. Critical Care patient: No - Discharge Referral Referred to [facility] Med [facility] No ATTENDING PHYSICIAN STATEMENT I saw and evaluated the patient. I reviewed the resident's note and discussed the case with the resident. I agree with the resident's findings and plan as documented. SUBJECTIVE: OBJECTIVE: ASSESSMENT AND PLAN:
--- NOTE | 2019-12-01 13:30 | PN ---
Teaching Attending Note Name of Resident: Gabriel Sanchez ATTENDING PHYSICIAN STATEMENT I saw and evaluated the patient. I reviewed the resident's note and discussed the case with the resident. I agree with the resident's findings and plan as documented. SUBJECTIVE: Feeling better. Abdominal pain improved. No vomiting. No further diarrhea. No melena/hematochezia. No hematemesis. No fever/chills. OBJECTIVE: Afebrile, Hemodynamically Stable. Last Vital Signs Temp Pulse Resp BP Pulse Ox 98.8 F 110 H 20 144/87 95 12/01/19 10:47 12/01/19 10:47 12/01/19 10:47 12/01/19 10:47 11/30/19 21:00 Heart - S1, S2, RRR Lungs - clear to auscultation Abdomen - Soft, non-tender. Bowel Sounds normal. Extremities - no edema, no calf tenderness Laboratory Results - last 24 hr 12/01/19 12/01/19 12/01/19 09:48 09:48 09:48 WBC 5.3 RBC 4.46 Hgb 13.0 Hct 38.5 MCV 86.3 MCH 29.1 MCHC 33.7 RDW 14.3 Plt Count 215 D MPV 8.9 Absolute Neuts (auto) 3.4 Neutrophils % 63.8 Lymphocytes % 26.3 D Monocytes % 6.3 Eosinophils % 3.1 D Basophils % 0.5 Nucleated RBC % 0 PT with INR 11.60 INR 0.98 Sodium 141 Potassium 4.1 Chloride 106 Carbon Dioxide 29 Anion Gap 6 L BUN 15.3 Creatinine 0.8 Est GFR (CKD-EPI)AfAm 77.37 Est GFR (CKD-EPI)NonAf 66.76 Random Glucose 90 Calcium 9.3 Total Bilirubin 0.9 AST 27 ALT 19 Alkaline Phosphatase 102 Total Protein 6.7 Albumin 3.4 Current Medications Generic Name Dose Route Start Last Admin Trade Name Freq PRN Reason Stop Dose Admin Albuterol/Ipratropium 1 amp 11/27/19 17:27 12/01/19 11:31 Duoneb - NEB Not Given RQID LAMONT Famotidine 20 mg 11/30/19 19:28 12/01/19 11:04 Pepcid - PO 20 mg DAILY LAMONT Administration Levothyroxine Sodium 50 mcg 11/28/19 07:00 12/01/19 06:43 Synthroid - PO 50 mcg DAILY@0700 LAMONT Administration Valsartan 320 mg 11/27/19 16:30 12/01/19 11:04 Diovan - PO 320 mg DAILY LAMONT Administration Home Medications Medication Instructions Recorded Olmesartan Medoxomil [Benicar] 40 mg PO DAILY 01/08/18 Meloxicam 15 mg PO DAILY 11/28/19 Multivitamin/Iron/Folic Acid 1 each PO DAILY 11/28/19 [Centrum Adults Tablet] Albuterol 2.5/Ipratropium 0.5 1 amp NEB RQID amp 12/01/19 [Duoneb -] Enoxaparin [Lovenox -] 30 mg SQ DAILY disp.syrin 12/01/19 Famotidine [Pepcid -] 20 mg PO DAILY tablet 12/01/19 Lactated Ringers Solution 1,000 ml IV ASDIR infus.bag 12/01/19 Levothyroxine [Synthroid -] 50 mcg PO DAILY@0700 tablet 12/01/19 Pantoprazole Sodium [Protonix -] 20 mg PO DAILY tablet.ec 12/01/19 Valsartan [Diovan] 320 mg PO DAILY tablet 12/01/19 ASSESSMENT AND PLAN: 84 year old female with history of HTN, HLD, GERD, Hypothyroidism, presents with abdominal pain/nausea/vomiting/cough. CT A/P - reveals 0.3cm isodense focus within lower common bile duct concerning for noncalcified stone vs. polypoid lesion. CBD dilated to 1.1cm. Diverticulosis noted without diverticulitis. Negative for bowel obstruction. 1. Acute Gastroenteritis, likely viral Abdominal Pain/nausea/vomiting resolving. Loose stool appears to be resolving. Afebrile, Hemodynamically Stable. Diet advanced. 2. CBD Dilatation with lesion (0.3cm) in CBD on CT A/P - MRCP shows choledocholithiasis 0.6 x 0.3cm in CBD with intra- and extra- biliary dilatation. LFTs normal. No evidence currently of obstruction or cholangitis. GI recommends ERCP. After discussion with family and Dr. Babb, decision is to transfer to [facility] to undergo ERCP there. Personally spoke with Dr. Knox at [facility] who accepts transfer. NPO after AK in the event ERCP can be done tomorrow. 3. HTN - Continue ARB. (Valsartan substituted for Olmesartan) 4. Hypothyroidism - continue Synthroid 5. GERD - patient prefers Pepcid - PPI stopped in favor of H2 andrzej as per family request. DVT Px - Lovenox SQ held due to possible ERCP Medically stable for transfer to [facility] for ERCP
[2019-12-01 15:57] VITALS: BP 154/96; PULSE 106; TEMP 98.3
== END 2019-12-01 17:58 | disposition short-term general hospital (02) | DRG 445 ==
LOC: JER 14:40 → JERBED 21:31 → J5S 11-28 03:24
PROVIDERS: ADMIT Internal Medicine
DX: K80.50 Calculus of bile duct without cholangitis or cholecystitis without obstruction (principal); R64 Cachexia; K52.9 Noninfective gastroenteritis and colitis, unspecified; I10 Essential (primary) hypertension; E03.9 Hypothyroidism, unspecified; K21.9 Gastro-esophageal reflux disease without esophagitis; E78.5 Hyperlipidemia, unspecified
CPT/HCPCS: 36415; 71045-TC-FY; 74177-TC; 74181-TC; 80053; 81003; 82272; 82550; 83605; 83690; 83735; 84100; 84484; 85025; 85027; 85610; 87086; 87804; 93005; 93010; 94640; 97116-GP; 97161-GP; 99285-25; J0131; J7030; Q9967

== ENCOUNTER 2021-03-09 15:02 | Inpatient (IN) | payer OTHER ==
[2021-03-09 15:21] VITALS: BMI 20.3
[2021-03-09 16:20] LABS: BASO % 3.2 % (0-2.0); EOS % 2.8 % (0-4.5); HEMATOCRIT 38.9 % (32.4-45.2); HEMOGLOBIN 12.4 GM/dl (10.7-15.3); LYMPH % 12.3 % (8-40); MCH 28.3 pg (25.7-33.7); MCHC 31.9 g/dl (32.0-36.0); MEAN CELL VOLUME 88.7 fl (80-96); MEAN PLT VOLUME 8.7 fl (7.5-11.1); MONO % 3.8 % (3.8-10.2); NEUT % 77.9 % (42.8-82.8); PLATELET COUNT 268 K/MM3 (134-434); RBC 4.38 M/mm3 (3.60-5.2); WHITE BLOOD COUNT 8.1 K/mm3 (4.0-10.8)
[2021-03-09 16:27] LABS: ACTIVATED PTT 28.1 SECONDS (25.2-36.5)
[2021-03-09 16:29] LABS: ALK PHOS 105 U/L (45-117); ANION GAP 7 MMOL/L (8-16); BILIRUBIN,TOTAL 0.6 mg/dl (0.2-1); CALCIUM 9.3 mg/dl (8.5-10); CHLORIDE 101 mmol/L (98-107); CO2 29 mmol/L (21-32); CREATININE 0.8 mg/dl (0.55-1.3); GLUCOSE,RANDOM 107 mg/dl (74-106); SGOT/AST 19 U/L (15-37); SGPT/ALT 8 U/L (13-61); SODIUM 137 mmol/L (136-145); TOT PROT 7.2 g/dl (6.4-8.2)
[2021-03-09 16:32] LABS: INR 1.06 (0.82-1.09); PROTHROMBIN TIME (PATIENT) 11.8 SEC (10.2-13.0)
[2021-03-09] MEDS ORDERED: ALBUTEROL SO4 2.5/IPRATROPIUM 0.5 INH SOL 3 ML VIAL.NEB. NEB SCH (16:45)
[2021-03-09 18:24] LABS: N-TERMINAL BNP 633.5 pg/ml (5-450)
[2021-03-09] MEDS ORDERED: FUROSEMIDE 40 MG/4 ML INJECTABLE VIAL IVPUSH ONE (18:33)
[2021-03-09] MEDS ORDERED: FUROSEMIDE 40 MG/4 ML INJECTABLE VIAL ONE (18:37)
[2021-03-09] MEDS ORDERED: ALBUTEROL SO4 2.5/IPRATROPIUM 0.5 INH SOL 3 ML VIAL.NEB. NEB ONE (18:37)
[2021-03-09] MEDS ORDERED: ALBUTEROL SO4 0.083% IH SOL 2.5 MG/3 ML VIAL.NEB. NEB PRN (20:37)
[2021-03-10] MEDS: LEVOTHYROXINE NA 50 MCG TABLET (FP) PO SCH (06:11)
[2021-03-10 08:00] LABS: BASO % 0.5 % (0-2.0); EOS % 7.9 % (0-4.5); HEMATOCRIT 33.5 % (32.4-45.2); HEMOGLOBIN 11.1 GM/dl (10.7-15.3); LYMPH % 18.6 % (8-40); MCH 29.5 pg (25.7-33.7); MCHC 33.1 g/dl (32.0-36.0); MEAN CELL VOLUME 89.1 fl (80-96); MEAN PLT VOLUME 8.3 fl (7.5-11.1); MONO % 8.9 % (3.8-10.2); NEUT % 64.1 % (42.8-82.8); PLATELET COUNT 257 K/MM3 (134-434); RBC 3.76 M/mm3 (3.60-5.2); RDW 12.9 % (11.6-15.6); WHITE BLOOD COUNT 4.9 K/mm3 (4.0-10.8)
[2021-03-10 08:09] LABS: ALBUMIN 3.3 g/dl (3.4-5.0); BILIRUBIN,TOTAL 0.4 mg/dl (0.2-1); CALCIUM 8.8 mg/dl (8.5-10); CREATININE 0.8 mg/dl (0.55-1.3); MAGNESIUM 1.9 mg/dL (1.8-2.4); TOT PROT 5.9 g/dl (6.4-8.2)
[2021-03-10] MEDS: FOLIC ACID 1 MG TABLET (FP) PO SCH (09:32)
[2021-03-10] MEDS: HEPARIN NA (PORCINE) 5,000 UNITS/ML 1ML VIAL SQ SCH ×2 (09:32→21:37)
[2021-03-10] MEDS: LOSARTAN POTASSIUM 50 MG TABLET PO SCH (09:32)
[2021-03-10] MEDS ORDERED: PATIENT'S OWN MEDICATION (NON-FORMULARY) (Olmesartan Medoxomil [Olmesartan Medoxomil] 40 M PO SCH (10:00)
[2021-03-10] MEDS ORDERED: ALBUTEROL SO4 0.083% IH SOL 2.5 MG/3 ML VIAL.NEB. NEB SCH (14:00)
[2021-03-11] MEDS: LEVOTHYROXINE NA 50 MCG TABLET (FP) PO SCH (06:51)
[2021-03-11 08:39] LABS: BASO % 2.5 % (0-2.0); EOS % 10.2 % (0-4.5); HEMATOCRIT 36.3 % (32.4-45.2); HEMOGLOBIN 11.9 GM/dl (10.7-15.3); LYMPH % 15.9 % (8-40); MCH 29.1 pg (25.7-33.7); MCHC 32.8 g/dl (32.0-36.0); MEAN CELL VOLUME 88.8 fl (80-96); MEAN PLT VOLUME 8.8 fl (7.5-11.1); MONO % 4.4 % (3.8-10.2); PLATELET COUNT 270 K/MM3 (134-434); RBC 4.09 M/mm3 (3.60-5.2); RDW 12.5 % (11.6-15.6); WHITE BLOOD COUNT 5.7 K/mm3 (4.0-10.8)
[2021-03-11 08:49] LABS: ALBUMIN 3.4 g/dl (3.4-5.0); BILIRUBIN,TOTAL 0.4 mg/dl (0.2-1); CALCIUM 9.3 mg/dl (8.5-10); CREATININE 0.7 mg/dl (0.55-1.3); MAGNESIUM 2.1 mg/dL (1.8-2.4); TOT PROT 6.4 g/dl (6.4-8.2)
[2021-03-11 09:35] LABS: EPITHELIAL CELLS RARE /hpf
[2021-03-11] MEDS: HEPARIN NA (PORCINE) 5,000 UNITS/ML 1ML VIAL SQ SCH ×2 (09:51→21:28)
[2021-03-11] MEDS: FOLIC ACID 1 MG TABLET (FP) PO SCH (09:51)
[2021-03-11] MEDS: LOSARTAN POTASSIUM 50 MG TABLET PO SCH (09:52)
[2021-03-11] MEDS ORDERED: PATIENT'S OWN MEDICATION (NON-FORMULARY) (Meloxicam [Meloxicam] 15 MG Tablet) PO SCH (10:00)
[2021-03-11] MEDS ORDERED: methylPREDNISolone NA SUCC 40 MG/1 ML VIAL IVPUSH SCH (12:45)
[2021-03-11] MEDS: methylPREDNISolone NA SUCC 40 MG/1 ML VIAL IVPUSH SCH ×2 (14:23→23:53)
[2021-03-11] MEDS: ALBUTEROL SO4 2.5/IPRATROPIUM 0.5 INH SOL 3 ML VIAL.NEB. NEB SCH ×2 (17:00→20:27)
[2021-03-12] MEDS: LEVOTHYROXINE NA 50 MCG TABLET (FP) PO SCH (06:13)
[2021-03-12] MEDS: ALBUTEROL SO4 2.5/IPRATROPIUM 0.5 INH SOL 3 ML VIAL.NEB. NEB SCH ×5 (08:34→19:59)
[2021-03-12] MEDS: HEPARIN NA (PORCINE) 5,000 UNITS/ML 1ML VIAL SQ SCH ×2 (09:56→21:06)
[2021-03-12] MEDS: FAMOTIDINE 10 MG TABLET PO SCH (09:58)
[2021-03-12] MEDS: LOSARTAN POTASSIUM 50 MG TABLET PO SCH (09:58)
[2021-03-12] MEDS: FOLIC ACID 1 MG TABLET (FP) PO SCH (09:59)
[2021-03-12] MEDS: methylPREDNISolone NA SUCC 40 MG/1 ML VIAL IVPUSH SCH (13:30)
[2021-03-13] MEDS: methylPREDNISolone NA SUCC 40 MG/1 ML VIAL IVPUSH SCH (01:24)
[2021-03-13] MEDS: LEVOTHYROXINE NA 50 MCG TABLET (FP) PO SCH (06:27)
[2021-03-13] MEDS: ALBUTEROL SO4 2.5/IPRATROPIUM 0.5 INH SOL 3 ML VIAL.NEB. NEB SCH ×4 (08:02→21:09)
[2021-03-13] MEDS: HEPARIN NA (PORCINE) 5,000 UNITS/ML 1ML VIAL SQ SCH ×2 (09:09→21:09)
[2021-03-13] MEDS: FOLIC ACID 1 MG TABLET (FP) PO SCH (09:09)
[2021-03-13] MEDS: LOSARTAN POTASSIUM 50 MG TABLET PO SCH (09:10)
[2021-03-13] MEDS: FAMOTIDINE 10 MG TABLET PO SCH (09:14)
[2021-03-13 10:30] LABS: HEMATOCRIT 38.5 % (32.4-45.2); HEMOGLOBIN 12.4 GM/dl (10.7-15.3); MCH 28.5 pg (25.7-33.7); MCHC 32.3 g/dl (32.0-36.0); MEAN CELL VOLUME 88.3 fl (80-96); MEAN PLT VOLUME 9.7 fl (7.5-11.1); PLATELET COUNT 359 K/MM3 (134-434); RBC 4.36 M/mm3 (3.60-5.2); RDW 13.1 % (11.6-15.6); WHITE BLOOD COUNT 14.4 K/mm3 (4.0-10.8)
[2021-03-13 10:41] LABS: ALBUMIN 3.5 g/dl (3.4-5.0); BILIRUBIN,TOTAL 0.4 mg/dl (0.2-1); CALCIUM 9.5 mg/dl (8.5-10); CREATININE 0.9 mg/dl (0.55-1.3); TOT PROT 6.8 g/dl (6.4-8.2)
[2021-03-13] MEDS ORDERED: methylPREDNISolone NA SUCC 40 MG/1 ML VIAL IVPUSH ONE (11:06)
[2021-03-13 11:18] LABS: PLATELET ESTIMATE ADEQUATE
[2021-03-13] MEDS: predniSONE 20 MG TABLET (UD) PO SCH (14:24)
[2021-03-14] MEDS: LEVOTHYROXINE NA 50 MCG TABLET (FP) PO SCH (07:11)
[2021-03-14] MEDS: ALBUTEROL SO4 2.5/IPRATROPIUM 0.5 INH SOL 3 ML VIAL.NEB. NEB SCH (07:38)
[2021-03-14 09:13] LABS: BASO % 0.2 % (0-2.0); HEMATOCRIT 37.7 % (32.4-45.2); HEMOGLOBIN 12.1 GM/dl (10.7-15.3); LYMPH % 4.6 % (8-40); MCH 28.9 pg (25.7-33.7); MCHC 32.2 g/dl (32.0-36.0); MEAN CELL VOLUME 89.5 fl (80-96); MEAN PLT VOLUME 10.2 fl (7.5-11.1); MONO % 2.6 % (3.8-10.2); NEUT % 92.6 % (42.8-82.8); PLATELET COUNT 294 K/MM3 (134-434); RBC 4.21 M/mm3 (3.60-5.2); RDW 13.3 % (11.6-15.6); WHITE BLOOD COUNT 12.5 K/mm3 (4.0-10.8)
[2021-03-14 09:19] LABS: ALBUMIN 3.4 g/dl (3.4-5.0); BILIRUBIN,TOTAL 0.5 mg/dl (0.2-1); CALCIUM 9.6 mg/dl (8.5-10); CREATININE 0.7 mg/dl (0.55-1.3); MAGNESIUM 2.2 mg/dL (1.8-2.4); TOT PROT 6.2 g/dl (6.4-8.2)
[2021-03-14] MEDS: FAMOTIDINE 10 MG TABLET PO SCH (09:51)
[2021-03-14] MEDS: predniSONE 20 MG TABLET (UD) PO SCH (09:51)
[2021-03-14] MEDS: LOSARTAN POTASSIUM 50 MG TABLET PO SCH (09:51)
[2021-03-14] MEDS: FOLIC ACID 1 MG TABLET (FP) PO SCH (09:51)
[2021-03-14] MEDS: HEPARIN NA (PORCINE) 5,000 UNITS/ML 1ML VIAL SQ SCH (09:51)
[2021-03-14 12:36] VITALS: BP 144/69; PULSE 64; TEMP 98.8
== END 2021-03-14 12:32 | disposition home or self-care (01) | DRG 206 ==
LOC: FER 15:02 → FM/S 19:57
PROVIDERS: ADMIT Internal Medicine; ATTEND Nurse Practitioner Acute Care
DX: J98.8 Other specified respiratory disorders (principal); K21.9 Gastro-esophageal reflux disease without esophagitis; E78.5 Hyperlipidemia, unspecified; I10 Essential (primary) hypertension; E03.9 Hypothyroidism, unspecified; I45.10 Unspecified right bundle-branch block; I25.10 Atherosclerotic heart disease of native coronary artery without angina pectoris; E53.8 Deficiency of other specified B group vitamins; Z77.22 Contact with and (suspected) exposure to environmental tobacco smoke (acute) (chronic)
CPT/HCPCS: 36415; 71045-TC-FY; 71275-TC; 80053; 81003; 81015; 82550; 82962; 83735; 83880; 84443; 84484; 85025; 85610; 85730; 87086; 93005; 93306-TC; 94640; 97116-GP; 97162-GP; 99285-25; C9803; J1644; Q9967; U0003; U0005

== ENCOUNTER 2021-08-15 10:06 | Inpatient (IN) | payer OTHER ==
[2021-08-15] MEDS ORDERED: ALBUTEROL SO4 2.5/IPRATROPIUM 0.5 INH SOL 3 ML VIAL.NEB. NEB ONE (11:51)
[2021-08-15 11:54] LABS: BASO % 0.9 % (0-2.0); EOS % 2.3 % (0-4.5); HEMATOCRIT 40.7 % (32.4-45.2); HEMOGLOBIN 13.4 GM/dL (10.7-15.3); LYMPH % 13.5 % (8-40); MCH 28.3 pg (25.7-33.7); MCHC 32.9 g/dl (32.0-36.0); MEAN PLT VOLUME 8.3 fl (7.5-11.1); MONO % 6.7 % (3.8-10.2); NEUT % 76.6 % (42.8-82.8); PLATELET COUNT 279 10^3/uL (134-434); RBC 4.73 M/mm3 (3.60-5.2); RDW 14.9 % (11.6-15.6); WHITE BLOOD COUNT 9.3 K/mm3 (4.0-10.0)
[2021-08-15] MEDS: ALBUTEROL SO4 2.5/IPRATROPIUM 0.5 INH SOL 3 ML VIAL.NEB. NEB SCH ×2 (11:54→12:28)
[2021-08-15 11:59] LABS: PROTHROMBIN TIME (PATIENT) 11.7 SEC (9.7-13.0)
[2021-08-15] MEDS ORDERED: AZITHROMYCIN IVPB 500 MG in DEXTROSE 5%-WATER - 250 ML IVPB ONE (12:12)
[2021-08-15 12:17] LABS: CHLORIDE 104 mmol/L (98-107); SODIUM 139 mmol/L (136-145)
[2021-08-15 12:19] LABS: ALBUMIN 3.2 g/dl (3.4-5.0); CALCIUM 8.8 mg/dL (8.5-10.1)
[2021-08-15 12:20] LABS: ANION GAP 8 MMOL/L (8-16); BLOOD UREA NITROGEN 17.4 mg/dL (7-18); CO2 27 mmol/L (21-32); GLUCOSE,RANDOM 104 mg/dL (74-106)
[2021-08-15 12:23] LABS: CREATININE 0.8 mg/dL (0.55-1.3); SGOT/AST 16 U/L (15-37); SGPT/ALT 9 U/L (13-61)
[2021-08-15 12:24] LABS: BILIRUBIN,TOTAL 0.4 mg/dL (0.2-1)
[2021-08-15 12:26] LABS: ALK PHOS 135 U/L (45-117)
[2021-08-15] MEDS ORDERED: AZITHROMYCIN IVPB 500 MG/250 ML BAG IVPB ONE (12:30)
[2021-08-15] MEDS ORDERED: CEFTRIAXONE 1 GM/50 ML BAG ONE (12:30)
[2021-08-15] MEDS ORDERED: methylPREDNISolone NA SUCC 125 MG/2 ML VIAL IVPB ONE (12:51)
[2021-08-15] MEDS ORDERED: methylPREDNISolone NA SUCC 125 MG/2 ML VIAL ONE (13:15)
[2021-08-15] MEDS ORDERED: ALBUTEROL SO4 0.083% IH SOL 2.5 MG/3 ML VIAL.NEB. NEB ONE (13:26)
[2021-08-15] MEDS ORDERED: ALBUTEROL SO4 0.083% IH SOL 2.5 MG/3 ML VIAL.NEB. NEB SCH (20:00)
[2021-08-15] MEDS: methylPREDNISolone NA SUCC 40 MG/1 ML VIAL IVPUSH SCH (21:39)
[2021-08-15] MEDS ORDERED: HEPARIN NA (PORCINE) 5,000 UNITS/ML 1ML VIAL SQ SCH (22:00)
[2021-08-15] MEDS ORDERED: GABAPENTIN 300 MG CAPSULE PO SCH (22:00)
[2021-08-16] MEDS: LEVOTHYROXINE NA 50 MCG TABLET (FP) PO SCH (06:04)
[2021-08-16] MEDS ORDERED: LEVOTHYROXINE NA 50 MCG TABLET (FP) PO SCH (07:00)
[2021-08-16] MEDS ORDERED: LEVOTHYROXINE NA 75 MCG TABLET (FP) PO SCH (07:00)
[2021-08-16 08:37] LABS: HEMOGLOBIN 12.1 GM/dL (10.7-15.3); MCH 28.6 pg (25.7-33.7); MCHC 33.6 g/dl (32.0-36.0); MEAN CELL VOLUME 84.9 fl (80-96); MEAN PLT VOLUME 8.6 fl (7.5-11.1); PLATELET COUNT 264 10^3/uL (134-434); RBC 4.23 M/mm3 (3.60-5.2); RDW 14.6 % (11.6-15.6); WHITE BLOOD COUNT 8.8 K/mm3 (4.0-10.0)
[2021-08-16 09:05] LABS: ALBUMIN 2.7 g/dl (3.4-5.0); BLOOD UREA NITROGEN 21.1 mg/dL (7-18)
[2021-08-16 09:08] LABS: PHOSPHOROUS 4.7 mg/dL (2.5-4.9)
[2021-08-16 09:09] LABS: CREATININE 0.7 mg/dL (0.55-1.3)
[2021-08-16 09:10] LABS: BILIRUBIN,TOTAL 0.2 mg/dL (0.2-1); TOT PROT 6.2 g/dl (6.4-8.2)
[2021-08-16 09:14] LABS: MAGNESIUM 2.5 mg/dL (1.8-2.4)
[2021-08-16 09:48] LABS: ANISOCYTOSIS 0; HELMET CELLS 0; HOWELL-JOLLY BODIES 0; MACROCYTOSIS 0; OVALOCYTE 0; PLATELET ESTIMATE NORMAL; ROULEAU 0; SICKELED CELLS 0; TARGET CELLS 0; TEAR DROP CELLS 0; TOXIC GRANULATION 0
[2021-08-16] MEDS: methylPREDNISolone NA SUCC 40 MG/1 ML VIAL IVPUSH SCH ×2 (10:16→21:26)
[2021-08-16] MEDS: FOLIC ACID 1 MG TABLET (FP) PO SCH (10:16)
[2021-08-16] MEDS: LOSARTAN POTASSIUM 50 MG TABLET PO SCH (10:16)
[2021-08-16] MEDS: ENOXAPARIN NA (PORCINE) 40 MG/0.4 ML DISP.SYRIN SQ SCH (10:16)
[2021-08-16] MEDS: AZITHROMYCIN IVPB 500 MG/250 ML BAG IVPB SCH (10:17)
[2021-08-16] MEDS: ALBUTEROL SO4 HFA INHALER IH PRN (12:17)
[2021-08-16] MEDS: ALBUTEROL SO4 2.5/IPRATROPIUM 0.5 INH SOL 3 ML VIAL.NEB. NEB SCH ×3 (12:30→20:12)
[2021-08-16] MEDS: BUDESONIDE/FORMETEROL FUMARATE 160/4.5 mcg INHALER IH SCH ×2 (12:34→22:00)
[2021-08-17] MEDS: LEVOTHYROXINE NA 50 MCG TABLET (FP) PO SCH (06:01)
[2021-08-17 08:28] LABS: HEMOGLOBIN 11.8 GM/dL (10.7-15.3); MCH 28.3 pg (25.7-33.7); MCHC 32.9 g/dl (32.0-36.0); MEAN PLT VOLUME 8.8 fl (7.5-11.1); PLATELET COUNT 298 10^3/uL (134-434); RBC 4.18 M/mm3 (3.60-5.2); RDW 14.7 % (11.6-15.6); WHITE BLOOD COUNT 14.5 K/mm3 (4.0-10.0)
[2021-08-17 08:35] LABS: ALBUMIN 2.9 g/dl (3.4-5.0); BLOOD UREA NITROGEN 31.9 mg/dL (7-18); CALCIUM 9.2 mg/dL (8.5-10.1)
[2021-08-17] MEDS: ALBUTEROL SO4 2.5/IPRATROPIUM 0.5 INH SOL 3 ML VIAL.NEB. NEB SCH ×4 (08:37→20:30)
[2021-08-17 08:38] LABS: CREATININE 0.9 mg/dL (0.55-1.3)
[2021-08-17 08:40] LABS: BILIRUBIN,TOTAL 0.3 mg/dL (0.2-1); TOT PROT 6.2 g/dl (6.4-8.2)
[2021-08-17] MEDS: methylPREDNISolone NA SUCC 40 MG/1 ML VIAL IVPUSH SCH ×2 (11:30→21:07)
[2021-08-17] MEDS: GABAPENTIN 100 MG CAPSULE PO SCH (11:30)
[2021-08-17] MEDS: AZITHROMYCIN IVPB 500 MG/250 ML BAG IVPB SCH (11:30)
[2021-08-17] MEDS: BUDESONIDE/FORMETEROL FUMARATE 160/4.5 mcg INHALER IH SCH ×2 (11:31→21:08)
[2021-08-17] MEDS: ENOXAPARIN NA (PORCINE) 40 MG/0.4 ML DISP.SYRIN SQ SCH ×2 (11:31→11:40)
[2021-08-17] MEDS: LOSARTAN POTASSIUM 50 MG TABLET PO SCH (11:31)
[2021-08-17] MEDS: FOLIC ACID 1 MG TABLET (FP) PO SCH (11:31)
[2021-08-17] MEDS: ALBUTEROL SO4 HFA INHALER IH PRN ×2 (13:35→23:45)
[2021-08-17] MEDS: PATIENT'S OWN MEDICATION (NON-FORMULARY) (Meloxicam [Meloxicam] 15 MG Tablet) PO SCH (18:43)
[2021-08-17] MEDS ORDERED: PATIENT'S OWN MEDICATION (NON-FORMULARY) (Meloxicam [Meloxicam] 15 MG Tablet) PO SCH (18:45)
[2021-08-18] MEDS ORDERED: PT OWN MED DRAWER 7, Y5N ONE (05:11)
[2021-08-18] MEDS: LEVOTHYROXINE NA 50 MCG TABLET (FP) PO SCH (06:10)
[2021-08-18] MEDS: ALBUTEROL SO4 2.5/IPRATROPIUM 0.5 INH SOL 3 ML VIAL.NEB. NEB SCH ×4 (08:00→20:10)
[2021-08-18] MEDS: methylPREDNISolone NA SUCC 40 MG/1 ML VIAL IVPUSH SCH ×2 (10:15→21:52)
[2021-08-18] MEDS: GABAPENTIN 100 MG CAPSULE PO SCH (10:16)
[2021-08-18] MEDS: FOLIC ACID 1 MG TABLET (FP) PO SCH (10:16)
[2021-08-18] MEDS: LOSARTAN POTASSIUM 50 MG TABLET PO SCH (10:17)
[2021-08-18] MEDS: ENOXAPARIN NA (PORCINE) 40 MG/0.4 ML DISP.SYRIN SQ SCH (10:17)
[2021-08-18] MEDS: BUDESONIDE/FORMETEROL FUMARATE 160/4.5 mcg INHALER IH SCH ×2 (10:18→21:52)
[2021-08-18] MEDS: AZITHROMYCIN IVPB 500 MG/250 ML BAG IVPB SCH (10:18)
[2021-08-18] MEDS: PATIENT'S OWN MEDICATION (NON-FORMULARY) (Meloxicam [Meloxicam] 15 MG Tablet) PO SCH (10:20)
[2021-08-19] MEDS: LEVOTHYROXINE NA 50 MCG TABLET (FP) PO SCH (06:04)
[2021-08-19] MEDS: ALBUTEROL SO4 2.5/IPRATROPIUM 0.5 INH SOL 3 ML VIAL.NEB. NEB SCH ×4 (08:40→19:51)
[2021-08-19 08:56] LABS: HEMATOCRIT 36.6 % (32.4-45.2); HEMOGLOBIN 12.5 GM/dL (10.7-15.3); MCH 28.9 pg (25.7-33.7); MCHC 34.1 g/dl (32.0-36.0); MEAN CELL VOLUME 84.7 fl (80-96); MEAN PLT VOLUME 8.6 fl (7.5-11.1); PLATELET COUNT 297 10^3/uL (134-434); RBC 4.32 M/mm3 (3.60-5.2); RDW 14.7 % (11.6-15.6); WHITE BLOOD COUNT 9.4 K/mm3 (4.0-10.0)
[2021-08-19 09:14] LABS: ALBUMIN 2.8 g/dl (3.4-5.0); BLOOD UREA NITROGEN 30.4 mg/dL (7-18); CALCIUM 9.2 mg/dL (8.5-10.1)
[2021-08-19 09:17] LABS: CREATININE 0.9 mg/dL (0.55-1.3)
[2021-08-19 09:19] LABS: TOT PROT 6.4 g/dl (6.4-8.2)
[2021-08-19] MEDS: GABAPENTIN 100 MG CAPSULE PO SCH (11:38)
[2021-08-19] MEDS: LOSARTAN POTASSIUM 50 MG TABLET PO SCH (11:38)
[2021-08-19] MEDS: ENOXAPARIN NA (PORCINE) 40 MG/0.4 ML DISP.SYRIN SQ SCH (11:39)
[2021-08-19] MEDS: PATIENT'S OWN MEDICATION (NON-FORMULARY) (Meloxicam [Meloxicam] 15 MG Tablet) PO SCH (11:39)
[2021-08-19] MEDS: FOLIC ACID 1 MG TABLET (FP) PO SCH (11:39)
[2021-08-19] MEDS: AZITHROMYCIN IVPB 500 MG/250 ML BAG IVPB SCH (11:40)
[2021-08-19] MEDS: BUDESONIDE/FORMETEROL FUMARATE 160/4.5 mcg INHALER IH SCH ×2 (11:40→22:10)
[2021-08-19] MEDS: methylPREDNISolone NA SUCC 40 MG/1 ML VIAL IVPUSH SCH ×2 (11:40→22:10)
[2021-08-20] MEDS: LEVOTHYROXINE NA 50 MCG TABLET (FP) PO SCH (06:32)
[2021-08-20] MEDS: ALBUTEROL SO4 2.5/IPRATROPIUM 0.5 INH SOL 3 ML VIAL.NEB. NEB SCH ×4 (08:10→20:15)
[2021-08-20] MEDS: LOSARTAN POTASSIUM 50 MG TABLET PO SCH (09:01)
[2021-08-20] MEDS: ENOXAPARIN NA (PORCINE) 40 MG/0.4 ML DISP.SYRIN SQ SCH (09:01)
[2021-08-20] MEDS: AZITHROMYCIN IVPB 500 MG/250 ML BAG IVPB SCH (09:01)
[2021-08-20] MEDS: BUDESONIDE/FORMETEROL FUMARATE 160/4.5 mcg INHALER IH SCH ×2 (09:02→21:21)
[2021-08-20] MEDS: methylPREDNISolone NA SUCC 40 MG/1 ML VIAL IVPUSH SCH ×2 (09:02→21:20)
[2021-08-20] MEDS: PATIENT'S OWN MEDICATION (NON-FORMULARY) (Meloxicam [Meloxicam] 15 MG Tablet) PO SCH (09:02)
[2021-08-20] MEDS: GABAPENTIN 100 MG CAPSULE PO SCH (09:02)
[2021-08-20] MEDS: FOLIC ACID 1 MG TABLET (FP) PO SCH (09:02)
[2021-08-20 10:27] LABS: HEMATOCRIT 35.6 % (32.4-45.2); HEMOGLOBIN 11.7 GM/dL (10.7-15.3); MCH 28.7 pg (25.7-33.7); MCHC 32.9 g/dl (32.0-36.0); MEAN CELL VOLUME 87.4 fl (80-96); MEAN PLT VOLUME 8.8 fl (7.5-11.1); PLATELET COUNT 285 10^3/uL (134-434); RBC 4.08 M/mm3 (3.60-5.2); RDW 14.6 % (11.6-15.6); WHITE BLOOD COUNT 9.7 K/mm3 (4.0-10.0)
[2021-08-20 10:53] LABS: CALCIUM 8.7 mg/dL (8.5-10.1)
[2021-08-20 10:54] LABS: ALBUMIN 2.5 g/dl (3.4-5.0); BLOOD UREA NITROGEN 36.8 mg/dL (7-18)
[2021-08-20 10:58] LABS: BILIRUBIN,TOTAL 0.3 mg/dL (0.2-1); TOT PROT 5.6 g/dl (6.4-8.2)
[2021-08-21] MEDS: LEVOTHYROXINE NA 50 MCG TABLET (FP) PO SCH (06:01)
[2021-08-21] MEDS: ALBUTEROL SO4 2.5/IPRATROPIUM 0.5 INH SOL 3 ML VIAL.NEB. NEB SCH (08:00)
[2021-08-21 10:06] LABS: HEMATOCRIT 36.8 % (32.4-45.2); HEMOGLOBIN 12.1 GM/dL (10.7-15.3); MCH 28.6 pg (25.7-33.7); MCHC 32.8 g/dl (32.0-36.0); MEAN CELL VOLUME 87.1 fl (80-96); MEAN PLT VOLUME 9.5 fl (7.5-11.1); PLATELET COUNT 293 10^3/uL (134-434); RBC 4.23 M/mm3 (3.60-5.2); WHITE BLOOD COUNT 10.3 K/mm3 (4.0-10.0)
[2021-08-21 10:39] LABS: BLOOD UREA NITROGEN 34.7 mg/dL (7-18); CALCIUM 8.9 mg/dL (8.5-10.1)
[2021-08-21 10:40] LABS: ALBUMIN 2.6 g/dl (3.4-5.0)
[2021-08-21 10:41] LABS: CREATININE 0.7 mg/dL (0.55-1.3); PHOSPHOROUS 3.7 mg/dL (2.5-4.9)
[2021-08-21 10:42] LABS: ANISOCYTOSIS 0; MACROCYTOSIS 0; PLATELET ESTIMATE NORMAL
[2021-08-21 10:43] LABS: BILIRUBIN,TOTAL 0.3 mg/dL (0.2-1); TOT PROT 5.7 g/dl (6.4-8.2)
[2021-08-21 10:48] LABS: MAGNESIUM 2.7 mg/dL (1.8-2.4)
[2021-08-21] MEDS: GABAPENTIN 100 MG CAPSULE PO SCH (11:07)
[2021-08-21] MEDS: FOLIC ACID 1 MG TABLET (FP) PO SCH (11:07)
[2021-08-21] MEDS: LOSARTAN POTASSIUM 50 MG TABLET PO SCH (11:07)
[2021-08-21] MEDS: ENOXAPARIN NA (PORCINE) 40 MG/0.4 ML DISP.SYRIN SQ SCH ×2 (11:08→11:31)
[2021-08-21] MEDS: PATIENT'S OWN MEDICATION (NON-FORMULARY) (Meloxicam [Meloxicam] 15 MG Tablet) PO SCH (11:10)
[2021-08-21] MEDS: methylPREDNISolone NA SUCC 40 MG/1 ML VIAL IVPUSH SCH ×2 (11:11→21:15)
[2021-08-21] MEDS: AZITHROMYCIN IVPB 500 MG/250 ML BAG IVPB SCH (11:14)
[2021-08-21] MEDS: BUDESONIDE/FORMETEROL FUMARATE 160/4.5 mcg INHALER IH SCH ×4 (11:16→21:15)
[2021-08-21] MEDS ORDERED: PT OWN MED DRAWER 7, Y5N ONE (19:13)
[2021-08-22] MEDS: LEVOTHYROXINE NA 50 MCG TABLET (FP) PO SCH (06:03)
[2021-08-22] MEDS: ALBUTEROL SO4 HFA INHALER IH PRN (10:00)
[2021-08-22] MEDS: ENOXAPARIN NA (PORCINE) 40 MG/0.4 ML DISP.SYRIN SQ SCH (10:28)
[2021-08-22] MEDS: FOLIC ACID 1 MG TABLET (FP) PO SCH (10:28)
[2021-08-22] MEDS: GABAPENTIN 100 MG CAPSULE PO SCH (10:28)
[2021-08-22] MEDS: methylPREDNISolone NA SUCC 40 MG/1 ML VIAL IVPUSH SCH (10:28)
[2021-08-22 10:29] LABS: HEMATOCRIT 36.3 % (32.4-45.2); HEMOGLOBIN 12.2 GM/dL (10.7-15.3); MCH 28.6 pg (25.7-33.7); MCHC 33.6 g/dl (32.0-36.0); MEAN CELL VOLUME 85.2 fl (80-96); MEAN PLT VOLUME 8.5 fl (7.5-11.1); PLATELET COUNT 333 10^3/uL (134-434); RBC 4.26 M/mm3 (3.60-5.2); RDW 15.1 % (11.6-15.6)
[2021-08-22] MEDS: PATIENT'S OWN MEDICATION (NON-FORMULARY) (Meloxicam [Meloxicam] 15 MG Tablet) PO SCH (10:29)
[2021-08-22] MEDS: BUDESONIDE/FORMETEROL FUMARATE 160/4.5 mcg INHALER IH SCH ×2 (10:30→21:09)
[2021-08-22] MEDS: AZITHROMYCIN IVPB 500 MG/250 ML BAG IVPB SCH (10:30)
[2021-08-22 10:51] LABS: CALCIUM 8.9 mg/dL (8.5-10.1)
[2021-08-22 10:52] LABS: BLOOD UREA NITROGEN 32.6 mg/dL (7-18)
[2021-08-22 10:55] LABS: CREATININE 0.8 mg/dL (0.55-1.3)
[2021-08-22] MEDS: LOSARTAN POTASSIUM 50 MG TABLET PO SCH (14:43)
[2021-08-22 15:13] VITALS: BMI 20.3
[2021-08-23] MEDS: LEVOTHYROXINE NA 50 MCG TABLET (FP) PO SCH (06:03)
[2021-08-23 09:43] LABS: HEMATOCRIT 37.8 % (32.4-45.2); HEMOGLOBIN 12.4 GM/dL (10.7-15.3); MCH 28.7 pg (25.7-33.7); MCHC 32.8 g/dl (32.0-36.0); MEAN CELL VOLUME 87.6 fl (80-96); MEAN PLT VOLUME 8.8 fl (7.5-11.1); PLATELET COUNT 338 10^3/uL (134-434); RBC 4.32 M/mm3 (3.60-5.2); RDW 14.7 % (11.6-15.6); WHITE BLOOD COUNT 12.5 K/mm3 (4.0-10.0)
[2021-08-23] MEDS: PATIENT'S OWN MEDICATION (NON-FORMULARY) (Meloxicam [Meloxicam] 15 MG Tablet) PO SCH (09:49)
[2021-08-23] MEDS: GABAPENTIN 100 MG CAPSULE PO SCH (09:49)
[2021-08-23] MEDS: LOSARTAN POTASSIUM 50 MG TABLET PO SCH (09:49)
[2021-08-23] MEDS: FOLIC ACID 1 MG TABLET (FP) PO SCH (09:50)
[2021-08-23] MEDS: ENOXAPARIN NA (PORCINE) 40 MG/0.4 ML DISP.SYRIN SQ SCH (09:50)
[2021-08-23] MEDS: BUDESONIDE/FORMETEROL FUMARATE 160/4.5 mcg INHALER IH SCH (09:51)
[2021-08-23] MEDS ORDERED: predniSONE 20 MG TABLET (UD) PO SCH (10:00)
[2021-08-23 10:05] LABS: ALBUMIN 2.5 g/dl (3.4-5.0); BLOOD UREA NITROGEN 34.1 mg/dL (7-18); CALCIUM 9.2 mg/dL (8.5-10.1)
[2021-08-23 10:08] LABS: CREATININE 0.8 mg/dL (0.55-1.3)
[2021-08-23 10:10] LABS: BILIRUBIN,TOTAL 0.3 mg/dL (0.2-1); TOT PROT 5.4 g/dl (6.4-8.2)
[2021-08-23 15:16] VITALS: BP 119/47; PULSE 85; TEMP 99.4
== END 2021-08-23 17:42 | disposition home or self-care (01) | DRG 189 ==
LOC: JER 10:06 → JERBED 12:53 → J5S 21:12
PROVIDERS: ADMIT Internal Medicine; ATTEND Internal Medicine
DX: J96.01 Acute respiratory failure with hypoxia (principal); J45.901 Unspecified asthma with (acute) exacerbation; J44.1 Chronic obstructive pulmonary disease with (acute) exacerbation; I10 Essential (primary) hypertension; E78.5 Hyperlipidemia, unspecified; E03.9 Hypothyroidism, unspecified; K21.9 Gastro-esophageal reflux disease without esophagitis; I25.10 Atherosclerotic heart disease of native coronary artery without angina pectoris
CPT/HCPCS: 36415; 71046-TC-FY; 80048; 80053; 83605; 83735; 84100; 84439; 84443; 84484; 85025; 85027; 85610; 85730; 87040; 87804; 93005; 93010; 94640; 94761; 97116-GP; 97161-GP; 99285-25; C9803; U0003; U0005

== ENCOUNTER 2022-07-17 18:04 | Inpatient (IN) | payer OTHER ==
[2022-07-17] MEDS ORDERED: ACETAMINOPHEN 1000 MG/100 ML BAG IVPB ONE (21:03)
[2022-07-17] MEDS ORDERED: ACETAMINOPHEN INJECTION 100 ML IVPB ONE (21:34)
[2022-07-17 22:18] LABS: BASO % 0.6 % (0-2.0); EOS % 3.2 % (0-4.5); HEMATOCRIT 34.3 % (32.4-45.2); HEMOGLOBIN 10.8 GM/dL (10.7-15.3); LYMPH % 18.2 % (8-40); MCH 30.7 pg (25.7-33.7); MCHC 31.6 g/dl (32.0-36.0); MEAN CELL VOLUME 97.1 fl (80-96); MEAN PLT VOLUME 8.5 fl (7.5-11.1); MONO % 5.1 % (3.8-10.2); NEUT % 72.9 % (42.8-82.8); PLATELET COUNT 380 10^3/uL (134-434); RBC 3.53 M/mm3 (3.60-5.2); RDW 14.9 % (11.6-15.6); WHITE BLOOD COUNT 6.7 K/mm3 (4.0-10.0)
[2022-07-17 22:35] LABS: VENOUS BASE EXCESS 3.2 mmol/L (-2-2); VENOUS O2 SATURATION 25.1 % (70-80); VENOUS PCO2 62.1 mmHg (38-52); VENOUS PH 7.309 (7.310-7.410)
[2022-07-17 22:37] LABS: ALBUMIN 3.3 g/dl (3.4-5.0); BLOOD UREA NITROGEN 21.2 mg/dL (7-18); CALCIUM 9.3 mg/dL (8.5-10.1); MAGNESIUM 2.5 mg/dL (1.8-2.4)
[2022-07-17 22:39] LABS: EPI CELLS 19 /uL (0-25.1); HYALINE CASTS 2 /uL (0-3.1); URINE APPEARANCE CLEAR; URINE BACTERIA 49 /uL (0-1359); URINE BILIRUBIN NEGATIVE (NEGATIVE); URINE COLOR YELLOW; URINE GLUCOSE (UA) NEGATIVE (NEGATIVE); URINE KETONE NEGATIVE (NEGATIVE); URINE LEUK ESTERASE 2+ (NEGATIVE); URINE NITRITE NEGATIVE (NEGATIVE); URINE PROTEIN NEGATIVE (NEGATIVE); URINE RBC 18 /uL (0-23.9); URINE UROBILINOGEN 0.2 mg/dL (0.2-1.0); URINE WBC 139 /uL (0-25.8)
[2022-07-17 22:40] LABS: CREATININE 0.7 mg/dL (0.55-1.3)
[2022-07-17 22:43] LABS: TOT PROT 6.5 g/dl (6.4-8.2)
[2022-07-17 23:14] LABS: BILIRUBIN,TOTAL 0.3 mg/dL (0.2-1)
[2022-07-18] MEDS ORDERED: CEFTRIAXONE 1 GM/50 ML BAG ONE (00:21)
[2022-07-18 04:51] VITALS: BMI 18.8
[2022-07-18] MEDS: metroNIDAZOLE 250 MG TABLET PO SCH ×3 (05:06→21:21)
[2022-07-18] MEDS: LACTATED RINGERS SOLUTION 1,000 ML/1,000 ML INFUS.BAG IV SCH (06:21)
[2022-07-18] MEDS: LEVOTHYROXINE NA 50 MCG TABLET (FP) PO SCH (06:21)
[2022-07-18] MEDS: LOSARTAN POTASSIUM 50 MG TABLET PO SCH (10:48)
[2022-07-18] MEDS: CEFTRIAXONE 1 GM in DEXTROSE 5%-WATER - 50 ML IVPB SCH (10:48)
[2022-07-18] MEDS: ALBUTEROL SO4 HFA INHALER IH PRN (10:48)
[2022-07-18] MEDS: ENOXAPARIN NA (PORCINE) 40 MG/0.4 ML DISP.SYRIN SQ SCH (10:48)
[2022-07-18] MEDS: FLUTICASONE/UMECLIDIN/VILANTER(100-62.5-25 TRELEGY ELLIPTA) INAHLER IH SCH (10:48)
[2022-07-18 12:07] LABS: HEMATOCRIT 30.1 % (32.4-45.2); HEMOGLOBIN 9.8 GM/dL (10.7-15.3); MCH 31.5 pg (25.7-33.7); MCHC 32.5 g/dl (32.0-36.0); MEAN CELL VOLUME 96.8 fl (80-96); MEAN PLT VOLUME 8.5 fl (7.5-11.1); PLATELET COUNT 326 10^3/uL (134-434); RBC 3.11 M/mm3 (3.60-5.2); RDW 14.8 % (11.6-15.6); WHITE BLOOD COUNT 5.8 K/mm3 (4.0-10.0)
[2022-07-18 12:29] LABS: BLOOD UREA NITROGEN 18.1 mg/dL (7-18); CALCIUM 8.9 mg/dL (8.5-10.1); MAGNESIUM 2.4 mg/dL (1.8-2.4)
[2022-07-18 12:32] LABS: CREATININE 0.7 mg/dL (0.55-1.3)
[2022-07-18] MEDS ORDERED: ACETAMINOPHEN 1000 MG/100 ML BAG IVPB ONE (21:08)
[2022-07-18] MEDS ORDERED: MELATONIN 1 MG TABLET PO PRN (21:08)
[2022-07-18] MEDS ORDERED: MONTELUKAST NA 10 MG TABLET PO SCH (22:00)
[2022-07-19] MEDS: LEVOTHYROXINE NA 50 MCG TABLET (FP) PO SCH (06:35)
[2022-07-19] MEDS: metroNIDAZOLE 250 MG TABLET PO SCH ×2 (06:35→14:27)
[2022-07-19] MEDS: LACTATED RINGERS SOLUTION 1,000 ML/1,000 ML INFUS.BAG IV SCH (06:38)
[2022-07-19] MEDS: LOSARTAN POTASSIUM 50 MG TABLET PO SCH (09:53)
[2022-07-19] MEDS: ENOXAPARIN NA (PORCINE) 40 MG/0.4 ML DISP.SYRIN SQ SCH (09:53)
[2022-07-19] MEDS: CEFTRIAXONE 1 GM in DEXTROSE 5%-WATER - 50 ML IVPB SCH (09:54)
[2022-07-19] MEDS: ALBUTEROL SO4 HFA INHALER IH PRN (09:55)
[2022-07-19] MEDS: FLUTICASONE/UMECLIDIN/VILANTER(100-62.5-25 TRELEGY ELLIPTA) INAHLER IH SCH (09:55)
[2022-07-19 10:13] LABS: BASO % 0.6 % (0-2.0); EOS % 4.7 % (0-4.5); HEMATOCRIT 30.2 % (32.4-45.2); HEMOGLOBIN 9.8 GM/dL (10.7-15.3); LYMPH % 16.8 % (8-40); MCH 31.6 pg (25.7-33.7); MCHC 32.6 g/dl (32.0-36.0); MEAN PLT VOLUME 8.2 fl (7.5-11.1); MONO % 4.4 % (3.8-10.2); NEUT % 73.5 % (42.8-82.8); PLATELET COUNT 312 10^3/uL (134-434); RBC 3.11 M/mm3 (3.60-5.2); RDW 15.3 % (11.6-15.6); WHITE BLOOD COUNT 6.1 K/mm3 (4.0-10.0)
[2022-07-19 10:43] LABS: ALBUMIN 2.7 g/dl (3.4-5.0); BLOOD UREA NITROGEN 15.1 mg/dL (7-18); CALCIUM 8.7 mg/dL (8.5-10.1)
[2022-07-19 10:44] LABS: MAGNESIUM 2.3 mg/dL (1.8-2.4)
[2022-07-19 10:46] LABS: CREATININE 0.6 mg/dL (0.55-1.3)
[2022-07-19 10:48] LABS: BILIRUBIN,TOTAL 0.3 mg/dL (0.2-1); TOT PROT 5.5 g/dl (6.4-8.2)
[2022-07-19 15:09] VITALS: BP 156/77; PULSE 86; RESP 100; TEMP 99
== END 2022-07-19 20:47 | disposition home or self-care (01) | DRG 689 ==
LOC: JER 18:04 → JERBED 07-18 01:21 → J8W 07-18 03:42
PROVIDERS: ADMIT Internal Medicine; ATTEND Nurse Practitioner Acute Care
DX: N39.0 Urinary tract infection, site not specified (principal); G93.41 Metabolic encephalopathy; E78.5 Hyperlipidemia, unspecified; I10 Essential (primary) hypertension; J44.9 Chronic obstructive pulmonary disease, unspecified; K21.9 Gastro-esophageal reflux disease without esophagitis; E03.9 Hypothyroidism, unspecified; E86.0 Dehydration; I11.0 Hypertensive heart disease with heart failure; I50.9 Heart failure, unspecified; Z99.81 Dependence on supplemental oxygen
CPT/HCPCS: 36415; 70450-TC; 71045-TC-FY; 74177-TC; 80048; 80053; 81003; 82803; 83605; 83690; 83735; 84443; 84484; 85025; 85027; 87086; 93005; 93010; 97116-GP; 97161-GP; 99285-25; C9803-CS; Q9967; U0003; U0005

== ENCOUNTER 2022-11-30 16:30 | Observation (INO) | payer OTHER ==
[2022-11-30] MEDS ORDERED: SODIUM CHLORIDE 0.9% 500 ML INFUS.BAG IV ONE (17:27)
[2022-11-30] MEDS ORDERED: ONDANSETRON 4 MG/2 ML VIAL ONE ×2 (17:28→21:11)
[2022-11-30] MEDS ORDERED: ONDANSETRON 4 MG/2 ML VIAL IVPUSH ONE ×2 (17:28→21:03)
[2022-11-30 17:55] LABS: EPI CELLS 9 /uL (0-25.1); HYALINE CASTS 1 /uL (0-3.1); URINE APPEARANCE CLEAR; URINE BACTERIA 2 /uL (0-1359); URINE BILIRUBIN NEGATIVE (NEGATIVE); URINE COLOR YELLOW; URINE GLUCOSE (UA) NEGATIVE (NEGATIVE); URINE KETONE 2+ (NEGATIVE); URINE LEUK ESTERASE NEGATIVE (NEGATIVE); URINE NITRITE NEGATIVE (NEGATIVE); URINE PROTEIN 1+ (NEGATIVE); URINE RBC 26 /uL (0-23.9); URINE WBC 6 /uL (0-25.8)
[2022-11-30] MEDS ORDERED: ACETAMINOPHEN 1000 MG/100 ML BAG IVPB ONE (18:17)
[2022-11-30] MEDS ORDERED: FAMOTIDINE 20 MG/50 ML IVPB 20 MG/50 ML MG IVPB ONE ×2 (18:17→19:26)
[2022-11-30 18:18] LABS: BASO % 0.3 % (0-2.0); EOS % 0.2 % (0-4.5); HEMATOCRIT 27.1 % (32.4-45.2); LYMPH % 11.4 % (8-40); MCH 31.8 pg (25.7-33.7); MCHC 33.1 g/dl (32.0-36.0); MEAN PLT VOLUME 8.2 fl (7.5-11.1); MONO % 5.6 % (3.8-10.2); NEUT % 82.5 % (42.8-82.8); PLATELET COUNT 277 10^3/uL (134-434); RBC 2.82 M/mm3 (3.60-5.2); RDW 19.9 % (11.6-15.6); WHITE BLOOD COUNT 4.7 K/mm3 (4.0-10.0)
[2022-11-30 18:26] LABS: INR 1.08 (0.83-1.09); PROTHROMBIN TIME (PATIENT) 12.5 SEC (9.7-13.0)
[2022-11-30 18:29] LABS: ACTIVATED PTT 28.4 SECONDS (25.2-36.5)
[2022-11-30 18:44] LABS: BLOOD UREA NITROGEN 14.3 mg/dL (7-18); CALCIUM 8.5 mg/dL (8.5-10.1)
[2022-11-30 18:47] LABS: CREATININE 0.6 mg/dL (0.55-1.3)
[2022-11-30 18:48] LABS: BILIRUBIN,TOTAL 0.5 mg/dL (0.2-1); TOT PROT 6.2 g/dl (6.4-8.2)
[2022-11-30 18:50] LABS: N-TERMINAL BNP 3731.9 pg/ml (5-450)
[2022-11-30] MEDS ORDERED: ACETAMINOPHEN INJECTION 100 ML IVPB ONE (18:59)
[2022-11-30] MEDS: morphine CARPU-JECT 2 MG/1 ML DISP.SYRIN IVPUSH ONE ×2 (19:33→23:42)
[2022-11-30] MEDS ORDERED: METOCLOPRAMIDE HCL INJECTION 10 MG/2 ML VIAL IVPB ONE (22:53)
[2022-11-30] MEDS ORDERED: METOCLOPRAMIDE HCL INJECTION 10 MG/2 ML VIAL ONE (23:44)
[2022-11-30] MEDS ORDERED: SODIUM CHLORIDE 1,000 ML IV SCH (23:45)
[2022-11-30] MEDS ORDERED: METOCLOPRAMIDE HCL INJECTION 10 MG/2 ML VIAL IVPUSH PRN (23:52)
[2022-12-01] MEDS ORDERED: ACETAMINOPHEN 1000 MG/100 ML BAG IVPB PRN (00:06)
[2022-12-01] MEDS ORDERED: ALBUTEROL SO4 HFA INHALER IH PRN (00:09)
[2022-12-01] MEDS ORDERED: BUDESONIDE 0.25 MG/2ML INH SUSP VIAL NEB SCH (00:15)
[2022-12-01] MEDS: AMPICILLIN NA/SULBACTAM NA 3 GM in SODIUM CHLORIDE 100 ML IVPB SCH ×4 (03:33→15:18)
[2022-12-01] MEDS: LEVOTHYROXINE NA 50 MCG TABLET (FP) PO SCH (06:08)
[2022-12-01 06:52] VITALS: BMI 18.6
[2022-12-01] MEDS: BUDESONIDE 0.25 MG/2ML INH SUSP VIAL NEB SCH ×2 (07:43→21:39)
[2022-12-01 08:48] LABS: BASO % 0.3 % (0-2.0); HEMATOCRIT 27.6 % (32.4-45.2); HEMOGLOBIN 9.1 GM/dL (10.7-15.3); INR 0.99 (0.83-1.09); LYMPH % 17.9 % (8-40); MEAN CELL VOLUME 96.8 fl (80-96); MEAN PLT VOLUME 8.5 fl (7.5-11.1); MONO % 8.6 % (3.8-10.2); NEUT % 73.2 % (42.8-82.8); PLATELET COUNT 303 10^3/uL (134-434); PROTHROMBIN TIME (PATIENT) 11.5 SEC (9.7-13.0); RBC 2.86 M/mm3 (3.60-5.2); RDW 20.7 % (11.6-15.6); WHITE BLOOD COUNT 4.5 K/mm3 (4.0-10.0)
[2022-12-01 08:50] LABS: ACTIVATED PTT 29.5 SECONDS (25.2-36.5)
[2022-12-01 09:09] LABS: BLOOD UREA NITROGEN 14.7 mg/dL (7-18); CALCIUM 8.3 mg/dL (8.5-10.1)
[2022-12-01 09:10] LABS: ALBUMIN 2.8 g/dl (3.4-5.0); MAGNESIUM 2.3 mg/dL (1.8-2.4)
[2022-12-01 09:12] LABS: CREATININE 0.6 mg/dL (0.55-1.3); PHOSPHOROUS 4.4 mg/dL (2.5-4.9)
[2022-12-01 09:17] LABS: BILIRUBIN,TOTAL 0.5 mg/dL (0.2-1)
[2022-12-01 09:57] LABS: ANISOCYTOSIS 2+; MACROCYTOSIS 1+
[2022-12-01] MEDS: FOLIC ACID 1 MG TABLET (FP) PO SCH (10:40)
[2022-12-01] MEDS: LOSARTAN POTASSIUM 50 MG TABLET PO SCH (10:40)
[2022-12-01] MEDS ORDERED: IRON SUCROSE INJECTION 200 MG in SODIUM CHLORIDE 90 ML IVPB ONE (11:00)
[2022-12-01] MEDS: FLUTICASONE/UMECLIDIN/VILANTER(100-62.5-25 TRELEGY ELLIPTA) INAHLER IH SCH (12:51)
[2022-12-01] MEDS ORDERED: REMDESIVIR 200 MG in SODIUM CHLORIDE 250 ML IVPB ONE (17:30)
[2022-12-01] MEDS: MONTELUKAST NA 10 MG TABLET PO SCH (21:27)
[2022-12-01] MEDS: GABAPENTIN 100 MG CAPSULE PO SCH (21:27)
[2022-12-02] MEDS: LEVOTHYROXINE NA 50 MCG TABLET (FP) PO SCH (06:28)
[2022-12-02] MEDS: AMPICILLIN NA/SULBACTAM NA 3 GM in SODIUM CHLORIDE 100 ML IVPB SCH ×5 (06:28→21:39)
[2022-12-02] MEDS: BUDESONIDE 0.25 MG/2ML INH SUSP VIAL NEB SCH ×2 (07:50→20:31)
[2022-12-02] MEDS: ENOXAPARIN NA (PORCINE) 40 MG/0.4 ML DISP.SYRIN SQ SCH (09:45)
[2022-12-02] MEDS: DEXAMETHASONE 4 MG TABLET (FP) PO SCH (09:45)
[2022-12-02] MEDS: FOLIC ACID 1 MG TABLET (FP) PO SCH (09:45)
[2022-12-02] MEDS: LOSARTAN POTASSIUM 50 MG TABLET PO SCH (09:45)
[2022-12-02 09:54] LABS: HEMOGLOBIN 9.2 GM/dL (10.7-15.3); MCH 32.5 pg (25.7-33.7); MCHC 33.9 g/dl (32.0-36.0); MEAN CELL VOLUME 95.9 fl (80-96); MEAN PLT VOLUME 8.5 fl (7.5-11.1); PLATELET COUNT 288 10^3/uL (134-434); RBC 2.82 M/mm3 (3.60-5.2); RDW 20.2 % (11.6-15.6); WHITE BLOOD COUNT 3.4 K/mm3 (4.0-10.0)
[2022-12-02] MEDS ORDERED: REMDESIVIR 100 MG in SODIUM CHLORIDE 250 ML IVPB SCH (10:00)
[2022-12-02] MEDS ORDERED: IRON SUCROSE INJECTION 200 MG in SODIUM CHLORIDE 90 ML IVPB ONE (10:00)
[2022-12-02 10:15] LABS: CALCIUM 8.3 mg/dL (8.5-10.1)
[2022-12-02 10:16] LABS: MAGNESIUM 2.5 mg/dL (1.8-2.4)
[2022-12-02 10:18] LABS: CREATININE 0.6 mg/dL (0.55-1.3); PHOSPHOROUS 3.1 mg/dL (2.5-4.9)
[2022-12-02] MEDS ORDERED: REMDESIVIR 200 MG in SODIUM CHLORIDE 250 ML IVPB ONE (12:00)
[2022-12-02] MEDS: FLUTICASONE/UMECLIDIN/VILANTER(100-62.5-25 TRELEGY ELLIPTA) INAHLER IH SCH (12:43)
[2022-12-02] MEDS: MONTELUKAST NA 10 MG TABLET PO SCH (21:40)
[2022-12-02] MEDS: GABAPENTIN 100 MG CAPSULE PO SCH (21:40)
[2022-12-03] MEDS: AMPICILLIN NA/SULBACTAM NA 3 GM in SODIUM CHLORIDE 100 ML IVPB SCH ×4 (03:49→21:19)
[2022-12-03] MEDS: LEVOTHYROXINE NA 50 MCG TABLET (FP) PO SCH (06:36)
[2022-12-03] MEDS: BUDESONIDE 0.25 MG/2ML INH SUSP VIAL NEB SCH ×2 (07:26→20:06)
[2022-12-03] MEDS: DEXAMETHASONE 4 MG TABLET (FP) PO SCH (09:10)
[2022-12-03] MEDS: ENOXAPARIN NA (PORCINE) 40 MG/0.4 ML DISP.SYRIN SQ SCH (09:10)
[2022-12-03] MEDS: LOSARTAN POTASSIUM 50 MG TABLET PO SCH (09:11)
[2022-12-03] MEDS: FOLIC ACID 1 MG TABLET (FP) PO SCH (09:11)
[2022-12-03] MEDS ORDERED: IRON SUCROSE INJECTION 200 MG in SODIUM CHLORIDE 90 ML IVPB ONE (10:00)
[2022-12-03] MEDS: FLUTICASONE/UMECLIDIN/VILANTER(100-62.5-25 TRELEGY ELLIPTA) INAHLER IH SCH (11:18)
[2022-12-03] MEDS ORDERED: REMDESIVIR 100 MG in SODIUM CHLORIDE 250 ML IVPB SCH (12:00)
[2022-12-03] MEDS: MONTELUKAST NA 10 MG TABLET PO SCH (21:19)
[2022-12-03] MEDS: GABAPENTIN 100 MG CAPSULE PO SCH (21:19)
[2022-12-04] MEDS: AMPICILLIN NA/SULBACTAM NA 3 GM in SODIUM CHLORIDE 100 ML IVPB SCH ×4 (02:42→21:45)
[2022-12-04] MEDS: LEVOTHYROXINE NA 50 MCG TABLET (FP) PO SCH (06:04)
[2022-12-04] MEDS: BUDESONIDE 0.25 MG/2ML INH SUSP VIAL NEB SCH ×2 (07:13→20:29)
[2022-12-04] MEDS: FOLIC ACID 1 MG TABLET (FP) PO SCH (09:13)
[2022-12-04] MEDS: LOSARTAN POTASSIUM 50 MG TABLET PO SCH (09:13)
[2022-12-04] MEDS: FLUTICASONE/UMECLIDIN/VILANTER(100-62.5-25 TRELEGY ELLIPTA) INAHLER IH SCH (09:13)
[2022-12-04] MEDS: ENOXAPARIN NA (PORCINE) 40 MG/0.4 ML DISP.SYRIN SQ SCH (09:13)
[2022-12-04 09:53] LABS: ALBUMIN 2.4 g/dl (3.4-5.0); BLOOD UREA NITROGEN 15.4 mg/dL (7-18); CALCIUM 8.3 mg/dL (8.5-10.1)
[2022-12-04 09:56] LABS: CREATININE 0.5 mg/dL (0.55-1.3)
[2022-12-04 09:58] LABS: BILIRUBIN,TOTAL 0.4 mg/dL (0.2-1)
[2022-12-04] MEDS: GABAPENTIN 100 MG CAPSULE PO SCH (21:46)
[2022-12-04] MEDS: MONTELUKAST NA 10 MG TABLET PO SCH (21:46)
[2022-12-05] MEDS: AMPICILLIN NA/SULBACTAM NA 3 GM in SODIUM CHLORIDE 100 ML IVPB SCH ×2 (02:43→09:54)
[2022-12-05] MEDS: LEVOTHYROXINE NA 50 MCG TABLET (FP) PO SCH (05:59)
[2022-12-05 08:01] LABS: HEMATOCRIT 28.4 % (32.4-45.2); HEMOGLOBIN 9.5 GM/dL (10.7-15.3); MCH 32.2 pg (25.7-33.7); MCHC 33.4 g/dl (32.0-36.0); MEAN CELL VOLUME 96.5 fl (80-96); MEAN PLT VOLUME 9.1 fl (7.5-11.1); PLATELET COUNT 273 10^3/uL (134-434); RBC 2.95 M/mm3 (3.60-5.2); RDW 20.1 % (11.6-15.6); WHITE BLOOD COUNT 4.6 K/mm3 (4.0-10.0)
[2022-12-05] MEDS: BUDESONIDE 0.25 MG/2ML INH SUSP VIAL NEB SCH (08:19)
[2022-12-05 08:24] LABS: ALBUMIN 2.5 g/dl (3.4-5.0)
[2022-12-05 08:25] LABS: BLOOD UREA NITROGEN 15.2 mg/dL (7-18)
[2022-12-05 08:28] LABS: CREATININE 0.6 mg/dL (0.55-1.3)
[2022-12-05 08:29] LABS: TOT PROT 5.2 g/dl (6.4-8.2)
[2022-12-05 08:30] LABS: BILIRUBIN,TOTAL 0.5 mg/dL (0.2-1)
[2022-12-05 10:21] LABS: ERYTHROCYTE SEDIMENTATION RATE 11 mm/hr (0-30)
[2022-12-05] MEDS: FOLIC ACID 1 MG TABLET (FP) PO SCH (10:34)
[2022-12-05] MEDS: LOSARTAN POTASSIUM 50 MG TABLET PO SCH (10:34)
[2022-12-05] MEDS: ENOXAPARIN NA (PORCINE) 40 MG/0.4 ML DISP.SYRIN SQ SCH (10:35)
[2022-12-05] MEDS: FLUTICASONE/UMECLIDIN/VILANTER(100-62.5-25 TRELEGY ELLIPTA) INAHLER IH SCH (10:35)
[2022-12-05] MEDS ORDERED: CYANOCOBALAMIN (VITAMIN B-12) 1000 MCG/1 ML VIAL IM ONE (11:30)
[2022-12-05 12:38] VITALS: RESP 18; TEMP 98
[2022-12-05 14:11] VITALS: BP 155/72; PULSE 72
== END 2022-12-05 18:28 | disposition home health service (06) ==
LOC: JER 16:30 → JERBED 22:15 → J6S 12-01 02:09
PROVIDERS: ADMIT Internal Medicine; ATTEND Internal Medicine
PROC: 3E033GC Introduction of Other Therapeutic Substance into Peripheral Vein, Percutaneous Approach (ICD-10-PCS; principal; 2022-11-30)
PROC: 3E033NZ Introduction of Analgesics, Hypnotics, Sedatives into Peripheral Vein, Percutaneous Approach (ICD-10-PCS; 2022-11-30)
PROC: 3E0337Z Introduction of Electrolytic and Water Balance Substance into Peripheral Vein, Percutaneous Approach (ICD-10-PCS; 2022-11-30)
PROC: 3E013GC Introduction of Other Therapeutic Substance into Subcutaneous Tissue, Percutaneous Approach (ICD-10-PCS; 2022-11-30)
PROC: 3E023GC Introduction of Other Therapeutic Substance into Muscle, Percutaneous Approach (ICD-10-PCS; 2022-11-30)
PROC: 3E0F7SF Introduction of Other Gas into Respiratory Tract, Via Natural or Artificial Opening (ICD-10-PCS; 2022-11-30)
DX: G93.41 Metabolic encephalopathy (principal); U07.1 COVID-19; D51.0 Vitamin B12 deficiency anemia due to intrinsic factor deficiency; R11.2 Nausea with vomiting, unspecified; R19.7 Diarrhea, unspecified; I11.0 Hypertensive heart disease with heart failure; I50.9 Heart failure, unspecified; E78.5 Hyperlipidemia, unspecified; F03.90 Unspecified dementia, unspecified severity, without behavioral disturbance, psychotic disturbance, mood disturbance, and anxiety; J44.9 Chronic obstructive pulmonary disease, unspecified; K21.9 Gastro-esophageal reflux disease without esophagitis; E03.9 Hypothyroidism, unspecified; Z99.81 Dependence on supplemental oxygen; K82.1 Hydrops of gallbladder; K82.8 Other specified diseases of gallbladder; R09.02 Hypoxemia; R41.82 Altered mental status, unspecified; D50.9 Iron deficiency anemia, unspecified
CPT/HCPCS: 0241U-QW; 36415; 71045-TC-FY; 74177-TC; 74181-TC; 80048; 80053; 81003; 82272; 82607; 82728; 82746; 82962; 83540; 83550; 83605; 83690; 83735; 83880; 84100; 84443; 85025; 85027; 85045; 85610; 85651; 85730; 86140; 86850; 86900; 86901; 87040; 87086; 93005; 93010; 94640; 96365; 96367; 96372; 96375; 99285-25; C9399; G0378; J1756; Q9967